=== PATIENT | female | born 1985 | race Caucasian/White ===

== ENCOUNTER 2016-07-12 21:14 | Emergency (ER) | payer OTHER ==
[~2016-07-12] VITALS: Ht 162.6 cm; Wt 102.1 kg
[2016-07-12 21:28] VITALS: TEMP 37.5; Ht 162.6 cm; Wt 102.1 kg
[2016-07-12] MEDS ORDERED: ACET500C14 PO (21:47)
[2016-07-12] MEDS ORDERED: NEOM1SOL7 OTR (21:47)
[2016-07-12] MEDS ORDERED: CIPR-255 PO (21:47)
[2016-07-12] MEDS ORDERED: NAPR-1169 PO (21:47)
[2016-07-12] MEDS ORDERED: NORCO 5/325MG HOME PACK PO ONE (22:15)
[2016-07-12 22:25] VITALS: BP 145/86; PULSE 81; O2SAT 100
--- NOTE | 2016-07-13 00:04 | EMERGENCY ROOM VISIT NOTE ---
History First contact with patient: 21:33 Chief Complaint: EAR PAIN Stated Complaint: R EAR SWELLING AND PAIN History of Present Illness The patient is a 30 year old female who presents to the Emergency Room with complaints of right ear pain that she rates a 9/10 for the past one day. The patient has been at a local urgent care clinics twice over the past one day for evaluation of this. She states that she was diagnosed with an ear infection and started on neomycin and polymyxin hydrocortisone drops for otitis externa. The patient was referred to ENT and has an appointment scheduled in about 3 weeks. The patient is also on oral Cipro for this. She states that she went back to their clinic tonight after the initial visit, and she was referred to the ER because her pain continues. The patient does not have fever or chills. No chest pain or shortness of breath. Review of Systems More than 10 systems were reviewed and otherwise negative with the exception of history of present illness. Past Medical/Surgical History No chronic medical disease Family History No pertinent family history Social History Smoking Status: Never Smoker Housing Status: lives with family Current/Historical Medications Scheduled Ciprofloxacin Hcl (Cipro), 500 MG PO Q12 Myjtaycc-Vujwxwodp-Jo (Otic) (Neomycin/Polymyxin/Hc), 4 DROPS OTR TID Scheduled PRN Acetaminophen (Extra Strength Acetaminop), 1,000 MG PO UD PRN for Pain or Fever Naproxen (Naprosyn), 500 MG PO BID PRN for Pain Allergies Coded Allergies: Amoxicillin (Verified Allergy, Intermediate, Hives, 07/12/16) Penicillins (Verified Allergy, Intermediate, Hives, 07/12/16) Sulfamethoxazole w/Trimethoprim (Verified Allergy, Intermediate, Hives, ) Physical Exam Vital Signs Date Time Temp Pulse Resp B/P Pulse Ox O2 Delivery O2 Flow Rate FiO2 07/12/16 22:25 81 16 145/86 100 07/12/16 21:28 37.5 92 18 169/93 99 Room Air Pain Rating (0-10): 3.0 Physical Exam VITALS: Vitals are noted on the nurse's note and reviewed by myself. Vital signs stable. GENERAL: Well-developed, well-nourished, white female who appears quite uncomfortable on presentation. She has cooperative HEAD: Normocephalic atraumatic. EARS: Left external canal and ear appear normal. The right external ear is normal, however the right canal is edematous with white drainage and discharge consistent with otitis externa. No mastoid tenderness. EYES: Pupils equal round and reactive to light and accommodation. Conjunctivae without injection, sclerae without icterus. Extraocular movements intact. NOSE: Patent, turbinates without inflammation or discharge. MOUTH: Mucous membranes moist. Tonsils are not enlarged. Pharynx without erythema, blood, or exudate. Uvula midline. Airway patent. NECK: Supple without nuchal rigidity. No lymphadenopathy. No thyromegaly. Cervical spine is nontender. HEART: Regular rate and rhythm without murmurs gallops or rubs. LUNGS: Clear to auscultation bilaterally without wheezes, rales or rhonchi. No retractions or accessory muscle use. Medical Decision & Procedures Medications Administered Medications (Trade) Dose Ordered Sig/Will Route Start Time Stop Time Status Last Admin Dose Admin Acetaminophen/ Hydrocodone Bitart (Linn 5/325mg Home Pack) 1 homepack UD ONCE PO 07/12/16 22:15 07/12/16 22:16 DC 07/12/16 22:15 1 HOMEPACK ED Course Physical exam and history were performed. Nursing notes and EMR were reviewed. Patient appears to have acute otitis externa for the past one day. On examination the patient does not have an ear wick in the ear. I asked the patient about this, and she states that urgent care does not have these, and one was not placed. The patient certainly needs an ear wick in order to be treated appropriately for this condition. Ear wick was placed into the right ear without difficulty, and ear drops were administered from her previous prescription. Overall the patient does appear stable for discharge. She has not upcoming appointment with ENT, and now with an ear wick she should have slow and steady improvement of her symptoms. I will give her a home pack of Vicodin to help with discomfort tonight. The patient was certainly invited back to the ER with any new, worsening, or concerning symptoms. She was pleased with this plan and rated her discomfort a 3/10 at the time of departure. The chart was completed utilizing [employer]ognition Software. Grammatical errors, random word insertions, pronoun errors, and incomplete sentences are an occasional consequence of this system due to software limitations, ambient noise, and hardware issues. Any formal questions or concerns about the content, text, or information contained within the body of this dictation should be directly addressed to the provider for clarification. . Medical Decision Differential diagnosis: Etiologies such as viral syndrome, otitis, pharyngitis, pneumonia, meningitis, urinary tract infection, sepsis, bacteremia, intussusception, as well as others were entertained. Impression Primary Impression: Right otitis externa Departure Information Dispostion Home / Self-Care Condition GOOD Forms HOME CARE DOCUMENTATION FORM, IMPORTANT VISIT INFORMATION Patient Instructions My [facility] Additional Instructions You were seen and evaluated today on an emergency basis only. This is not a substitute for, or an effort to provide, complete comprehensive medical care. It is not possible to recognize and treat all injuries or illnesses in a single emergency department visit. For this reason it is recommended that you followup with ENT as scheduled for ongoing care and evaluation. Continue your medications as previously prescribed. Linn (hydrocodone/acetaminophen) 5/325 mg (homepack) every 6 hours as needed for worsening breakthrough pain. Do not drink or drive on Linn. This medication will likely make you tired. Do not take Linn and Tylenol at the same time as both contain acetaminophen. Linn may cause constipation. You may wish to take an vhue-czi-shclyai stool softener like Colace if this occurs. You are welcome to return to the emergency department anytime with new, worsening, or concerning symptoms.
== END 2016-07-12 22:26 | disposition home or self-care (01) ==
LOC: C.EDB 21:17 → C.EDD 22:26
DX: H60.91 Unspecified otitis externa, right ear (principal)

== ENCOUNTER 2023-05-20 07:34 | Inpatient (IN) ==
[2023-05-20 08:49] LABS: Creatinine Urine Random 91.3 mg/dl; Protein Creatinine Ratio Urine 0.2 (0-0.2); Total Protein Urine Random 20.1 mg/dl (0-11.9)
[2023-05-20] MEDS ORDERED: SODIUM CHLORIDE 0.9% 250 ML IV PRN (08:49)
[2023-05-20 09:29] LABS: Hemoglobin 11.8 g/dl (12.0-16.0); Mean Corpuscular Hemoglobin 30.1 pg (25.0-34.0); Mean Corpuscular Hgb Conc 33.7 g/dL (32.0-36.0); Mean Corpuscular Volume 89.3 fL (80.0-100.0); Mean Platelet Volume 9.5 fL (9.4-12.4); Platelet Count 342 K/uL (130-400); RDW Coefficient of Variation 15.2 % (11.5-14.5); RDW Standard Deviation 48.7 fL (36.4-46.3); Red Blood Count 3.92 M/uL (4.20-5.40); White Blood Count 10.56 K/ul (4.8-10.8)
[2023-05-20 09:40] LABS: Albumin Globulin Ratio 0.9 (0.9-2); Albumin Level 3.2 gm/dl (3.4-5.0); BUN Creatinine Ratio 27.1 (10-20); Bilirubin,Total 0.3 mg/dl (0.2-1.0); Calcium 8.5 mg/dl (8.6-10.3); Creatinine Clr Calc Pharmacy 229.9 ml/min; Est GFR (African American) 143.2 ml/min; Est GFR (Non-African American) 123.6 ml/min; Globulin 3.6 gm/dl (2.5-4.0); Total Protein 6.8 gm/dl (6.0-8.3)
[2023-05-20 09:51] LABS: INR 0.9 (0.9-1.1); Partial Thromboplastin Ratio 0.9; Partial Thromboplastin Time 26 Seconds (21-31); Prothrombin Time 9.8 Seconds (9.0-12.0)
--- OUTSIDE RECORDS SUMMARY | 2023-05-20 10:58 | External Medical Summary | Summary of Care ---
Author Name Unknown Organization [facility] Address [address] [place] [address] Phone [phone] Care Team Providers Care Server Programmer Name Role Phone Kasia Jara MD Primary Care Provider [phone] Encounter Details Date Type Department Care Team (Late st Contact Info) Description 05/18/2023 Orders Only Motorcycle Police Officer Obstetrics Maternal Medicine, [place] [address] [facility] [address] [place] [address] Dee Dee Albarran CRNP [address] [facility] [address] [place] [address] Insulin controlled gestational diabetes mellitus (GDM) during , antepartum Allergies Active Allergy Reactions Criticality Noted Date Comments Amoxicillin 07/08/2014 hives Naltrexone Nausea/vomiting 05/03/2019 Penicillins 07/08/2014 Sulfamethoxazole-Trimethoprim 2014 hives documented as of this encounter (statuses as of 05/18/2023) Medications Medication Sig Dispensed Refills Start Date End Date Status Tylenol 325 MG Oral Capsule (Acetaminophen) Take by mouth as needed. 0 Active One-A-Day Womens 28-0.8 & 440 MG Oral Take 1 Tablet by mouth in the morning. 0 Active Folic Acid 400 MCG Oral Tablet Take 1 Tablet by mouth in the morning. 0 Active DHA 200 MG Oral Capsule (docosahexaenoic Acid) Take 1 Capsule by mouth in the morning. 0 Active Calcium Carbonate Antacid 500 MG Oral Tablet Chewable Take 1 Tablet by mouth in the morning. 0 Active OneTouch Verio Flex System w/Device KitIndications:Ges tational diabetes mellitus (GDM), antepartum, gestational diabetes method of control unspecified Use to test blood sugars 4 times daily (fasting, 1 hour after breakfast, lunch, and dinner) 1 Kit 0 12/02/2022 Active TradierTouch Verio In Vitro Strip (Glucose Blood)Indications: Gestational diabetes mellitus (GDM), antepartum, gestational diabetes method of control unspecified Use to test blood sugars 4 times daily (fasting, 1 hour after breakfast, lunch, and dinner) 125 Strip 6 12/02/2022 Active TradierTouch Delica Lancets 30GIndications:Ges tational diabetes mellitus (GDM), antepartum, gestational diabetes method of control unspecified Use to test blood sugars 4 times daily (fasting, 1 hour after breakfast, lunch, and dinner) 200 Each 6 12/02/2022 Active Aspirin 81 MG Oral Tablet Delayed Release Take 1 Tablet by mouth in the morning. 100 Tablet 3 12/23/2022 Active Iron-Vitamin C 65-125 MG Oral Tablet (Vitron C)Indications:Ante anemia complicating Take 1 Tablet by mouth in the morning. 30 Tablet 3 02/25/2023 Active BD Pen Needle Mini U/F 31G X 5 MM (Insulin Pen Needle)Indications :Insulin controlled gestational diabetes mellitus (GDM) in second trimester,Supervis ion of high risk in second trimester Use to inject insulin twice daily. 200 Each 3 04/05/2023 Active Sertraline HCl 50 MG Oral Tablet (Zoloft)Indication s:SHIELA (generalized anxiety disorder),Binge eating disorder Take 1 Tablet by mouth in the morning. 30 Tablet 2 04/22/2023 Active Labetalol HCl 200 MG Oral Tablet (Normodyne)Indicat ions:Chronic hypertension in Take 1 Tablet by mouth in the morning and 1 Tablet at noon and 1 Tablet in the evening. 90 Tablet 2 04/26/2023 Active Toujeo SoloStar 300 UNIT/ML Subcutaneous Solution Pen-injector (Insulin Glargine (1 Unit Dial))Indications: Insulin controlled gestational diabetes mellitus (GDM) during , antepartum Inject 85 Units under the skin at bedtime. 7.5 mL 2 05/18/2023 Active Toujeo SoloStar 300 UNIT/ML Subcutaneous Solution Pen-injector (Insulin Glargine (1 Unit Dial))Indications: Insulin controlled gestational diabetes mellitus (GDM) during , antepartum Inject 80 Units under the skin at bedtime. 7.5 mL 2 05/11/2023 05/18/2023 Discontinued (Refill) documented as of this encounter (statuses as of 05/18/2023) Active Problems Problem Noted Date Diagnosed Date Excessive growth affec ting management of in third trimester 04/01/2023 Overview: Large AC noted at >99% with overall EFW of 2123 g at 98% - 30 wks Last Assessment & Plan: CONSIDERATIONS: Reviewed that weight greater than 90%ile is considered "large for gestational age" (LGA). Discussed associated risks (e.g., difficult labor progress or delivery, hemorrhage, shoulder dystocia). LGA may be related to constitutional factors (e.g., male gender, ethnicity), environmental factors (maternal diabetes/obesity/weight gain), or genetic conditions. Discussed the limitations of ultrasound in predicting weight, especially at later gestational ages. For a fetus estimated as greater than 4500 gm, this error may be as high as 33-44%. RECOMMENDATIONS: Recommend repeating ultrasound for growth at 37-38 weeks gestation. Recommend delivery without trial of labor for estimated weight greater than 5000 gm (in the non-diabetic woman) OR greater than 4500 gm (in the diabetic woman). Concern for macrosomia/LGA is NOT an indication for induction of labor. The patient should discuss further management and delivery plan with her primary OB provider. Chronic hypertension in 12/23/2022 Overview: Diagnosed with chronic hypertension in at OB office yesterday, 12/23/2022. BP Readings from Last 5 Encounters: 12/23/22 140/76 11/24/22 138/78 10/30/22 135/73 10/27/22 140/80 07/06/22 142/82 Baseline Preeclampsia Labs Lab Results Component Value Date/Time PLATELET AUTO - [facility] 419 (H) 10/27/2022 03:00 PM CREATININE - [facility] 0.6 10/27/2022 03:00 PM AST - [facility] 11 10/27/2022 03:00 PM ALT - [facility] 11 10/27/2022 03:00 PM PROTEIN/ CREATININE RATIO, URINE - [facility] 63 11/24/2022 12:15 PM Continue bASA therapy. Encouraged home BP monitoring. Reviewed BP parameters, s/s preeclampsia, and when to call. Initiate or adjust antihypertensive medication if BP is 140/90 or greater on at least two occasions at least 4 hours apart and refer patient back to Maternal- Medicine. Titrate medication to maintain blood pressure in a goal range 120-140/70-90. Labetalol and Nifedipine are considered safe for use in and these agents are considered as first-line therapy when indicated. Last Assessment & Plan: She monitors her BP's at home with overall normal values in the 130's systolic and 70's diastolic. Her values on file in Epic are mildly elevated, including today (reports being anxious about the ultrasound as well). We reviewed goal values in the 120-130's/80's and discussed medication titration as needed. I encouraged continued home monitoring and suggested that she bring her cuff to an office visit to compare readings. Depression complicating , antepartum Overview: Anxiety/depression managed with Zoloft No currently in therapy Reports a stable mood in . Denies any suicidal or homicidal ideation. Reports she has a good support system at home. Last Assessment & Plan: CONSIDERATIONS: Untreated maternal anxiety and depression may be associated with an increased risk of multiple poor obstetrical outcomes including miscarriages, low weight, and delivery. Women with a history of anxiety or depression are at risk for recurrence both during and/or the period. Studies of first-trimester SSRI exposure do not demonstrate consistent data to support an increased risk for structural malformations. Anti-anxiety or depression medications have been associated with transient effects (withdrawal syndrome). RECOMMENDATIONS: Mental illness can and should be treated during when the benefits of treatment outweigh potential risks. Referral to behavioral health services as clinically indicated. Insulin controlled gestation al diabetes mellitus (GDM) during , antepartum 12/02/2022 Overview: Diagnosed at 13 weeks Nutrition consult ordered Lab Results Component Value Date/Time 50-G GESTATIONAL GLUCOSE, 1 HOUR - [facility] 182 (H) 11/24/2022 01:39 PM 100-G GESTATIONAL GLUCOSE, 1 HOUR - [facility] 199 (H) 12/02/2022 08:22 AM 100-G GESTATIONAL GLUCOSE, 2 HOUR - [facility] 177 (H) 12/02/2022 09:21 AM 100-G GESTATIONAL GLUCOSE, 3 HOUR - [facility] 76 12/02/2022 10:21 AM 100-G GESTATIONAL GLUCOSE, FASTING - [facility] 101 (H) 12/02/2022 07:15 AM 12/02/22 hemoglobin A1c ordered 12/07/22: MFM ADAPT consult complete. Enrolled in Current [employer]. Instructions provided to report blood sugars each week for MFM review. Reports she is having a bedtime snack but fasting 10-12 hours at night 12/14/22- elevated FBS - sent msg for ADAPT appt 12/21/22-- patient follow up scheduled for 12/24 for elevated FBS 12/24/22: ADAPT visit complete; elevated FBS; ordered Lantus 10 units at bedtime; encouraged Nutrition referral; reviewed A1C result of 6.1% 12/30/22: patient reports will be starting insulin tonight 01/05/23--FBS are elevated- sent msg to ENGINEERING ASSISTANT 01/05/23: RPM elevated FBS; increase to Lantus 15 units at bedtime 01/11/23-- FBS elevated- msg sent to ENGINEERING ASSISTANT 01/11/23: RPM - elevated FBS - increase to Lantus 20 units at bedtime 01/21/23--FBS elevated- msg sent to ENGINEERING ASSISTANT 01/21/23: RPM - FBS elevated (100-120s); increase to Lantus 30 units at bedtime 01/25/23- FBS elevated msg sent to ENGINEERING ASSISTANT 01/25/23: RPM - elevated FBS; increase to Lantus 35 units at bedtime 02/01/23- FBS elevated msg sent to ENGINEERING ASSISTANT 02/01/23: RPM reviewed; FBS elevated. Increase to Lantus 45 units at bedtime. 02/04/23: RPM reviewed. Elevated FBS. Increase Lantus to 50 units at bedtime --KW 02/08/23: RPM Stable overall; FBS improving since last dose increase; few PP elevations 02/15/23- FBS elevated- msg sent to ENGINEERING ASSISTANT 02/15/23: RPM reviewed. Increase Lantus to 55 units at bedtime. 02/22/23- FBS elevated msg sent to ENGINEERING ASSISTANT 02/22/23: RPM reviewed. Increase Lantus to 60 units at bedtime. 03/01/23- msg sent to ENGINEERING ASSISTANT- elevations in FBS and needs insulin pen refill 03/01/23: RPM reviewed. Increase Lantus to 65 units at bedtime. New prescription sent. 03/08/23: RPM reviewed. Elevated FBS. Increase to Lantus 75 units at bedtime 03/15/23- FBS past two days were normal. Will review again next week since her insulin was just increased on 03/0803/23/23- FBS elevated- msg sent to ENGINEERING ASSISTANT 03/23/23: RPM increase to Lantus 80 units at bedtime 03/29/23- BS elevated msg sent to ENGINEERING ASSISTANT 04/05/23- elevated sugars msg sent to ENGINEERING ASSISTANT 04/05/23: RPM reviewed; elevated FBS and some PP; add Lantus 10 units at breakfast and continue Lantus 80 units at bedtime; recommend F/U ADAPT to discuss transitioning to Toujeo 04/06/23: ADAPT FU complete; Continue Lantus 10 units at breakfast and continue Lantus 80 units at bedtime (divide bedtime dose into two injections) Once Lantus pens are finished. Start Toujeo 60 units at bedtime. 04/12/23- FBS elevated- msg sent to ENGINEERING ASSISTANT 04/12/23: RPM elevated fasting; messaged sent to confirm she started the Toujeo or still using Lantus to finish the pens she had. Needs dose adjustment. 04/19/23: RPM Reports she still has 6 Lantus pens left; Increase to Lantus 20 units at breakfast and continue Lantus 80 units at bedtime (divide bedtime dose into two injections) Once Lantus pens are finished. Start Toujeo 60 units at bedtime. 04/26/23- elevated fastings; going to start Toujeo 60 units at bedtime today as she was finishing up her last few Lantus pens. Will monitor and adjust if need be. 04/29/23: Per MFM note, Toujeo increased to [address] Alonso ---KW 05/04/23: RPM reviewed; FBS remains elevated. Increase Toujeo to 74 units at bedtime --KW 05/11/23- FBS elevated msg sent to ENGINEERING ASSISTANT 05/11/23: RPM reviewed; elevated FBS and PP; increase to Toujeo 80 units at bedtime 05/18/23- elevated sugars--increase to Toujeo 85 units at bedtime Last Assessment & Plan: Sugars reviewed and still adjusting insulin due to elevated FBS, mainly 110's range. Increased Toujeo to 70 units; likely will require more. Postprandial sugars are at the higher end of normal; may improve with increased long-acting insulin/improved FBS control. Low threshold to begin short-acting insulin. Supervision of high-risk , unspecified trimester 11/24/2022 Obesity in , antepartum 10/27/2022 Overview: Pregravid BMI 51.61 Lab Results Component Value Date/Time 50-G GESTATIONAL GLUCOSE, 1 HOUR - [facility] 182 (H) 11/24/2022 01:39 PM Baseline Preeclampsia Labs Lab Results Component Value Date/Time PLATELET AUTO - [facility] 419 (H) 10/27/2022 03:00 PM CREATININE - [facility] 0.6 10/27/2022 03:00 PM AST - [facility] 11 10/27/2022 03:00 PM ALT - [facility] 11 10/27/2022 03:00 PM PROTEIN/ CREATININE RATIO, URINE - [facility] 63 11/24/2022 12:15 PM Denies chronic hypertension BP Readings from Last 3 Encounters: 11/24/22 138/78 10/30/22 135/73 10/27/22 140/80 Encouarged aspirin 81 mg therapy Last Assessment & Plan: I reviewed the ultrasound with her. The anatomy that was visualized appears unremarkable and the overall estimated weight is consistent with the 81st percentile for the gestational age. The fetus is in the breech presentation and the amniotic fluid volume is normal. The patient had questions regarding her labs from February the . I did review her elevated platelet count and her white blood cell count. I told her that the elevated platelet count could be due to the . Also, the white blood cell count can also be elevated in . Her platelet count was 269252 on November 01. Also, on July 10, her platelets were elevated at 425,000 hundred twenty five thousand. It does appear as though she has a history of slightly elevated platelets. She did have an elevated total iron-binding capacity and her hemoglobin was slightly low at 11.8. AMA (advanced maternal age) multigravida 35+ Overview: 11/24/22 low risk Qnatal Last Assessment & Plan: She presents for a anatomy survey secondary to AMA, class III obesity, GDMA2, and CHTN on labetalol. Labs reviewed: -- cffDNA low risk for aneuploidy -- msAFP low risk for ONTD -- A1c 6.1% We reviewed the results of today's ultrasound. The estimated weight is appropriate for gestational age (measure about 1 week ahead). The visualized anatomy is unremarkable in appearance. Some structures are suboptimally imaged secondary to position and poor acoustic windows. The amniotic fluid amount appears normal. We discussed that ultrasound is not able to identify all anomalies, but it is reassuring that no anomalies were seen today. 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 Binge eating disorder 09/09/2020 Premenstrual dysphoric disorder 09/09/2020 SHIELA (generalized anxiety disorder) 03/12/2020 BMI 40.0-44.9, adult 10/22/2017 Estimated Date of Delivery Comme nts Yes 06/06/2023 Based on last me nstrual period of 08/30/2022 (Exact Date) documented as of this encounter (statuses as of 05/18/2023) Resolved Problems Problem Noted Date Diagnosed Date Resolved Date Impaired glucose in , antepartum 11/24/2022 12/02/2022 Overview: Elevated early 1 hr GTT documented as of this encounter (statuses as of 05/18/2023) Immunizations Name Administration Dates Next Due COVID-19 mRNA, LNP-s, No Pre serve, 2-Dose Series (Moderna) 07/10/2020,06/07/2020 COVID-19, mRNA, LNP-s, PF, B ooster, 100mcg/0.5mg (Moderna) 03/18/2021 RSV Vac., Bivalent, Perfusio n F, Pf,0.5 Ml (Abrysvo) 05/11/2023 Seasonal Influenza, PF, 6 M & above, IM , (FluLaval or Fluzone) 01/22/2023,03/17/2022,03/27/2021 Seasonal Influenza, Quadriva lent, No Preserve, IM 02/06/2020 TDAP (age 10 and older)(Boostrix) 03/11/2023, documented as of this encounter Social History Tobacco Use Types Packs/Day Years Used Date Smoking Tobacco: Never Smokeless Tobacco: Never Alcohol Use Standard Drinks/Week Comments Not Currently 0 (1 standard drink = 0.6 oz pur e alcohol) 2-4 drinks per month AUDIT-C Answer Date Recorded Q1: How often do you have a drink containing alc ohol? 2-4 times a month 04/07/2021 Q2: How many drinks containi ng alcohol do you have on a typical day when you are drinking? 1 or 2 04/07/2021 Q3: How often do you have si x or more drinks on one occasion? Never 04/07/2021 PHQ-2 Answer Date Recorded PHQ Adult Total Score 10 05/26/2021 Hunger Vital Sign Answer Date Recorded Within the past 12 months, y ou worried that your food would run out before you got the money to buy more. Never true 10/28/19 23 Within the past 12 months, t he food you bought just didn't last and you didn't have money to get more. Never true 10/27/2022 [place] Depression Scale Answer Date Recorded [place] Depression Scale Total 5 03/25/2023 The thought of harming myself has occurred to me . Never 03/25/2023 Estimated Date of Delivery Comme nts Yes 06/06/2023 Based on last me nstrual period of 08/30/2022 (Exact Date) Sex and Gender Information Value Date Recorded Sex Assigned at Female 02/06/2020 12:39 PM EDT Gender Identity Female 02/06/2020 12:39 PM EDT Sexual Orientation Straight 02/06/2020 12 :39 PM EDT Job Start Date Occupation Industry Not on file Not on file Not on file documented as of this encounter Plan of Treatment Upcoming Encounters Date Type Department Care Team (Late st Contact Info) Description 05/21/2023 10:15 AM EST Office Visit Gynecology/Obstetrics [facility] [address] [place] [address] Lula Pandey CRNP [address] [place] [address] [facility] Estephania Choil [place] [address] 05/24/2023 11:15 AM EST Office Visit Gynecology/Obstetrics [facility] [address] [place] [address] Emy Adams, [address] [address] Robyn [facility] Stress Tests Estephania Lujangail [place] [address] 05/27/2023 2:30 PM EST Imaging [facility], Estephania Lujangail [place] [phone] Health Maintenance Due Date Last Done Comments Hepatitis B (1 of 3 - 3-dose series) 1985 Depression, Most Recent Score >= 10 (will fire each visit until score < 10) 05/27/2021 05/26/2021 COVID-19 Vaccine ( season) 2023 03/18/2021, 07/10/2020, 06/07/2020 GFR 02/20/2024 02/19/2023, 10/15, 07/10/2022, Additional history exists Pap Smear 10/27/2025 10/27/2022, 12/2017, 10/22/2017 Diabetes Screening 12/23/2025 12/23/2022, 0 07/10/2022, 08/28/2020 Cervical Cancer Screening 10/28/2027 HPV/Co-Test 10/28/2027 10/27/2022 DTaP,Tdap,and Td Vaccines (3 - Td or Tdap) 03/11/2033 03/11/2023, 08/28/2020 Influenza Vaccine (FLU shot) Completed 12/2022, 03/17/2022, 03/27/2021, Additional history exists GARDASIL-HPV IMMUNIZATION SERIES Aged Out No longer eligible based on patient's age to complete this topic MENINGOCOCCAL (MENACTRA/MENVEO) Aged Out No longer eligible based on patient's age to complete this topic Pneumococcal Vaccine: Pediatrics (0 to 5 Years) and At-Risk Patients (6 to 64 Years) Aged Out No longer eligible based on patient's age to complete this topic documented as of this encounter Medical Devices Not on filedocumented as of this encounter Visit Diagnoses Diagnosis Insulin controlled gestational diabetes mellitus (GDM) during , antepartum documented in this encounter Care Teams Server Programmer Relationship Specialty Start Date End Date Kasia Jara MD [address] [place] [address], [place] [address] PCP - General Internal Medicine 03/01/20 documented as of this encounter
--- OUTSIDE RECORDS SUMMARY | 2023-05-20 10:58 | External Medical Summary | Summary of Care ---
Author Name Unknown Organization [facility] Address [address] [facility] [address] Phone [phone] Care Team Providers Care Linux Network Engineer Name Role Phone Kasia Jara MD Primary Care Provider [phone] Reason for Visit * Reason Onset Date Comments Test Results 05/19/2023 Encounter Details Date Type Department Care Team (Late st Contact Info) Description 05/19/2023 Telephone Gynecology/Obstetrics [facility] [address] [place] [address] Lula Pandey CRNP [address] [facility] [place] [address] Test Results Allergies Active Allergy Reactions Criticality Noted Date Comments Amoxicillin 07/08/2014 hives Naltrexone Nausea/vomiting 05/03/2019 Penicillins 07/08/2014 Sulfamethoxazole-Trimethoprim 2014 hives documented as of this encounter (statuses as of 05/19/2023) Medications Medication Sig Dispensed Refills Start Date [...] by mouth in the morning. 0 Active Kluster Flex System w/Device KitIndications:Gestat ional diabetes mellitus (GDM), antepartum, gestational diabetes method of control unspecified Use to test blood sugars 4 times daily (fasting, 1 hour after breakfast, lunch, and dinner) 1 Kit 0 12/02/2022 Active EasyRunTouch Verio In Vitro Strip (Glucose Blood)Indications:Ges tational diabetes mellitus (GDM), antepartum, gestational diabetes method of control unspecified Use to test blood sugars 4 times daily (fasting, 1 hour after breakfast, lunch, and dinner) 125 Strip 6 12/02/2022 Active OneTouch Delica Lancets 30GIndications:Gestat ional diabetes mellitus (GDM), antepartum, gestational diabetes method of control unspecified Use to test blood sugars 4 times daily (fasting, 1 hour after breakfast, lunch, and dinner) 200 Each 6 12/02/2022 Active Aspirin 81 MG Oral Tablet Delayed Release Take 1 Tablet by mouth in the morning. 100 Tablet 3 12/23/2022 Active Iron-Vitamin C 65-125 MG Oral Tablet (Vitron C)Indications:Antepar bonifacio anemia complicating Take 1 Tablet by mouth in the morning. 30 Tablet 3 02/25/2023 Active BD Pen Needle Mini U/F 31G X 5 MM (Insulin Pen Needle)Indications:In sulin controlled gestational diabetes mellitus (GDM) in second trimester,Supervision of high risk in second trimester Use to inject insulin twice daily. 200 Each 3 04/05/2023 Active Sertraline HCl 50 MG Oral Tablet (Zoloft)Indications:G AD (generalized anxiety disorder),Binge eating disorder Take 1 Tablet by mouth in the morning. 30 Tablet 2 04/22/2023 Active Labetalol HCl 200 MG Oral Tablet (Normodyne)Indication s:Chronic hypertension in Take 1 Tablet by mouth in the morning and 1 Tablet at noon and 1 Tablet in the evening. 90 Tablet 2 04/26/2023 Active Toujeo SoloStar 300 UNIT/ML Subcutaneous Solution Pen-injector (Insulin Glargine (1 Unit Dial))Indications:Ins ulin controlled gestational diabetes mellitus (GDM) during , antepartum Inject 85 Units under the skin at bedtime. 7.5 mL 2 05/18/2023 Active documented as of this encounter (statuses as of 05/19/2023) Active Problems Problem Noted Date Diagnosed Date Chronic hypertension in 05/19/2023 Excessive growth affec ting management of in [...] delivery plan with her primary OB provider. Preeclampsia complicating hypertension Overview: Diagnosed with chronic hypertension in at [...] MFM ADAPT consult complete. Enrolled in [employer]. Instructions provided to report blood sugars each [...] tonight 01/05/23--FBS are elevated- sent msg to MULTIMEDIA TECHNICIAN 01/05/23: RPM elevated FBS; increase to Lantus 15 units at bedtime 01/11/23-- FBS elevated- msg sent to MULTIMEDIA TECHNICIAN 01/11/23: RPM - elevated FBS - increase to Lantus 20 units at bedtime 01/21/23--FBS elevated- msg sent to MULTIMEDIA TECHNICIAN 01/21/23: RPM - FBS elevated (100-120s); increase to Lantus 30 units at bedtime 01/25/23- FBS elevated msg sent to MULTIMEDIA TECHNICIAN 01/25/23: RPM - elevated FBS; increase to Lantus 35 units at bedtime 02/01/23- FBS elevated msg sent to MULTIMEDIA TECHNICIAN 02/01/23: RPM reviewed; FBS elevated. Increase to Lantus 45 units at bedtime. 02/04/23: RPM reviewed. Elevated FBS. Increase Lantus to 50 units at bedtime --KW 02/08/23: RPM Stable overall; FBS improving since last dose increase; few PP elevations 02/15/23- FBS elevated- msg sent to MULTIMEDIA TECHNICIAN 02/15/23: RPM reviewed. Increase Lantus to 55 units at bedtime. 02/22/23- FBS elevated msg sent to MULTIMEDIA TECHNICIAN 02/22/23: RPM reviewed. Increase Lantus to 60 units at bedtime. 03/01/23- msg sent to MULTIMEDIA TECHNICIAN- elevations in FBS and needs insulin pen refill 03/01/23: RPM reviewed. Increase Lantus to 65 units at bedtime. New prescription sent. 03/08/23: RPM reviewed. Elevated FBS. Increase to Lantus 75 units at bedtime 03/15/23- FBS past two days were normal. Will review again next week since her insulin was just increased on 03/0803/23/23- FBS elevated- msg sent to MULTIMEDIA TECHNICIAN 03/23/23: RPM increase to Lantus 80 units at bedtime 03/29/23- BS elevated msg sent to MULTIMEDIA TECHNICIAN 04/05/23- elevated sugars msg sent to MULTIMEDIA TECHNICIAN 04/05/23: RPM reviewed; elevated FBS and some [...] bedtime. 04/12/23- FBS elevated- msg sent to MULTIMEDIA TECHNICIAN 04/12/23: RPM elevated fasting; messaged sent to [...] --KW 05/11/23- FBS elevated msg sent to MULTIMEDIA TECHNICIAN 05/11/23: RPM reviewed; elevated FBS and PP; [...] patient had questions regarding her labs from February. I did review her elevated platelet count and her white blood cell count. I told her that the elevated platelet count could be due to the . Also, the white blood cell count can also be elevated in . Her platelet count was [id number] on November 01. Also, on July 10, [...] as of this encounter (statuses as of 05/19/2023) Resolved Problems Problem Noted Date Diagnosed Date Resolved Date Impaired glucose in , antepartum 11/24/2022 12/02/2022 Overview: Elevated early 1 hr GTT documented as of this encounter (statuses as of 05/19/2023) Immunizations Name Administration Dates Next Due COVID-19 [...] money to get more. Never true 10/27/2022 [place] Depression Scale Answer Date Recorded [place] Depression Scale Total 5 03/25/2023 The thought [...] on file documented as of this encounter Miscellaneous Notes * Telephone Encounter - Jen Alexander LPN - 05/19/2023 8:35 AM EST IOL moved to 05/20. Rena notified to let mergers and acquisitions banker provider know. * Telephone Encounter - Lula Pandey CRNP - 05/19/2023 8:06 AM EST Protein creatinine ratio is elevated; with this and swelling, diagnose preE. Spoke w/Dr Alonso in [facility], can deliver after 37 weeks with this change. I called pt to discuss this, no answer; left VM & sent portal message as well. Currently scheduled for 05/31, please call [facility] for earlier induction (currently 37w 3d) and let pt know. JHONATAN Brown documented in this encounter Plan of Treatment Upcoming Encounters Date Type Department Care Team (Late st Contact Info) Description 05/21/2023 10:15 AM EST Office Visit Gynecology/Obstetrics [facility] [address] [place] [address] Brittanie Fitzgerald PA-C [address] [place] [address] [place], Non Stress Tests [facility] [address] [place] [address] 05/24/2023 11:15 AM EST Office Visit Gynecology/Obstetrics [facility] [address] [place] [address] Emy Adams [address] [place] [address] [place], Non Stress Tests Este[facility]ia [address] [place] [address] 05/27/2023 2:30 PM EST Imaging Maternal Medicine Imaging, [facility] [address] [place] [address] Health Maintenance Due Date Last Done Comments [...] as of this encounter Visit Diagnoses Diagnosis Preeclampsia complicating hypertension- Primary Pre-eclampsia or eclampsia superimposed on pre-existing hypertension, complicating , childbirth, or the puerperium, unspecified as to episode of care documented in this encounter Care Teams Linux Network Engineer Relationship Specialty Start Date End Date Kasia Jara MD [address] [facility] [place] [address] PCP - General Internal Medicine 03/01/20 documented as of this encounter
--- OUTSIDE RECORDS SUMMARY | 2023-05-20 10:58 | External Medical Summary | Summary of Care ---
Author Name Unknown Organization [facility] Address [address] [place] [facility] [place] [place] [address] Phone [phone] Care Team Providers Care Head Baggage Porter Name Role Phone Kasia Jara MD Primary Care Provider [phone] Reason for Visit * Reason Onset Date Comments Test Results 05/19/2023 Encounter Details Date Type Department Care Team (Late st Contact Info) Description 05/19/2023 Telephone Gynecology/Obstetrics [facility] [address] [place] [address] Lula Pandey CRNP [address] [place] [address] Test Results Allergies Active Allergy Reactions Criticality [...] by mouth in the morning. 0 Active Fubles Flex System w/Device KitIndications:Gestat ional diabetes mellitus (GDM), antepartum, gestational diabetes method of control unspecified Use to test blood sugars 4 times daily (fasting, 1 hour after breakfast, lunch, and dinner) 1 Kit 0 12/02/2022 Active MeggatelTouch Verio In Vitro Strip (Glucose Blood)Indications:Ges tational [...] tonight 01/05/23--FBS are elevated- sent msg to DIE TRY OUT WORKER STAMPING 01/05/23: RPM elevated FBS; increase to Lantus 15 units at bedtime 01/11/23-- FBS elevated- msg sent to DIE TRY OUT WORKER STAMPING 01/11/23: RPM - elevated FBS - increase to Lantus 20 units at bedtime 01/21/23--FBS elevated- msg sent to DIE TRY OUT WORKER STAMPING 01/21/23: RPM - FBS elevated (100-120s); increase to Lantus 30 units at bedtime 01/25/23- FBS elevated msg sent to DIE TRY OUT WORKER STAMPING 01/25/23: RPM - elevated FBS; increase to Lantus 35 units at bedtime 02/01/23- FBS elevated msg sent to DIE TRY OUT WORKER STAMPING 02/01/23: RPM reviewed; FBS elevated. Increase to Lantus 45 units at bedtime. 02/04/23: RPM reviewed. Elevated FBS. Increase Lantus to 50 units at bedtime --KW 02/08/23: RPM Stable overall; FBS improving since last dose increase; few PP elevations 02/15/23- FBS elevated- msg sent to DIE TRY OUT WORKER STAMPING 02/15/23: RPM reviewed. Increase Lantus to 55 units at bedtime. 02/22/23- FBS elevated msg sent to DIE TRY OUT WORKER STAMPING 02/22/23: RPM reviewed. Increase Lantus to 60 units at bedtime. 03/01/23- msg sent to DIE TRY OUT WORKER STAMPING- elevations in FBS and needs insulin pen refill 03/01/23: RPM reviewed. Increase Lantus to 65 units at bedtime. New prescription sent. 03/08/23: RPM reviewed. Elevated FBS. Increase to Lantus 75 units at bedtime 03/15/23- FBS past two days were normal. Will review again next week since her insulin was just increased on 03/0803/23/23- FBS elevated- msg sent to DIE TRY OUT WORKER STAMPING 03/23/23: RPM increase to Lantus 80 units at bedtime 03/29/23- BS elevated msg sent to DIE TRY OUT WORKER STAMPING 04/05/23- elevated sugars msg sent to DIE TRY OUT WORKER STAMPING 04/05/23: RPM reviewed; elevated FBS and some [...] bedtime. 04/12/23- FBS elevated- msg sent to DIE TRY OUT WORKER STAMPING 04/12/23: RPM elevated fasting; messaged sent to [...] --KW 05/11/23- FBS elevated msg sent to DIE TRY OUT WORKER STAMPING 05/11/23: RPM reviewed; elevated FBS and PP; [...] elevated in . Her platelet count was [id number] on November 01. Also, on July 10, [...] money to get more. Never true 10/27/2022 [place] Depression Scale Answer Date Recorded [place] Depression Scale Total 5 03/25/2023 The thought [...] moved to 05/20. Rena notified to let operational intelligence analyst provider know. * Telephone Encounter - Lula Pandey CRNP - 05/19/2023 8:06 AM EST Protein creatinine ratio is elevated; with this and swelling, diagnose preE. Spoke w/Dr Alonso in [facility], can deliver after 37 weeks with this change. I called pt to discuss this, no answer; left VM & sent portal message as well. Currently scheduled for 05/31, please call [facility] for earlier induction (currently 37w 3d) and let pt know. JHONATAN Brown documented in this encounter Plan of Treatment Upcoming Encounters Date Type Department Care Team (Late st Contact Info) Description 05/21/2023 10:15 AM EST Office Visit Gynecology/Obstetrics [facility] [address] [place] [address] Brittanie Fitzgerald PA-C [address] [place] [address] [place], Non Stress Tests [facility] [address] [place] [address] 05/24/2023 11:15 AM EST Office Visit Gynecology/Obstetrics [facility] [address] [place] [address] Emy Adams [address] [place] [address] [place], Non Stress Tests [facility] [address] [place] [address] 05/27/2023 2:30 PM EST Imaging Maternal Medicine Imaging, [facility] [address] [place] [address] Health Maintenance [...] care documented in this encounter Care Teams Head Baggage Porter Relationship Specialty Start Date End Date Kasia Jara MD [address] [facility] [place] [address] PCP - General Internal Medicine 03/01/20 documented as of this encounter
--- OUTSIDE RECORDS SUMMARY | 2023-05-20 10:59 | External Medical Summary | Summary of Care ---
Author Name Unknown Organization [facility] Address [address] [place] [address] Phone [phone] Care Team Providers Care Junior Systems Engineer Name Role Phone Kasia Jara MD Primary Care Provider [phone] Encounter Details Date Type Department Care Team ([facility] st Contact Info) Description 05/11/2023 Orders Only Tourist Adviser [facility] [address] [place] [address] Unique Mendoza CRNP [address] [place] [address] Insulin controlled gestational diabetes mellitus (GDM) during , antepartum Allergies Active Allergy Reactions Criticality Noted Date Comments Amoxicillin 07/08/2014 hives Naltrexone Nausea/vomiting 05/03/2019 Penicillins 07/08/2014 Sulfamethoxazole-Trimethoprim 2014 hives documented as of this encounter (statuses as of 05/11/2023) Medications Medication Sig Dispensed Refills Start Date [...] and dinner) 1 Kit 0 12/02/2022 Active Spriggle KidsTouch Verio In Vitro Strip (Glucose Blood)Indications: Gestational diabetes mellitus (GDM), antepartum, gestational diabetes method of control unspecified Use to test blood sugars 4 times daily (fasting, 1 hour after breakfast, lunch, and dinner) 125 Strip 6 12/02/2022 Active Spriggle KidsTouch Delica Lancets 30GIndications:Ges tational diabetes mellitus (GDM), [...] skin at bedtime. 7.5 mL 2 05/11/2023 Active Toujeo SoloStar 300 UNIT/ML Subcutaneous Solution Pen-injector (Insulin Glargine (1 Unit Dial))Indications: Insulin controlled gestational diabetes mellitus (GDM) during , antepartum Inject 60 Units under the skin at bedtime. 7.5 mL 2 04/06/2023 05/11/2023 Discontinued (Refill) documented as of this encounter (statuses as of 05/11/2023) Active Problems Problem Noted Date Diagnosed Date [...] 12/07/22: MFM ADAPT consult complete. Enrolled in [employer]. Instructions provided to report blood sugars each [...] tonight 01/05/23--FBS are elevated- sent msg to CAGE MAKER MACHINE 01/05/23: RPM elevated FBS; increase to Lantus 15 units at bedtime 01/11/23-- FBS elevated- msg sent to CAGE MAKER MACHINE 01/11/23: RPM - elevated FBS - increase to Lantus 20 units at bedtime 01/21/23--FBS elevated- msg sent to CAGE MAKER MACHINE 01/21/23: RPM - FBS elevated (100-120s); increase to Lantus 30 units at bedtime 01/25/23- FBS elevated msg sent to CAGE MAKER MACHINE 01/25/23: RPM - elevated FBS; increase to Lantus 35 units at bedtime 02/01/23- FBS elevated msg sent to CAGE MAKER MACHINE 02/01/23: RPM reviewed; FBS elevated. Increase to Lantus 45 units at bedtime. 02/04/23: RPM reviewed. Elevated FBS. Increase Lantus to 50 units at bedtime --KW 02/08/23: RPM Stable overall; FBS improving since last dose increase; few PP elevations 02/15/23- FBS elevated- msg sent to CAGE MAKER MACHINE 02/15/23: RPM reviewed. Increase Lantus to 55 units at bedtime. 02/22/23- FBS elevated msg sent to CAGE MAKER MACHINE 02/22/23: RPM reviewed. Increase Lantus to 60 units at bedtime. 03/01/23- msg sent to CAGE MAKER MACHINE- elevations in FBS and needs insulin pen refill 03/01/23: RPM reviewed. Increase Lantus to 65 units at bedtime. New prescription sent. 03/08/23: RPM reviewed. Elevated FBS. Increase to Lantus 75 units at bedtime 03/15/23- FBS past two days were normal. Will review again next week since her insulin was just increased on 03/0803/23/23- FBS elevated- msg sent to CAGE MAKER MACHINE 03/23/23: RPM increase to Lantus 80 units at bedtime 03/29/23- BS elevated msg sent to CAGE MAKER MACHINE 04/05/23- elevated sugars msg sent to CAGE MAKER MACHINE 04/05/23: RPM reviewed; elevated FBS and some [...] bedtime. 04/12/23- FBS elevated- msg sent to CAGE MAKER MACHINE 04/12/23: RPM elevated fasting; messaged sent to [...] --KW 05/11/23- FBS elevated msg sent to CAGE MAKER MACHINE 05/11/23: RPM reviewed; elevated FBS and PP; increase to Toujeo 80 units at bedtime Last Assessment & Plan: [...] elevated in . Her platelet count was [id number] on November 01. Also, on July 10, [...] as of this encounter (statuses as of 05/11/2023) Resolved Problems Problem Noted Date Diagnosed Date Resolved Date Impaired glucose in , antepartum 11/24/2022 12/02/2022 Overview: Elevated early 1 hr GTT documented as of this encounter (statuses as of 05/11/2023) Immunizations Name Administration Dates Next Due COVID-19 mRNA, LNP-s, No Pre serve, 2-Dose Series (Moderna) 07/10/2020,06/07/2020 COVID-19, mRNA, LNP-s, PF, B ooster, 100mcg/0.5mg (Moderna) 03/18/2021 Seasonal Influenza, PF, 6 M & above, [...] money to get more. Never true 10/27/2022 [place] Depression Scale Answer Date Recorded [place] Depression Scale Total 5 03/25/2023 The thought [...] Care Team (Late st Contact Info) Description 05/11/2023 1:45 PM EST Office Visit Gynecology/Obstetrics [facility] [address] [place] [address] Laura Lua CRNP [address] [place] [address] [facility] Stress Tests Estephania [address] [place] [address] 05/14/2023 2:15 PM EST Office Visit Gynecology/Obstetrics [facility] [address] [place] [address] Laura Lua CRNP [address] [place] [address] Robyn [facility] Stress Tests Estephania [address] [place] [address] 05/27/2023 2:30 PM EST Imaging Maternal Medicine Imaging, Estephania [address] [place] [id number] Health Maintenance Due Date Last Done Comments [...] antepartum documented in this encounter Care Teams Junior Systems Engineer Relationship Specialty Start Date End Date Kasia Jara MD [address] [place] [address] PCP - General Internal Medicine 03/01/20 documented as of this encounter
--- OUTSIDE RECORDS SUMMARY | 2023-05-20 10:59 | External Medical Summary | Summary of Care ---
Author Name Unknown Organization [facility] Address [address] [facility] [place] [address] Phone [phone] Care Team Providers Care Rental Car Porter Name Role Phone Kasia Jara MD Primary Care Provider [phone] Reason for Visit * Reason Comments Return Visit Non Stress Test Encounter Details Date Type Department Care Team (Late st Contact Info) Description 05/18/2023 1:15 PM EST Office Visit Gynecology/Obstetric s Merly Colunga [address] [place] [address] Lula Pandey CRNP [address] [place] [address] [facility] Non Stress Tests Estephania [address] [place] [address] Supervision of high-risk , unspecified trimester*; Obesity in , antepartum; Multigravida of advanced maternal age in third trimester; Insulin controlled gestational diabetes mellitus (GDM) during , antepartum; Depression complicating , antepartum; Chronic hypertension in ; Excessive growth affecting management of in third trimester, single or unspecified fetus; Protein in urine Allergies Active Allergy Reactions Criticality Noted Date [...] by mouth in the morning. 0 Active Wego[employer]ise Flex System w/Device KitIndications:Gestat ional diabetes mellitus (GDM), antepartum, gestational diabetes method of control unspecified Use to test blood sugars 4 times daily (fasting, 1 hour after breakfast, lunch, and dinner) 1 Kit 0 12/02/2022 Active WegoWise In Vitro Strip (Glucose Blood)Indications:Ges tational diabetes mellitus (GDM), antepartum, gestational diabetes method of control unspecified Use to test blood sugars 4 times daily (fasting, 1 hour after breakfast, lunch, and dinner) 125 Strip 6 12/02/2022 Active Flaskon Delica Lancets 30GIndications:Gestat ional diabetes mellitus (GDM), [...] at bedtime. 7.5 mL 2 05/11/2023 Active documented as of this encounter (statuses [...] 70's diastolic. Her values on file in [place] are mildly elevated, including today (reports being [...] 12/07/22: MFM ADAPT consult complete. Enrolled in [employer] [facility]. Instructions provided to report blood sugars each [...] tonight 01/05/23--FBS are elevated- sent msg to UKRAINIAN FOLK ARTS INSTRUCTOR 01/05/23: RPM elevated FBS; increase to Lantus 15 units at bedtime 01/11/23-- FBS elevated- msg sent to UKRAINIAN FOLK ARTS INSTRUCTOR 01/11/23: RPM - elevated FBS - increase to Lantus 20 units at bedtime 01/21/23--FBS elevated- msg sent to UKRAINIAN FOLK ARTS INSTRUCTOR 01/21/23: RPM - FBS elevated (100-120s); increase to Lantus 30 units at bedtime 01/25/23- FBS elevated msg sent to UKRAINIAN FOLK ARTS INSTRUCTOR 01/25/23: RPM - elevated FBS; increase to Lantus 35 units at bedtime 02/01/23- FBS elevated msg sent to UKRAINIAN FOLK ARTS INSTRUCTOR 02/01/23: RPM reviewed; FBS elevated. Increase to Lantus 45 units at bedtime. 02/04/23: RPM reviewed. Elevated FBS. Increase Lantus to 50 units at bedtime --KW 02/08/23: RPM Stable overall; FBS improving since last dose increase; few PP elevations 02/15/23- FBS elevated- msg sent to UKRAINIAN FOLK ARTS INSTRUCTOR 02/15/23: RPM reviewed. Increase Lantus to 55 units at bedtime. 02/22/23- FBS elevated msg sent to UKRAINIAN FOLK ARTS INSTRUCTOR 02/22/23: RPM reviewed. Increase Lantus to 60 units at bedtime. 03/01/23- msg sent to UKRAINIAN FOLK ARTS INSTRUCTOR- elevations in FBS and needs insulin pen refill 03/01/23: RPM reviewed. Increase Lantus to 65 units at bedtime. New prescription sent. 03/08/23: RPM reviewed. Elevated FBS. Increase to Lantus 75 units at bedtime 03/15/23- FBS past two days were normal. Will review again next week since her insulin was just increased on 03/0803/23/23- FBS elevated- msg sent to UKRAINIAN FOLK ARTS INSTRUCTOR 03/23/23: RPM increase to Lantus 80 units at bedtime 03/29/23- BS elevated msg sent to UKRAINIAN FOLK ARTS INSTRUCTOR 04/05/23- elevated sugars msg sent to UKRAINIAN FOLK ARTS INSTRUCTOR 04/05/23: RPM reviewed; elevated FBS and some [...] bedtime. 04/12/23- FBS elevated- msg sent to UKRAINIAN FOLK ARTS INSTRUCTOR 04/12/23: RPM elevated fasting; messaged sent to [...] --KW 05/11/23- FBS elevated msg sent to UKRAINIAN FOLK ARTS INSTRUCTOR 05/11/23: RPM reviewed; elevated FBS and PP; [...] elevated in . Her platelet count was [id number] on November 01. Also, on July 10, [...] money to get more. Never true 10/27/2022 [place] Depression Scale Answer Date Recorded [place] Depression Scale Total 5 03/25/2023 The thought [...] on file documented as of this encounter Last Filed Vital Signs Vital Sign Reading Time Taken Comments Blood Pressure 136/80 05/18/2023 1:25 PM EST Pulse - - Temperature - - Respiratory Rate - - Oxygen Saturation - - Inhaled Oxygen Concentration - - Weight 151 kg (333 lb) 05/18/2023 1:25 PM EST Height - - Body Mass Index 57.16 05/11/2023 1:49 PM EST documented in this encounter Progress Notes * Lula Pandey CRNP - 05/18/2023 1:25 PM EST ASSESSMENT assessment with Non-stress Test completed on 05/18/2023 at 37w2d gestation for indication of gestational diabetes mellitus, obesity, and chronic hypertension heart baseline: 150 bpm Variability: Moderate Decelerations: absent Accelerations: present Contractions: None NST start time: 1318 NST stop time: 1353 NST strip reviewed, interpreted, and approved by OB provider, JHONATAN Brown . NST strip stored in clinic storage file Scheduled for a growth scan with MFM next week. Discussed recommendation for delivery in 39th week; she is agreeable to scheduling. BP stable today. GBS swab today. Baby is moving well. No regular ctx, leaking/bleeding. Denies new TEAGUE, vision changes, epigastric pain. +swelling in her feet. Rice Dryer Mechanic Documentation Provider requested sprinkler installer. Name of sprinkler installer: JHONATAN Musa LPN documented in this encounter Miscellaneous Notes * Addendum Note - Grisel Frank LPN - 05/18/2023 2:20 PM ESTAddended by: GRISEL FRANK on: 05/18/2023 02:20 PM Modules accepted: Orders * Addendum Note - Grisel Frank LPN - 05/18/2023 2:17 PM ESTAddended by: GRISEL FRANK on: 05/18/2023 02:17 PM Modules accepted: Orders documented in this encounter Plan of Treatment Upcoming Encounters Date Type Department Care Team (Late st Contact Info) Description 05/21/2023 10:15 AM EST Office Visit Gynecology/Obstetrics Merly Colunga [address] [place] [phone] BackerLula CRNP [address] [place] [address] [facility] Non Stress Tests Este[facility]ia [address] [place] [address] 05/24/2023 11:15 AM EST Office Visit Gynecology/Obstetrics Merly Colunga [address] [place] [address] Emy Adams, [address] [address] [facility] Non Stress Tests Estephania [address] [place] [id number] 05/27/2023 2:30 PM EST Imaging Maternal Medicine Imaging, Estephania Colunga [address] [place] [phone] Pending Results Name Type Priority Associated Diagnoses Date /Time GROUP B STREP CULTURE/PCR Lab Routine Supervision of high-risk , unspecified trimester 05/18/2023 2:18 PM EST PROTEIN/ CREATININE RATIO, URINE Lab Routine Supervision of high-risk , unspecified trimester Chronic hypertension in Protein in urine 05/18/2023 2:20 PM EST Health Maintenance Due Date Last Done Comments [...] Not on filedocumented as of this encounter Procedures Procedure Name Priority Date/Time Associated Diagnosis Comments URINALYSIS, POINT OF CARE (ENTER/EDIT) Routine 05/18/2023 Supervision of high-risk , unspecified trimester Chronic hypertension in documented in this encounter Results * URINALYSIS, POINT OF CARE (ENTER/EDIT) (05/18/2023) Color, Urine Yellow Yellow or Light Yellow Clarity, Urine Clear Clear Glucose, Urine Negative Negative mg/dL Bilirubin, Urine Negative Negative Ketone, Urine Negative Negative mg/dL Specific [place], Urine 1.030 1.003 - 1.030 Blood, Urine Negative Negative pH, Urine 6.0 5.0 - 7.5 units Protein, Urine 30 Negative mg/dL Urobilinogen, Urine 0.2 0.2 - 1.0 mg/dL Nitrite, Urine Negative Negative Esterase, Urine Negative Negative Urine 05/18/2023 L[facility] POINT O F CARE TEST ENTER/EDIT ORDERABLES documented in this encounter Visit Diagnoses Diagnosis Supervision of high-risk , unspecified trimester- Primary Obesity in , antepartum Obesity complicating , childbirth, or the puerperium, antepartum condition or complication Multigravida of advanced maternal age in third trimester Insulin controlled gestational diabetes mellitus (GDM) during , antepartum Depression complicating , antepartum Mental disorders of mother, antepartum Chronic hypertension in Benign essential hypertension complicating , childbirth, and the puerperium, unspecified as to episode of care Excessive growth affecting management of in third trimester, single or unspecified fetus Protein in urine Proteinuria documented in this encounter Care Teams Rental Car Porter Relationship Specialty Start Date End Date Kasia Jara MD [address] [place] [address] PCP - General Internal Medicine 03/01/20 documented as of this encounter
--- OUTSIDE RECORDS SUMMARY | 2023-05-20 10:59 | External Medical Summary | Summary of Care ---
Author Name Unknown Organization [facility] Address [address] [facility] [place] [address] Phone [phone] Care Team Providers Care Cold Rolling Machine Setter Name Role Phone Kasia Jara MD Primary Care Provider [phone] Reason for Visit * Reason Comments Return Visit Non Stress Test Encounter Details Date Type Department Care Team (Late st Contact Info) Description 05/18/2023 1:15 PM EST Office Visit Gynecology/Obstetric s Merly Col[facility]a [address] [place] [address] Lula Pandey CRNP [address] [place] [address] [facility] Non Stress Tests Estephania [address] [place] [address] Supervision of high-risk , unspecified trimester*; Obesity [...] by mouth in the morning. 0 Active [employer] Flex System w/Device KitIndications:Gestat ional diabetes mellitus (GDM), antepartum, gestational diabetes method of control unspecified Use to test blood sugars 4 times daily (fasting, 1 hour after breakfast, lunch, and dinner) 1 Kit 0 12/02/2022 Active 79 Group In Vitro Strip (Glucose Blood)Indications:Ges tational diabetes mellitus (GDM), antepartum, gestational diabetes method of control unspecified Use to test blood sugars 4 times daily (fasting, 1 hour after breakfast, lunch, and dinner) 125 Strip 6 12/02/2022 Active OneBreath Delica Lancets 30GIndications:Gestat ional diabetes mellitus (GDM), [...] 70's diastolic. Her values on file in [employer] are mildly elevated, including today (reports being [...] 12/07/22: MFM ADAPT consult complete. Enrolled in [facility]. Instructions provided to report blood sugars each [...] tonight 01/05/23--FBS are elevated- sent msg to EARTH MOVING TECHNICIAN 01/05/23: RPM elevated FBS; increase to Lantus 15 units at bedtime 01/11/23-- FBS elevated- msg sent to EARTH MOVING TECHNICIAN 01/11/23: RPM - elevated FBS - increase to Lantus 20 units at bedtime 01/21/23--FBS elevated- msg sent to EARTH MOVING TECHNICIAN 01/21/23: RPM - FBS elevated (100-120s); increase to Lantus 30 units at bedtime 01/25/23- FBS elevated msg sent to EARTH MOVING TECHNICIAN 01/25/23: RPM - elevated FBS; increase to Lantus 35 units at bedtime 02/01/23- FBS elevated msg sent to EARTH MOVING TECHNICIAN 02/01/23: RPM reviewed; FBS elevated. Increase to Lantus 45 units at bedtime. 02/04/23: RPM reviewed. Elevated FBS. Increase Lantus to 50 units at bedtime --KW 02/08/23: RPM Stable overall; FBS improving since last dose increase; few PP elevations 02/15/23- FBS elevated- msg sent to EARTH MOVING TECHNICIAN 02/15/23: RPM reviewed. Increase Lantus to 55 units at bedtime. 02/22/23- FBS elevated msg sent to EARTH MOVING TECHNICIAN 02/22/23: RPM reviewed. Increase Lantus to 60 units at bedtime. 03/01/23- msg sent to EARTH MOVING TECHNICIAN- elevations in FBS and needs insulin pen refill 03/01/23: RPM reviewed. Increase Lantus to 65 units at bedtime. New prescription sent. 03/08/23: RPM reviewed. Elevated FBS. Increase to Lantus 75 units at bedtime 03/15/23- FBS past two days were normal. Will review again next week since her insulin was just increased on 03/0803/23/23- FBS elevated- msg sent to EARTH MOVING TECHNICIAN 03/23/23: RPM increase to Lantus 80 units at bedtime 03/29/23- BS elevated msg sent to EARTH MOVING TECHNICIAN 04/05/23- elevated sugars msg sent to EARTH MOVING TECHNICIAN 04/05/23: RPM reviewed; elevated FBS and [...] bedtime. 04/12/23- FBS elevated- msg sent to EARTH MOVING TECHNICIAN 04/12/23: RPM elevated fasting; messaged sent [...] --KW 05/11/23- FBS elevated msg sent to EARTH MOVING TECHNICIAN 05/11/23: RPM reviewed; elevated FBS and [...] elevated in . Her platelet count was [id number] on November 01. Also, on July 10, [...] money to get more. Never true 10/27/2022 [place] Depression Scale Answer Date Recorded [place] Depression Scale Total 5 03/25/2023 The thought [...] changes, epigastric pain. +swelling in her feet. Business Support Specialist Documentation Provider requested instrumentation manager. Name of instrumentation manager: JHONATAN Musa LPN documented in this encounter [...] Merly Colunga [address] [place] [address] BackerLula CRNP [address] [place] [address] [facility] Non Stress Tests Estephania [address] [place] [address] 05/24/2023 11:15 AM EST Office Visit Gynecology/Obstetrics Merly Colunga [address] [place] [address] Emy Adams, [address] [address] [facility] Non Stress Tests Estephania [address] [place] [address] 05/27/2023 2:30 PM EST Imaging Maternal Medicine [...] Negative Ketone, Urine Negative Negative mg/dL Specific [place], Urine 1.030 1.003 - 1.030 Blood, Urine [...] Proteinuria documented in this encounter Care Teams Cold Rolling Machine Setter Relationship Specialty Start Date End Date Kasia Jara MD [address] [place] [address] PCP - General Internal Medicine 03/01/20 documented as of this encounter
--- OUTSIDE RECORDS SUMMARY | 2023-05-20 10:59 | External Medical Summary | Summary of Care ---
Author Name Unknown Organization [facility] Address [address] [facility] [place] [address] Phone [phone] Care Team Providers Care Apartment Maintenance Manager Name Role Phone Kasia Jara MD Primary Care Provider [phone] Reason for Visit * Reason Comments Return Visit Non Stress Test Encounter Details Date Type Department Care Team (Late st Contact Info) Description 05/18/2023 1:15 PM EST Office Visit Gynecology/Obstetric s Merly Colunga [address] [place] [address] Lula Pandey CRNP [address] [place] [address] [facility] Non Stress Tests Este[facility]ia [address] [place] [address] Supervision of high-risk , unspecified trimester*; Obesity [...] by mouth in the morning. 0 Active [employer] Flex System w/Device KitIndications:Gestat ional diabetes mellitus (GDM), antepartum, gestational diabetes method of control unspecified Use to test blood sugars 4 times daily (fasting, 1 hour after breakfast, lunch, and dinner) 1 Kit 0 12/02/2022 Active N[employer] Media In Vitro Strip (Glucose Blood)Indications:Ges tational diabetes mellitus (GDM), antepartum, gestational diabetes method of control unspecified Use to test blood sugars 4 times daily (fasting, 1 hour after breakfast, lunch, and dinner) 125 Strip 6 12/02/2022 Active Medrio Delica Lancets 30GIndications:Gestat ional diabetes mellitus (GDM), [...] 70's diastolic. Her values on file in [employer] are mildly elevated, including today (reports being [...] 12/07/22: MFM ADAPT consult complete. Enrolled in [employer] [facility]. Instructions provided to report blood sugars each [...] tonight 01/05/23--FBS are elevated- sent msg to GREY TENDER 01/05/23: RPM elevated FBS; increase to Lantus 15 units at bedtime 01/11/23-- FBS elevated- msg sent to GREY TENDER 01/11/23: RPM - elevated FBS - increase to Lantus 20 units at bedtime 01/21/23--FBS elevated- msg sent to GREY TENDER 01/21/23: RPM - FBS elevated (100-120s); increase to Lantus 30 units at bedtime 01/25/23- FBS elevated msg sent to GREY TENDER 01/25/23: RPM - elevated FBS; increase to Lantus 35 units at bedtime 02/01/23- FBS elevated msg sent to GREY TENDER 02/01/23: RPM reviewed; FBS elevated. Increase to Lantus 45 units at bedtime. 02/04/23: RPM reviewed. Elevated FBS. Increase Lantus to 50 units at bedtime --KW 02/08/23: RPM Stable overall; FBS improving since last dose increase; few PP elevations 02/15/23- FBS elevated- msg sent to GREY TENDER 02/15/23: RPM reviewed. Increase Lantus to 55 units at bedtime. 02/22/23- FBS elevated msg sent to GREY TENDER 02/22/23: RPM reviewed. Increase Lantus to 60 units at bedtime. 03/01/23- msg sent to GREY TENDER- elevations in FBS and needs insulin pen refill 03/01/23: RPM reviewed. Increase Lantus to 65 units at bedtime. New prescription sent. 03/08/23: RPM reviewed. Elevated FBS. Increase to Lantus 75 units at bedtime 03/15/23- FBS past two days were normal. Will review again next week since her insulin was just increased on 03/0803/23/23- FBS elevated- msg sent to GREY TENDER 03/23/23: RPM increase to Lantus 80 units at bedtime 03/29/23- BS elevated msg sent to GREY TENDER 04/05/23- elevated sugars msg sent to GREY TENDER 04/05/23: RPM reviewed; elevated FBS and some [...] bedtime. 04/12/23- FBS elevated- msg sent to GREY TENDER 04/12/23: RPM elevated fasting; messaged sent to [...] --KW 05/11/23- FBS elevated msg sent to GREY TENDER 05/11/23: RPM reviewed; elevated FBS and PP; [...] elevated in . Her platelet count was [id number] on November 01. Also, on July 10, [...] money to get more. Never true 10/27/2022 [place] Depression Scale Answer Date Recorded [place] Depression Scale Total 5 03/25/2023 The thought [...] changes, epigastric pain. +swelling in her feet. Loss Prevention Detective Documentation Provider requested space buyer. Name of space buyer: JHONATAN Musa LPN documented in this encounter [...] Merly Colunga [address] [place] [address] BackerLula CRNP [address] [place] [address] [facility] Non Stress Tests Estephania [address] [place] [address] 05/24/2023 11:15 AM EST Office Visit Gynecology/Obstetrics Merly Colunga [address] [place] [address] Emy Adams, [address] [address] [facility] Non Stress Tests Estephania [address] [place] [address] 05/27/2023 2:30 PM EST Imaging Maternal Medicine [...] Negative Ketone, Urine Negative Negative mg/dL Specific [place], Urine 1.030 1.003 - 1.030 Blood, Urine [...] Proteinuria documented in this encounter Care Teams Apartment Maintenance Manager Relationship Specialty Start Date End Date Kasia Jara MD [address] [place] [address] PCP - General Internal Medicine 03/01/20 documented as of this encounter
--- OUTSIDE RECORDS SUMMARY | 2023-05-20 10:59 | External Medical Summary | Summary of Care ---
Author Name Unknown Organization [facility] Address [address] [place] [address] Phone [phone] Care Team Providers Care Healthcare Market Consultant Name Role Phone Kasia Jara MD Primary Care Provider [phone] Reason for Visit * Reason Comments Non Stress Test Encounter Details Date Type Department Care Team (Late st Contact Info) Description 05/11/2023 1:45 PM EST Office Visit Gynecology/Obstetric s [place] [address] [place] [address] Laura Lua CRNP [address] [place] [address] [place] Non Stress Tests [facility] [address] [place] [address] Multigravida of advanced maternal age in third trimester*; Obesity in , antepartum; Supervision of high-risk , unspecified trimester; Insulin controlled gestational diabetes mellitus (GDM) during , antepartum; Depression complicating , antepartum; Chronic hypertension in ; Excessive growth affecting management of in third trimester, single or unspecified fetus Allergies Active Allergy Reactions Criticality Noted Date [...] by mouth in the morning. 0 Active [employer] Verio Flex System w/Device KitIndications:Gestat ional diabetes mellitus (GDM), antepartum, gestational diabetes method of control unspecified Use to test blood sugars 4 times daily (fasting, 1 hour after breakfast, lunch, and dinner) 1 Kit 0 12/02/2022 Active [employer] In Vitro Strip (Glucose Blood)Indications:Ges tational diabetes mellitus (GDM), antepartum, gestational diabetes method of control unspecified Use to test blood sugars 4 times daily (fasting, 1 hour after breakfast, lunch, and dinner) 125 Strip 6 12/02/2022 Active [employer] Delica Lancets 30GIndications:Gestat ional diabetes mellitus (GDM), [...] 70's diastolic. Her values on file in [employer] are mildly elevated, including today (reports being [...] 12/07/22: MFM ADAPT consult complete. Enrolled in [employer] [facility]. Instructions provided to report blood sugars each [...] tonight 01/05/23--FBS are elevated- sent msg to BREAD PACKER 01/05/23: RPM elevated FBS; increase to Lantus 15 units at bedtime 01/11/23-- FBS elevated- msg sent to BREAD PACKER 01/11/23: RPM - elevated FBS - increase to Lantus 20 units at bedtime 01/21/23--FBS elevated- msg sent to BREAD PACKER 01/21/23: RPM - FBS elevated (100-120s); increase to Lantus 30 units at bedtime 01/25/23- FBS elevated msg sent to BREAD PACKER 01/25/23: RPM - elevated FBS; increase to Lantus 35 units at bedtime 02/01/23- FBS elevated msg sent to BREAD PACKER 02/01/23: RPM reviewed; FBS elevated. Increase to Lantus 45 units at bedtime. 02/04/23: RPM reviewed. Elevated FBS. Increase Lantus to 50 units at bedtime --KW 02/08/23: RPM Stable overall; FBS improving since last dose increase; few PP elevations 02/15/23- FBS elevated- msg sent to BREAD PACKER 02/15/23: RPM reviewed. Increase Lantus to 55 units at bedtime. 02/22/23- FBS elevated msg sent to BREAD PACKER 02/22/23: RPM reviewed. Increase Lantus to 60 units at bedtime. 03/01/23- msg sent to BREAD PACKER- elevations in FBS and needs insulin pen refill 03/01/23: RPM reviewed. Increase Lantus to 65 units at bedtime. New prescription sent. 03/08/23: RPM reviewed. Elevated FBS. Increase to Lantus 75 units at bedtime 03/15/23- FBS past two days were normal. Will review again next week since her insulin was just increased on 03/0803/23/23- FBS elevated- msg sent to BREAD PACKER 03/23/23: RPM increase to Lantus 80 units at bedtime 03/29/23- BS elevated msg sent to BREAD PACKER 04/05/23- elevated sugars msg sent to BREAD PACKER 04/05/23: RPM reviewed; elevated FBS and some [...] bedtime. 04/12/23- FBS elevated- msg sent to BREAD PACKER 04/12/23: RPM elevated fasting; messaged sent to [...] --KW 05/11/23- FBS elevated msg sent to BREAD PACKER 05/11/23: RPM reviewed; elevated FBS and PP; [...] elevated in . Her platelet count was [id number] on November 01. Also, on July 10, [...] money to get more. Never true 10/27/2022 [place] Depression Scale Answer Date Recorded [place] Depression Scale Total 5 03/25/2023 The thought [...] Sign Reading Time Taken Comments Blood Pressure 142/84 05/11/2023 1:49 PM EST Pulse - - Temperature - - Respiratory Rate - - Oxygen Saturation - - Inhaled Oxygen Concentration - - Weight 149.7 kg (330 lb) 05/11/2023 1:49 PM EST Height 162.6 cm (5' 4") 05/11/2023 1:49 PM EST Body Mass Index 56.64 05/11/2023 1:49 PM EST documented in this encounter Progress Notes * Laura Lua CRNP - 05/11/2023 2:11 PM EST ASSESSMENT assessment with Non-stress Test completed on 05/11/2023 at 36.2weeks gestation for indicationof gestational diabetes mellitus, obesity, and chronic hypertension heart baseline: 140 bpm Variability: Moderate Decelerations: absent Accelerations: present Contractions: None NST start time: 1338 NST stop time: 1405 NST strip reviewed, interpreted, and approved by OB providerLaura CRNP . NST strip stored in clinic storage file * Daylin Bettencourt LPN - 05/11/2023 1:48 PM EST [id number] NST today. documented in this encounter Plan of Treatment Upcoming Encounters Date Type Department Care Team (Late st Contact Info) Description 05/14/2023 2:15 PM EST [facility] [address] [place] [address] Laura Lua CRNP [address] [place] [address] [place], Non Stress Tests [facility] [address] [place] [address] 05/18/2023 1:15 PM EST Office Visit Gynecology/Obstetrics [place] [address] [place] [address] Lula Pandey CRNP [address] [place] [address] [place], Non Stress Tests [place] [address] 05/21/2023 10:15 AM EST Office Visit Gynecology/Obstetrics [place] [address] [place] [address] Lula Pandey CRNP [address] [place] [address] [place] Non Stress Tests [place] [address] 05/24/2023 11:15 AM EST Office Visit Gynecology/Obstetrics [place] [address] [place] [address] Emy Adams, [address] [place] [address] [place], Non Stress Tests [place]ia [address] [place] [address] 05/27/2023 2:30 PM EST Imaging Maternal Medicine Imaging, [place] [address] [place] [phone] Scheduled Orders Name Type Priority Associated Diagnoses Orde r Schedule URINALYSIS, POINT OF CARE (ENTER/EDIT) Point of Care Testing Routine Chronic hypertension in Ordered: 05/11/2023 Health Maintenance Due Date Last Done Comments [...] as of this encounter Visit Diagnoses Diagnosis Multigravida of advanced maternal age in third trimester- Primary Obesity in , antepartum Obesity complicating , childbirth, or the puerperium, antepartum condition or complication Supervision of high-risk , unspecified trimester Insulin controlled gestational diabetes mellitus (GDM) during , antepartum Depression complicating , antepartum Mental disorders of mother, antepartum Chronic hypertension in Benign essential hypertension complicating , childbirth, and the puerperium, unspecified as to episode of care Excessive growth affecting management of in third trimester, single or unspecified fetus documented in this encounter Care Teams Healthcare Market Consultant Relationship Specialty Start Date End Date Kasia Jara MD [address] [facility] [place] [address] PCP - General Internal Medicine 03/01/20 documented as of this encounter
--- OUTSIDE RECORDS SUMMARY | 2023-05-20 10:59 | External Medical Summary ---
Author Name Unknown Address Unknown Organization K01:[facility] [place] [facility] [address] [facility] [place] [address] Laboratory Report Ordering Provider Test Date Status ISAAC AGUAYO 05/18/2023 14:20:21 Final Normal: <150 mg/ g creatinine
High: 150-500 mg/g creatinine
Very High: >500 mg/g creatinine
Nephrotic: >3000 mg/g creatinine Observation Date Value Abnormality Reference (Units ) Status Protein/Creatinine [Ratio] in Urine 05/18/2023 14:20:21 331 Above high normal <150 (mg/g ) Final Protein, Urine 05/18/2023 14:20:21 44 (mg/dL) Final Creatinine, Urine 05/18/2023 14:20:21 133 (mg/dL) Final Performing Location [facility] [place] [facility] [address] [facility] [address]
--- OUTSIDE RECORDS SUMMARY | 2023-05-20 10:59 | External Medical Summary | Summary of Care ---
Author Name Unknown Organization [facility] Address [address] [place] [address] Phone [phone] Care Team Providers Care Frame Wirer Name Role Phone Kasia Jara MD Primary Care Provider [phone] Reason for Visit * Reason Comments Non Stress Test Encounter Details Date Type Department Care Team (Late st Contact Info) Description 05/11/2023 1:45 PM EST Office Visit Gynecology/Obstetric s [place] [address] [place] [address] Laura Lua CRNP [address] [place] [address] [place] Non Stress Tests [place] [address] [place] [address] Multigravida of advanced maternal age in third [...] by mouth in the morning. 0 Active [employer] Dynamic Verio Flex System w/Device KitIndications:Gestat ional diabetes mellitus (GDM), antepartum, gestational diabetes method of control unspecified Use to test blood sugars 4 times daily (fasting, 1 hour after breakfast, lunch, and dinner) 1 Kit 0 12/02/2022 Active [employer] In Vitro Strip (Glucose Blood)Indications:Ges tational diabetes mellitus (GDM), antepartum, gestational diabetes method of control unspecified Use to test blood sugars 4 times daily (fasting, 1 hour after breakfast, lunch, and dinner) 125 Strip 6 12/02/2022 Active Fusion Dynamic Delica Lancets 30GIndications:Gestat ional diabetes mellitus (GDM), [...] 70's diastolic. Her values on file in [facility] are mildly elevated, including today (reports being [...] 12/07/22: MFM ADAPT consult complete. Enrolled in [facility]. Instructions provided to report blood sugars [...] tonight 01/05/23--FBS are elevated- sent msg to PATIENT OBSERVER 01/05/23: RPM elevated FBS; increase to Lantus 15 units at bedtime 01/11/23-- FBS elevated- msg sent to PATIENT OBSERVER 01/11/23: RPM - elevated FBS - increase to Lantus 20 units at bedtime 01/21/23--FBS elevated- msg sent to PATIENT OBSERVER 01/21/23: RPM - FBS elevated (100-120s); increase to Lantus 30 units at bedtime 01/25/23- FBS elevated msg sent to PATIENT OBSERVER 01/25/23: RPM - elevated FBS; increase to Lantus 35 units at bedtime 02/01/23- FBS elevated msg sent to PATIENT OBSERVER 02/01/23: RPM reviewed; FBS elevated. Increase to Lantus 45 units at bedtime. 02/04/23: RPM reviewed. Elevated FBS. Increase Lantus to 50 units at bedtime --KW 02/08/23: RPM Stable overall; FBS improving since last dose increase; few PP elevations 02/15/23- FBS elevated- msg sent to PATIENT OBSERVER 02/15/23: RPM reviewed. Increase Lantus to 55 units at bedtime. 02/22/23- FBS elevated msg sent to PATIENT OBSERVER 02/22/23: RPM reviewed. Increase Lantus to 60 units at bedtime. 03/01/23- msg sent to PATIENT OBSERVER- elevations in FBS and needs insulin pen refill 03/01/23: RPM reviewed. Increase Lantus to 65 units at bedtime. New prescription sent. 03/08/23: RPM reviewed. Elevated FBS. Increase to Lantus 75 units at bedtime 03/15/23- FBS past two days were normal. Will review again next week since her insulin was just increased on 03/0803/23/23- FBS elevated- msg sent to PATIENT OBSERVER 03/23/23: RPM increase to Lantus 80 units at bedtime 03/29/23- BS elevated msg sent to PATIENT OBSERVER 04/05/23- elevated sugars msg sent to PATIENT OBSERVER 04/05/23: RPM reviewed; elevated FBS and some [...] bedtime. 04/12/23- FBS elevated- msg sent to PATIENT OBSERVER 04/12/23: RPM elevated fasting; messaged sent to [...] --KW 05/11/23- FBS elevated msg sent to PATIENT OBSERVER 05/11/23: RPM reviewed; elevated FBS and PP; [...] elevated in . Her platelet count was [id number] on November 01. Also, on July 10, [...] money to get more. Never true 10/27/2022 [place] Depression Scale Answer Date Recorded [place] Depression Scale Total 5 03/25/2023 The thought [...] 05/14/2023 2:15 PM EST [facility] [address] [place] [address] Laura Lua CRNP [address] [place] [address] [place], Non Stress Tests [place] [address] [place] [address] 05/18/2023 1:15 PM EST Office Visit Gynecology/Obstetrics [place] [address] [place] [address] Lula Pandey CRNP [address] [place] [address] [place], Non Stress Tests [place] [address] [place] [address] 05/21/2023 10:15 AM EST Office Visit Gynecology/Obstetrics [place] [address] [place] [address] BackerLula CRNP [address] [place] [address] [place] Non Stress Tests [place] [address] 05/24/2023 11:15 AM EST Office Visit Gynecology/Obstetrics [place] [address] [place] [address] Emy Adams, [address] [place] [address] [place], Non Stress Tests [place]ia [address] [place] [address] 05/27/2023 2:30 PM EST Imaging Maternal Medicine Imaging, [place] [place] [phone] Health Maintenance Due Date Last Done [...] Comments URINALYSIS, POINT OF CARE (ENTER/EDIT) Routine 05/11/2023 Chronic hypertension in documented in this encounter Results * URINALYSIS, POINT OF CARE (ENTER/EDIT) (05/11/2023) Color, Urine Dark Yellow Yellow or Light Yellow Clarity, Urine Clear Clear Glucose, Urine Negative Negative mg/dL Bilirubin, Urine Negative Negative Ketone, Urine Negative Negative mg/dL Specific Ulen, Urine 1.030 1.003 - 1.030 Blood, Urine Negative Negative pH, Urine 6.0 5.0 - 7.5 units Protein, Urine 30 Negative mg/dL Urobilinogen, Urine 0.2 0.2 - 1.0 mg/dL Nitrite, Urine Negative Negative Esterase, Urine Negative Negative Urine 05/11/2023 Laura [facility] POINT OF CARE TE ST ENTER/EDIT ORDERABLES documented in this encounter Visit Diagnoses Diagnosis Multigravida of [...] fetus documented in this encounter Care Teams Frame Wirer Relationship Specialty Start Date End Date Kasia Jara MD [address] [facility] [place] [address] PCP - General Internal Medicine 03/01/20 documented as of this encounter
--- OUTSIDE RECORDS SUMMARY | 2023-05-20 10:59 | External Medical Summary | Summary of Care ---
Author Name Unknown Organization [facility] Address [address] [facility] [address] Phone [phone] Care Team Providers Care Manager Of Business Operations Name Role Phone Kasia Jara MD Primary Care Provider [phone] Reason for Visit * Reason Comments Return Visit Non Stress Test Encounter Details Date Type Department Care Team (Late st Contact Info) Description 05/18/2023 1:15 PM EST Office Visit Gynecology/Obstetric s [place] [address] [place] [address] Lula Pandey CRNP [address] [place] [address] [place] Non Stress Tests [place] [address] [place] [address] Supervision of high-risk , unspecified trimester*; Obesity [...] by mouth in the morning. 0 Active [employer] Flex System w/Device KitIndications:Gestat ional diabetes mellitus (GDM), antepartum, gestational diabetes method of control unspecified Use to test blood sugars 4 times daily (fasting, 1 hour after breakfast, lunch, and dinner) 1 Kit 0 12/02/2022 Active [employer] In Vitro Strip (Glucose Blood)Indications:Ges tational diabetes mellitus (GDM), antepartum, gestational diabetes method of control unspecified Use to test blood sugars 4 times daily (fasting, 1 hour after breakfast, lunch, and dinner) 125 Strip 6 12/02/2022 Active [employer] Delica Lancets 30GIndications:Gestat ional diabetes mellitus (GDM), [...] 70's diastolic. Her values on file in [employer] are mildly elevated, including today (reports being [...] 12/07/22: MFM ADAPT consult complete. Enrolled in [employer] [facility]. Instructions provided to report blood sugars [...] tonight 01/05/23--FBS are elevated- sent msg to 21 DEALER 01/05/23: RPM elevated FBS; increase to Lantus 15 units at bedtime 01/11/23-- FBS elevated- msg sent to 21 DEALER 01/11/23: RPM - elevated FBS - increase to Lantus 20 units at bedtime 01/21/23--FBS elevated- msg sent to 21 DEALER 01/21/23: RPM - FBS elevated (100-120s); increase to Lantus 30 units at bedtime 01/25/23- FBS elevated msg sent to 21 DEALER 01/25/23: RPM - elevated FBS; increase to Lantus 35 units at bedtime 02/01/23- FBS elevated msg sent to 21 DEALER 02/01/23: RPM reviewed; FBS elevated. Increase to Lantus 45 units at bedtime. 02/04/23: RPM reviewed. Elevated FBS. Increase Lantus to 50 units at bedtime --KW 02/08/23: RPM Stable overall; FBS improving since last dose increase; few PP elevations 02/15/23- FBS elevated- msg sent to 21 DEALER 02/15/23: RPM reviewed. Increase Lantus to 55 units at bedtime. 02/22/23- FBS elevated msg sent to 21 DEALER 02/22/23: RPM reviewed. Increase Lantus to 60 units at bedtime. 03/01/23- msg sent to 21 DEALER- elevations in FBS and needs insulin pen refill 03/01/23: RPM reviewed. Increase Lantus to 65 units at bedtime. New prescription sent. 03/08/23: RPM reviewed. Elevated FBS. Increase to Lantus 75 units at bedtime 03/15/23- FBS past two days were normal. Will review again next week since her insulin was just increased on 03/0803/23/23- FBS elevated- msg sent to 21 DEALER 03/23/23: RPM increase to Lantus 80 units at bedtime 03/29/23- BS elevated msg sent to 21 DEALER 04/05/23- elevated sugars msg sent to 21 DEALER 04/05/23: RPM reviewed; elevated FBS and some [...] bedtime. 04/12/23- FBS elevated- msg sent to 21 DEALER 04/12/23: RPM elevated fasting; messaged sent to [...] --KW 05/11/23- FBS elevated msg sent to 21 DEALER 05/11/23: RPM reviewed; elevated FBS and PP; [...] elevated in . Her platelet count was [id number] on November 01. Also, on July 10, [...] money to get more. Never true 10/27/2022 [place] Depression Scale Answer Date Recorded [place] Depression Scale Total 5 03/25/2023 The thought [...] changes, epigastric pain. +swelling in her feet. Motor Vehicle Emissions Inspector Documentation Provider requested casing worker. Name of casing worker: JHONATAN Musa LPN documented in this encounter Miscellaneous Notes * Addendum Note - Grisel Frank LPN - 05/18/2023 2:20 PM ESTAddended by: GRISEL FRANK on: 05/18/2023 02:20 PM Modules accepted: Orders * Addendum Note - Grisel Frank LPN - 05/18/2023 2:17 PM ESTAddended by: GIRSEL FRANK on: 05/18/2023 02:17 PM Modules accepted: Orders documented in this encounter Plan of Treatment Upcoming Encounters Date Type Department Care Team (Late st Contact Info) Description 05/21/2023 10:15 AM EST Office Visit Gynecology/Obstetrics [place] [address] [place] [address] BackerLula CRNP [address] [place] [address] [place] Non Stress Tests [place] [address] [place] [address] 05/24/2023 11:15 AM EST Office Visit Gynecology/Obstetrics [place] [address] [place] [address] Emy Adams, [address] [place] [address] [place] Non Stress Tests E[place]ia [address] [place] [address] 05/27/2023 2:30 PM EST Imaging Maternal Medicine [...] Negative Ketone, Urine Negative Negative mg/dL Specific [place], Urine 1.030 1.003 - 1.030 Blood, Urine [...] Proteinuria documented in this encounter Care Teams Manager Of Business Operations Relationship Specialty Start Date End Date Kasia Jara MD [address] [place] [address] PCP - General Internal Medicine 03/01/20 documented as of this encounter
--- OUTSIDE RECORDS SUMMARY | 2023-05-20 10:59 | External Medical Summary | Summary of Care ---
Author Name Unknown Organization [facility] Address [address] [place] [address] Phone [phone] Care Team Providers Care Dot Compliance Specialist Name Role Phone Kasia Jara MD Primary Care Provider Reason for Visit * Reason Comments Return Visit Non Stress Test Encounter Details Date Type Department Care Team (Late st Contact Info) Description 05/18/2023 1:15 PM EST Office Visit Gynecology/Obstetric s [facility] [address] [place] [address] Lula Pandey CRNP [address] [place] [address] [place]anu Non Stress Tests [facility] [address] [place] [address] Supervision of high-risk , unspecified trimester*; Obesity [...] by mouth in the morning. 0 Active LeanKit Flex System w/Device KitIndications:Gestat ional diabetes mellitus (GDM), antepartum, gestational diabetes method of control unspecified Use to test blood sugars 4 times daily (fasting, 1 hour after breakfast, lunch, and dinner) 1 Kit 0 12/02/2022 Active LeanKit In Vitro Strip (Glucose Blood)Indications:Ges tational diabetes mellitus (GDM), antepartum, gestational diabetes method of control unspecified Use to test blood sugars 4 times daily (fasting, 1 hour after breakfast, lunch, and dinner) 125 Strip 6 12/02/2022 Active bookletmobile Delica Lancets 30GIndications:Gestat ional diabetes mellitus (GDM), [...] 70's diastolic. Her values on file in [employer] are mildly elevated, including today (reports being [...] 12/07/22: MFM ADAPT consult complete. Enrolled in [facility]. Instructions provided to report blood [...] tonight 01/05/23--FBS are elevated- sent msg to SHIRRING MACHINE OPERATOR 01/05/23: RPM elevated FBS; increase to Lantus 15 units at bedtime 01/11/23-- FBS elevated- msg sent to SHIRRING MACHINE OPERATOR 01/11/23: RPM - elevated FBS - increase to Lantus 20 units at bedtime 01/21/23--FBS elevated- msg sent to SHIRRING MACHINE OPERATOR 01/21/23: RPM - FBS elevated (100-120s); increase to Lantus 30 units at bedtime 01/25/23- FBS elevated msg sent to SHIRRING MACHINE OPERATOR 01/25/23: RPM - elevated FBS; increase to Lantus 35 units at bedtime 02/01/23- FBS elevated msg sent to SHIRRING MACHINE OPERATOR 02/01/23: RPM reviewed; FBS elevated. Increase to Lantus 45 units at bedtime. 02/04/23: RPM reviewed. Elevated FBS. Increase Lantus to 50 units at bedtime --KW 02/08/23: RPM Stable overall; FBS improving since last dose increase; few PP elevations 02/15/23- FBS elevated- msg sent to SHIRRING MACHINE OPERATOR 02/15/23: RPM reviewed. Increase Lantus to 55 units at bedtime. 02/22/23- FBS elevated msg sent to SHIRRING MACHINE OPERATOR 02/22/23: RPM reviewed. Increase Lantus to 60 units at bedtime. 03/01/23- msg sent to SHIRRING MACHINE OPERATOR- elevations in FBS and needs insulin pen refill 03/01/23: RPM reviewed. Increase Lantus to 65 units at bedtime. New prescription sent. 03/08/23: RPM reviewed. Elevated FBS. Increase to Lantus 75 units at bedtime 03/15/23- FBS past two days were normal. Will review again next week since her insulin was just increased on 03/0803/23/23- FBS elevated- msg sent to SHIRRING MACHINE OPERATOR 03/23/23: RPM increase to Lantus 80 units at bedtime 03/29/23- BS elevated msg sent to SHIRRING MACHINE OPERATOR 04/05/23- elevated sugars msg sent to SHIRRING MACHINE OPERATOR 04/05/23: RPM reviewed; elevated FBS and some [...] bedtime. 04/12/23- FBS elevated- msg sent to SHIRRING MACHINE OPERATOR 04/12/23: RPM elevated fasting; messaged sent to [...] --KW 05/11/23- FBS elevated msg sent to SHIRRING MACHINE OPERATOR 05/11/23: RPM reviewed; elevated FBS and PP; [...] elevated in . Her platelet count was [id number] on November 01. Also, on July 10, [...] money to get more. Never true 10/27/2022 [place] Depression Scale Answer Date Recorded [place] Depression Scale Total 5 03/25/2023 The thought [...] changes, epigastric pain. +swelling in her feet. Pipeline Systems Operator Documentation Provider requested pier worker. Name of pier worker: JHONATAN Musa LPN documented in this [...] [facility] [address] [place] [address] BackerLula CRNP [address] [place] [address] Keanu Non Stress Tests E[facility]ia [address] [place] [address] 05/24/2023 11:15 AM EST Office Visit Gynecology/Obstetrics [facility] [address] [place] [address] Emy Adams, [address] [address] Keanu Non Stress Tests Este[facility]ia [address] [place] [address] 05/27/2023 2:30 PM EST Imaging Maternal Medicine [...] Negative Ketone, Urine Negative Negative mg/dL Specific [place], Urine 1.030 1.003 - 1.030 Blood, Urine [...] Proteinuria documented in this encounter Care Teams Dot Compliance Specialist Relationship Specialty Start Date End Date Kasia Jara MD [address] [place] [address] PCP - General Internal Medicine 03/01/20 documented as of this encounter
--- OUTSIDE RECORDS SUMMARY | 2023-05-20 10:59 | External Medical Summary ---
Author Name Unknown Address Unknown Organization K01:[facility] [place] [facility] [address] [facility] [address] Laboratory Report Ordering Provider Test Date Status ISAAC AGUAYO 05/18/2023 14:18:01 Final Observation Date Value Abnormality Reference (Units ) Status Streptococcus agalactiae DNA [Presence] in Specimen by QUEENIE with probe detection 05/18/2023 14:18:01 Positive Abnormal Negative Final Group B Streptococcus detect ed by culture-enhanced PCR (amplified probe).
The collection of vaginal/rectal swab specimen combinations (FDA approved specimen type) is optimal for the detection of Group B Streptococcus. Single source collection (vaginal only or rectal only) or alternate specimen sources may lead to false negative results. Performing Location [facility] [place] [address] [place] [address]
--- OUTSIDE RECORDS SUMMARY | 2023-05-20 11:00 | External Medical Summary | Summary of Care ---
Author Name Unknown Organization [facility] Address [address] [facility] [place] [address] Phone [phone] Care Team Providers Care Art Appraiser Name Role Phone Kasia Jara MD Primary Care Provider [phone] Reason for Visit * Reason Onset Date Comments Left Without Being Seen 04/29/2023 Encounter Details Date Type Department Care Team (Late st Contact Info) Description 04/29/2023 1:00 PM EST Office Visit Gynecology/Obstetric s [facility] [address] [place] [address] Brittanie Fitzgerald PA-C [address] [place] [address] Keanu, Non Stress Tests E[facility] [address] [place] [address] Left without being seen* Allergies Active Allergy Reactions Criticality Noted Date Comments Amoxicillin 07/08/2014 hives Naltrexone Nausea/vomiting 05/03/2019 Penicillins 07/08/2014 Sulfamethoxazole-Trimethoprim 2014 hives documented as of this encounter (statuses as of 04/29/2023) Medications Medication Sig Dispensed Refills Start Date [...] by mouth in the morning. 0 Active m2fxToSypherlink Verio Flex System w/Device KitIndications:Gestat ional diabetes mellitus (GDM), antepartum, gestational diabetes method of control unspecified Use to test blood sugars 4 times daily (fasting, 1 hour after breakfast, lunch, and dinner) 1 Kit 0 12/02/2022 Active m2fxToSypherlink Verio In Vitro Strip (Glucose Blood)Indications:Ges tational diabetes mellitus (GDM), antepartum, gestational diabetes method of control unspecified Use to test blood sugars 4 times daily (fasting, 1 hour after breakfast, lunch, and dinner) 125 Strip 6 12/02/2022 Active Adteractive Delica Lancets 30GIndications:Gestat ional diabetes mellitus (GDM), [...] twice daily. 200 Each 3 04/05/2023 Active Arsenio Mejia 300 UNIT/ML Subcutaneous Solution Pen-injector (Insulin Glargine (1 Unit Dial))Indications:Ins ulin controlled gestational diabetes mellitus (GDM) during , antepartum Inject 60 Units under the skin at bedtime. 7.5 mL 2 04/06/2023 Active Sertraline HCl 50 MG Oral Tablet (Zoloft)Indications:G AD (generalized anxiety disorder),Binge eating disorder Take 1 Tablet by mouth in the morning. 30 Tablet 2 04/22/2023 Active Labetalol HCl 200 MG Oral Tablet (Normodyne)Indication s:Chronic hypertension in Take 1 Tablet by mouth in the morning and 1 Tablet at noon and 1 Tablet in the evening. 90 Tablet 2 04/26/2023 Active documented as of this encounter (statuses as of 04/29/2023) Active Problems Problem Noted Date Diagnosed Date [...] tonight 01/05/23--FBS are elevated- sent msg to DIRECTOR SALES AND MARKETING 01/05/23: RPM elevated FBS; increase to Lantus 15 units at bedtime 01/11/23-- FBS elevated- msg sent to DIRECTOR SALES AND MARKETING 01/11/23: RPM - elevated FBS - increase to Lantus 20 units at bedtime 01/21/23--FBS elevated- msg sent to DIRECTOR SALES AND MARKETING 01/21/23: RPM - FBS elevated (100-120s); increase to Lantus 30 units at bedtime 01/25/23- FBS elevated msg sent to DIRECTOR SALES AND MARKETING 01/25/23: RPM - elevated FBS; increase to Lantus 35 units at bedtime 02/01/23- FBS elevated msg sent to DIRECTOR SALES AND MARKETING 02/01/23: RPM reviewed; FBS elevated. Increase to Lantus 45 units at bedtime. 02/04/23: RPM reviewed. Elevated FBS. Increase Lantus to 50 units at bedtime --KW 02/08/23: RPM Stable overall; FBS improving since last dose increase; few PP elevations 02/15/23- FBS elevated- msg sent to DIRECTOR SALES AND MARKETING 02/15/23: RPM reviewed. Increase Lantus to 55 units at bedtime. 02/22/23- FBS elevated msg sent to DIRECTOR SALES AND MARKETING 02/22/23: RPM reviewed. Increase Lantus to 60 units at bedtime. 03/01/23- msg sent to DIRECTOR SALES AND MARKETING- elevations in FBS and needs insulin pen refill 03/01/23: RPM reviewed. Increase Lantus to 65 units at bedtime. New prescription sent. 03/08/23: RPM reviewed. Elevated FBS. Increase to Lantus 75 units at bedtime 03/15/23- FBS past two days were normal. Will review again next week since her insulin was just increased on 03/0803/23/23- FBS elevated- msg sent to DIRECTOR SALES AND MARKETING 03/23/23: RPM increase to Lantus 80 units at bedtime 03/29/23- BS elevated msg sent to DIRECTOR SALES AND MARKETING 04/05/23- elevated sugars msg sent to DIRECTOR SALES AND MARKETING 04/05/23: RPM reviewed; elevated FBS and some [...] bedtime. 04/12/23- FBS elevated- msg sent to DIRECTOR SALES AND MARKETING 04/12/23: RPM elevated fasting; messaged sent to [...] Will monitor and adjust if need be. Last Assessment & Plan: Sugars reviewed and [...] elevated in . Her platelet count was [id number] on November 01. Also, on July 10, [...] as of this encounter (statuses as of 04/29/2023) Resolved Problems Problem Noted Date Diagnosed Date Resolved Date Impaired glucose in , antepartum 11/24/2022 12/02/2022 Overview: Elevated early 1 hr GTT documented as of this encounter (statuses as of 04/29/2023) Immunizations Name Administration Dates Next Due COVID-19 [...] money to get more. Never true 10/27/2022 [place] Depression Scale Answer Date Recorded [place] Depression Scale Total 5 03/25/2023 The thought [...] on file documented as of this encounter Progress Notes * Daylin Bettencourt LPN - 04/29/2023 3:11 PM EST Patient left without being seen by the provider. documented in this encounter Plan of Treatment Upcoming Encounters Date Type Department Care Team (Late st Contact Info) Description 05/03/2023 1:15 PM EST Office Visit Gynecology/Obstetrics [facility] [address] [place] [address] Lula Pandey CRNP [address] [place] [address] [place], Non Stress Tests Este[facility]ia [address] [place] [address] 05/06/2023 1:45 PM EST Office Visit Gynecology/Obstetrics [facility] [address] [place] [address] Laura Lua CRNP [address] [place] [address] [place], Non Stress Tests Este[facility]ia [address] [place] [address] 05/11/2023 1:45 PM EST Office Visit Gynecology/Obstetrics [facility] [address] [place] [address] Laura Lua CRNP [address] [place] [address] [place], Non Stress Tests Estephania [address] [place] [address] 05/14/2023 2:15 PM EST Office Visit Gynecology/Obstetrics [facility] [address] [place] [address] Laura Lua CRNP [address] [place] [address] [place], Non Stress Tests Estephania [address] [place] [address] 05/27/2023 2:30 PM EST Imaging Maternal Medicine Imaging, [facility] [address] [place] [phone] Health Maintenance Due Date Last Done [...] as of this encounter Visit Diagnoses Diagnosis Left without being seen- Primary documented in this encounter Care Teams Art Appraiser Relationship Specialty Start Date End Date Kasia Jara MD [address] [facility] [place] [address] PCP - General Internal Medicine 03/01/20 documented as of this encounter
--- OUTSIDE RECORDS SUMMARY | 2023-05-20 11:00 | External Medical Summary | Summary of Care ---
Author Name Unknown Organization [facility] Address [address] [place] [address] Phone [phone] Care Team Providers Care Die Engraving Supervisor Name Role Phone Kasia Jara MD Primary Care Provider [phone] Encounter Details Date Type Department Care Team (Late st Contact Info) Description 04/29/2023 2:30 PM EST Office Visit [facility] Obstetrics Maternal Medicine, [address] [address] Odalys Alonso, DO [address] [place], [place] [id number] Insulin controlled gestational diabetes mellitus (GDM) during , antepartum*; Chronic hypertension in ; Obesity in , antepartum; Excessive growth affecting management of in third trimester, single or unspecified fetus; 34 weeks gestation of Allergies Active Allergy Reactions Criticality Noted Date [...] by mouth in the morning. 0 Active [employer]drift[employer] Verio Flex System w/Device KitIndications:Gestat ional diabetes mellitus (GDM), antepartum, gestational diabetes method of control unspecified Use to test blood sugars 4 times daily (fasting, 1 hour after breakfast, lunch, and dinner) 1 Kit 0 12/02/2022 Active StockdriftTouch Verio In Vitro Strip (Glucose Blood)Indications:Ges tational diabetes mellitus (GDM), antepartum, gestational diabetes method of control unspecified Use to test blood sugars 4 times daily (fasting, 1 hour after breakfast, lunch, and dinner) 125 Strip 6 12/02/2022 Active [facility] Delica Lancets 30GIndications:Gestat ional diabetes mellitus (GDM), [...] tonight 01/05/23--FBS are elevated- sent msg to HYDROCHLORIC AREA SUPERVISOR 01/05/23: RPM elevated FBS; increase to Lantus 15 units at bedtime 01/11/23-- FBS elevated- msg sent to HYDROCHLORIC AREA SUPERVISOR 01/11/23: RPM - elevated FBS - increase to Lantus 20 units at bedtime 01/21/23--FBS elevated- msg sent to HYDROCHLORIC AREA SUPERVISOR 01/21/23: RPM - FBS elevated (100-120s); increase to Lantus 30 units at bedtime 01/25/23- FBS elevated msg sent to HYDROCHLORIC AREA SUPERVISOR 01/25/23: RPM - elevated FBS; increase to Lantus 35 units at bedtime 02/01/23- FBS elevated msg sent to HYDROCHLORIC AREA SUPERVISOR 02/01/23: RPM reviewed; FBS elevated. Increase to Lantus 45 units at bedtime. 02/04/23: RPM reviewed. Elevated FBS. Increase Lantus to 50 units at bedtime --KW 02/08/23: RPM Stable overall; FBS improving since last dose increase; few PP elevations 02/15/23- FBS elevated- msg sent to HYDROCHLORIC AREA SUPERVISOR 02/15/23: RPM reviewed. Increase Lantus to 55 units at bedtime. 02/22/23- FBS elevated msg sent to HYDROCHLORIC AREA SUPERVISOR 02/22/23: RPM reviewed. Increase Lantus to 60 units at bedtime. 03/01/23- msg sent to HYDROCHLORIC AREA SUPERVISOR- elevations in FBS and needs insulin pen refill 03/01/23: RPM reviewed. Increase Lantus to 65 units at bedtime. New prescription sent. 03/08/23: RPM reviewed. Elevated FBS. Increase to Lantus 75 units at bedtime 03/15/23- FBS past two days were normal. Will review again next week since her insulin was just increased on 03/0803/23/23- FBS elevated- msg sent to HYDROCHLORIC AREA SUPERVISOR 03/23/23: RPM increase to Lantus 80 units at bedtime 03/29/23- BS elevated msg sent to HYDROCHLORIC AREA SUPERVISOR 04/05/23- elevated sugars msg sent to HYDROCHLORIC AREA SUPERVISOR 04/05/23: RPM reviewed; elevated FBS and some [...] bedtime. 04/12/23- FBS elevated- msg sent to HYDROCHLORIC AREA SUPERVISOR 04/12/23: RPM elevated fasting; messaged sent to [...] to [address] Alonso ---KW Last Assessment & Plan: Sugars reviewed and [...] elevated in . Her platelet count was [id number] on November 01. Also, on July 10, [...] money to get more. Never true 10/27/2022 [place] Depression Scale Answer Date Recorded [place] Depression Scale Total 5 03/25/2023 The thought [...] as of this encounter Progress Notes * Odalys Alonso, DO - 04/29/2023 3:04 PM EST MATERNAL MEDICINE VISIT Patient location: CLINIC. I was not in a hospital or clinic location. After connecting through televideo, patient was verified with two unique identifiers. Patient (or authorized legal passenger service representative) was then informed that this was a Telemedicine visit and being conducted confidentially over secure lines. My office door was closed. No one else was in the room with me. Patient acknowledged consent and understanding of privacy and security of the Telemedicine visit, and gave permission to have atelemedicine presenter stay in the room in order to assist with the history and to conduct the examas needed. I informed the patient that I have reviewed their record in [facility] and presented the opportunity for them to ask any questions regarding the visit today. The patient agreed to participate. Bety Mullen presented today at 34w4d for an ultrasound and follow-up of her high risk . She was seen for the following indications: Problem List Items Addressed This Visit Endocrine/Metabolic Insulin controlled gestational diabetes mellitus (GDM) during , antepartum - Primary Sugars reviewed and still adjusting insulin due to elevated FBS, mainly 110's range. Increased Toujeo to 70 units; likely will require more. Postprandial sugars are at the higher end of normal; may improve with increased long-acting insulin/improved FBS control. Low threshold to begin short-acting insulin. Circulatory Chronic hypertension in Digestive Obesity in , antepartum Other Excessive growth affecting management of in third trimester CONSIDERATIONS: Reviewed that weight greater than 90%ile is considered "large for gestational age" (LGA). Discussed associated risks (e.g., difficult labor progress or delivery, hemorrhage, shoulderdystocia). LGA may be related to constitutional factors (e.g., male gender, ethnicity), environmental factors (maternal diabetes/obesity/weight gain), or genetic conditions. Discussed the limitations of ultrasound in predicting weight, especially at later gestationalages. For a fetus estimated as greater than [...] delivery plan with her primary OB provider. Other Visit Diagnoses 34 weeks gestation of We reviewed today's ultrasound findings. Patient presented for growth assessment at 34w 4d. Large AC noted at >99% with overall EFW of 3256 g at 99%. ALEXANDER 15.6 cm. Cephalic presentation. (For full details, please refer to ultrasound report provided separately). Ms. Mullen's questions were answered to her satisfaction. She was advised to contact our office or her OB provider for any additional questions regarding her . RECOMMENDATIONS: Recommend follow up ultrasound with MFM in 3-4 weeks for growth secondary to above indications. Thank you for allowing us to participate in the care of this patient. Please call with any questions. I spent a total of 21 minutes on the date of service in preparation, delivery, and documentation ofthe care provided to Bety Mullen excluding any time spent in the performance of separately billed services. Odalys Alonso DO 04/29/2023 3:04 PM documented in this encounter Miscellaneous Notes * Assessment & Plan Note - Odalys Alonso DO - 04/29/2023 3:04 PM EST Associated Problem(s): Excessive growth affecting management of in third trimester CONSIDERATIONS: Reviewed that weight greater than 90%ile is considered "large for gestational age" (LGA). Discussed associated risks (e.g., difficult labor progress or delivery, hemorrhage, shoulderdystocia). LGA may be related to constitutional factors (e.g., male gender, ethnicity), environmental factors (maternal diabetes/obesity/weight gain), or genetic conditions. Discussed the limitations of ultrasound in predicting weight, especially at later gestationalages. For a fetus estimated as greater than [...] delivery plan with her primary OB provider. * Assessment & Plan Note - Odalys Alonso DO - 04/29/2023 3:03 PM EST Associated Problem(s): Insulin controlled gestational diabetes mellitus (GDM) during , antepartum Sugars reviewed and still adjusting insulin due to elevated FBS, mainly 110's range. Increased Toujeo to 70 units; likely will require more. Postprandial sugars are at the higher end of normal; may improve with increased long-acting insulin/improved FBS control. Low threshold to begin short-acting insulin. documented in this encounter Plan of Treatment Upcoming Encounters Date Type Department Care Team (Late st Contact Info) Description 05/03/2023 1:15 PM EST Office Visit Gynecology/Obstetrics [facility] [address] [place] [address] Lula Pandey CRNP [address] [place] [address] Keanu Non Stress Tests [facility] [address] [place] [address] 05/06/2023 1:45 PM EST Office Visit Gynecology/Obstetrics [facility] [address] [place] [address] Laura Lua CRNP [address] [place] [address] Keanu Non Stress Tests Estephania [address] [place] [address] 05/11/2023 1:45 PM EST Office Visit Gynecology/Obstetrics [facility] [address] [place] [address] Laura Lua CRNP [address] [place] [address] Keanu Non Stress Tests Estephania [address] [place] [address] 05/14/2023 2:15 PM EST Office Visit Gynecology/Obstetrics [facility] [address] [place] [address] Laura Lua CRNP [address] [place] [address] [place], Non Stress Tests E[facility]ia [address] [place] [address] 05/27/2023 2:30 PM EST Imaging Maternal Medicine Imaging, [facility] [address] [place] [phone] Health Maintenance Due Date Last Done Comments Hepatitis B (1 of 3 - 3-dose series) 1983 Depression, Most Recent Score >= 10 (will fire each visit until score < 10) 05/27/2021 05/26/2021 COVID-19 Vaccine ( season) 2023 03/18/2021, 07/10/2020, 06/07/2020 GFR 02/20/2024 02/19/2023, 10/15, 07/10/2022, Additional history exists Pap Smear 10/27/2025 10/27/2022, 0612/2017, 10/22/2017 Diabetes Screening 12/23/2025 12/23/2022, 0 07/10/2022, [...] controlled gestational diabetes mellitus (GDM) during , antepartum- Primary Chronic hypertension in Benign essential hypertension complicating , childbirth, and the puerperium, unspecified as to episode of care Obesity in , antepartum Obesity complicating , childbirth, or the puerperium, antepartum condition or complication Excessive growth affecting management of in third trimester, single or unspecified fetus 34 weeks gestation of state, incidental documented in this encounter Care Teams Die Engraving Supervisor Relationship Specialty Start Date End Date Kasia Jara MD [address] [place] [address] PCP - General Internal Medicine 03/01/20 documented as of this encounter
--- OUTSIDE RECORDS SUMMARY | 2023-05-20 11:00 | External Medical Summary | Summary of Care ---
Author Name Unknown Organization [facility] Address [address] [place] [address] Phone [phone] Care Team Providers Care Computer Engineering Professor Name Role Phone Kasia Jara MD Primary Care Provider [phone] Reason for Visit * Reason Comments Non Stress Test Encounter Details Date Type Department Care Team (Late st Contact Info) Description 04/22/2023 1:45 PM EST Office Visit Gynecology/Obstetric s [facility] [address] [place] [address] Lula Pandey CRNP [address] [place] [address] [place] Non Stress Tests [facility] [address] [place] [address] Supervision of high-risk , unspecified trimester*; Obesity in , antepartum; Multigravida of advanced maternal age in third trimester; Insulin controlled gestational diabetes mellitus (GDM) during , antepartum; Depression complicating , antepartum; Chronic hypertension in ; Excessive growth affecting management of in third trimester, single or unspecified fetus; Non-reactive NST (non-stress test); SHIELA (generalized anxiety disorder); Binge eating disorder Allergies Active Allergy Reactions Criticality Noted Date Comments Amoxicillin 07/08/2014 hives Naltrexone Nausea/vomiting 05/03/2019 Penicillins 07/08/2014 Sulfamethoxazole-Trimethoprim 2014 hives documented as of this encounter (statuses as of 04/22/2023) Medications Medication Sig Dispensed Refills Start Date [...] by mouth in the morning. 0 Active [employer] Flex System w/Device KitIndications:Ges tational diabetes mellitus (GDM), antepartum, gestational diabetes method of control unspecified Use to test blood sugars 4 times daily (fasting, 1 hour after breakfast, lunch, and dinner) 1 Kit 0 12/02/2022 Active [employer] In Vitro Strip (Glucose Blood)Indications: Gestational diabetes mellitus (GDM), antepartum, gestational diabetes method of control unspecified Use to test blood sugars 4 times daily (fasting, 1 hour after breakfast, lunch, and dinner) 125 Strip 6 12/02/2022 Active [employer] Lancets 30GIndications:Ges tational diabetes mellitus (GDM), antepartum, [...] MG Oral Tablet (Normodyne)Indicat ions:Chronic hypertension in TAKE ONE TABLET BY MOUTH IN THE MORNING AND ONE TABLET BEFORE BEDTIME 60 Tablet 2 04/22/2023 Active Labetalol HCl 200 MG Oral Tablet (Normodyne)Indicat ions:Chronic hypertension in TAKE ONE TABLET BY MOUTH IN THE MORNING AND ONE TABLET BEFORE BEDTIME 60 Tablet 0 04/21/2023 04/22/2023 Discontinued (Refill) Sertraline HCl 50 MG Oral Tablet (Zoloft)Indication s:SHIELA (generalized anxiety disorder),Binge eating disorder TAKE ONE TABLET BY MOUTH EVERY MORNING 30 Tablet 0 04/21/2023 04/22/2023 Discontinued (Refill) documented as of this encounter (statuses as of 04/22/2023) Active Problems Problem Noted Date Diagnosed Date Excessive growth affec ting management of in third trimester 04/01/2023 Overview: Large AC noted at >99% with overall EFW of 2123 g at 98% - 30 wks Last Assessment & Plan: LGA noted today, most consistent with hyperglycemia. Working with [facility] to improve blood glucose control. Please initiate NSTs 2x weekly at 32 weeks. Chronic hypertension in 12/23/2022 Overview: Diagnosed with [...] parameters, s/s preeclampsia, and when to call. Last Assessment & Plan: She monitors her [...] 10:21 AM 100[facility] 12/02/2022 07:15 AM 12/02/22 hemoglobin [...] tonight 01/05/23--FBS are elevated- sent msg to MUSIC HISTORIAN 01/05/23: RPM elevated FBS; increase to Lantus 15 units at bedtime 01/11/23-- FBS elevated- msg sent to MUSIC HISTORIAN 01/11/23: RPM - elevated FBS - increase to Lantus 20 units at bedtime 01/21/23--FBS elevated- msg sent to MUSIC HISTORIAN 01/21/23: RPM - FBS elevated (100-120s); increase to Lantus 30 units at bedtime 01/25/23- FBS elevated msg sent to MUSIC HISTORIAN 01/25/23: RPM - elevated FBS; increase to Lantus 35 units at bedtime 02/01/23- FBS elevated msg sent to MUSIC HISTORIAN 02/01/23: RPM reviewed; FBS elevated. Increase to Lantus 45 units at bedtime. 02/04/23: RPM reviewed. Elevated FBS. Increase Lantus to 50 units at bedtime --KW 02/08/23: RPM Stable overall; FBS improving since last dose increase; few PP elevations 02/15/23- FBS elevated- msg sent to MUSIC HISTORIAN 02/15/23: RPM reviewed. Increase Lantus to 55 units at bedtime. 02/22/23- FBS elevated msg sent to MUSIC HISTORIAN 02/22/23: RPM reviewed. Increase Lantus to 60 units at bedtime. 03/01/23- msg sent to MUSIC HISTORIAN- elevations in FBS and needs insulin pen refill 03/01/23: RPM reviewed. Increase Lantus to 65 units at bedtime. New prescription sent. 03/08/23: RPM reviewed. Elevated FBS. Increase to Lantus 75 units at bedtime 03/15/23- FBS past two days were normal. Will review again next week since her insulin was just increased on 03/0803/23/23- FBS elevated- msg sent to MUSIC HISTORIAN 03/23/23: RPM increase to Lantus 80 units at bedtime 03/29/23- BS elevated msg sent to MUSIC HISTORIAN 04/05/23- elevated sugars msg sent to MUSIC HISTORIAN 04/05/23: RPM reviewed; elevated FBS and some [...] bedtime. 04/12/23- FBS elevated- msg sent to MUSIC HISTORIAN 04/12/23: RPM elevated fasting; messaged sent to [...] finished. Start [place] 60 units at bedtime. Last Assessment & Plan: Working with [facility]. Insulin adjustments needed. Supervision of high-risk , unspecified trimester 11/24/2022 [...] [facility] 11 10/27/2022 03:00 PM ALT - [facility] 11 10/27/2022 03:00 PM PROTEIN/ CREATININE RATIO, URINE - [facility] 63 11/24/2022 12:15 PM Denies chronic hypertension [...] elevated in . Her platelet count was [id number] on November 01. Also, on July 10, [...] as of this encounter (statuses as of 04/22/2023) Resolved Problems Problem Noted Date Diagnosed Date Resolved Date Impaired glucose in , antepartum 11/24/2022 12/02/2022 Overview: Elevated early 1 hr GTT documented as of this encounter (statuses as of 04/22/2023) Immunizations Name Administration Dates Next Due COVID-19 mRNA, LNP-s, No Pre serve, 2-Dose Series (Moderna) 07/10/2020,06/07/2020 COVID-19, mRNA, LNP-s, PF, B ooster, 100mcg/0.5mg (Moderna) 03/18/2021 SEASONAL INFLUENZA, PF, 6 M & Above, IM , (FLULAVAL or FLUZONE) 01/22/2023,03/17/2022,03/27/2021 Seasonal Influenza, Quadriva lent, No Preserve, [...] money to get more. Never true 10/27/2022 [place] Depression Scale Answer Date Recorded [place] Depression Scale Total 5 03/25/2023 The thought [...] Sign Reading Time Taken Comments Blood Pressure 142/64 04/22/2023 2:02 PM EST Pulse - - Temperature - - Respiratory Rate - - Oxygen Saturation - - Inhaled Oxygen Concentration - - Weight 146.1 kg (322 lb) 04/22/2023 2:02 PM EST Height - - Body Mass Index 55.27 04/19/2023 1:11 PM EST documented in this encounter Progress Notes * Lula Pandey CRNP - 04/22/2023 2:15 PM EST 33w4d Doing well, reports good movement. No regular ctx, some BH ctx. Denies TEAGUE, vision changes. MFM U/S scheduled next week. NST cat 1 but does not meet criteria for reactive. BPP today 12/22. Requests refills for labetalol, sertraline - both sent. Continue biweekly NSTs, visit in 2 weeks. JHONATAN Brown ASSESSMENT assessment with Non-stress Test completed on 04/22/2023 at 33w4d gestation for indication of gestational diabetes mellitus, obesity, and chronic hypertension heart baseline: 160 bpm Variability: Moderate Decelerations: absent Accelerations: absent Contractions: None NST start time: 1347 NST stop time: 1428 NST strip reviewed, interpreted, and approved by OB provider, JHONATAN Brown . NST strip stored in clinic storage file documented in this encounter Miscellaneous Notes * Addendum Note - Kenna Valle LPN - 04/22/2023 3:08 PM ESTAddended by: KENNA VALLE on: 04/22/2023 03:08 PM Modules accepted: Orders documented in this encounter Plan of Treatment Upcoming Encounters Date Type Department Care Team (Late st Contact Info) Description 04/26/2023 1:15 PM EST Office Visit Gynecology/Obstetrics [facility] [address] [place] [address] Lula Pandey CRNP [address] [place] [address] [place], Non Stress Tests [facility] [address] [place] [address] 04/29/2023 1:00 PM EST Office Visit Gynecology/Obstetrics [facility] [place] [address] [place] [address] Brittanie Fitzgerald PA-C [address] [place] [address] [place], Non Stress Tests [facility] [address] [place] [address] 04/29/2023 2:30 PM EST Imaging Maternal Medicine Imaging, [facility] [place] [address] [place] [phone] 05/03/2023 1:15 PM EST Office Visit Gynecology/Obstetrics [place] [address] [place] [address] Lula Pandey CRNP [address] [place] [address] [place], Non Stress Tests [facility] [address] [place] [address] 05/06/2023 1:45 PM EST Office Visit Gynecology/Obstetrics [facility] [place] [address] [place] [address] Laura Lua CRNP [address] [place] [address] [place] Non Stress Tests [facility] [address] [place] [address] 05/11/2023 1:45 PM EST Office Visit Gynecology/Obstetrics [facility] [address] [place] [address] Laura Lua CRNP [address] [place] [address] [place] Non Stress Tests [facility] [address] [place] [address] 05/14/2023 2:15 PM EST Office Visit Gynecology/Obstetrics [facility] [address] [place] [address] Laura Lua CRNP [address] [place] [address] [place] Non Stress Tests [facility] [address] [place] [address] 05/27/2023 2:30 PM EST Imaging [facility]aternal Medicine Imaging, [facility] [place] [address] [place] [phone] Pending Results Name Type Priority Associated Diagnoses Date /Time US BPP W/O NON-STRESS TEST Medical Imaging Routine Supervision of high-risk , unspecified trimester Non-reactive NST (non-stress test) 04/22/2023 2:36 PM EST Scheduled Orders Name Type Priority Associated Diagnoses Orde r Schedule US BPP W/O NON-STRESS TEST Medical Imaging Routine Supervision of high-risk , unspecified trimester Non-reactive NST (non-stress test) Expected: 04/22/2023, Expires: 05/23/2024 Health Maintenance Due Date Last Done Comments [...] Comments URINALYSIS, POINT OF CARE (ENTER/EDIT) Routine 04/22/2023 Supervision of high-risk , unspecified trimester Chronic hypertension in documented in this encounter Results * URINALYSIS, POINT OF CARE (ENTER/EDIT) (04/22/2023) Color, Urine Yellow Yellow or Light Yellow Clarity, Urine Clear Clear Glucose, Urine Negative Negative mg/dL Bilirubin, Urine Negative Negative Ketone, Urine Negative Negative mg/dL Specific [place], Urine 1.030 1.003 - 1.030 Blood, Urine Trace-intact Negative pH, Urine 6.0 5.0 - 7.5 units Protein, Urine Negative Negative mg/dL Urobilinogen, Urine 0.2 0.2 - 1.0 mg/dL Nitrite, Urine Negative Negative Esterase, Urine Negative Negative Urine 04/22/2023 [facility] [...] in third trimester, single or unspecified fetus Non-reactive NST (non-stress test) Abnormal findings on screening SHIELA (generalized anxiety disorder) Generalized anxiety disorder Binge eating disorder documented in this encounter Care Teams Computer Engineering Professor Relationship Specialty Start Date End Date Kasia Jara MD [address] [place] [address] PCP - General Internal Medicine 03/01/20 documented as of this encounter
--- OUTSIDE RECORDS SUMMARY | 2023-05-20 11:00 | External Medical Summary | Summary of Care ---
Author Name Unknown Organization [facility] Address [address] [place] [place] [address] Phone [phone] Care Team Providers Care Dial Refinisher Name Role Phone Kasia Jara MD Primary Care Provider [phone] Reason for Visit * Reason Comments Return Visit Non Stress Test Encounter Details Date Type Department Care Team (Late st Contact Info) Description 04/26/2023 1:15 PM EST Office Visit Gynecology/Obstetric s [place] [address] [place] [address] Lula Pandey CRNP [address] [place] [address] [place] Non Stress Tests [facility] [address] [place] [address] Supervision of high-risk , unspecified trimester*; Obesity [...] as of this encounter (statuses as of 04/26/2023) Medications Medication Sig Dispensed Refills Start Date [...] by mouth in the morning. 0 Active [employer] Flex System w/Device KitIndications:Ges tational diabetes mellitus (GDM), antepartum, gestational diabetes method of control unspecified Use to test blood sugars 4 times daily (fasting, 1 hour after breakfast, lunch, and dinner) 1 Kit 0 12/02/2022 Active [employer] In Vitro Strip (Glucose Blood)Indications: Gestational diabetes mellitus (GDM), antepartum, gestational diabetes method of control unspecified Use to test blood sugars 4 times daily (fasting, 1 hour after breakfast, lunch, and dinner) 125 Strip 6 12/02/2022 Active [employer] Lancets 30GIndications:Ges tational diabetes mellitus (GDM), [...] the evening. 90 Tablet 2 04/26/2023 Active Labetalol HCl 200 MG Oral Tablet (Normodyne)Indicat ions:Chronic hypertension in TAKE ONE TABLET BY MOUTH IN THE MORNING AND ONE TABLET BEFORE BEDTIME 60 Tablet 2 04/22/2023 04/26/2023 Discontinued (Refill) documented as of this encounter (statuses as of 04/26/2023) Active Problems Problem Noted Date Diagnosed Date [...] 70's diastolic. Her values on file in [facility] are mildly elevated, including today (reports being [...] 01/05/23--FBS are elevated- sent msg to DIRECTOR HEART 01/05/23: RPM elevated FBS; increase to Lantus 15 units at bedtime 01/11/23-- FBS elevated- msg sent to DIRECTOR HEART 01/11/23: RPM - elevated FBS - increase to Lantus 20 units at bedtime 01/21/23--FBS elevated- msg sent to DIRECTOR HEART 01/21/23: RPM - FBS elevated (100-120s); increase to Lantus 30 units at bedtime 01/25/23- FBS elevated msg sent to DIRECTOR HEART 01/25/23: RPM - elevated FBS; increase to Lantus 35 units at bedtime 02/01/23- FBS elevated msg sent to DIRECTOR HEART 02/01/23: RPM reviewed; FBS elevated. Increase to Lantus 45 units at bedtime. 02/04/23: RPM reviewed. Elevated FBS. Increase Lantus to 50 units at bedtime --KW 02/08/23: RPM Stable overall; FBS improving since last dose increase; few PP elevations 02/15/23- FBS elevated- msg sent to DIRECTOR HEART 02/15/23: RPM reviewed. Increase Lantus to 55 units at bedtime. 02/22/23- FBS elevated msg sent to DIRECTOR HEART 02/22/23: RPM reviewed. Increase Lantus to 60 units at bedtime. 03/01/23- msg sent to DIRECTOR HEART- elevations in FBS and needs insulin pen refill 03/01/23: RPM reviewed. Increase Lantus to 65 units at bedtime. New prescription sent. 03/08/23: RPM reviewed. Elevated FBS. Increase to Lantus 75 units at bedtime 03/15/23- FBS past two days were normal. Will review again next week since her insulin was just increased on 03/0803/23/23- FBS elevated- msg sent to DIRECTOR HEART 03/23/23: RPM increase to Lantus 80 units at bedtime 03/29/23- BS elevated msg sent to DIRECTOR HEART 04/05/23- elevated sugars msg sent to DIRECTOR HEART 04/05/23: RPM reviewed; elevated FBS and some [...] 04/12/23- FBS elevated- msg sent to DIRECTOR HEART 04/12/23: RPM elevated fasting; messaged sent to [...] if need be. Last Assessment & Plan: Working with [facility]. [...] elevated in . Her platelet count was [id number] on November 01. Also, on July 10, [...] as of this encounter (statuses as of 04/26/2023) Resolved Problems Problem Noted Date Diagnosed Date Resolved Date Impaired glucose in , antepartum 11/24/2022 12/02/2022 Overview: Elevated early 1 hr GTT documented as of this encounter (statuses as of 04/26/2023) Immunizations Name Administration Dates Next Due COVID-19 [...] money to get more. Never true 10/27/2022 [place] Depression Scale Answer Date Recorded [place] Depression Scale Total 5 03/25/2023 The thought [...] Sign Reading Time Taken Comments Blood Pressure 142/86 04/26/2023 1:56 PM EST Pulse - - Temperature - - Respiratory Rate - - Oxygen Saturation - - Inhaled Oxygen Concentration - - Weight 147.9 kg (326 lb) 04/26/2023 1:56 PM EST Height - - Body Mass Index 55.96 04/19/2023 1:11 PM EST documented in this encounter Progress Notes * Lula Pandey CRNP - 04/26/2023 1:25 PM EST ASSESSMENT assessment with Non-stress Test completed on 04/26/2023 at 34.1 weeks gestation for indication of gestational diabetes mellitus, obesity, and chronic hypertension heart baseline: 150 bpm Variability: Moderate Decelerations: absent Accelerations: present Contractions: None NST start time: 1319 NST stop time: 1349 NST strip reviewed, interpreted, and approved by OB provider, JHONATAN Brown . NST strip stored in clinic storage file Letter provided to allow for remote work. Good movement. No ctx, leaking, bleeding. MFM growth u/s is scheduled later this week. Denies new TEAGUE, vision changes. +pedal edema at the end of the day. Increased pressure/discomfort - recommend belly band or kinesiology tape. BPs have been >140 systolic x2 visits; increase labetalol to 200mg TID, pt agreeable. Aware to call office if she has symptoms of hypotension. Continue twice weekly NSTs, RUPINDER in 1 week. JHONATAN Brown documented in this encounter Plan of Treatment Upcoming Encounters Date Type Department Care Team (Late st Contact Info) Description 04/29/2023 1:00 PM EST Office Visit Gynecology/Obstetrics [facility] [place] [address] [place] [address] Brittanie Fitzgerald PA-C [address] [place] [address] [place], Non Stress Tests [facility] [address] [place] [address] 04/29/2023 2:30 PM EST Imaging [facility]aternal Medicine Imaging, [facility] [place] [address] [place] [phone] 05/03/2023 1:15 PM EST Office Visit Gynecology/Obstetrics [place] [address] [place] [address] Lula Pandey CRNP [address] [place] [address] [place], Non Stress Tests [facility] [address] [place] [address] 05/06/2023 1:45 PM EST Office Visit Gynecology/Obstetrics [facility] [address] [place] [address] Laura Lua CRNP [address] [place] [address] [place] Non Stress Tests [place] [address] [place] [phone] 05/11/2023 1:45 PM EST Office Visit Gynecology/Obstetrics [place] [place] [address] [place] [address] Laura Lua CRNP [address] [place] [address] [place] Non Stress Tests [facility] [address] [place] [address] 05/14/2023 2:15 PM EST Office Visit Gynecology/Obstetrics [place] [address] [place] [address] Laura Lua CRNP [address] [place] [address] [facility] Stress Tests [place] [place] [id number] 05/27/2023 2:30 PM EST Imaging Maternal Medicine Imaging, [facility] [place] [address] [place] [phone] Health Maintenance Due Date Last Done Comments Hepatitis B (1 of 3 - 3-dose series) 1983 Depression, Most Recent Score >= 10 (will fire each visit until score < 10) 05/27/2021 05/26/2021 COVID-19 Vaccine (2022- season) 2023 03/18/2021, 07/10/2020, 06/07/2020 GFR 02/20/2024 02/19/2023, 10/15, 07/10/2022, Additional history exists Pap Smear 10/27/2025 10/27/2022, 060 12/2017, 10/22/2017 Diabetes Screening 12/23/2025 12/23/2022, 0 [...] as of this encounter Visit Diagnoses Diagnosis Supervision of [...] fetus documented in this encounter Care Teams Dial Refinisher Relationship Specialty Start Date End Date Kasia Jara MD [address] [facility] [place] [address] PCP - General Internal Medicine 03/01/20 documented as of this encounter
--- OUTSIDE RECORDS SUMMARY | 2023-05-20 11:00 | External Medical Summary | Summary of Care ---
Author Name Unknown Organization [facility] Address [address] [place] [address] Phone [phone] Care Team Providers Care Superintendent Water And [employer] Name Role Phone Kasia Jara MD Primary Care Provider [phone] Reason for Visit * Reason Comments Return Visit Non Stress Test Encounter Details Date Type Department Care Team (Late st Contact Info) Description 05/06/2023 1:45 PM EST Office Visit Gynecology/Obstetric s [facility] [address] [place] [address] Laura Lua CRNP [address] [place] [address] [facility] Non Stress Tests [facility] [address] [place] [address] Supervision of high-risk , unspecified trimester*; Obesity [...] as of this encounter (statuses as of 05/06/2023) Medications Medication Sig Dispensed Refills Start Date [...] by mouth in the morning. 0 Active [employer] Flex System w/Device KitIndications:Gestat ional diabetes mellitus (GDM), antepartum, gestational diabetes method of control unspecified Use to test blood sugars 4 times daily (fasting, 1 hour after breakfast, lunch, and dinner) 1 Kit 0 12/02/2022 Active [employer] In Vitro Strip (Glucose Blood)Indications:Ges tational diabetes mellitus (GDM), antepartum, gestational diabetes method of control unspecified Use to test blood sugars 4 times daily (fasting, 1 hour after breakfast, lunch, and dinner) 125 Strip 6 12/02/2022 Active [employer] Delica Lancets 30GIndications:Gestat ional diabetes mellitus (GDM), [...] the evening. 90 Tablet 2 04/26/2023 Active Abrysvo 120 MCG/0.5ML Intramuscular Solution Reconstituted (RSV Pre-Fusion F A&B Vac Rcmb) Inject 0.5 mL into a large muscle once for 1 dose. 0.5 mL 0 05/06/2023 05/06/2023 Active documented as of this encounter (statuses as of 05/06/2023) Active Problems Problem Noted Date Diagnosed Date [...] 70's diastolic. Her values on file in [facility] are mildly elevated, including today (reports being [...] tonight 01/05/23--FBS are elevated- sent msg to ROW BOSS HOEING 01/05/23: RPM elevated FBS; increase to Lantus 15 units at bedtime 01/11/23-- FBS elevated- msg sent to ROW BOSS HOEING 01/11/23: RPM - elevated FBS - increase to Lantus 20 units at bedtime 01/21/23--FBS elevated- msg sent to ROW BOSS HOEING 01/21/23: RPM - FBS elevated (100-120s); increase to Lantus 30 units at bedtime 01/25/23- FBS elevated msg sent to ROW BOSS HOEING 01/25/23: RPM - elevated FBS; increase to Lantus 35 units at bedtime 02/01/23- FBS elevated msg sent to ROW BOSS HOEING 02/01/23: RPM reviewed; FBS elevated. Increase to Lantus 45 units at bedtime. 02/04/23: RPM reviewed. Elevated FBS. Increase Lantus to 50 units at bedtime --KW 02/08/23: RPM Stable overall; FBS improving since last dose increase; few PP elevations 02/15/23- FBS elevated- msg sent to ROW BOSS HOEING 02/15/23: RPM reviewed. Increase Lantus to 55 units at bedtime. 02/22/23- FBS elevated msg sent to ROW BOSS HOEING 02/22/23: RPM reviewed. Increase Lantus to 60 units at bedtime. 03/01/23- msg sent to ROW BOSS HOEING- elevations in FBS and needs insulin pen refill 03/01/23: RPM reviewed. Increase Lantus to 65 units at bedtime. New prescription sent. 03/08/23: RPM reviewed. Elevated FBS. Increase to Lantus 75 units at bedtime 03/15/23- FBS past two days were normal. Will review again next week since her insulin was just increased on 03/0803/23/23- FBS elevated- msg sent to ROW BOSS HOEING 03/23/23: RPM increase to Lantus 80 units at bedtime 03/29/23- BS elevated msg sent to ROW BOSS HOEING 04/05/23- elevated sugars msg sent to ROW BOSS HOEING 04/05/23: RPM reviewed; elevated FBS and some [...] bedtime. 04/12/23- FBS elevated- msg sent to ROW BOSS HOEING 04/12/23: RPM elevated fasting; messaged sent to [...] Toujeo to 74 units at bedtime --KW Last Assessment & Plan: Sugars reviewed and [...] elevated in . Her platelet count was [id number] on November 01. Also, on July 10, [...] as of this encounter (statuses as of 05/06/2023) Resolved Problems Problem Noted Date Diagnosed Date Resolved Date Impaired glucose in , antepartum 11/24/2022 12/02/2022 Overview: Elevated early 1 hr GTT documented as of this encounter (statuses as of 05/06/2023) Immunizations Name Administration Dates Next Due COVID-19 [...] money to get more. Never true 10/27/2022 [place] Depression Scale Answer Date Recorded [place] Depression Scale Total 5 03/25/2023 The thought [...] Sign Reading Time Taken Comments Blood Pressure 140/58 05/06/2023 1:35 PM EST Pulse - - Temperature - - Respiratory Rate - - Oxygen Saturation - - Inhaled Oxygen Concentration - - Weight 149.2 kg (329 lb) 05/06/2023 1:35 PM EST Height 162.6 cm (5' 4") 05/06/2023 1:35 PM EST Body Mass Index 56.47 05/06/2023 1:35 PM EST documented in this encounter Progress Notes * Laura Lua CRNP - 05/06/2023 2:09 PM EST 35w4d C/o BLE edema. No other concerns. Baby is LGA, folloiwng with MFM. >99th percentile. Fasting blood sugars have never been in range. Taking insulin as directed, is following with ADAPT program. Didn't take 2nd dose of labetalol yet today, BP stable. Test claim sent for RSV vaccine. Plans to get this next week when she comes for NST. Order already sent to pharmacy. ASSESSMENT assessment with Non-stress Test completed on 05/06/2023 at 35.4weeks gestation for indicationof gestational diabetes mellitus, obesity, and chronic hypertension heart baseline: 150 bpm Variability: Moderate Decelerations: absent Accelerations: present Contractions: None NST start time: 1347 NST stop time: 1411 NST strip reviewed, interpreted, and approved by OB providerLaura CRNP . NST strip stored in clinic storage file * Daylin Bettencourt LPN - 05/06/2023 1:52 PM EST 35w4d NST, RUPINDER documented in this encounter Plan of Treatment Upcoming Encounters Date Type Department Care Team (Late st Contact Info) Description 05/11/2023 1:45 PM EST Office Visit Gynecology/Obstetrics [facility] [address] [place] [address] Laura Lua CRNP [address] [place] [address] [facility] Non Stress Tests [facility] [address] [place] [address] 05/14/2023 2:15 PM EST Office Visit Gynecology/Obstetrics [facility] [address] [place] [address] Laura Lua CRNP [address] [place] [address] [facility] Stress Tests [facility] [address] [place] [id number] 05/27/2023 2:30 PM EST Imaging Maternal Medicine Imaging, [facility] [address] [place] [phone] Health Maintenance Due Date Last Done Comments [...] Comments URINALYSIS, POINT OF CARE (ENTER/EDIT) Routine 05/06/2023 Chronic hypertension in documented in this encounter Results * URINALYSIS, POINT OF CARE (ENTER/EDIT) (05/06/2023) Color, Urine Yellow Yellow or Light Yellow Clarity, Urine Clear Clear Glucose, Urine Negative Negative mg/dL Bilirubin, Urine Negative Negative Ketone, Urine Negative Negative mg/dL Specific [place], Urine 1.030 1.003 - 1.030 Blood, Urine Negative Negative pH, Urine 6.0 5.0 - 7.5 units Protein, Urine Negative Negative mg/dL Urobilinogen, Urine 0.2 0.2 - 1.0 mg/dL Nitrite, Urine Negative Negative Esterase, Urine Negative Negative Urine 05/06/2023 Laura [facility] POINT OF CARE [facility] ENTER/EDIT ORDERABLES documented in this encounter Visit [...] fetus documented in this encounter Care Teams Superintendent Water And Sewer Systems Relationship Specialty Start Date End Date Kasia Jara MD [address] [place] [address] PCP - General Internal Medicine 03/01/20 documented as of this encounter
--- OUTSIDE RECORDS SUMMARY | 2023-05-20 11:00 | External Medical Summary | Summary of Care ---
Author Name Unknown Organization [facility] Address [address] [facility] [place] [address] Phone [phone] Care Team Providers Care Staff Counselor Name Role Phone Kasia Jara MD Primary Care Provider [phone] Reason for Visit * Reason Comments Return Visit Non Stress Test Encounter Details Date Type Department Care Team (Late st Contact Info) Description 04/26/2023 1:15 PM EST Office Visit Gynecology/Obstetric s [facility] [address] [place] [address] Lula Pandey CRNP [address] [place] [address] [facility] Non Stress Tests [facility] [address] [place] [address] Supervision of high-risk , unspecified trimester*; Obesity [...] by mouth in the morning. 0 Active [employer] Flex System w/Device KitIndications:Ges tational diabetes mellitus (GDM), antepartum, gestational diabetes method of control unspecified Use to test blood sugars 4 times daily (fasting, 1 hour after breakfast, lunch, and dinner) 1 Kit 0 12/02/2022 Active [employer] In Vitro Strip (Glucose Blood)Indications: Gestational diabetes mellitus (GDM), antepartum, gestational diabetes method of control unspecified Use to test blood sugars 4 times daily (fasting, 1 hour after breakfast, lunch, and dinner) 125 Strip 6 12/02/2022 Active [employer] Lancets 30GIndications:Ges tational diabetes mellitus (GDM), [...] 70's diastolic. Her values on file in [facility] are mildly elevated, including today (reports being [...] tonight 01/05/23--FBS are elevated- sent msg to ELECTRIC DOLLY OPERATOR 01/05/23: RPM elevated FBS; increase to Lantus 15 units at bedtime 01/11/23-- FBS elevated- msg sent to ELECTRIC DOLLY OPERATOR 01/11/23: RPM - elevated FBS - increase to Lantus 20 units at bedtime 01/21/23--FBS elevated- msg sent to ELECTRIC DOLLY OPERATOR 01/21/23: RPM - FBS elevated (100-120s); increase to Lantus 30 units at bedtime 01/25/23- FBS elevated msg sent to ELECTRIC DOLLY OPERATOR 01/25/23: RPM - elevated FBS; increase to Lantus 35 units at bedtime 02/01/23- FBS elevated msg sent to ELECTRIC DOLLY OPERATOR 02/01/23: RPM reviewed; FBS elevated. Increase to Lantus 45 units at bedtime. 02/04/23: RPM reviewed. Elevated FBS. Increase Lantus to 50 units at bedtime --KW 02/08/23: RPM Stable overall; FBS improving since last dose increase; few PP elevations 02/15/23- FBS elevated- msg sent to ELECTRIC DOLLY OPERATOR 02/15/23: RPM reviewed. Increase Lantus to 55 units at bedtime. 02/22/23- FBS elevated msg sent to ELECTRIC DOLLY OPERATOR 02/22/23: RPM reviewed. Increase Lantus to 60 units at bedtime. 03/01/23- msg sent to ELECTRIC DOLLY OPERATOR- elevations in FBS and needs insulin pen refill 03/01/23: RPM reviewed. Increase Lantus to 65 units at bedtime. New prescription sent. 03/08/23: RPM reviewed. Elevated FBS. Increase to Lantus 75 units at bedtime 03/15/23- FBS past two days were normal. Will review again next week since her insulin was just increased on 03/0803/23/23- FBS elevated- msg sent to ELECTRIC DOLLY OPERATOR 03/23/23: RPM increase to Lantus 80 units at bedtime 03/29/23- BS elevated msg sent to ELECTRIC DOLLY OPERATOR 04/05/23- elevated sugars msg sent to ELECTRIC DOLLY OPERATOR 04/05/23: RPM reviewed; elevated FBS and [...] bedtime. 04/12/23- FBS elevated- msg sent to ELECTRIC DOLLY OPERATOR 04/12/23: RPM elevated fasting; messaged sent [...] elevated in . Her platelet count was [id number] on November 01. Also, on July 10, [...] money to get more. Never true 10/27/2022 [place] Depression Scale Answer Date Recorded [place] Depression Scale Total 5 03/25/2023 The thought [...] week. JHONATAN Brown documented in this encounter Miscellaneous Notes * Addendum Note - Kenna Valle LPN - 04/26/2023 3:11 PM ESTAddended by: KENNA VALLE on: 04/26/2023 03:11 PM Modules accepted: Orders documented in this encounter Plan of Treatment Upcoming Encounters Date Type Department Care Team (Late st Contact Info) Description 04/29/2023 1:00 PM EST Office Visit Gynecology/Obstetrics [facility] [address] [place] [address] Brittanie Fitzgerald PA-C [address] [place] [address] Robyn [facility] Stress Tests [facility] [address] [place] [id number] 04/29/2023 2:30 PM EST Imaging Maternal Medicine Imaging, [facility] [address] [place] [phone] 05/03/2023 1:15 PM EST Office Visit Gynecology/Obstetrics [facility] [address] [place] [address] Lula Pandey CRNP [address] [place] [address] [place], Non Stress Tests [facility] [address] [place] [address] 05/06/2023 1:45 PM EST Office Visit Gynecology/Obstetrics [facility] [address] [place] [address] Laura Lua CRNP [address] [place] [address] [place], Non Stress Tests [facility] [address] [place] [address] 05/11/2023 1:45 PM EST Office Visit Gynecology/Obstetrics [facility] [address] [place] [address] Laura Lua CRNP [address] [place] [address] [place], Non Stress Tests [facility] [address] [place] [address] 05/14/2023 2:15 PM EST Office Visit Gynecology/Obstetrics [facility] [address] [place] [address] Laura Lua CRNP [address] [place] [address] [place], Non Stress Tests [facility] [address] [place] [address] 05/27/2023 2:30 PM EST Imaging Maternal Medicine Imaging, [facility] [address] [place] [phone] Health Maintenance Due Date Last Done Comments [...] Comments URINALYSIS, POINT OF CARE (ENTER/EDIT) Routine 04/26/2023 Supervision of high-risk , unspecified trimester Chronic hypertension in documented in this encounter Results * URINALYSIS, POINT OF CARE (ENTER/EDIT) (04/26/2023) Color, Urine Yellow Yellow or Light Yellow Clarity, Urine Clear Clear Glucose, Urine 250 Negative mg/dL Bilirubin, Urine Negative Negative Ketone, Urine Negative Negative mg/dL Specific [place], Urine 1.030 1.003 - 1.030 Blood, Urine Negative Negative pH, Urine 6.0 5.0 - 7.5 units Protein, Urine Negative Negative mg/dL Urobilinogen, Urine 0.2 0.2 - 1.0 mg/dL Nitrite, Urine Negative Negative Esterase, Urine Negative Negative Urine 04/26/2023 Lula Ko Dannie [facility] POINT O F CARE TEST [...] fetus documented in this encounter Care Teams Staff Counselor Relationship Specialty Start Date End Date Kasia Jara MD [address] [place] [address] [place] [address] PCP - General Internal Medicine 03/01/20 documented as of this encounter
--- OUTSIDE RECORDS SUMMARY | 2023-05-20 11:00 | External Medical Summary | Summary of Care ---
Author Name Unknown Organization [facility] Address [address] [place] [address] Phone [phone] Care Team Providers Care Doughnut Batter Mixer Name Role Phone Kasia Jara MD Primary Care Provider [phone] Reason for Visit * Reason Comments Return Visit Non Stress Test Encounter Details Date Type Department Care Team (Late st Contact Info) Description 05/06/2023 1:45 PM EST Office Visit Gynecology/Obstetric s [place] [facility] [address] [place] [address] Laura Lua CRNP [address] [place] [address] [facility] Non Stress Tests [facility] [address] [place] [address] Supervision of high-risk , unspecified trimester*; Obesity [...] by mouth in the morning. 0 Active [employer] Flex System w/Device KitIndications:Gestat ional diabetes mellitus (GDM), antepartum, gestational diabetes method of control unspecified Use to test blood sugars 4 times daily (fasting, 1 hour after breakfast, lunch, and dinner) 1 Kit 0 12/02/2022 Active [employer] In Vitro Strip (Glucose Blood)Indications:Ges tational diabetes mellitus (GDM), antepartum, gestational diabetes method of control unspecified Use to test blood sugars 4 times daily (fasting, 1 hour after breakfast, lunch, and dinner) 125 Strip 6 12/02/2022 Active [employer] Lancets 30GIndications:Gestat ional diabetes mellitus (GDM), [...] 70's diastolic. Her values on file in [facility] are mildly elevated, including today (reports being [...] tonight 01/05/23--FBS are elevated- sent msg to ASSISTANT KITCHEN MANAGER 01/05/23: RPM elevated FBS; increase to Lantus 15 units at bedtime 01/11/23-- FBS elevated- msg sent to ASSISTANT KITCHEN MANAGER 01/11/23: RPM - elevated FBS - increase to Lantus 20 units at bedtime 01/21/23--FBS elevated- msg sent to ASSISTANT KITCHEN MANAGER 01/21/23: RPM - FBS elevated (100-120s); increase to Lantus 30 units at bedtime 01/25/23- FBS elevated msg sent to ASSISTANT KITCHEN MANAGER 01/25/23: RPM - elevated FBS; increase to Lantus 35 units at bedtime 02/01/23- FBS elevated msg sent to ASSISTANT KITCHEN MANAGER 02/01/23: RPM reviewed; FBS elevated. Increase to Lantus 45 units at bedtime. 02/04/23: RPM reviewed. Elevated FBS. Increase Lantus to 50 units at bedtime --KW 02/08/23: RPM Stable overall; FBS improving since last dose increase; few PP elevations 02/15/23- FBS elevated- msg sent to ASSISTANT KITCHEN MANAGER 02/15/23: RPM reviewed. Increase Lantus to 55 units at bedtime. 02/22/23- FBS elevated msg sent to ASSISTANT KITCHEN MANAGER 02/22/23: RPM reviewed. Increase Lantus to 60 units at bedtime. 03/01/23- msg sent to ASSISTANT KITCHEN MANAGER- elevations in FBS and needs insulin pen refill 03/01/23: RPM reviewed. Increase Lantus to 65 units at bedtime. New prescription sent. 03/08/23: RPM reviewed. Elevated FBS. Increase to Lantus 75 units at bedtime 03/15/23- FBS past two days were normal. Will review again next week since her insulin was just increased on 03/0803/23/23- FBS elevated- msg sent to ASSISTANT KITCHEN MANAGER 03/23/23: RPM increase to Lantus 80 units at bedtime 03/29/23- BS elevated msg sent to ASSISTANT KITCHEN MANAGER 04/05/23- elevated sugars msg sent to ASSISTANT KITCHEN MANAGER 04/05/23: RPM reviewed; elevated FBS and some [...] bedtime. 04/12/23- FBS elevated- msg sent to ASSISTANT KITCHEN MANAGER 04/12/23: RPM elevated fasting; messaged sent to [...] elevated in . Her platelet count was [id number] on November 01. Also, on July 10, [...] money to get more. Never true 10/27/2022 [place] Depression Scale Answer Date Recorded [place] Depression Scale Total 5 03/25/2023 The thought [...] 1:45 PM EST Office Visit Gynecology/Obstetrics [place] [facility] [address] [place] [address] Laura Lua CRNP [address] [place] [address] [facility] Non Stress Tests [facility] [address] [place] [address] 05/14/2023 2:15 PM EST Office Visit Gynecology/Obstetrics [place] [facility] [address] [place] [address] Laura Lua CRNP [address] [place] [address] [facility] Non Stress Tests [facility] [address] [place] [address] 05/27/2023 2:30 PM EST Imaging Maternal Medicine Imaging, [facility]ia [facility] [address] [place] [phone] Scheduled Orders Name Type Priority Associated Diagnoses Orde r Schedule URINALYSIS, POINT OF CARE (ENTER/EDIT) Point of Care Testing Routine Chronic hypertension in Ordered: 05/06/2023 Health Maintenance Due Date Last Done Comments [...] fetus documented in this encounter Care Teams Doughnut Batter Mixer Relationship Specialty Start Date End Date Kasia Jara MD [address] [place] [address] PCP - General Internal Medicine 03/01/20 documented as of this encounter
--- OUTSIDE RECORDS SUMMARY | 2023-05-20 11:01 | External Medical Summary | Summary of Care ---
Author Name Unknown Organization [facility] Address [address] [place] [address] Phone [phone] Care Team Providers Care Finish Off Operator Name Role Phone Kasia Jara MD Primary Care Provider [phone] Reason for Visit * Reason Comments Follow Up Gestational diabetes management Encounter Details Date Type Department Care Team (Late st Contact Info) Description 04/06/2023 11:00 AM EST Telemedicine Steel Shot Header Operator Obstetrics Maternal Medicine, [place] [address] [facility] [address] [place] [address] Dee Dee Albarran CRNP [address] [facility] [address] [place] [address] Insulin controlled gestational diabetes mellitus (GDM) during , antepartum*; Supervision of high risk , antepartum, third trimester; 31 weeks gestation of Allergies Active Allergy Reactions Criticality Noted Date Comments Amoxicillin 07/08/2014 hives Naltrexone Nausea/vomiting 05/03/2019 Penicillins 07/08/2014 Sulfamethoxazole-Trimethoprim 2014 hives documented as of this encounter (statuses as of 04/06/2023) Medications Medication Sig Dispensed Refills Start Date [...] by mouth in the morning. 0 Active Sertraline HCl 50 MG Oral Tablet (Zoloft)Indication s:SHIELA (generalized anxiety disorder),Binge eating disorder Take 1 Tablet by mouth in the morning. 30 Tablet 5 10/27/2022 Active Calcium Carbonate Antacid 500 MG Oral Tablet Chewable Take 1 Tablet by mouth in the morning. 0 Active IMT Verio Flex System w/Device KitIndications:Ges tational diabetes mellitus (GDM), antepartum, gestational diabetes method of control unspecified Use to test blood sugars 4 times daily (fasting, 1 hour after breakfast, lunch, and dinner) 1 Kit 0 12/02/2022 Active IMT Verio In Vitro Strip (Glucose Blood)Indications: Gestational diabetes mellitus (GDM), antepartum, gestational diabetes method of control unspecified Use to test blood sugars 4 times daily (fasting, 1 hour after breakfast, lunch, and dinner) 125 Strip 6 12/02/2022 Active IMT Delica Lancets 30GIndications:Ges tational diabetes mellitus (GDM), antepartum, gestational diabetes method of control unspecified Use to test blood sugars 4 times daily (fasting, 1 hour after breakfast, lunch, and dinner) 200 Each 6 12/02/2022 Active Aspirin 81 MG Oral Tablet Delayed Release Take 1 Tablet by mouth in the morning. 100 Tablet 3 12/23/2022 Active Labetalol HCl 200 MG Oral Tablet (Normodyne)Indicat ions:Chronic hypertension in Take 1 Tablet by mouth in the morning and 1 Tablet before bedtime. 60 Tablet 1 02/19/2023 Active Iron-Vitamin C 65-125 MG Oral Tablet (Vitron C)Indications:Ante anemia complicating Take 1 Tablet by mouth in the morning. 30 Tablet 3 02/25/2023 Active BD Pen Needle Mini U/F 31G X 5 MM (Insulin Pen Needle)Indications :Insulin controlled gestational diabetes mellitus (GDM) in second trimester,Supervis ion of high risk in second trimester Use to inject insulin twice daily. 200 Each 3 04/05/2023 Active Toujeo SoloStar 300 UNIT/ML Subcutaneous Solution Pen-injector (Insulin Glargine (1 Unit Dial))Indications: Insulin controlled gestational diabetes mellitus (GDM) during , antepartum Inject 60 Units under the skin at bedtime. 7.5 mL 2 04/06/2023 Active Insulin Glargine Solostar 100 UNIT/ML Subcutaneous Solution Pen-injector (Lantus SoloStar)Indicatio ns:Supervision of high risk in third trimester,Insulin controlled gestational diabetes mellitus (GDM) in third trimester Inject 10 units under skin at breakfast and 80 units under skin at bedtime. 30 mL 3 04/05/2023 3 Discontinued documented as of this encounter (statuses as of 04/06/2023) Active Problems Problem Noted Date Diagnosed Date Excessive growth affec ting management of in third trimester 04/01/2023 Last Assessment & Plan: LGA noted today, [...] 12/07/22: MFM ADAPT consult complete. Enrolled in [employer]. Instructions provided to report blood sugars each [...] tonight 01/05/23--FBS are elevated- sent msg to MIXING TUMBLER OPERATOR 01/05/23: RPM elevated FBS; increase to Lantus 15 units at bedtime 01/11/23-- FBS elevated- msg sent to MIXING TUMBLER OPERATOR 01/11/23: RPM - elevated FBS - increase to Lantus 20 units at bedtime 01/21/23--FBS elevated- msg sent to MIXING TUMBLER OPERATOR 01/21/23: RPM - FBS elevated (100-120s); increase to Lantus 30 units at bedtime 01/25/23- FBS elevated msg sent to MIXING TUMBLER OPERATOR 01/25/23: RPM - elevated FBS; increase to Lantus 35 units at bedtime 02/01/23- FBS elevated msg sent to MIXING TUMBLER OPERATOR 02/01/23: RPM reviewed; FBS elevated. Increase to Lantus 45 units at bedtime. 02/04/23: RPM reviewed. Elevated FBS. Increase Lantus to 50 units at bedtime --KW 02/08/23: RPM Stable overall; FBS improving since last dose increase; few PP elevations 02/15/23- FBS elevated- msg sent to MIXING TUMBLER OPERATOR 02/15/23: RPM reviewed. Increase Lantus to 55 units at bedtime. 02/22/23- FBS elevated msg sent to MIXING TUMBLER OPERATOR 02/22/23: RPM reviewed. Increase Lantus to 60 units at bedtime. 03/01/23- msg sent to MIXING TUMBLER OPERATOR- elevations in FBS and needs insulin pen refill 03/01/23: RPM reviewed. Increase Lantus to 65 units at bedtime. New prescription sent. 03/08/23: RPM reviewed. Elevated FBS. Increase to Lantus 75 units at bedtime 03/15/23- FBS past two days were normal. Will review again next week since her insulin was just increased on 03/0803/23/23- FBS elevated- msg sent to MIXING TUMBLER OPERATOR 03/23/23: RPM increase to Lantus 80 units at bedtime 03/29/23- BS elevated msg sent to MIXING TUMBLER OPERATOR 04/05/23- elevated sugars msg sent to MIXING TUMBLER OPERATOR 04/05/23: RPM reviewed; elevated FBS and some PP; add Lantus 10 units at breakfast and continue Lantus 80 units at bedtime; recommend F/U ADAPT to discuss transitioning to Toujeo 11/21/23: ADAPT FU complete; Continue Lantus 10 units [...] elevated in . Her platelet count was [id number] on November 01. Also, on July 10, [...] as of this encounter (statuses as of 04/06/2023) Resolved Problems Problem Noted Date Diagnosed Date Resolved Date Impaired glucose in , antepartum 11/24/2022 12/02/2022 Overview: Elevated early 1 hr GTT documented as of this encounter (statuses as of 04/06/2023) Immunizations Name Administration Dates Next Due COVID-19 [...] money to get more. Never true 10/27/2022 Alma Depression Scale Answer Date Recorded Alma Depression Scale Total 5 03/25/2023 The thought [...] as of this encounter Progress Notes * Dee Dee Albarran CRNP - 04/06/2023 10:58 AM EST Images from the original note were not included. MATERNAL MEDICINE VISIT Patient location: HOME. I was in a hospital or clinic location. After connecting through [facility] [employer],patient was verified with two unique identifiers. Patient (or authorized legal branch service representative) was then informed that this was a Telemedicine visit and being conducted confidentially over secure lines. Methods to assure confidentiality were taken. Patient acknowledged consent and understanding of pr ivacy and security of the Telemedicine visit. The patient agreed to participate. Bety Mullen is a 37 year old year old with intrauterine at 31w2d who presents to [facility] for management of diabetes in . CC/HPI: Here for GDM f/u visit. Current issues include: elevated fasting and transition to Toujeo. Report she still has 7 pens left. Current GDM management: Lantus 10 units at breakfast and continue Lantus 80 units at bedtime Diet: gestational diabetes diet Exercise: walking and house work Hypoglycemia episodes:N/A Recent growth scan: [facility] US: 04/01/23 at 30w4d ALEXANDER: 17 cm EFW: 2123 g (98 % Hadlock) Glucose review: Hemoglobin A1C last 3 results: Lab Results Component Value Date/Time [facility] 12/23/2022 01:47 PM She reports her home blood glucose as following via [facility]: REVIEW OF SYSTEMS: headaches: no nausea/vomiting: denies reports movement: yes abdominal pain/tenderness/cramping/contractions: no vaginal bleeding: no vaginal leaking of fluid: no all other systems negative PHYSICAL EXAM: LMP 08/30/2022 (Exact Date) Constitutional: pleasant, well-developed, well nourished General: pleasant, alert and oriented Neuro: mood and affect normal, alert and oriented, no acute distress DISCUSSION: -We discussed continuing to test blood sugars 4 times a day (fasting, one hour after breakfast, lunch, and dinner) -Briefly reviewed GDM diet recommendations including, avoiding processed suagars, sweetened drinks,white flour. Advised compliance with Spooler Operator Automatic consult. -We discussed eating a snack to help with sugar control in the fasting timeframe. -Encouraged 20-30 minutes a day of exercise (walking, light upper body strength training, yoga, house work, stationary cycling, or swimming) -We discussed the goal of euglycemia in order to create a stable environment for the fetus. She is aware that with diabetes are at increased risk for multiple complications to both mother and fetus -I encouraged the patient to reach out to [facility] in the event that she has any questions regarding diabetes management. RECOMMENDATIONS: Continue Lantus 10 units at breakfast and Lantus 80 units at bedtime (divide bedtime dose into two injections) Once Lantus pens are finished. Start Toujeo 60 units at bedtime. Scheduled on 04/29/[address] Alonso for growth scan Recommend twice weekly NSTs starting at 32 weeks for A2GDM (currently scheduled) Recommend delivery during the 39th week of by EDC for A2GDM Follow up for glucose management in 1 week via [facility]. Thank you for allowing us to participate in the care of this patient. Please call with any questions. JHONATAN Moran 04/06/2023 11:26 AM documented in this encounter Plan of Treatment Upcoming Encounters Date Type Department Care Team (Late st Contact Info) Description 04/12/2023 2:30 PM EST Office Visit Gynecology/Obstetrics [facility] [address] [place] [address] Gatito Dunbar MD [address] [place] [address] Ke[facility] Non Stress Tests [facility] [address] [place] [address] 04/15/2023 1:45 PM EST Office Visit Gynecology/Obstetrics [facility] [address] [place] [address] Laura Lua CRNP [address] [place] [address] [place], Non Stress Tests [facility] [address] [place] [address] 04/19/2023 1:15 PM EST Office Visit Gynecology/Obstetrics [facility] [address] [place] [id number] Opal Barr [facility] [address] [place] [address] Keanu Non Stress Tests [facility] [address] [place], [place] [address] 04/22/2023 1:45 PM EST Office Visit Gynecology/Obstetrics [facility] [address] [place], [place] [address] Lula Pandey CRNP [address] [place], [place] [address] Keanu Non Stress Tests [facility] [address] [place], [place] [address] 04/26/2023 1:15 PM EST Office Visit Gynecology/Obstetrics [facility] [address] [place] [address] Lula Pandey CRNP [address] [place], [place] [address] Keanu Non Stress Tests [facility] [address] [place], [place] [address] 04/29/2023 1:00 PM EST Office Visit Gynecology/Obstetrics [facility] [address] [place] [address] Laura Lua CRNP [address] [place], [place] [address] Keanu Non Stress Tests [facility] [address] [place] [address] 04/29/2023 2:30 PM EST Imaging Maternal Medicine [facility] [address] [place] [id number] 05/03/2023 1:15 PM EST Office Visit Gynecology/Obstetrics [facility] [address] [place] [address] Lula Pandey CRNP [address] [place] [address] [place], Non Stress Tests [facility] [address] [place] [address] 05/06/2023 1:45 PM EST Office Visit Gynecology/Obstetrics [facility] [address] [place] [address] Laura uLa CRNP [address] [place] [address] [place], Non Stress Tests [facility] [address] [place] [address] 05/11/2023 1:45 PM EST Office Visit Gynecology/Obstetrics [facility] [address] [place] [address] Laura Lua CRNP [address] [place] [address] [place], Non Stress Tests [facility] [address] [place] [address] 05/14/2023 2:15 PM EST Office Visit Gynecology/Obstetrics [facility] [address] [place] [address] Laura Lua CRNP [address] [place] [address] [place], Non Stress Tests [facility] [address] [place] [address] 05/27/2023 2:30 PM EST Imaging Maternal Medicine Imaging, [facility] [address] [facility] [place] [phone] Health Maintenance Due Date [...] diabetes mellitus (GDM) during , antepartum- Primary Supervision of high risk , antepartum, third trimester 31 weeks gestation of state, incidental documented in this encounter Care Teams Finish Off Operator Relationship Specialty Start Date End Date Kasia Jara MD [address] [facility] [place] [address] PCP - General Internal Medicine 03/01/20 documented as of this encounter
--- OUTSIDE RECORDS SUMMARY | 2023-05-20 11:01 | External Medical Summary | Summary of Care ---
Author Name Unknown Organization [facility] Address [address] [facility] [place] [address] Phone [phone] Care Team Providers Care Prism Inspector Name Role Phone Kasia Jara MD Primary Care Provider [phone] Reason for Visit * Reason Comments eRx-Medication Refill Encounter Details Date Type Department Care Team (Late st Contact Info) Description 04/20/2023 Refill Gynecology/Obstetrics [facility] [address] [place] [address] Laura Lua CRNP [address] [place] [address] SHIELA (generalized anxiety disorder); Binge eating disorder Allergies Active Allergy Reactions Criticality Noted Date Comments Amoxicillin 07/08/2014 hives Naltrexone Nausea/vomiting 05/03/2019 Penicillins 07/08/2014 Sulfamethoxazole-Trimethoprim 2014 hives documented as of this encounter (statuses as of 04/21/2023) Medications Medication Sig Dispensed Refills Start Date [...] by mouth in the morning. 0 Active CrazideaToCloutexio Flex System w/Device KitIndications:Ges tational diabetes mellitus (GDM), antepartum, gestational diabetes method of control unspecified Use to test blood sugars 4 times daily (fasting, 1 hour after breakfast, lunch, and dinner) 1 Kit 0 12/02/2022 Active CrazideaTouch Verio In Vitro Strip (Glucose Blood)Indications: Gestational diabetes mellitus (GDM), antepartum, gestational diabetes method of control unspecified Use to test blood sugars 4 times daily (fasting, 1 hour after breakfast, lunch, and dinner) 125 Strip 6 12/02/2022 Active CrazideaTouch Delica Lancets 30GIndications:Ges tational diabetes mellitus (GDM), [...] MOUTH EVERY MORNING 30 Tablet 0 04/21/2023 Active Sertraline HCl 50 MG Oral Tablet (Zoloft)Indication s:SHIELA (generalized anxiety disorder),Binge eating disorder Take 1 Tablet by mouth in the morning. 30 Tablet 5 10/27/2022 3 Discontinued Labetalol HCl 200 MG Oral Tablet (Normodyne)Indicat ions:Chronic hypertension in Take 1 Tablet by mouth in the morning and 1 Tablet before bedtime. 60 Tablet 1 02/19/2023 3 Discontinued documented as of this encounter (statuses as of 04/21/2023) Active Problems Problem Noted Date Diagnosed Date [...] 12/07/22: MFM ADAPT consult complete. Enrolled in [facility]. Instructions provided to report blood [...] tonight 01/05/23--FBS are elevated- sent msg to SUPERVISOR WOOD CREW 01/05/23: RPM elevated FBS; increase to Lantus 15 units at bedtime 01/11/23-- FBS elevated- msg sent to SUPERVISOR WOOD CREW 01/11/23: RPM - elevated FBS - increase to Lantus 20 units at bedtime 01/21/23--FBS elevated- msg sent to SUPERVISOR WOOD CREW 01/21/23: RPM - FBS elevated (100-120s); increase to Lantus 30 units at bedtime 01/25/23- FBS elevated msg sent to SUPERVISOR WOOD CREW 01/25/23: RPM - elevated FBS; increase to Lantus 35 units at bedtime 02/01/23- FBS elevated msg sent to SUPERVISOR WOOD CREW 02/01/23: RPM reviewed; FBS elevated. Increase to Lantus 45 units at bedtime. 02/04/23: RPM reviewed. Elevated FBS. Increase Lantus to 50 units at bedtime --KW 02/08/23: RPM Stable overall; FBS improving since last dose increase; few PP elevations 02/15/23- FBS elevated- msg sent to SUPERVISOR WOOD CREW 02/15/23: RPM reviewed. Increase Lantus to 55 units at bedtime. 02/22/23- FBS elevated msg sent to SUPERVISOR WOOD CREW 02/22/23: RPM reviewed. Increase Lantus to 60 units at bedtime. 03/01/23- msg sent to SUPERVISOR WOOD CREW- elevations in FBS and needs insulin pen refill 03/01/23: RPM reviewed. Increase Lantus to 65 units at bedtime. New prescription sent. 03/08/23: RPM reviewed. Elevated FBS. Increase to Lantus 75 units at bedtime 03/15/23- FBS past two days were normal. Will review again next week since her insulin was just increased on 03/0803/23/23- FBS elevated- msg sent to SUPERVISOR WOOD CREW 03/23/23: RPM increase to Lantus 80 units at bedtime 03/29/23- BS elevated msg sent to SUPERVISOR WOOD CREW 04/05/23- elevated sugars msg sent to SUPERVISOR WOOD CREW 04/05/23: RPM reviewed; elevated FBS and some [...] bedtime. 04/12/23- FBS elevated- msg sent to SUPERVISOR WOOD CREW 04/12/23: RPM elevated fasting; messaged sent to [...] elevated in . Her platelet count was [id number] on November 01. Also, on July 10, [...] as of this encounter (statuses as of 04/21/2023) Resolved Problems Problem Noted Date Diagnosed Date Resolved Date Impaired glucose in , antepartum 11/24/2022 12/02/2022 Overview: Elevated early 1 hr GTT documented as of this encounter (statuses as of 04/21/2023) Immunizations Name Administration Dates Next Due COVID-19 [...] money to get more. Never true 10/27/2022 Sanford Depression Scale Answer Date Recorded Sanford Depression Scale Total 5 03/25/2023 The thought [...] encounter Miscellaneous Notes * Telephone Encounter - Kavya Fitzgerald PA-C - 04/21/2023 9:45 AM ESTSigned Prescriptions: Disp Refills Sertraline HCl 50 MG Oral Tablet (Zoloft) 30 Tab*0 Sig: TAKE ONETABLET BY MOUTH EVERY MORNINGAuthorizing Provider: KAVYA FITZGERALD * Telephone Encounter - Jen Alexander LPN - 04/20/2023 4:02 PM ESTPending Prescriptions: Disp Refills Sertraline HCl 50 MG Oral Tablet [Pharmacy*30 Tab*0 Sig: TAKE ONE TABLET BY MOUTH EVERY MORNING documented in this encounter Plan of Treatment Upcoming Encounters Date Type Department Care Team (Late st Contact Info) Description 04/22/2023 1:45 PM EST Office Visit Gynecology/Obstetrics [facility] [address] [place] [address] Lula Pandey CRNP [address] [place] [address] Robyn [facility] Stress Tests [facility] [address] [address] 04/26/2023 1:15 PM EST Office Visit Gynecology/Obstetrics [facility] [address] [place] [address] Lula Pandey CRNP [address] [place] [address] [place], Non Stress Tests [facility] [address] [place] [address] 04/29/2023 1:00 PM EST Office Visit Gynecology/Obstetrics [facility] [address] [place] [address] Kavya Fitzgerald PA-C [address] [place] [address] [place], Non Stress Tests [facility] [address] [place] [address] 04/29/2023 2:30 PM EST Imaging Maternal Medicine Imaging, [facility] [address] [place] [address] 05/03/2023 1:15 PM EST Office Visit Gynecology/Obstetrics [facility] [address] [place] [address] Lula Pandey CRNP [address] [place] [address] [place], Non Stress Tests [facility] [address] [place] [address] 05/06/2023 1:45 PM EST Office Visit Gynecology/Obstetrics [facility] [address] [place] [address] Laura Lua CRNP [address] [place] [address] [place], Non Stress Tests [facility] [address] [place] [address] 05/11/2023 1:45 PM EST Office Visit Gynecology/Obstetrics [facility] [address] [place] [address] Laura Lua CRNP [address] [place] [address] Keanu, Non Stress Tests [facility] [address] [place] [address] 05/14/2023 2:15 PM EST Office Visit Gynecology/Obstetrics [facility] [address] [place] [address] Laura Lua CRNP [address] [place] [address] [place], Non Stress Tests [facility] [address] [place] [address] 05/27/2023 2:30 PM EST Imaging Maternal Medicine Imaging, [place] [phone] Health Maintenance Due Date Last Done Comments [...] as of this encounter Visit Diagnoses Diagnosis SHIELA (generalized anxiety disorder) Generalized anxiety disorder Binge eating disorder documented in this encounter Care Teams Prism Inspector Relationship Specialty Start Date End Date Kasia Jara MD [address] [place] [address] PCP - General Internal Medicine 03/01/20 documented as of this encounter
--- OUTSIDE RECORDS SUMMARY | 2023-05-20 11:01 | External Medical Summary | Summary of Care ---
Author Name Unknown Organization [facility] Address [address] [facility] [address] Phone [phone] Care Team Providers Care Sample Mounter Name Role Phone Kasia Jara MD Primary Care Provider [phone] Reason for Visit * Reason Comments Return Visit Non Stress Test Encounter Details Date Type Department Care Team (Late st Contact Info) Description 04/19/2023 1:30 PM EST Office Visit Gynecology/Obstetric s [facility] [address] [place] [address] Brittanie Fitzgerald PA-C [address] [place] [address] [place] Non Stress Tests [facility] [address] [place] [address] Supervision of high-risk , unspecified trimester*; Depression complicating , antepartum; Insulin controlled gestational diabetes mellitus (GDM) during , antepartum; Obesity in , antepartum; Multigravida of advanced maternal age in third trimester; Chronic hypertension in Allergies Active Allergy Reactions Criticality Noted Date Comments Amoxicillin 07/08/2014 hives Naltrexone Nausea/vomiting 05/03/2019 Penicillins 07/08/2014 Sulfamethoxazole-Trimethoprim 2014 hives documented as of this encounter (statuses as of 04/19/2023) Medications Medication Sig Dispensed Refills Start Date [...] by mouth in the morning. 0 Active [employer] Ver[employer] Flex System w/Device KitIndications:Gestat ional diabetes mellitus (GDM), antepartum, gestational diabetes method of control unspecified Use to test blood sugars 4 times daily (fasting, 1 hour after breakfast, lunch, and dinner) 1 Kit 0 12/02/2022 Active [employer] In Vitro Strip (Glucose Blood)Indications:Ges tational diabetes mellitus (GDM), antepartum, gestational diabetes method of control unspecified Use to test blood sugars 4 times daily (fasting, 1 hour after breakfast, lunch, and dinner) 125 Strip 6 12/02/2022 Active [employer] Delica Lancets 30GIndications:Gestat ional diabetes mellitus (GDM), [...] at bedtime. 7.5 mL 2 04/06/2023 Active documented as of this encounter (statuses as of 04/19/2023) Active Problems Problem Noted Date Diagnosed Date [...] tonight 01/05/23--FBS are elevated- sent msg to [employer]MENT RESET 01/05/23: RPM elevated FBS; increase to Lantus 15 units at bedtime 01/11/23-- FBS elevated- msg sent to RETAIL DE[employer]MENT RESET 01/11/23: RPM - elevated FBS - increase to Lantus 20 units at bedtime 01/21/23--FBS elevated- msg sent to RETAIL DE[employer]MENT RESET 01/21/23: RPM - FBS elevated (100-120s); increase to Lantus 30 units at bedtime 01/25/23- FBS elevated msg sent to RETAIL DE[employer]MENT RESET 01/25/23: RPM - elevated FBS; increase to Lantus 35 units at bedtime 02/01/23- FBS elevated msg sent to RETAIL DE[employer]MENT RESET 02/01/23: RPM reviewed; FBS elevated. Increase to Lantus 45 units at bedtime. 02/04/23: RPM reviewed. Elevated FBS. Increase Lantus to 50 units at bedtime --KW 02/08/23: RPM Stable overall; FBS improving since last dose increase; few PP elevations 02/15/23- FBS elevated- msg sent to [employer]MENT RESET 02/15/23: RPM reviewed. Increase Lantus to 55 units at bedtime. 02/22/23- FBS elevated msg sent to [employer]AIL DE[employer]MENT RESET 02/22/23: RPM reviewed. Increase Lantus to 60 units at bedtime. 03/01/23- msg sent to RETAIL DE[employer]MENT RESET- elevations in FBS and needs insulin pen refill 03/01/23: RPM reviewed. Increase Lantus to 65 units at bedtime. New prescription sent. 03/08/23: RPM reviewed. Elevated FBS. Increase to Lantus 75 units at bedtime 03/15/23- FBS past two days were normal. Will review again next week since her insulin was just increased on 03/0803/23/23- FBS elevated- msg sent to RETAIL DEPARTMENT RESET 03/23/23: RPM increase to Lantus 80 units at bedtime 03/29/23- BS elevated msg sent to RETAIL DEPARTMENT RESET 04/05/23- elevated sugars msg sent to RETAIL DEPARTMENT RESET 04/05/23: RPM reviewed; elevated FBS and some [...] bedtime. 04/12/23- FBS elevated- msg sent to RETAIL DEPARTMENT RESET 04/12/23: RPM elevated fasting; messaged sent to [...] elevated in . Her platelet count was [id number] on November 01. Also, on July 10, [...] as of this encounter (statuses as of 04/19/2023) Resolved Problems Problem Noted Date Diagnosed Date Resolved Date Impaired glucose in , antepartum 11/24/2022 12/02/2022 Overview: Elevated early 1 hr GTT documented as of this encounter (statuses as of 04/19/2023) Immunizations Name Administration Dates Next Due COVID-19 [...] money to get more. Never true 10/27/2022 Korbel Depression Scale Answer Date Recorded Korbel Depression Scale Total 5 03/25/2023 The thought [...] Sign Reading Time Taken Comments Blood Pressure 146/70 04/19/2023 3:51 PM EST Pulse - - Temperature - - Respiratory Rate - - Oxygen Saturation - - Inhaled Oxygen Concentration - - Weight 146.1 kg (322 lb) 04/19/2023 1:11 PM EST Height 162.6 cm (5' 4") 04/19/2023 1:11 PM EST Body Mass Index 55.27 04/19/2023 1:11 PM EST documented in this encounter Progress Notes * Brittanie Fitzgerald PA-C - 04/19/2023 4:08 PM EST [id number] ASSESSMENT assessment with Non-stress Test completed on 04/19/2023 at 33.1 weeks gestation for indicationof chronic hypertension heart baseline: 145 bpm Variability: Moderate Decelerations: absent Accelerations: present, d/t broken tracing unable to get two 15x15 Contractions: None NST start time: 13:22 NST stop time: 15:08 NST strip reviewed, interpreted, and approved by OB provider, Brittanie Fitzgerald PA-C. NST strip stored in clinic storage file BPP done 12/22. CHTN on labetalol 200 mg BID. BP elevated at 150/70, improved to 146/70. Denies dixon, cp, RUQ pain, n/v or vision changes. Unable to provide urine sample. Recheck at with NST in 3 days. PEC precautions reviewed. Brittanie Fitzgerald PA-C documented in this encounter Plan of Treatment Upcoming Encounters Date Type Department Care Team (Late st Contact Info) Description 04/22/2023 1:45 PM EST Office Visit Gynecology/Obstetrics [facility] [address] [place] [address] Backer, JHONATAN Chin [address] [place] [address] [place], Non Stress Tests [facility] [address] [place] [address] 04/26/2023 1:15 PM EST Office Visit Gynecology/Obstetrics [facility] [address] [place] [address] Backer, JHONATAN Chin [address] [place] [address] [place], Non Stress Tests [facility] [address] [place] [address] 04/29/2023 1:00 PM EST Office Visit Gynecology/Obstetrics [facility] [address] [place] [address] Brittanie Fitzgerald PA-C [address] [place] [address] [place], Non Stress Tests [facility] [address] [place] [address] 04/29/2023 2:30 PM EST Imaging [facility], [facility] [address] [place] [address] 05/03/2023 1:15 PM EST Office Visit Gynecology/Obstetrics [facility] [address] [place] [address] Backer, JHONATAN Chin [address] [place] [address] [place], Non Stress Tests [facility] [address] [place] [address] 05/06/2023 1:45 PM EST Office Visit Gynecology/Obstetrics [facility] [address] [place] [address] Laura Lua CRNP [address] [place] [address] [place] Non Stress Tests [facility]ia [address] [place] [address] 05/11/2023 1:45 PM EST Office Visit Gynecology/Obstetrics [facility] [address] [place] [address] Laura Lua CRNP [address] [place] [address] Robyn [facility] Stress Tests [facility]stephania [address] [place] [address] 05/14/2023 2:15 PM EST Office Visit Gynecology/Obstetrics [facility] [address] [place] [address] Laura Lua CRNP [address] [place] [address] Robyn [facility] Stress Tests [place] [address] 05/27/2023 2:30 PM EST Imaging [facility], [facility] [address] [place] [id number] Health Maintenance Due Date Last Done Comments [...] Not on filedocumented as of this encounter Results * US BPP W/O NON-STRESS TEST (04/19/2023 3:43 PM EST) Anatomical Region Laterality Modality Abdomen, Body Ultrasound 04/19/2023 3:53 PM EST Impressions 04/19/2023 4:01 PM EST IMPRESSION: 1. BPP score: 8 of 8. 2. Normal ALEXANDER. 3. Vertex presentation. I have personally reviewed this examination and agree with the resident/fellow physician's interpretation. Narrative 04/19/2023 4:01 PM EST EXAM: US BPP W/O NON-STRESS TEST - 04/19/2023 3:43 pm HISTORY: non reactive nst TECHNIQUE: Sonographic examination performed. COMPARISON: Obstetric ultrasound dated 04/12/2023. FINDINGS: GENERAL : Connor Presentation: Vertex heart rate: 158 bpm ALEXANDER: 19.2 cm which is between the 50th and 95th percentiles for this stage of . BIOPHYSICAL PROFILE breathing movement: 2 Gross body movement: 2 tone: 2 Qualitative AFV: 2 Total BPP score: 8 of 8. Procedure Note Jevon Devlin MD - 04/19/2023 EXAM: US BPP W/O NON-STRESS TEST - 04/19/2023 3:43 pm HISTORY: non reactive nst TECHNIQUE: Sonographic examination performed. COMPARISON: Obstetric ultrasound dated 04/12/2023. FINDINGS: GENERAL : Connor Presentation: Vertex heart rate: 158 bpm ALEXANDER: 19.2 cm which is between the 50th and 95th percentiles for this stageof . BIOPHYSICAL PROFILE breathing movement: 2 Gross body movement: 2 tone: 2 Qualitative AFV: 2 Total BPP score: 8 of 8. IMPRESSION IMPRESSION: 1. BPP score: 8 of 8. 2. Normal ALEXANDER. 3. Vertex presentation. I have personally reviewed this examination and agree with the resident/fellow physician's interpretation. Brittanie Fitzgerald PA-C RAD ULTRASOUND documented in this encounter Visit Diagnoses Diagnosis Supervision of high-risk , unspecified trimester- Primary Depression complicating , antepartum Mental disorders of mother, antepartum Insulin controlled gestational diabetes mellitus (GDM) during , antepartum Obesity in , antepartum Obesity complicating , childbirth, or the puerperium, antepartum condition or complication Multigravida of advanced maternal age in third trimester Chronic hypertension in Benign essential hypertension complicating , childbirth, and the puerperium, unspecified as to episode of care Insulin controlled gestational diabetes mellitus (GDM) during , antepartum Supervision of high-risk , unspecified trimester Chronic hypertension in Benign essential hypertension complicating , childbirth, and the puerperium, unspecified as to episode of care documented in this encounter Care Teams Sample Mounter Relationship Specialty Start Date End Date Kasia Jara MD [address] [place] [address] PCP - General Internal Medicine 03/01/20 documented as of this encounter
--- OUTSIDE RECORDS SUMMARY | 2023-05-20 11:01 | External Medical Summary | Summary of Care ---
Author Name Unknown Organization [facility] Address [address] [place] [address] Phone [phone] Care Team Providers Care Cashier And Salesperson Name Role Phone Kasia Jara MD Primary Care Provider [phone] Reason for Visit * Reason Comments Return Visit Encounter Details Date Type Department Care Team (Late st Contact Info) Description 04/12/2023 2:30 PM EST Office Visit Gynecology/Obstetric s [facility] [address] [place] [address] Gatito Dunbar MD [address] [place] [address] [place] Non Stress Tests [facility] [address] [place] [address] Multigravida of advanced maternal age in third trimester*; Depression complicating , antepartum; Insulin controlled gestational diabetes mellitus (GDM) during , antepartum; Supervision of high-risk , unspecified trimester; Obesity in , antepartum; Chronic hypertension in Allergies Active Allergy Reactions Criticality Noted Date Comments Amoxicillin 07/08/2014 hives Naltrexone Nausea/vomiting 05/03/2019 Penicillins 07/08/2014 Sulfamethoxazole-Trimethoprim 2014 hives documented as of this encounter (statuses as of 04/12/2023) Medications Medication Sig Dispensed Refills Start Date [...] by mouth in the morning. 0 Active [employer] Flex System w/Device KitIndications:Gestat ional diabetes mellitus (GDM), antepartum, gestational diabetes method of control unspecified Use to test blood sugars 4 times daily (fasting, 1 hour after breakfast, lunch, and dinner) 1 Kit 0 12/02/2022 Active [employer] In Vitro Strip (Glucose Blood)Indications:Ges tational diabetes mellitus (GDM), antepartum, gestational diabetes method of control unspecified Use to test blood sugars 4 times daily (fasting, 1 hour after breakfast, lunch, and dinner) 125 Strip 6 12/02/2022 Active [employer] Delica Lancets 30GIndications:Gestat ional diabetes mellitus (GDM), [...] as of this encounter (statuses as of 04/12/2023) Active Problems Problem Noted Date Diagnosed Date [...] tonight 01/05/23--FBS are elevated- sent msg to [employer]ER 01/05/23: RPM elevated FBS; increase to Lantus 15 units at bedtime 01/11/23-- FBS elevated- msg sent to [employer] 01/11/23: RPM - elevated FBS - increase to Lantus 20 units at bedtime 01/21/23--FBS elevated- msg sent to [employer]ER 01/21/23: RPM - FBS elevated (100-120s); increase to Lantus 30 units at bedtime 01/25/23- FBS elevated msg sent to [employer]ER 01/25/23: RPM - elevated FBS; increase to Lantus 35 units at bedtime 02/01/23- FBS elevated msg sent to [employer] 02/01/23: RPM reviewed; FBS elevated. Increase to Lantus 45 units at bedtime. 02/04/23: RPM reviewed. Elevated FBS. Increase Lantus to 50 units at bedtime --KW 02/08/23: RPM Stable overall; FBS improving since last dose increase; few PP elevations 02/15/23- FBS elevated- msg sent to [employer]ANER 02/15/23: RPM reviewed. Increase Lantus to 55 units at bedtime. 02/22/23- FBS elevated msg sent to [employer] 02/22/23: RPM reviewed. Increase Lantus to 60 units at bedtime. 03/01/23- msg sent to [employer]- elevations in FBS and needs insulin pen refill 03/01/23: RPM reviewed. Increase Lantus to 65 units at bedtime. New prescription sent. 03/08/23: RPM reviewed. Elevated FBS. Increase to Lantus 75 units at bedtime 03/15/23- FBS past two days were normal. Will review again next week since her insulin was just increased on 03/0803/23/23- FBS elevated- msg sent to [employer] 03/23/23: RPM increase to Lantus 80 units at bedtime 03/29/23- BS elevated msg sent to [employer] 04/05/23- elevated sugars msg sent to [employer] 04/05/23: RPM reviewed; elevated FBS and some [...] bedtime. 04/12/23- FBS elevated- msg sent to [employer] 04/12/23: RPM elevated fasting; messaged sent to confirm she started the Toujeo or still using Lantus to finish the pens she had. Needs dose adjustment. Last Assessment & Plan: Working with [facility]. [...] elevated in . Her platelet count was [id number] on November 01. Also, on July 10, [...] as of this encounter (statuses as of 04/12/2023) Resolved Problems Problem Noted Date Diagnosed Date Resolved Date Impaired glucose in , antepartum 11/24/2022 12/02/2022 Overview: Elevated early 1 hr GTT documented as of this encounter (statuses as of 04/12/2023) Immunizations Name Administration Dates Next Due COVID-19 [...] money to get more. Never true 10/27/2022 Jones Depression Scale Answer Date Recorded Jones Depression Scale Total 5 03/25/2023 The thought [...] Sign Reading Time Taken Comments Blood Pressure 138/78 04/12/2023 2:39 PM EST Pulse - - Temperature - - Respiratory Rate - - Oxygen Saturation - - Inhaled Oxygen Concentration - - Weight 144.2 kg (318 lb) 04/12/2023 2:39 PM EST Height 162.6 cm (5' 4") 04/12/2023 2:39 PM EST Body Mass Index 54.58 04/12/2023 2:39 PM EST documented in this encounter Progress Notes * Gatito Dunbar MD - 04/12/2023 3:51 PM EST NST only ; CAT1 documented in this encounter Plan of Treatment Upcoming Encounters Date Type Department Care Team (Late st Contact Info) Description 04/15/2023 1:45 PM EST Office Visit [facility]necology/Obst[facility]s [facility] [address] [place] [address] Laura Lua CRNP [address] [place] [address] [place], Non Stress Tests [facility] [address] [place] [address] 04/19/2023 1:15 PM EST Office Visit [facility]necology/[facility]st[facility]s [facility] [address] [place] [address] Opal Barr, [address] [address] [place], Non Stress Tests [facility] [address] [place] [address] 04/22/2023 1:45 PM EST Office Visit Gynecology/[facility]s [facility] [address] [place] [address] Lula Pandey CRNP [address] [place] [address] [place], Non Stress Tests [facility] [address] [place] [address] 04/26/2023 1:15 PM EST Office Visit Gynecology/Obstetrics [facility] [address] [place] [address] Lula Pandey CRNP [address] [place] [address] [place], Non Stress Tests [facility] [address] [place] [address] 04/29/2023 1:00 PM EST Office Visit Gynecology/Obstetrics [facility] [address] [place] [address] Brittanie Fitzgerald PA-C [address] [place] [address] [place], Non Stress Tests [facility] [address] [place] [address] 04/29/2023 2:30 PM EST Imaging [facility], [facility] [address] [place] [address] 05/03/2023 1:15 PM EST Office Visit Gynecology/Obstetrics [facility] [address] [place] [address] uLla Pandey CRNP [address] [place] [address] [place], Non Stress Tests E[facility]ia [address] [place] [address] 05/06/2023 1:45 PM EST Office Visit Gynecology/Obstetrics [facility] [address] [place] [address] Laura Lua CRNP [address] [place], [place] [address] [place], Non Stress Tests E[facility]ia [address] [place] [address] 05/11/2023 1:45 PM EST Office Visit Gynecology/Obstetrics [facility] [address] [place] [address] Laura Lua CRNP [address] [place], [place] [address] [place] Non Stress Tests [facility] [address] [place] [address] 05/14/2023 2:15 PM EST Office Visit Gynecology/Obstetrics [facility] [address] [place] [address] Laura Lua CRNP [address] [place], [place] [address] [place] Non Stress Tests [place]ia [address] [place] [address] 05/27/2023 2:30 PM EST Imaging [facility] Imaging, [place]ste[facility]ia [place] [phone] Pending Results Name Type Priority Associated Diagnoses Date /Time US BPP W/O NON-STRESS TEST Medical Imaging Routine AMA (advanced maternal age) multigravida 35+ 04/12/2023 3:46 PM EST Scheduled Orders Name Type Priority Associated Diagnoses Orde r Schedule US BPP W/O NON-STRESS TEST Medical Imaging Routine Multigravida of advanced maternal age in third trimester Expected: 04/12/2023, Expires: 05/12/2024 Health Maintenance Due Date Last Done Comments [...] advanced maternal age in third trimester- Primary Depression complicating , antepartum Mental disorders of mother, antepartum Insulin controlled gestational diabetes mellitus (GDM) during , antepartum Supervision of high-risk , unspecified trimester Obesity in , antepartum Obesity complicating , childbirth, or the puerperium, antepartum condition or complication Chronic hypertension in Benign essential hypertension complicating , childbirth, and the puerperium, unspecified as to episode of care documented in this encounter Care Teams Cashier And Salesperson Relationship Specialty Start Date End Date Kasia Jara MD [address] [place] [address], [place] [address] PCP - General Internal Medicine 03/01/20 documented as of this encounter
--- OUTSIDE RECORDS SUMMARY | 2023-05-20 11:01 | External Medical Summary | Summary of Care ---
Author Name Unknown Organization [facility] Address [address] [place] [address] Phone [phone] Care Team Providers Care Dormitory Maid Name Role Phone Kasia Jara MD Primary Care Provider [phone] Reason for Visit * Reason Comments Non Stress Test Encounter Details Date Type Department Care Team (Late st Contact Info) Description 04/22/2023 1:45 PM EST Office Visit Gynecology/Obstetric s [facility] [address] [place] [address] Lula Pandey CRNP [address] [place] [address] [place]anu Non Stress Tests [facility] [address] [place] [address] Supervision of high-risk , unspecified trimester*; Obesity [...] by mouth in the morning. 0 Active pluriSelect Flex System w/Device KitIndications:Ges tational diabetes mellitus (GDM), antepartum, gestational diabetes method of control unspecified Use to test blood sugars 4 times daily (fasting, 1 hour after breakfast, lunch, and dinner) 1 Kit 0 12/02/2022 Active pluriSelect In Vitro Strip (Glucose Blood)Indications: Gestational diabetes mellitus (GDM), antepartum, gestational diabetes method of control unspecified Use to test blood sugars 4 times daily (fasting, 1 hour after breakfast, lunch, and dinner) 125 Strip 6 12/02/2022 Active [employer] DelHelpAround Lancets 30GIndications:Ges tational diabetes mellitus (GDM), antepartum, [...] 10:21 AM 100-G GESTATIONAL GLUCOSE, FASTING - [facility] (H) 12/02/2022 07:15 AM 12/02/22 hemoglobin [...] tonight 01/05/23--FBS are elevated- sent msg to SQL APPLICATION DEVELOPER 01/05/23: RPM elevated FBS; increase to Lantus 15 units at bedtime 01/11/23-- FBS elevated- msg sent to SQL APPLICATION DEVELOPER 01/11/23: RPM - elevated FBS - increase to Lantus 20 units at bedtime 01/21/23--FBS elevated- msg sent to SQL APPLICATION DEVELOPER 01/21/23: RPM - FBS elevated (100-120s); increase to Lantus 30 units at bedtime 01/25/23- FBS elevated msg sent to SQL APPLICATION DEVELOPER 01/25/23: RPM - elevated FBS; increase to Lantus 35 units at bedtime 02/01/23- FBS elevated msg sent to SQL APPLICATION DEVELOPER 02/01/23: RPM reviewed; FBS elevated. Increase to Lantus 45 units at bedtime. 02/04/23: RPM reviewed. Elevated FBS. Increase Lantus to 50 units at bedtime --KW 02/08/23: RPM Stable overall; FBS improving since last dose increase; few PP elevations 02/15/23- FBS elevated- msg sent to SQL APPLICATION DEVELOPER 02/15/23: RPM reviewed. Increase Lantus to 55 units at bedtime. 02/22/23- FBS elevated msg sent to SQL APPLICATION DEVELOPER 02/22/23: RPM reviewed. Increase Lantus to 60 units at bedtime. 03/01/23- msg sent to SQL APPLICATION DEVELOPER- elevations in FBS and needs insulin pen refill 03/01/23: RPM reviewed. Increase Lantus to 65 units at bedtime. New prescription sent. 03/08/23: RPM reviewed. Elevated FBS. Increase to Lantus 75 units at bedtime 03/15/23- FBS past two days were normal. Will review again next week since her insulin was just increased on 03/0803/23/23- FBS elevated- msg sent to SQL APPLICATION DEVELOPER 03/23/23: RPM increase to Lantus 80 units at bedtime 03/29/23- BS elevated msg sent to SQL APPLICATION DEVELOPER 04/05/23- elevated sugars msg sent to SQL APPLICATION DEVELOPER 04/05/23: RPM reviewed; elevated FBS and some [...] bedtime. 04/12/23- FBS elevated- msg sent to SQL APPLICATION DEVELOPER 04/12/23: RPM elevated fasting; messaged sent to [...] elevated in . Her platelet count was [id number] on November 01. Also, on July 10, [...] money to get more. Never true 10/27/2022 Monroe Depression Scale Answer Date Recorded Monroe Depression Scale Total 5 03/25/2023 The thought [...] [facility] [address] [place] [address] Lula Pandey CRNP [address] [place] [address] Keanu, Non Stress Tests [facility] [address] [place] [address] 04/29/2023 1:00 PM EST Office Visit Gynecology/Obstetrics [facility] [address] [place] [address] Brittanie Fitzgerald PA-C [address] [place] [address] [place], Non Stress Tests [facility] [address] [place] [address] 04/29/2023 2:30 PM EST Imaging [facility], [facility] [address] [place] [address] 05/03/2023 1:15 PM EST Office Visit Gynecology/Obstetrics [facility] [address] [place] [address] Lula Pandey CRNP [address] [place] [address] [place], Non Stress Tests [facility] [address] [place] [address] 05/06/2023 1:45 PM EST Office Visit Gynecology/Obstetrics [facility] [address] [place] [address] Laura Lua CRNP [address] [place] [address] [facility]anu Non Stress Tests [facility] [address] [place] [address] 05/11/2023 1:45 PM EST Office Visit Gynecology/Obstetrics [facility] [address] [place] [address] Laura Lua CRNP [address] [place] [address] Keanu Non Stress Tests [facility] [address] [place] [address] 05/14/2023 2:15 PM EST Office Visit Gynecology/Obstetrics [facility] [address] [place] [address] Laura Lua CRNP [address] [place] [address] Keanu Non Stress Tests [facility] [address] [place] [address] 05/27/2023 2:30 PM EST Imaging [facility] Imaging, [facility] [place] [address] [place] [phone] Pending Results Name Type Priority Associated Diagnoses [...] Negative Ketone, Urine Negative Negative mg/dL Specific Webb, Urine 1.030 1.003 - 1.030 Blood, Urine [...] disorder documented in this encounter Care Teams Dormitory Maid Relationship Specialty Start Date End Date Kasia Jara MD [address] [place] [address] PCP - General Internal Medicine 03/01/20 documented as of this encounter
--- OUTSIDE RECORDS SUMMARY | 2023-05-20 11:01 | External Medical Summary | Summary of Care ---
Author Name Unknown Organization [facility] Address [address] [facility] [place] [address] Phone [phone] Care Team Providers Care Apartment Leasing Specialist Name Role Phone Kasia Jara MD Primary Care Provider [phone] Reason for Visit * Reason Comments eRx-Medication Refill Encounter Details Date Type Department Care Team (Late st Contact Info) Description 04/20/2023 Refill Gynecology/Obstetrics [facility] [address] [place] [address] Kavya Fitzgerald PA-C [address] [place] [address] Chronic hypertension in Allergies Active Allergy Reactions [...] by mouth in the morning. 0 Active Cardium TherapeuticsTouch Mayi Zhaopinio Flex System w/Device KitIndications:Ges tational diabetes mellitus (GDM), antepartum, gestational diabetes method of control unspecified Use to test blood sugars 4 times daily (fasting, 1 hour after breakfast, lunch, and dinner) 1 Kit 0 12/02/2022 Active Cardium TherapeuticsTouch Verio In Vitro Strip (Glucose Blood)Indications: Gestational diabetes mellitus (GDM), antepartum, gestational diabetes method of control unspecified Use to test blood sugars 4 times daily (fasting, 1 hour after breakfast, lunch, and dinner) 125 Strip 6 12/02/2022 Active [employer]ium TherapeuticsTouch Delica Lancets 30GIndications:Ges tational diabetes mellitus (GDM), [...] at bedtime. 7.5 mL 2 04/06/2023 Active Labetalol HCl 200 MG Oral Tablet (Normodyne)Indicat ions:Chronic hypertension in TAKE ONE TABLET BY MOUTH IN THE MORNING AND ONE TABLET BEFORE BEDTIME 60 Tablet 0 04/21/2023 Active Sertraline HCl 50 MG Oral Tablet (Zoloft)Indication s:SHIELA (generalized anxiety disorder),Binge eating disorder TAKE ONE TABLET BY MOUTH EVERY MORNING 30 Tablet 0 04/21/2023 Active Labetalol HCl 200 MG Oral Tablet [...] 70's diastolic. Her values on file in [place] are mildly elevated, including today (reports being [...] 12/07/22: MFM ADAPT consult complete. [facility]. Instructions provided to report blood sugars each [...] tonight 01/05/23--FBS are elevated- sent msg to CULINARY ART TEACHER 01/05/23: RPM elevated FBS; increase to Lantus 15 units at bedtime 01/11/23-- FBS elevated- msg sent to CULINARY ART TEACHER 01/11/23: RPM - elevated FBS - increase to Lantus 20 units at bedtime 01/21/23--FBS elevated- msg sent to CULINARY ART TEACHER 01/21/23: RPM - FBS elevated (100-120s); increase to Lantus 30 units at bedtime 01/25/23- FBS elevated msg sent to CULINARY ART TEACHER 01/25/23: RPM - elevated FBS; increase to Lantus 35 units at bedtime 02/01/23- FBS elevated msg sent to CULINARY ART TEACHER 02/01/23: RPM reviewed; FBS elevated. Increase to Lantus 45 units at bedtime. 02/04/23: RPM reviewed. Elevated FBS. Increase Lantus to 50 units at bedtime --KW 02/08/23: RPM Stable overall; FBS improving since last dose increase; few PP elevations 02/15/23- FBS elevated- msg sent to CULINARY ART TEACHER 02/15/23: RPM reviewed. Increase Lantus to 55 units at bedtime. 02/22/23- FBS elevated msg sent to CULINARY ART TEACHER 02/22/23: RPM reviewed. Increase Lantus to 60 units at bedtime. 03/01/23- msg sent to CULINARY ART TEACHER- elevations in FBS and needs insulin pen refill 03/01/23: RPM reviewed. Increase Lantus to 65 units at bedtime. New prescription sent. 03/08/23: RPM reviewed. Elevated FBS. Increase to Lantus 75 units at bedtime 03/15/23- FBS past two days were normal. Will review again next week since her insulin was just increased on 03/0803/23/23- FBS elevated- msg sent to CULINARY ART TEACHER 03/23/23: RPM increase to Lantus 80 units at bedtime 03/29/23- BS elevated msg sent to CULINARY ART TEACHER 04/05/23- elevated sugars msg sent to CULINARY ART TEACHER 04/05/23: RPM reviewed; elevated FBS and some [...] bedtime. 04/12/23- FBS elevated- msg sent to CULINARY ART TEACHER 04/12/23: RPM elevated fasting; messaged sent to [...] elevated in . Her platelet count was [id number] on November 01. Also, on July 10, [...] money to get more. Never true 10/27/2022 Weaver Depression Scale Answer Date Recorded Weaver Depression Scale Total 5 03/25/2023 The thought [...] Encounter - Kavya Fitzgerald PA-C - 04/21/2023 9:47 AM ESTSigned Prescriptions: Disp Refills Labetalol HCl 200 MG Oral Tablet (Normodyn*60 Tab*0 Sig: TAKE ONE TABLET BY MOUTH IN THE MORNING AND ONE TABLET BEFORE BEDTIMEAuthorizing Provider: KAVYA FITZGERALD-- * Telephone Encounter - Jen Alexander LPN - 04/20/2023 4:02 PM ESTPending Prescriptions: Disp Refills Labetalol HCl 200 MG Oral Tablet [Pharmacy*60 Tab*0 Sig: TAKE ONE TABLET BY MOUTH IN THE MORNING AND ONE TABLET BEFORE BEDTIME documented in this encounter Plan of Treatment Upcoming Encounters Date Type Department Care Team (Late st [facility] Info) Description 04/22/2023 1:45 PM EST Office Visit Gynecology/Obstetrics [facility] [address] [place] [address] Lula Pandey CRNP [address] [place] [address] [facility] Stress Tests [facility] [address] [address] 04/26/2023 1:15 PM EST Office Visit Gynecology/Obstetrics [facility] [address] [place] [address] Lula Pandey CRNP [address] [place] [address] [place], Non Stress Tests [facility] [address] [place] [address] 04/29/2023 1:00 PM EST Office Visit Gynecology/Obstetrics [facility] [address] [place] [address] Kavya Fitzgerald PA-C [address] [place] [address] [place], Non Stress Tests [facility] [address] [place] [address] 04/29/2023 2:30 PM EST Imaging [facility] Imaging, [facility] [address] [place] [address] 05/03/2023 1:15 PM EST Office Visit Gynecology/Obstetrics [facility] [address] [place] [address] Lula Pandey CRNP [address] [place] [address] [place], Non Stress Tests [facility] [address] [place] [address] 05/06/2023 1:45 PM EST Office Visit Gynecology/Obstetrics [facility] [address] [place] [address] Laura Lua CRNP [address] [place] [address] [place], Non Stress Tests [facility] [address] [place] [address] 05/11/2023 1:45 PM EST Office Visit Gynecology/Obstetrics [facility] [address] [place] [address] Laura Lua CRNP [address] [place] [address] Keanu, Non Stress Tests [facility] [address] [place] [address] 05/14/2023 2:15 PM EST Office Visit Gynecology/Obstetrics [facility] [address] [place] [address] Laura Lua CRNP [address] [place] [address] [place], Non Stress Tests [facility] [address] [place] [address] 05/27/2023 2:30 PM EST Imaging Maternal Medicine Imaging, [place] [phone] Health Maintenance Due Date Last Done Comments [...] as of this encounter Visit Diagnoses Diagnosis Chronic hypertension in Benign essential hypertension complicating , childbirth, and the puerperium, unspecified as to episode of care documented in this encounter Care Teams Apartment Leasing Specialist Relationship Specialty Start Date End Date Kasia Jara MD [address] [place] [address] PCP - General Internal Medicine 03/01/20 documented as of this encounter
--- OUTSIDE RECORDS SUMMARY | 2023-05-20 11:01 | External Medical Summary | Summary of Care ---
Author Name Unknown Organization [facility] Address [address] [place] [address] Phone [phone] Care Team Providers Care Space And Missile Operations Name Role Phone Kasia Jara MD Primary Care Provider [phone] Reason for Visit * Reason Comments Return Visit Encounter Details Date Type Department Care Team (Late st Contact Info) Description 04/15/2023 1:45 PM EST Office Visit Gynecology/Obstetric s [facility] [address] [place] [address] Laura Lua CRNP [address] [place] [address] Keanu Non Stress Tests [facility] [address] [place] [address] Multigravida of advanced maternal age in third trimester*; Depression complicating , antepartum; Insulin controlled gestational diabetes mellitus (GDM) during , antepartum; Supervision of high-risk , unspecified trimester; Obesity in , antepartum; Chronic hypertension in Allergies Active Allergy Reactions Criticality Noted Date Comments Amoxicillin 07/08/2014 hives Naltrexone Nausea/vomiting 05/03/2019 Penicillins 07/08/2014 Sulfamethoxazole-Trimethoprim 2014 hives documented as of this encounter (statuses as of 04/15/2023) Medications Medication Sig Dispensed Refills Start Date [...] by mouth in the morning. 0 Active [employer] Flex System w/Device KitIndications:Gestat ional diabetes mellitus (GDM), antepartum, gestational diabetes method of control unspecified Use to test blood sugars 4 times daily (fasting, 1 hour after breakfast, lunch, and dinner) 1 Kit 0 12/02/2022 Active [employer] In Vitro Strip (Glucose Blood)Indications:Ges tational diabetes mellitus (GDM), antepartum, gestational diabetes method of control unspecified Use to test blood sugars 4 times daily (fasting, 1 hour after breakfast, lunch, and dinner) 125 Strip 6 12/02/2022 Active [employer] Delica Lancets 30GIndications:Gestat ional diabetes mellitus (GDM), [...] as of this encounter (statuses as of 04/15/2023) Active Problems Problem Noted Date Diagnosed Date [...] tonight 01/05/23--FBS are elevated- sent msg to SOCIAL WORKER 01/05/23: RPM elevated FBS; increase to Lantus 15 units at bedtime 01/11/23-- FBS elevated- msg sent to SOCIAL WORKER 01/11/23: RPM - elevated FBS - increase to Lantus 20 units at bedtime 01/21/23--FBS elevated- msg sent to SOCIAL WORKER 01/21/23: RPM - FBS elevated (100-120s); increase to Lantus 30 units at bedtime 01/25/23- FBS elevated msg sent to SOCIAL WORKER 01/25/23: RPM - elevated FBS; increase to Lantus 35 units at bedtime 02/01/23- FBS elevated msg sent to SOCIAL WORKER 02/01/23: RPM reviewed; FBS elevated. Increase to Lantus 45 units at bedtime. 02/04/23: RPM reviewed. Elevated FBS. Increase Lantus to 50 units at bedtime --KW 02/08/23: RPM Stable overall; FBS improving since last dose increase; few PP elevations 02/15/23- FBS elevated- msg sent to SOCIAL WORKER 02/15/23: RPM reviewed. Increase Lantus to 55 units at bedtime. 02/22/23- FBS elevated msg sent to SOCIAL WORKER 02/22/23: RPM reviewed. Increase Lantus to 60 units at bedtime. 03/01/23- msg sent to SOCIAL WORKER- elevations in FBS and needs insulin pen refill 03/01/23: RPM reviewed. Increase Lantus to 65 units at bedtime. New prescription sent. 03/08/23: RPM reviewed. Elevated FBS. Increase to Lantus 75 units at bedtime 03/15/23- FBS past two days were normal. Will review again next week since her insulin was just increased on 03/0803/23/23- FBS elevated- msg sent to SOCIAL WORKER 03/23/23: RPM increase to Lantus 80 units at bedtime 03/29/23- BS elevated msg sent to SOCIAL WORKER 04/05/23- elevated sugars msg sent to SOCIAL WORKER 04/05/23: RPM reviewed; elevated FBS and some PP; add Lantus 10 units at breakfast and continue Lantus 80 units at bedtime; recommend F/U ADAPT to discuss transitioning to [facility] 04/06/23: ADAPT FU complete; Continue Lantus 10 units at breakfast and continue Lantus 80 units at bedtime (divide bedtime dose into two injections) Once Lantus pens are finished. Start Toujeo 60 units at bedtime. 04/12/23- FBS elevated- msg sent to SOCIAL WORKER 04/12/23: RPM elevated fasting; messaged sent to [...] elevated in . Her platelet count was [id number] on November 01. Also, on July 10, [...] as of this encounter (statuses as of 04/15/2023) Resolved Problems Problem Noted Date Diagnosed Date Resolved Date Impaired glucose in , antepartum 11/24/2022 12/02/2022 Overview: Elevated early 1 hr GTT documented as of this encounter (statuses as of 04/15/2023) Immunizations Name Administration Dates Next Due COVID-19 [...] money to get more. Never true 10/27/2022 Destin Depression Scale Answer Date Recorded Destin Depression Scale Total 5 03/25/2023 The thought [...] Sign Reading Time Taken Comments Blood Pressure 130/60 04/15/2023 1:38 PM EST Pulse - - Temperature - - Respiratory Rate - - Oxygen Saturation - - Inhaled Oxygen Concentration - - Weight 144.6 kg (318 lb 12.8 oz) 04/15/2023 1:38 PM EST Height 162.6 cm (5' 4") 04/15/2023 1:38 PM EST Body Mass Index 54.72 04/15/2023 1:38 PM EST documented in this encounter Progress Notes * Laura Lua CRNP - 04/15/2023 2:20 PM EST ASSESSMENT assessment with Non-stress Test completed on 04/15/2023 at 32.4weeks gestation for indicationof chronic hypertension heart baseline: 140 bpm Variability: Moderate Decelerations: absent Accelerations: present Contractions: None NST start time: 1340 NST stop time: 1405 NST strip reviewed, interpreted, and approved by OB providerLaura CRNP . NST strip stored in clinic storage file documented in this encounter Plan of Treatment Upcoming Encounters Date Type Department Care Team (Late st Contact Info) Description 04/19/2023 1:15 PM EST Office Visit Gynecology/Obstetrics [facility] [address] [place] [address] Opal Barr, [facility] [address] [facility] [address] [place] Non Stress Tests [facility] [address] [place] [address] 04/22/2023 1:45 PM EST Office Visit Gynecology/Obstetrics [facility] [address] [place] [address] Lula Pandey CRNP [address] [place] [address] Keanu Non Stress Tests [facility] [address] [place] [address] 04/26/2023 1:15 PM EST Office Visit Gynecology/Obstetrics [facility] [address] [place] [address] Lula Pandey CRNP [address] [place] [address] [place], Non Stress Tests [facility] [address] [place] [address] 04/29/2023 1:00 PM EST Office Visit Gynecology/Obstetrics [facility] [address] [place] [address] Brittanie Fitzgerald PA-C [address] [place] [address] [place], Non Stress Tests [facility] [address] [place] [address] 04/29/2023 2:30 PM EST Imaging Maternal Medicine Imaging, [facility] [address] [place] [address] 05/03/2023 1:15 PM EST Office Visit Gynecology/Obstetrics [facility] [address] [place] [address] Lula Pandey CRNP [address] [place] [address] [place], Non Stress Tests [facility] [address] [place] [address] 05/06/2023 1:45 PM EST Office Visit Gynecology/Obstetrics [facility] [address] [place] [address] Laura Lua CRNP [address] [place] [address] [place], Non Stress Tests [facility] [address] [place], [place] [address] 05/11/2023 1:45 PM EST Office Visit Gynecology/Obstetrics [facility] [address] [place], [place] [address] Laura Lua CRNP [address] [place], [place] [address] [place], Non Stress Tests [facility] [address] [place] [address] 05/14/2023 2:15 PM EST Office Visit Gynecology/Obstetrics [facility] [address] [place] [address] Laura Lua CRNP [address] [place], [place] [address] Keanu Non Stress Tests [facility] [address] [place] [address] 05/27/2023 2:30 PM EST Imaging Maternal Medicine Imaging, [place]ia [address] [place] [id number] Health Maintenance Due Date Last Done Comments [...] care documented in this encounter Care Teams Space And Missile Operations Relationship Specialty Start Date End Date Kasia Jara MD [address] [facility] [place] [address] PCP - General Internal Medicine 03/01/20 documented as of this encounter
--- OUTSIDE RECORDS SUMMARY | 2023-05-20 11:01 | External Medical Summary | Summary of Care ---
Author Name Unknown Organization [facility] Address [address] [place] [address] Phone [phone] Care Team Providers Care Legal Research Analyst Name Role Phone Kasia Jara MD Primary Care Provider [phone] Encounter Details Date Type Department Care Team (Late st Contact Info) Description 04/01/2023 1:45 PM EST Imaging Maternal Medicine [facility], [address] [place] [phone] Multigravida of advanced maternal age in second trimester; Obesity in , antepartum; BMI 40.0-44.9, adult (HCC); Chronic hypertension in ; Insulin controlled gestational diabetes mellitus (GDM) during [...] by mouth in the morning. 0 Active [employer] Energy TechnologiesTouch Verio Flex System w/Device KitIndications:Gestat ional diabetes mellitus (GDM), antepartum, gestational diabetes method of control unspecified Use to test blood sugars 4 times daily (fasting, 1 hour after breakfast, lunch, and dinner) 1 Kit 0 12/02/2022 Active OneTouch Verio In Vitro Strip (Glucose Blood)Indications:Ges tational diabetes mellitus (GDM), antepartum, gestational diabetes method of control unspecified Use to test blood sugars 4 times daily (fasting, 1 hour after breakfast, lunch, and dinner) 125 Strip 6 12/02/2022 Active [employer] Energy TechnologiesTouch Delica Lancets 30GIndications:Gestat ional diabetes mellitus (GDM), [...] the morning. 30 Tablet 3 02/25/2023 Active documented as of this encounter (statuses [...] MFM ADAPT consult complete. Enrolled in [employer]. Instructions provided to report blood sugars each [...] tonight 01/05/23--FBS are elevated- sent msg to [employer]YSTAL FLAT GRINDER 01/05/23: RPM elevated FBS; increase to Lantus 15 units at bedtime 01/11/23-- FBS elevated- msg sent to [employer] GR[employer]ER 01/11/23: RPM - elevated FBS - increase to Lantus 20 units at bedtime 01/21/23--FBS elevated- msg sent to [employer] GR[employer]ER 01/21/23: RPM - FBS elevated (100-120s); increase to Lantus 30 units at bedtime 01/25/23- FBS elevated msg sent to [employer]ST[employer] GRINDER 01/25/23: RPM - elevated FBS; increase to Lantus 35 units at bedtime 02/01/23- FBS elevated msg sent to CRYST[employer] FL[employer] GRINDER 02/01/23: RPM reviewed; FBS elevated. Increase to Lantus 45 units at bedtime. 02/04/23: RPM reviewed. Elevated FBS. Increase Lantus to 50 units at bedtime --KW 02/08/23: RPM Stable overall; FBS improving since last dose increase; few PP elevations 02/15/23- FBS elevated- msg sent to [employer] GRINDER 02/15/23: RPM reviewed. Increase Lantus to 55 units at bedtime. 02/22/23- FBS elevated msg sent to CRYST[employer] GRINDER 02/22/23: RPM reviewed. Increase Lantus to 60 units at bedtime. 03/01/23- msg sent to [employer] GRINDER- elevations in FBS and needs insulin pen refill 03/01/23: RPM reviewed. Increase Lantus to 65 units at bedtime. New prescription sent. 03/08/23: RPM reviewed. Elevated FBS. Increase to Lantus 75 units at bedtime 03/15/23- FBS past two days were normal. Will review again next week since her insulin was just increased on 03/0803/23/23- FBS elevated- msg sent to [employer]ST[employer] GRINDER 03/23/23: RPM increase to Lantus 80 units at bedtime 03/29/23- BS elevated msg sent to [employer] GR[employer]ER 04/05/23- elevated sugars msg sent to [employer] GR[employer]ER 04/05/23: RPM reviewed; elevated FBS and some [...] bedtime. 04/12/23- FBS elevated- msg sent to [employer]ST[employer] GRINDER 04/12/23: RPM elevated fasting; messaged sent to [...] elevated in . Her platelet count was [id number] on November 01. Also, on July 10, [...] money to get more. Never true 10/27/2022 [place] Depression Scale Answer Date Recorded [place] Depression Scale Total 5 03/25/2023 The thought [...] 2:30 PM EST Office Visit Gynecology/Obstetric s [facility] [address] [place] [address] Gatito Dunbar MD [address] [place] [address] [facility] Non Stress Tests [facility] [address] [place] [address] Depression complicating , antepartum*; Insulin controlled gestational diabetes mellitus (GDM) during , antepartum; Supervision of high-risk , unspecified trimester; Obesity in , antepartum; AMA (advanced maternal age) multigravida 35+; Chronic hypertension in 04/15/2023 1:45 PM EST Office Visit Gynecology/Obstetric s [facility] [address] [place] [address] Laura Lua CRNP [address] [place], [place] [address] Keanu Non Stress Tests [facility] [address] [place] [address] 04/19/2023 1:15 PM EST Office Visit Gynecology/Obstetric s [facility] [address] [place] [address] Opal Barr, [facility] [address] [facility] [place], [place] [address] Keanu Non Stress Tests [facility] [address] [place] [address] 04/22/2023 1:45 PM EST Office Visit Gynecology/Obstetric s [facility] [address] [place] [address] Lula Pandey CRNP [address] [place], [place] [address] Keanu Non Stress Tests [facility] [address] [place] [address] 04/26/2023 1:15 PM EST Office Visit Gynecology/Obstetric s [facility] [address] [place] [address] Lula Pandey CRNP [address] [place], [place] [address] Keanu Non Stress Tests [facility] [address] [place] [address] 04/29/2023 1:00 PM EST Office Visit Gynecology/Obstetric s [facility] [address] [place] [address] Brittanie Fitzgerald PA-C [address] [place] [address] [place], Non Stress Tests [facility] [address] [place] [address] 04/29/2023 2:30 PM EST Imaging Maternal Medicine Imaging, [facility] [address] [place] [phone] 05/03/2023 1:15 PM EST Office Visit Gynecology/Obstetric s [facility] [address] [place] [address] Lula Pandey CRNP [address] [place] [address] [place], Non Stress Tests [facility] [address] [place] [address] 05/06/2023 1:45 PM EST Office Visit Gynecology/Obstetric s [facility] [address] [place] [address] Laura Lua CRNP [address] [place] [address] [place], Non Stress Tests [facility] [address] [place] [address] 05/11/2023 1:45 PM EST Office Visit Gynecology/Obstetric s [facility] [address] [place] [address] Laura Lua CRNP [address] [place] [address] [place], Non Stress Tests [facility] [address] [place] [address] 05/14/2023 2:15 PM EST Office Visit Gynecology/Obstetric s [facility] [address] [place] [address] Laura Lua CRNP [address] [place] [address] [place], Non Stress Tests [facility] [address] [place] [address] 05/27/2023 2:30 PM EST Imaging Maternal Medicine Imaging, [facility] [address] [place] [phone] Health Maintenance Due Date Last Done Comments [...] Procedure Name Priority Date/Time Associated Diagnosis Comments MFM US PREG FOLLOW UP EACH FETUS Routine 04/01/2023 2:04 PM EST Multigravida of advanced maternal age in second trimester Obesity in , antepartum BMI 40.0-44.9, adult (HCC) Chronic hypertension in Insulin controlled gestational diabetes mellitus (GDM) during , antepartum documented in this encounter Results * MFM US PREG FOLLOW UP EACH FETUS (04/01/2023 2:04 PM EST) Anatomical Region Laterality Modality Abdomen, Pelvis, Ultrasoun d Narrative 04/12/2023 8:22 AM EST For a complete ultrasound report, please refer to the document that was scanned into the [employer] section of today's office visit. Federico HERNANDEZ ULTRASOUND documented in this encounter Visit Diagnoses Diagnosis Multigravida of advanced maternal age in second trimester Obesity in , antepartum Obesity complicating , childbirth, or the puerperium, antepartum condition or complication BMI 40.0-44.9, adult (HCC) Body Mass Index 40.0-44.9, adult Chronic hypertension in Benign essential hypertension complicating , childbirth, and the puerperium, unspecified as to episode of care Insulin controlled gestational diabetes mellitus (GDM) during , antepartum Depression complicating , antepartum- Primary Mental disorders of mother, antepartum Insulin controlled gestational diabetes mellitus (GDM) during , antepartum Supervision of high-risk , unspecified trimester Obesity in , antepartum Obesity complicating , childbirth, or the puerperium, antepartum condition or complication AMA (advanced maternal age) multigravida 35+ Elderly multigravida unspecified as to episode of care or not applicable Chronic hypertension in Benign essential hypertension complicating , childbirth, and the puerperium, unspecified as to episode of care documented in this encounter Care Teams Legal Research Analyst Relationship Specialty Start Date End Date Kasia Jara MD [address] [place] [address] PCP - General Internal Medicine 03/01/20 documented as of this encounter
--- OUTSIDE RECORDS SUMMARY | 2023-05-20 11:02 | External Medical Summary | Summary of Care ---
Author Name Unknown Organization [facility] Address [address] [place] [address] Phone [phone] Care Team Providers Care Community Health Program Representative Name Role Phone Kasia Jara MD Primary Care Provider [phone] Encounter Details Date Type Department Care Team ([facility] st Contact Info) Description 03/26/2023 Orders Only [facility] [address] [place] [address] Unique Mendoza CRNP [address] [place] [address] Supervision of high risk in third trimester; Insulin controlled gestational diabetes mellitus (GDM) in third trimester Allergies Active Allergy Reactions Criticality Noted Date Comments Amoxicillin 07/08/2014 hives Naltrexone Nausea/vomiting 05/03/2019 Penicillins 07/08/2014 Sulfamethoxazole-Trimethoprim 2014 hives documented as of this encounter (statuses as of 03/26/2023) Medications Medication Sig Dispensed Refills Start Date [...] by mouth in the morning. 0 Active [employer]-Power Energy Generation SystemsTouch Verio Flex System w/Device KitIndications:Ges tational diabetes mellitus (GDM), antepartum, gestational diabetes method of control unspecified Use to test blood sugars 4 times daily (fasting, 1 hour after breakfast, lunch, and dinner) 1 Kit 0 12/02/2022 Active OneTouch Verio In Vitro Strip (Glucose Blood)Indications: Gestational diabetes mellitus (GDM), antepartum, gestational diabetes method of control unspecified Use to test blood sugars 4 times daily (fasting, 1 hour after breakfast, lunch, and dinner) 125 Strip 6 12/02/2022 Active [employer] SystemsTouch Delica Lancets 30GIndications:Ges tational diabetes mellitus (GDM), antepartum, gestational diabetes method of control unspecified Use to test blood sugars 4 times daily (fasting, 1 hour after breakfast, lunch, and dinner) 200 Each 6 12/02/2022 Active Aspirin 81 MG Oral Tablet Delayed Release Take 1 Tablet by mouth in the morning. 100 Tablet 3 12/23/2022 Active BD Pen Needle Mini U/F 31G X 5 MM (Insulin Pen Needle)Indications :Insulin controlled gestational diabetes mellitus (GDM) in second trimester,Supervis ion of high risk in second trimester Use to inject insulin once daily. 100 Each 3 12/24/2022 Active Labetalol HCl 200 MG Oral Tablet (Normodyne)Indicat ions:Chronic hypertension in Take 1 Tablet by mouth in the morning and 1 Tablet before bedtime. 60 Tablet 1 02/19/2023 Active Iron-Vitamin C 65-125 MG Oral Tablet (Vitron C)Indications:Ante anemia complicating Take 1 Tablet by mouth in the morning. 30 Tablet 3 02/25/2023 Active Insulin Glargine Solostar 100 UNIT/ML Subcutaneous Solution Pen-injector (Lantus SoloStar)Indicatio ns:Supervision of high risk in third trimester,Insulin controlled gestational diabetes mellitus (GDM) in third trimester Inject 80 units under skin at bedtime. 30 mL 3 03/26/2023 Active Insulin Glargine Solostar 100 UNIT/ML Subcutaneous Solution Pen-injector (Lantus SoloStar)Aidatio ns:Supervision of high risk in second trimester,Insulin controlled gestational diabetes mellitus (GDM) in second trimester Inject 80 units under skin at bedtime. 30 mL 3 03/23/2023 03/26/2023 Discontinued (Refill) documented as of this encounter (statuses as of 03/26/2023) Active Problems Problem Noted Date Diagnosed Date Chronic hypertension in 12/23/2022 Overview: Diagnosed with [...] 12/07/22: MFM ADAPT consult complete. Enrolled in [employer]. Instructions provided to report blood sugars each [...] tonight 01/05/23--FBS are elevated- sent msg to ROLL FORMING SUPERVISOR 01/05/23: RPM elevated FBS; increase to Lantus 15 units at bedtime 01/11/23-- FBS elevated- msg sent to ROLL FORMING SUPERVISOR 01/11/23: RPM - elevated FBS - increase to Lantus 20 units at bedtime 01/21/23--FBS elevated- msg sent to ROLL FORMING SUPERVISOR 01/21/23: RPM - FBS elevated (100-120s); increase to Lantus 30 units at bedtime 01/25/23- FBS elevated msg sent to ROLL FORMING SUPERVISOR 01/25/23: RPM - elevated FBS; increase to Lantus 35 units at bedtime 02/01/23- FBS elevated msg sent to ROLL FORMING SUPERVISOR 02/01/23: RPM reviewed; FBS elevated. Increase to Lantus 45 units at bedtime. 02/04/23: RPM reviewed. Elevated FBS. Increase Lantus to 50 units at bedtime --KW 02/08/23: RPM Stable overall; FBS improving since last dose increase; few PP elevations 02/15/23- FBS elevated- msg sent to ROLL FORMING SUPERVISOR 02/15/23: RPM reviewed. Increase Lantus to 55 units at bedtime. 02/22/23- FBS elevated msg sent to ROLL FORMING SUPERVISOR 02/22/23: RPM reviewed. Increase Lantus to 60 units at bedtime. 03/01/23- msg sent to ROLL FORMING SUPERVISOR- elevations in FBS and needs insulin pen refill 03/01/23: RPM reviewed. Increase Lantus to 65 units at bedtime. New prescription sent. 03/08/23: RPM reviewed. Elevated FBS. Increase to Lantus 75 units at bedtime 03/15/23- FBS past two days were normal. Will review again next week since her insulin was just increased on 03/0803/23/23- FBS elevated- msg sent to ROLL FORMING SUPERVISOR 03/23/23: RPM increase to Lantus 80 units at bedtime Last Assessment & Plan: She states that her fasting values are elevated. We discussed a likely increase to her Lantus dose (values pending PROGRAM OFFICER review). Supervision of high-risk , unspecified trimester 11/24/2022 [...] 03:00 PM PROTEIN/ CREATININE RATIO, URINE - WHITNEYER 63 11/24/2022 12:15 PM Denies chronic hypertension [...] elevated in . Her platelet count was [id number] on November 01. Also, on July 10, [...] as of this encounter (statuses as of 03/26/2023) Resolved Problems Problem Noted Date Diagnosed Date Resolved Date Impaired glucose in , antepartum 11/24/2022 12/02/2022 Overview: Elevated early 1 hr GTT documented as of this encounter (statuses as of 03/26/2023) Immunizations Name Administration Dates Next Due COVID-19 [...] money to get more. Never true 10/27/2022 [place] Depression Scale Answer Date Recorded [place] Depression Scale Total 5 03/25/2023 The thought [...] 04/01/2023 1:45 PM EST Imaging Maternal Medicine Imaging, [facility] [address] [place] [phone] 04/05/2023 1:15 PM EST Office Visit Gynecology/Obstetrics [facility] [address] [place] [address] Jo Ann Castro, [address] [place] [address] [place], Non Stress Tests [facility] [address] [place] [address] 04/07/2023 10:45 AM EST Office Visit Gynecology/Obstetrics [facility] [address] [place] [address] Laura Lua CRNP [address] [place] [address] [place], Non Stress Tests [facility] [address] [place] [address] 04/12/2023 2:30 PM EST Office Visit Gynecology/Obstetrics [facility] [address] [place] [address] Gatito Dunbar MD [address] [place] [address] [place], Non Stress Tests [facility] [address] [place] [address] 04/15/2023 1:45 PM EST Office Visit Gynecology/Obstetrics [facility] [address] [place] [address] Laura Lua CRNP [address] [place] [address] [place], Non Stress Tests [facility] [address] [place] [address] 04/19/2023 1:15 PM EST Office Visit Gynecology/Obstetrics [facility] [address] [place] [address] Opal Barr, [address] [address] [place], Non Stress Tests [facility] [address] [place] [address] 04/22/2023 1:45 PM EST Office Visit Gynecology/Obstetrics [facility] [address] [place] [address] Lula Pandey CRNP [address] [place] [address] [place], Non Stress Tests [facility] [address] [place] [address] 04/26/2023 1:15 PM EST Office Visit Gynecology/Obstetrics [facility] [address] [place] [address] BackLula garcia CRNP [address] [place] [address] [place], Non Stress Tests [facility] [address] [place] [address] 04/29/2023 1:00 PM EST Office Visit Gynecology/Obstetrics [facility] [address] [place] [address] Laura Lua CRNP [address] [place] [address] Keanu, Non Stress Tests [place] [address] 04/29/2023 2:30 PM EST Imaging Maternal Medicine Imaging, [facility] [address] [place] [phone] 05/03/2023 1:15 PM EST Office Visit Gynecology/Obstetrics [facility] [address] [place] [address] BackerLula CRNP [address] [place] [address] [place], Non Stress Tests [facility] [address] [place] [address] 05/06/2023 1:45 PM EST Office Visit Gynecology/Obstetrics [facility] [address] [place] [address] Laura Lua CRNP [address] [place] [address] Robyn [facility] Stress Tests [place] [address] 05/11/2023 1:45 PM EST Office Visit Gynecology/Obstetrics [facility] [address] [place] [address] Laura Lua CRNP [address] [place] [address] Robyn [place] Stress Tests [facility] [address] [place] [address] 05/14/2023 2:15 PM EST Office Visit Gynecology/Obstetrics [facility] [address] [place] [address] Laura Lua CRNP [address] [place] [address] Robyn [place] Stress Tests [facility] [address] [place] [address] 05/27/2023 2:30 PM EST Imaging Maternal Medicine Imaging, [facility] [place] [phone] Health Maintenance Due Date Last Done Comments [...] this encounter Visit Diagnoses Diagnosis Supervision of high risk in third trimester Unspecified high-risk Insulin controlled gestational diabetes mellitus (GDM) in third trimester documented in this encounter Care Teams Community Health Program Representative Relationship Specialty Start Date End Date Kasia Jara MD [address] [place] [address] PCP - General Internal Medicine 03/01/20 documented as of this encounter
--- OUTSIDE RECORDS SUMMARY | 2023-05-20 11:02 | External Medical Summary | Summary of Care ---
Author Name Unknown Organization [facility] Address [address] [place] [address] Phone [phone] Care Team Providers Care Freight Service Inspector Name Role Phone Kasia Jara MD Primary Care Provider [phone] Reason for Visit * Reason Comments Return Visit Encounter Details Date Type Department Care Team (Late st Contact Info) Description 03/25/2023 3:15 PM EST Office Visit Gynecology/Obstetric [facility] [address] [place] [address] Gatito Dunbar MD [address] [place] [address] Depression complicating , antepartum*; Insulin controlled gestational diabetes mellitus (GDM) during , antepartum; Supervision of high-risk , unspecified trimester; Obesity in , antepartum; Multigravida of advanced maternal age in third trimester; Chronic hypertension in Allergies Active Allergy Reactions Criticality Noted Date Comments Amoxicillin 07/08/2014 hives Naltrexone Nausea/vomiting 05/03/2019 Penicillins 07/08/2014 Sulfamethoxazole-Trimethoprim 2014 hives documented as of this encounter (statuses as of 03/25/2023) Medications Medication Sig Dispensed Refills Start Date [...] by mouth in the morning. 0 Active GCWTouch Verio Flex System w/Device KitIndications:Gestat ional diabetes [...] and dinner) 125 Strip 6 12/02/2022 Active rag & boneuch Delica Lancets 30GIndications:Gestat ional diabetes mellitus (GDM), [...] C 65-125 MG Oral Tablet (Vitron C)Indications:Antepar bonifacoi anemia complicating Take 1 Tablet by mouth in the morning. 30 Tablet 3 02/25/2023 Active Insulin Glargine Solostar 100 UNIT/ML Subcutaneous Solution Pen-injector (Lantus SoloStar)Indications: Supervision of high risk in second trimester,Insulin controlled gestational diabetes mellitus (GDM) in second trimester Inject 80 units under skin at bedtime. 30 mL 3 03/23/2023 Active documented as of this encounter (statuses as of 03/25/2023) Active Problems Problem Noted Date Diagnosed Date [...] 12/07/22: MFM ADAPT consult complete. Enrolled in [employer]. Instructions provided to report blood sugars each [...] tonight 01/05/23--FBS are elevated- sent msg to EARLY HEAD START TEACHER 01/05/23: RPM elevated FBS; increase to Lantus 15 units at bedtime 01/11/23-- FBS elevated- msg sent to EARLY HEAD START TEACHER 01/11/23: RPM - elevated FBS - increase to Lantus 20 units at bedtime 01/21/23--FBS elevated- msg sent to EARLY HEAD START TEACHER 01/21/23: RPM - FBS elevated (100-120s); increase to Lantus 30 units at bedtime 01/25/23- FBS elevated msg sent to EARLY HEAD START TEACHER 01/25/23: RPM - elevated FBS; increase to Lantus 35 units at bedtime 02/01/23- FBS elevated msg sent to EARLY HEAD START TEACHER 02/01/23: RPM reviewed; FBS elevated. Increase to Lantus 45 units at bedtime. 02/04/23: RPM reviewed. Elevated FBS. Increase Lantus to 50 units at bedtime --KW 02/08/23: RPM Stable overall; FBS improving since last dose increase; few PP elevations 02/15/23- FBS elevated- msg sent to EARLY HEAD START TEACHER 02/15/23: RPM reviewed. Increase Lantus to 55 units at bedtime. 02/22/23- FBS elevated msg sent to EARLY HEAD START TEACHER 02/22/23: RPM reviewed. Increase Lantus to 60 units at bedtime. 03/01/23- msg sent to EARLY HEAD START TEACHER- elevations in FBS and needs insulin pen refill 03/01/23: RPM reviewed. Increase Lantus to 65 units at bedtime. New prescription sent. 03/08/23: RPM reviewed. Elevated FBS. Increase to Lantus 75 units at bedtime 03/15/23- FBS past two days were normal. Will review again next week since her insulin was just increased on 03/0803/23/23- FBS elevated- msg sent to EARLY HEAD START TEACHER 03/23/23: RPM increase to Lantus 80 units at bedtime Last Assessment & Plan: She states that her fasting values are elevated. We discussed a likely increase to her Lantus dose (values pending DINKEY OPERATOR review). Supervision of high-risk , unspecified trimester 11/24/2022 Obesity in , antepartum 10/27/2022 Overview: Pregravid BMI 51.61 Lab Results Component Value Date/Time 50-G GESTATIONAL GLUCOSE, 1 HOUR - [facility] 182 (H) 11/24/2022 01:39 PM Baseline Preeclampsia Labs Lab Results Component Value Date/Time PLATELET AUTO - [facility] 419 (H) 10/27/2022 03:00 PM CREATININE - [facility] 0.6 10/27/2022 03:00 PM AST - [facility] 10/27/2022 03:00 PM ALT - [facility] 11 [...] elevated in . Her platelet count was [id number] on November 01. Also, on July 10, [...] as of this encounter (statuses as of 03/25/2023) Resolved Problems Problem Noted Date Diagnosed Date Resolved Date Impaired glucose in , antepartum 11/24/2022 12/02/2022 Overview: Elevated early 1 hr GTT documented as of this encounter (statuses as of 03/25/2023) Immunizations Name Administration Dates Next Due COVID-19 [...] money to get more. Never true 10/27/2022 [place] Depression Scale Answer Date Recorded [place] Depression Scale Total 5 03/25/2023 The thought [...] Reading Time Taken Comments Blood Pressure 138/78 03/25/2023 3:10 PM EST Pulse - - Temperature - - Respiratory Rate - - Oxygen Saturation - - Inhaled Oxygen Concentration - - Weight 141.1 kg (311 lb) 03/25/2023 3:10 PM EST Height - - Body Mass Index 53.38 03/11/2023 3:10 PM EDT documented in this encounter Progress Notes * Gatito Dunbar MD - 03/25/2023 3:14 PM EST Pt doing well No complaints AMA CHTN on labetalol GDM on Insulin Growth scan next week * Jen Alexander LPN - 03/25/2023 3:10 PM EST Pt is currently 29w4d with an Estimated Date of Delivery: 06/06/23 - documented in this encounter Plan of Treatment Upcoming Encounters Date Type Department Care Team (Late st Contact Info) Description 04/01/2023 1:45 PM EST Imaging Maternal Medicine Imaging, [facility] [address] [place] [address] 04/05/2023 1:15 PM EST Office Visit Gynecology/Obstetrics [facility] [address] [place] [address] Jo Ann Castro, [facility] [address] [place], [place] [address] [place], Non Stress Tests [facility] [address] [place] [address] 04/07/2023 10:45 AM EST Office Visit Gynecology/Obstetrics [facility] [address] [place] [address] Laura Lua CRNP [address] [place] [address] Keanu Non Stress Tests [facility] [address] [place] [address] 04/12/2023 2:30 PM EST Office Visit Gynecology/Obstetrics [facility] [address] [place] [address] Gatito Dunbar MD [address] [place] [address] Keanu Non Stress Tests [facility] [address] [place] [address] 04/15/2023 1:45 PM EST Office Visit Gynecology/Obstetrics [facility] [address] [place] [address] Laura Lua CRNP [address] [place] [address] Keanu Non Stress Tests [facility] [address] [place] [address] 04/19/2023 1:15 PM EST Office Visit Gynecology/Obstetrics [facility] [address] [place] [address] Opal Barr, [facility] [address] [place], [place] [address] [place], Non Stress Tests [facility] [address] [place] [address] 04/22/2023 1:45 PM EST Office Visit Gynecology/Obstetrics [facility] [address] [place] [address] Lula Pandey CRNP [address] [place] [address] Keanu Non Stress Tests [facility] [address] [place] [address] 04/26/2023 1:15 PM EST Office Visit Gynecology/Obstetrics [facility] [address] [place] [address] Lula Pandey CRNP [address] [place] [address] Keanu Non Stress Tests [facility] [address] [place] [address] 04/29/2023 1:00 PM EST Office Visit Gynecology/Obstetrics [facility] [address] [place] [address] Laura Lua CRNP [address] [place] [address] [place], Non Stress Tests [facility] [address] [place] [address] 04/29/2023 2:30 PM EST Imaging Maternal Medicine Imaging, [facility] [address] [place] [address] 05/03/2023 1:15 PM EST Office Visit Gynecology/Obstetrics [facility] [address] [place] [address] Ataer, JHONATAN Chin [address] [place] [address] [place], Non Stress Tests [facility] [address] [place] [address] 05/06/2023 1:45 PM EST Office Visit Gynecology/Obstetrics [facility] [address] [place] [address] Laura Lua CRNP [address] [place] [address] [place], Non Stress Tests [facility] [address] [place] [address] 05/11/2023 1:45 PM EST Office Visit Gynecology/Obstetrics [facility] [address] [place] [address] Luara Lua CRNP [address] [place] [address] [place], Non Stress Tests [facility] [address] [place] [address] 05/14/2023 2:15 PM EST Office Visit Gynecology/Obstetrics [facility] [address] [place] [address] Laura Lua CRNP [address] [place] [address] [place], Non Stress Tests [facility] [address] [place] [address] 05/27/2023 2:30 PM EST Imaging Maternal Medicine Imaging, [facility] [address] [place] [address] Health Maintenance [...] as of this encounter Visit Diagnoses Diagnosis Depression complicating , antepartum- Primary Mental disorders [...] care documented in this encounter Care Teams Freight Service Inspector Relationship Specialty Start Date End Date Kasia Jara MD [address] [place] [id number] PCP - General Internal Medicine 03/01/20 documented as of this encounter
--- OUTSIDE RECORDS SUMMARY | 2023-05-20 11:02 | External Medical Summary | Summary of Care ---
Author Name Unknown Organization [facility] Address [address] [place] [address] Phone [phone] Care Team Providers Care Director Consumer Name Role Phone Kasia Jara MD Primary Care Provider [phone] Encounter Details Date Type Department Care Team (Late st Contact Info) Description 03/23/2023 Orders Only Construction Economist Obstetrics Maternal Medicine, [place] [address] [facility] [address] [place] [address] Dee Dee Albarran CRNP [address] [facility] [address] [place] [address] Supervision of high risk in second trimester; Insulin controlled gestational diabetes mellitus (GDM) in second trimester Allergies Active Allergy Reactions Criticality Noted Date Comments Amoxicillin 07/08/2014 hives Naltrexone Nausea/vomiting 05/03/2019 Penicillins 07/08/2014 Sulfamethoxazole-Trimethoprim 2014 hives documented as of this encounter (statuses as of 03/23/2023) Medications Medication Sig Dispensed Refills Start Date [...] by mouth in the morning. 0 Active SuperflyTouch Verio Flex System w/Device KitIndications:Ges tational diabetes [...] and dinner) 125 Strip 6 12/02/2022 Active SuperflyTouch Delica Lancets 30GIndications:Ges tational diabetes mellitus (GDM), [...] (Lantus SoloStar)Indicatio ns:Supervision of high risk in second trimester,Insulin controlled gestational diabetes mellitus (GDM) in second trimester Inject 80 units under skin at bedtime. 30 mL 3 03/23/2023 Active Insulin Glargine Solostar 100 UNIT/ML Subcutaneous Solution Pen-injector (Lantus SoloStar)Indicatio ns:Supervision of high risk in second trimester,Insulin controlled gestational diabetes mellitus (GDM) in second trimester Inject 75 units under skin at bedtime. 30 mL 3 03/08/2023 03/23/2023 Discontinued (Refill) documented as of this encounter (statuses as of 03/23/2023) Active Problems Problem Noted Date Diagnosed Date [...] 12/07/22: MFM ADAPT consult complete. Enrolled in [employer]. Instructions provided to report blood sugars each [...] tonight 01/05/23--FBS are elevated- sent msg to ACCOUNT INSTALLATION SPECIALIST 01/05/23: RPM elevated FBS; increase to Lantus 15 units at bedtime 01/11/23-- FBS elevated- msg sent to ACCOUNT INSTALLATION SPECIALIST 01/11/23: RPM - elevated FBS - increase to Lantus 20 units at bedtime 01/21/23--FBS elevated- msg sent to ACCOUNT INSTALLATION SPECIALIST 01/21/23: RPM - FBS elevated (100-120s); increase to Lantus 30 units at bedtime 01/25/23- FBS elevated msg sent to ACCOUNT INSTALLATION SPECIALIST 01/25/23: RPM - elevated FBS; increase to Lantus 35 units at bedtime 02/01/23- FBS elevated msg sent to ACCOUNT INSTALLATION SPECIALIST 02/01/23: RPM reviewed; FBS elevated. Increase to Lantus 45 units at bedtime. 02/04/23: RPM reviewed. Elevated FBS. Increase Lantus to 50 units at bedtime --KW 02/08/23: RPM Stable overall; FBS improving since last dose increase; few PP elevations 02/15/23- FBS elevated- msg sent to ACCOUNT INSTALLATION SPECIALIST 02/15/23: RPM reviewed. Increase Lantus to 55 units at bedtime. 02/22/23- FBS elevated msg sent to ACCOUNT INSTALLATION SPECIALIST 02/22/23: RPM reviewed. Increase Lantus to 60 units at bedtime. 03/01/23- msg sent to ACCOUNT INSTALLATION SPECIALIST- elevations in FBS and needs insulin pen refill 03/01/23: RPM reviewed. Increase Lantus to 65 units at bedtime. New prescription sent. 03/08/23: RPM reviewed. Elevated FBS. Increase to Lantus 75 units at bedtime 03/15/23- FBS past two days were normal. Will review again next week since her insulin was just increased on 03/0803/23/23- FBS elevated- msg sent to ACCOUNT INSTALLATION SPECIALIST 03/23/23: RPM increase to Lantus 80 units at bedtime Last Assessment & Plan: She states that her fasting values are elevated. We discussed a likely increase to her Lantus dose (values pending WINDOW MAKER review). Supervision of high-risk , unspecified trimester [...] elevated in . Her platelet count was [id number] on November 01. Also, on July 10, [...] as of this encounter (statuses as of 03/23/2023) Resolved Problems Problem Noted Date Diagnosed Date Resolved Date Impaired glucose in , antepartum 11/24/2022 12/02/2022 Overview: Elevated early 1 hr GTT documented as of this encounter (statuses as of 03/23/2023) Immunizations Name Administration Dates Next Due COVID-19 [...] money to get more. Never true 10/27/2022 [place] Depression Scale Answer Date Recorded [place] Depression Scale Total 10 10/27/2022 The thought of harming myself has occurred to me . Never 10/27/2022 Estimated Date of Delivery Comme nts Yes [...] Description 03/25/2023 3:15 PM EST Office Visit Gynecology/Obstetrics [facility] [address] [place] [address] Gatito Dunbar MD [address] [place] [address] 04/01/2023 1:45 PM EST Imaging Maternal Medicine Imaging, [place] [phone] 04/05/2023 1:15 PM EST Office Visit Gynecology/Obstetrics [facility] [address] [place] [address] Jo Ann Castro, [facility] [address] [place] [address] Keanu Non Stress Tests [facility] [address] [place] [address] 04/07/2023 10:45 AM EST Office Visit Gynecology/Obstetrics [facility] [address] [place] [address] Laura Lua CRNP [address] [place] [address] [place], Non Stress Tests E[facility] [address] [place] [address] 04/12/2023 2:30 PM EST Office Visit Gynecology/Obstetrics [facility] [address] [place] [address] Gatito Dunbar MD [address] [place] [address] [place], Non Stress Tests [facility] [address] [place] [address] 04/15/2023 1:45 PM EST Office Visit Gynecology/Obstetrics [facility] [address] [place] [address] Laura Lua CRNP [address] [place] [address] [place], Non Stress Tests Este[facility]ia [address] [place] [address] 04/19/2023 1:15 PM EST Office Visit Gynecology/Obstetrics [facility] [address] [place] [address] Opal Barr, [address] [place] [address] [place], Non Stress Tests [facility] [address] [place] [address] 04/22/2023 1:45 PM EST Office Visit Gynecology/Obstetrics [facility] [address] [place] [address] Lula Pandey CRNP [address] [place] [address] [place], Non Stress Tests Este[facility]ia [address] [place] [address] 04/26/2023 1:15 PM EST Office Visit Gynecology/Obstetrics [facility] [address] [place] [address] BackLula garcia CRNP [address] [place] [address] [place], Non Stress Tests E[facility] [address] [place] [address] 04/29/2023 1:00 PM EST Office Visit Gynecology/Obstetrics [facility] [address] [place] [address] Laura Lua CRNP [address] [place] [address] [place], Non Stress Tests [facility] [address] [place] [address] 04/29/2023 2:30 PM EST Imaging Maternal Medicine Imaging, [facility] [address] [place] [address] 05/03/2023 1:15 PM EST Office Visit Gynecology/Obstetrics [facility] [address] [place] [address] BackerLula CRNP [address] [place] [address] [place], Non Stress Tests [facility]phan[facility] [address] [place] [address] 05/06/2023 1:45 PM EST Office Visit Gynecology/Obstetrics [facility] [address] [place] [address] Laura Lua CRNP [address] [place] [address] Keanu Non Stress Tests [place]ia [place] [address] 05/11/2023 1:45 PM EST Office Visit Gynecology/Obstetrics [facility] [address] [place] [address] Laura Lua CRNP [address] [place] [address] Keanu Non Stress Tests [place]ia [place] [address] 05/14/2023 2:15 PM EST Office Visit Gynecology/Obstetrics [facility] [address] [place] [address] Laura Lua CRNP [address] [place] [address] Keanu Non Stress Tests [place]ia [place] [address] 05/27/2023 2:30 PM EST Imaging Maternal Medicine Imaging, [place] [place] [phone] Health Maintenance Due Date Last Done Comments [...] Diagnoses Diagnosis Supervision of high risk in second trimester Unspecified high-risk Insulin controlled gestational diabetes mellitus (GDM) in second trimester documented in this encounter Care Teams Director Consumer Relationship Specialty Start Date End Date Kasia Jara MD [address] [facility] [address] PCP - General Internal Medicine 03/01/20 documented as of this encounter
--- OUTSIDE RECORDS SUMMARY | 2023-05-20 11:02 | External Medical Summary | Summary of Care ---
Author Name Unknown Organization [facility] Address [address] [place] [address] Phone [phone] Care Team Providers Care Pattern Molder Name Role Phone Kasia Jara MD Primary Care Provider [phone] Encounter Details Date Type Department Care Team (Late st Contact Info) Description 04/01/2023 1:45 PM EST Office Visit [facility] Obstetrics Maternal Medicine, [address] [place] [address] Odalys Alonso, DO [address] [place], [place] [id number] Chronic hypertension in *; Insulin controlled gestational diabetes mellitus (GDM) during , antepartum; Multigravida of advanced maternal age in third trimester; Ultrasound for screening for growth restriction; 30 weeks gestation of ; Excessive growth affecting management of in third trimester, single or unspecified fetus Allergies Active Allergy Reactions Criticality Noted Date Comments Amoxicillin 07/08/2014 hives Naltrexone Nausea/vomiting 05/03/2019 Penicillins 07/08/2014 Sulfamethoxazole-Trimethoprim 2014 hives documented as of this encounter (statuses as of 04/01/2023) Medications Medication Sig Dispensed Refills Start Date [...] by mouth in the morning. 0 Active [employer] EdgeTouch Verio Flex System w/Device KitIndications:Gestat ional diabetes [...] and dinner) 125 Strip 6 12/02/2022 Active [employer] Delica Lancets 30GIndications:Gestat ional diabetes mellitus (GDM), [...] (Lantus SoloStar)Indications: Supervision of high risk in third trimester,Insulin controlled gestational diabetes mellitus (GDM) in third trimester Inject 80 units under skin at bedtime. 30 mL 3 03/26/2023 Active documented as of this encounter (statuses as of 04/01/2023) Active Problems Problem Noted Date Diagnosed Date [...] 70's diastolic. Her values on file in [facility] are mildly elevated, including today (reports being [...] 12/07/22: MFM ADAPT consult complete. Enrolled in [employer] [facility]. Instructions provided to report blood sugars [...] tonight 01/05/23--FBS are elevated- sent msg to PARKING LOT ATTENDANT 01/05/23: RPM elevated FBS; increase to Lantus 15 units at bedtime 01/11/23-- FBS elevated- msg sent to PARKING LOT ATTENDANT 01/11/23: RPM - elevated FBS - increase to Lantus 20 units at bedtime 01/21/23--FBS elevated- msg sent to PARKING LOT ATTENDANT 01/21/23: RPM - FBS elevated (100-120s); increase to Lantus 30 units at bedtime 01/25/23- FBS elevated msg sent to PARKING LOT ATTENDANT 01/25/23: RPM - elevated FBS; increase to Lantus 35 units at bedtime 02/01/23- FBS elevated msg sent to PARKING LOT ATTENDANT 02/01/23: RPM reviewed; FBS elevated. Increase to Lantus 45 units at bedtime. 02/04/23: RPM reviewed. Elevated FBS. Increase Lantus to 50 units at bedtime --KW 02/08/23: RPM Stable overall; FBS improving since last dose increase; few PP elevations 02/15/23- FBS elevated- msg sent to PARKING LOT ATTENDANT 02/15/23: RPM reviewed. Increase Lantus to 55 units at bedtime. 02/22/23- FBS elevated msg sent to PARKING LOT ATTENDANT 02/22/23: RPM reviewed. Increase Lantus to 60 units at bedtime. 03/01/23- msg sent to PARKING LOT ATTENDANT- elevations in FBS and needs insulin pen refill 03/01/23: RPM reviewed. Increase Lantus to 65 units at bedtime. New prescription sent. 03/08/23: RPM reviewed. Elevated FBS. Increase to Lantus 75 units at bedtime 03/15/23- FBS past two days were normal. Will review again next week since her insulin was just increased on 03/0803/23/23- FBS elevated- msg sent to PARKING LOT ATTENDANT 03/23/23: RPM increase to Lantus 80 units at bedtime 03/29/23- BS elevated msg sent to PARKING LOT ATTENDANT Last Assessment & Plan: Working with ADAPT. [...] elevated in . Her platelet count was [id number] on November 01. Also, on July 10, [...] as of this encounter (statuses as of 04/01/2023) Resolved Problems Problem Noted Date Diagnosed Date Resolved Date Impaired glucose in , antepartum 11/24/2022 12/02/2022 Overview: Elevated early 1 hr GTT documented as of this encounter (statuses as of 04/01/2023) Immunizations Name Administration Dates Next Due COVID-19 [...] money to get more. Never true 10/27/2022 Monetta Depression Scale Answer Date Recorded Monetta Depression Scale Total 5 03/25/2023 The thought [...] Progress Notes * Odalys Alonso, DO - 04/01/2023 3:00 PM EST Bety presented today at 30w4d for an ultrasound for the following indications: Chronic hypertension in Insulin controlled gestational diabetes mellitus (GDM) during , antepartum Assessment & Plan: Working with ADAPT. Insulin adjustments needed. Multigravida of advanced maternal age in third trimester Ultrasound for screening for growth restriction 30 weeks gestation of Excessive growth affecting management of in third trimester, single or unspecified fetus Assessment & Plan: LGA noted today, most consistent with hyperglycemia. Working with ADAPT to improve blood glucose control. Please initiate NSTs 2x weekly at 32 weeks. Ultrasound summary: Patient presented for growth assessment at 30w 4d. Large AC noted at >99% with overall EFW of 2123 g at 98%. ALEXANDER 17 cm. Cephalic presentation. I reviewed the ultrasound images. Bety was given the opportunity to meet with me if she had any questions. Please refer to the ultrasound report for additional details about today's ultrasound examination. RECOMMENDATIONS: Recommend follow up ultrasound with MFM in 4 weeks for growth secondary to above indications. See prior formal MFM consultation note. Thank you for allowing us to participate in the care of this patient. Please call with any questions. Odalys Alonso DO 04/01/2023 3:02 PM documented in this encounter Miscellaneous Notes * Assessment & Plan Note - Odalys Alonso DO - 04/01/2023 3:03 PM EST Associated Problem(s): Excessive growth affecting management of in third trimester LGA noted today, most consistent with hyperglycemia. Working with ADAPT to improve blood glucose control. Please initiate NSTs 2x weekly at 32 weeks. * Assessment & Plan Note - Odalys Alonso DO - 04/01/2023 2:57 PM EST Associated Problem(s): Insulin controlled gestational diabetes mellitus (GDM) during , antepartum Working with ADAPT. Insulin adjustments needed. documented in this encounter Plan of Treatment Upcoming Encounters Date Type Department Care Team (Late st Contact Info) Description 04/05/2023 1:15 PM EST Office Visit Gynecology/Obstetrics [facility] [address] [place] [address] Jo Ann Castro, ABIMAEL [address] [place] [address] [place]y [place] [address] Keanu, Non Stress Tests Estephania [address] [place] [address] 04/07/2023 10:45 AM EST Office Visit Gynecology/Obstetrics [facility] [address] [place] [address] Laura Lua CRNP [address] [place] [address] [place], Non Stress Tests Estephania [address] [place] [address] 04/12/2023 2:30 PM EST Office Visit Gynecology/Obstetrics [facility] [address] [place] [address] Gatito Dunbar MD [address] [place] [address] Col[place], Non Stress Tests Estephania [address] [place] [address] 04/15/2023 1:45 PM EST Office Visit Gynecology/Obstetrics [facility] [address] [place] [address] Laura Lua CRNP [address] [place] [address] [place], Non Stress Tests Estephania [address] [place] [address] 04/19/2023 1:15 PM EST Office Visit Gynecology/Obstetrics [facility] [address] [place] [address] Opal Barr, [address] [place] [address] [place], Non Stress Tests Estephania [address] [place] [address] 04/22/2023 1:45 PM EST Office Visit Gynecology/Obstetrics [facility] [address] [place] [address] Lula Pandey CRNP [address] [place] [address] [place], Non Stress Tests Estephania [address] [place] [address] 04/26/2023 1:15 PM EST Office Visit Gynecology/Obstetrics [facility] [address] [place] [address] Lula Pandey CRNP [address] [place] [address] Col[place], Non Stress Tests Estephania [address] [place] [address] 04/29/2023 1:00 PM EST Office Visit Gynecology/Obstetrics [facility] [address] [place] [address] Laura Lua CRNP [address] [place] [address] [place], Non Stress Tests Estephania [address] [place] [address] 04/29/2023 2:30 PM EST Imaging Maternal Medicine Imaging, Estephania [facility] [address] [place] [address] 05/03/2023 1:15 PM EST Office Visit Gynecology/Obstetrics [facility] [address] [place] [address] Lula Pandey CRNP [address] [place] [address] Col[place], Non Stress Tests Estephania [address] [place] [address] 05/06/2023 1:45 PM EST Office Visit Gynecology/Obstetrics [facility] [address] [place] [address] Laura Lua CRNP [address] [place] [address] Kaenu Non Stress Tests Estephania [place] [place] [address] 05/11/2023 1:45 PM EST Office Visit Gynecology/Obstetrics [facility] [address] [place] [address] Laura Lua CRNP [address] [place] [address] Robyn Colunga Stress Tests Estephania [place] [address] 05/14/2023 2:15 PM EST Office Visit Gynecology/Obstetrics [facility] [address] [place] [address] Laura Lua CRNP [address] [place] [address] Robyn Colunga Stress Tests Estephania [place] [address] 05/27/2023 2:30 PM EST Imaging Maternal Medicine Imaging, Estephania [facility] [place] [id number] Health Maintenance Due Date Last Done Comments Hepatitis B (1 of 3 - 3-dose series) 1985 Depression, Most Recent Score >= 10 (will fire each visit until score < 10) 05/27/2021 05/26/2021 COVID-19 Vaccine (2022- season) 2023 03/18/2021, 07/10/2020, 06/07/2020 GFR 02/20/2024 02/19/2023, 10/15, 07/10/2022, Additional history exists Pap Smear 10/27/2025 10/27/2022, 06/0 12/2017, 10/22/2017 Diabetes Screening 12/23/2025 12/23/2022, 0 [...] encounter Visit Diagnoses Diagnosis Chronic hypertension in - Primary Benign essential hypertension complicating , childbirth, and the puerperium, unspecified as to episode of care Insulin controlled gestational diabetes mellitus (GDM) during , antepartum Multigravida of advanced maternal age in third trimester Ultrasound for screening for growth restriction screening for growth retardation using ultrasonics 30 weeks gestation of state, incidental Excessive growth affecting management of in third trimester, single or unspecified fetus documented in this encounter Care Teams Pattern Molder Relationship Specialty Start Date End Date Kasia Jara MD [address] [facility] [place] [address] PCP - General Internal Medicine 03/01/20 documented as of this encounter
--- OUTSIDE RECORDS SUMMARY | 2023-05-20 11:02 | External Medical Summary | Summary of Care ---
Author Name Unknown Organization [facility] Address [address] [place] [address] Phone [phone] Care Team Providers Care Anime Designer Name Role Phone Kasia Jara MD Primary Care Provider [phone] Reason for Visit * Reason Comments Return Visit Encounter Details Date Type Department Care Team (Late st Contact Info) Description 04/05/2023 1:15 PM EST Office Visit Gynecology/Obstetric s [facility] [address] [facility] [place] [address] Jo Ann Castro CNM [address] [place] [address] [place], Non Stress Tests Estephania [address] [facility] [place] [address] Depression complicating , antepartum*; Insulin controlled gestational diabetes mellitus (GDM) during , antepartum; Supervision of high-risk , unspecified trimester; Obesity in , antepartum; Multigravida of advanced maternal age in third trimester; Chronic hypertension in Allergies Active Allergy Reactions Criticality Noted Date Comments Amoxicillin 07/08/2014 hives Naltrexone Nausea/vomiting 05/03/2019 Penicillins 07/08/2014 Sulfamethoxazole-Trimethoprim 2014 hives documented as of this encounter (statuses as of 04/05/2023) Medications Medication Sig Dispensed Refills Start Date [...] by mouth in the morning. 0 Active [employer] VerPlayerTakesAll Flex System w/Device KitIndications:Ges tational diabetes mellitus (GDM), antepartum, gestational diabetes method of control unspecified Use to test blood sugars 4 times daily (fasting, 1 hour after breakfast, lunch, and dinner) 1 Kit 0 12/02/2022 Active [employer] In Vitro Strip (Glucose Blood)Indications: Gestational diabetes mellitus (GDM), antepartum, gestational diabetes method of control unspecified Use to test blood sugars 4 times daily (fasting, 1 hour after breakfast, lunch, and dinner) 125 Strip 6 12/02/2022 Active [employer] Delica Lancets 30GIndications:Ges tational diabetes mellitus (GDM), [...] insulin once daily. 100 Each 3 12/24/2022 04/05/2023 Discontinued (Refill) Insulin Glargine Solostar 100 UNIT/ML Subcutaneous Solution Pen-injector (Lantus SoloStar)Indicatio ns:Supervision of high risk in third trimester,Insulin controlled gestational diabetes mellitus (GDM) in third trimester Inject 80 units under skin at bedtime. 30 mL 3 03/26/2023 04/05/2023 Discontinued (Refill) documented as of this encounter (statuses as of 04/05/2023) Active Problems Problem Noted Date Diagnosed Date [...] tonight 01/05/23--FBS are elevated- sent msg to COAL MILL OPERATOR 01/05/23: RPM elevated FBS; increase to Lantus 15 units at bedtime 01/11/23-- FBS elevated- msg sent to COAL MILL OPERATOR 01/11/23: RPM - elevated FBS - increase to Lantus 20 units at bedtime 01/21/23--FBS elevated- msg sent to COAL MILL OPERATOR 01/21/23: RPM - FBS elevated (100-120s); increase to Lantus 30 units at bedtime 01/25/23- FBS elevated msg sent to COAL MILL OPERATOR 01/25/23: RPM - elevated FBS; increase to Lantus 35 units at bedtime 02/01/23- FBS elevated msg sent to COAL MILL OPERATOR 02/01/23: RPM reviewed; FBS elevated. Increase to Lantus 45 units at bedtime. 02/04/23: RPM reviewed. Elevated FBS. Increase Lantus to 50 units at bedtime --KW 02/08/23: RPM Stable overall; FBS improving since last dose increase; few PP elevations 02/15/23- FBS elevated- msg sent to COAL MILL OPERATOR 02/15/23: RPM reviewed. Increase Lantus to 55 units at bedtime. 02/22/23- FBS elevated msg sent to COAL MILL OPERATOR 02/22/23: RPM reviewed. Increase Lantus to 60 units at bedtime. 03/01/23- msg sent to COAL MILL OPERATOR- elevations in FBS and needs insulin pen refill 03/01/23: RPM reviewed. Increase Lantus to 65 units at bedtime. New prescription sent. 03/08/23: RPM reviewed. Elevated FBS. Increase to Lantus 75 units at bedtime 03/15/23- FBS past two days were normal. Will review again next week since her insulin was just increased on 03/0803/23/23- FBS elevated- msg sent to COAL MILL OPERATOR 03/23/23: RPM increase to Lantus 80 units at bedtime 03/29/23- BS elevated msg sent to COAL MILL OPERATOR 04/05/23- elevated sugars msg sent to COAL MILL OPERATOR 04/05/23: RPM reviewed; elevated FBS and some PP; add Lantus 10 units at breakfast and continue Lantus 80 units at bedtime; recommend F/U ADAPT to discuss transitioning to [place]je[place] Last Assessment & Plan: Working with ADAPT. [...] elevated in . Her platelet count was [id number] on November 01. Also, on July 10, [...] as of this encounter (statuses as of 04/05/2023) Resolved Problems Problem Noted Date Diagnosed Date Resolved Date Impaired glucose in , antepartum 11/24/2022 12/02/2022 Overview: Elevated early 1 hr GTT documented as of this encounter (statuses as of 04/05/2023) Immunizations Name Administration Dates Next Due COVID-19 [...] money to get more. Never true 10/27/2022 Loyal Depression Scale Answer Date Recorded Loyal Depression Scale Total 5 03/25/2023 The thought [...] Sign Reading Time Taken Comments Blood Pressure 138/84 04/05/2023 1:26 PM EST Pulse - - Temperature - - Respiratory Rate - - Oxygen Saturation - - Inhaled Oxygen Concentration - - Weight 142.9 kg (315 lb) 04/05/2023 1:26 PM EST Height 162.6 cm (5' 4") 04/05/2023 1:26 PM EST Body Mass Index 54.07 04/05/2023 1:26 PM EST documented in this encounter Progress Notes * Jo Ann Castro CNM - 04/05/2023 2:05 PM EST RUPINDER at 31w1d Starting to feel discomforts of , low back pain, pressure, insomnia. Wearing binder. Feeling good FM. Occasional BH, no RUC, no LOF, or VB. BPs have been okay, continues on labetalol 200mg BID. Having elevations in mostly her fasting BS, using the adapt ana, MFM has reached out to scheduled appt for tomorrow to discuss medication changes. Last growth US was 04/01 AC 99%, overall EFW 98%. Will start NSTs next week, dicussed and answered questions. RTO next week. documented in this encounter Nursing Notes * Daylin Bettencourt LPN - 04/05/2023 1:34 PM EST 31w1d Denies concerns. Will start NST next week. documented in this encounter Plan of Treatment Upcoming Encounters Date Type Department Care Team (Late st Contact Info) Description 04/06/2023 11:00 AM EST Telemedicine Surgical Supply Assistant Obstetrics Maternal Medicine, [place] [address] [facility] [address] [place] [address] Dee Dee Albarran [facility] [address] [facility] [address] [place] [address] 04/12/2023 2:30 PM EST Office Visit Gynecology/Obstetrics [facility] [address] [place] [address] Gatito Dunbar MD [address] [place] [address] Robyn [facility] Stress Tests Estephania [address] [place] [address] 04/15/2023 1:45 PM EST Office Visit Gynecology/Obstetrics [facility] [address] [place] [address] Laura Lua CRNP [address] [place] [address] [place], Non Stress Tests Estephania [address] [place] [address] 04/19/2023 1:15 PM EST Office Visit Gynecology/Obstetrics [facility] [address] [place] [address] Opal Barr, [address] [place] [address] [place], Non Stress Tests Estephania [address] [place] [address] 04/22/2023 1:45 PM EST Office Visit Gynecology/Obstetrics [facility] Justices [address] [place] [address] Lula Pandey CRNP [address] [place] [address] [place], Non Stress Tests Estephania [address] [place] [address] 04/26/2023 1:15 PM EST Office Visit Gynecology/Obstetrics [facility] [address] [place] [address] Lula Pandey CRNP [address] [place] [address] [place], Non Stress Tests Estephania [address] [place] [address] 04/29/2023 1:00 PM EST Office Visit Gynecology/Obstetrics [facility] [address] [place] [address] Laura Lua CRNP [address] [place] [address] [place], Non Stress Tests Estephania [address] [place] [address] 04/29/2023 2:30 PM EST Imaging Maternal Medicine Imaging, Estephania [place] [address] [place] [phone] 05/03/2023 1:15 PM EST Office Visit Gynecology/Obstetrics [facility] Just[facility] [address] [place] [address] Backer, JHONATAN Chin [address] [place] [address] [place], Non Stress Tests Estephania [address] [place] [address] 05/06/2023 1:45 PM EST Office Visit Gynecology/Obstetrics [facility] Justices [address] [place] [address] Laura Lua CRNP [address] [place] [address] [place], Non Stress Tests Setephania [address] [place] [address] 05/11/2023 1:45 PM EST Office Visit Gynecology/Obstetrics [facility] [address] [place] [address] Laura Lua CONCRETE BOOM OPERATOR [address] [place] [address] [place], Non Stress Tests Estephania [address] [place] [address] 05/14/2023 2:15 PM EST Office Visit Gynecology/Obstetrics [facility] [address] [place] [address] Laura Lua CRNP [address] [place] [address] Keanu Non Stress Tests Estephania [place] [address] 05/27/2023 2:30 PM EST Imaging Maternal Medicine Imaging, Estephania [place] [phone] Health Maintenance Due Date Last Done Comments [...] care documented in this encounter Care Teams Anime Designer Relationship Specialty Start Date End Date Kasia Jara MD [address] [place] [address] PCP - General Internal Medicine 03/01/20 documented as of this encounter
--- OUTSIDE RECORDS SUMMARY | 2023-05-20 11:02 | External Medical Summary | Summary of Care ---
Author Name Unknown Organization [facility] Address [address] [place] [address] Phone [phone] Care Team Providers Care Shirt Finisher Name Role Phone Kasia Jara MD Primary Care Provider [phone] Encounter Details Date Type Department Care Team (Late st Contact Info) Description 04/06/2023 Population Health External Data Unspecified Department Allergies Active Allergy Reactions Criticality Noted Date [...] Active Sertraline HCl 50 MG Oral Tablet (Zoloft)Indications: SHIELA (generalized anxiety disorder),Binge eating disorder Take 1 Tablet by mouth in the morning. 30 Tablet 5 10/27/2022 Active Calcium Carbonate Antacid 500 MG Oral Tablet Chewable Take 1 Tablet by mouth in the morning. 0 Active OneTouch Verio Flex System w/Device KitIndications:Gesta tional diabetes mellitus (GDM), antepartum, gestational diabetes method of control unspecified Use to test blood sugars 4 times daily (fasting, 1 hour after breakfast, lunch, and dinner) 1 Kit 0 12/02/2022 Active OneTouch Verio In Vitro Strip (Glucose Blood)Indications:Ge stational diabetes mellitus (GDM), antepartum, gestational diabetes method of control unspecified Use to test blood sugars 4 times daily (fasting, 1 hour after breakfast, lunch, and dinner) 125 Strip 6 12/02/2022 Active OneTouch Delica Lancets 30GIndications:Gesta tional diabetes mellitus (GDM), antepartum, gestational diabetes method of control unspecified Use to test blood sugars 4 times daily (fasting, 1 hour after breakfast, lunch, and dinner) 200 Each 6 12/02/2022 Active Aspirin 81 MG Oral Tablet Delayed Release Take 1 Tablet by mouth in the morning. 100 Tablet 3 12/23/2022 Active Labetalol HCl 200 MG Oral Tablet (Normodyne)Indicatio ns:Chronic hypertension in Take 1 Tablet by mouth in the morning and 1 Tablet before bedtime. 60 Tablet 1 02/19/2023 Active Iron-Vitamin C 65-125 MG Oral Tablet (Vitron C)Indications:Antepa rtum anemia complicating Take 1 Tablet by mouth in the morning. 30 Tablet 3 02/25/2023 Active Insulin Glargine Solostar 100 UNIT/ML Subcutaneous Solution Pen-injector (Lantus SoloStar)Indications :Supervision of high risk in third trimester,Insulin controlled gestational diabetes mellitus (GDM) in third trimester Inject 10 units under skin at breakfast and 80 units under skin at bedtime. 30 mL 3 04/05/2023 Active BD Pen Needle Mini U/F 31G X 5 MM (Insulin Pen Needle)Indications:I nsulin controlled gestational diabetes mellitus (GDM) in second trimester,Supervisio n of high risk in second trimester Use to inject insulin twice daily. 200 Each 3 04/05/2023 Active documented as of this encounter (statuses [...] 70's diastolic. Her values on file in [facility] are mildly elevated, including today (reports being [...] 12/07/22: MFM ADAPT consult complete. Enrolled in [facility]. Instructions provided to report blood [...] tonight 01/05/23--FBS are elevated- sent msg to SENIOR JAVA UI DEVELOPER 01/05/23: RPM elevated FBS; increase to Lantus 15 units at bedtime 01/11/23-- FBS elevated- msg sent to SENIOR JAVA UI DEVELOPER 01/11/23: RPM - elevated FBS - increase to Lantus 20 units at bedtime 01/21/23--FBS elevated- msg sent to SENIOR JAVA UI DEVELOPER 01/21/23: RPM - FBS elevated (100-120s); increase to Lantus 30 units at bedtime 01/25/23- FBS elevated msg sent to SENIOR JAVA UI DEVELOPER 01/25/23: RPM - elevated FBS; increase to Lantus 35 units at bedtime 02/01/23- FBS elevated msg sent to SENIOR JAVA UI DEVELOPER 02/01/23: RPM reviewed; FBS elevated. Increase to Lantus 45 units at bedtime. 02/04/23: RPM reviewed. Elevated FBS. Increase Lantus to 50 units at bedtime --KW 02/08/23: RPM Stable overall; FBS improving since last dose increase; few PP elevations 02/15/23- FBS elevated- msg sent to SENIOR JAVA UI DEVELOPER 02/15/23: RPM reviewed. Increase Lantus to 55 units at bedtime. 02/22/23- FBS elevated msg sent to SENIOR JAVA UI DEVELOPER 02/22/23: RPM reviewed. Increase Lantus to 60 units at bedtime. 03/01/23- msg sent to SENIOR JAVA UI DEVELOPER- elevations in FBS and needs insulin pen refill 03/01/23: RPM reviewed. Increase Lantus to 65 units at bedtime. New prescription sent. 03/08/23: RPM reviewed. Elevated FBS. Increase to Lantus 75 units at bedtime 03/15/23- FBS past two days were normal. Will review again next week since her insulin was just increased on 03/0803/23/23- FBS elevated- msg sent to SENIOR JAVA UI DEVELOPER 03/23/23: RPM increase to Lantus 80 units at bedtime 03/29/23- BS elevated msg sent to SENIOR JAVA UI DEVELOPER 04/05/23- elevated sugars msg sent to SENIOR JAVA UI DEVELOPER 04/05/23: RPM reviewed; elevated FBS and [...] elevated in . Her platelet count was [id number] on November 01. Also, on July 10, [...] money to get more. Never true 10/27/2022 [place] Depression Scale Answer Date Recorded [place] Depression Scale Total 5 03/25/2023 The thought [...] Info) Description 04/06/2023 11:00 AM EST Telemedicine Business Services Analyst Obstetrics [facility]aternal [facility], [address] [place] [address] Dee Dee Albarran CRNP [address] [facility] [address] [place] [address] 04/12/2023 2:30 PM EST Office Visit Gynecology/Obstetrics [facility] [address] [place] [address] Gatito Dunbar MD [address] [place] [address] Keanu Non Stress Tests [facility] [address] [place] [address] 04/15/2023 1:45 PM EST Office Visit Gynecology/Obstetrics [facility] [address] [place] [address] Laura Lua CRNP [address] [place] [address] [place], Non Stress Tests Estephania [address] [place] [address] 04/19/2023 1:15 PM EST Office Visit Gynecology/Obstetrics [facility] [address] [place] [address] Opal Barr, [facility] [address] [place] [address] [place], Non Stress Tests Estephania [address] [place] [address] 04/22/2023 1:45 PM EST Office Visit Gynecology/Obstetrics [facility] [address] [place] [address] Lula Pandey CRNP [address] [place] [address] [place], Non Stress Tests Este[facility]ia [address] [place] [address] 04/26/2023 1:15 PM EST Office Visit Gynecology/Obstetrics [facility] [address] [place] [address] Lula Pandey CRNP [address] [place] [address] [place], Non Stress Tests Estephania [address] [place] [address] 04/29/2023 1:00 PM EST Office Visit Gynecology/Obstetrics [facility] [address] [place] [address] Laura Lua CRNP [address] [place] [address] [place], Non Stress Tests Este[facility]ia [address] [place] [address] 04/29/2023 2:30 PM EST Imaging [facility] Imaging, [facility]ia [place] [address] [place] [address] 05/03/2023 1:15 PM EST Office Visit Gynecology/Obstetrics [facility] [address] [place] [address] Lula Pandey CRNP [address] [place] [address] Keanu Non Stress Tests Estephania [address] [place] [address] 05/06/2023 1:45 PM EST Office Visit Gynecology/Obstetrics [facility] [address] [place] [address] Laura Lua CRNP [address] [place] [address] Keanu Non Stress Tests Este[facility]ia [address] [place] [address] 05/11/2023 1:45 PM EST Office Visit Gynecology/Obstetrics [facility] [address] [place] [address] Laura Lua CRNP [address] [place] [address] [place], Non Stress Tests Estephania [address] [place] [address] 05/14/2023 2:15 PM EST Office Visit Gynecology/Obstetrics [facility] [address] [place] [address] Laura Lua CRNP [address] [place] [address] [place], Robyn Stress Tests E[facility] [address] [place] [address] 05/27/2023 2:30 PM EST Imaging Maternal Medicine [...] Not on filedocumented as of this encounter Care Teams Shirt Finisher Relationship Specialty Start Date End Date Kasia Jara MD [address] [place] [address] PCP - General Internal Medicine 03/01/20 documented as of this encounter
--- OUTSIDE RECORDS SUMMARY | 2023-05-20 11:02 | External Medical Summary | Summary of Care ---
Author Name Unknown Organization [facility] Address [address] [place] [address] Phone [phone] Care Team Providers Care Bag Worker Name Role Phone Kasia Jara MD Primary Care Provider [phone] Reason for Visit * Reason Comments Return Visit Encounter Details Date Type Department Care Team (Late st Contact Info) Description 03/11/2023 3:00 PM EDT Office Visit Gynecology/Obstetric [facility] [address] [place] [address] Gatito Dunbar MD [address] [place] [address] Depression complicating , antepartum*; Insulin controlled gestational diabetes mellitus (GDM) during , antepartum; Supervision of high-risk , unspecified trimester; Obesity in , antepartum; Multigravida of advanced maternal age in third trimester; Chronic hypertension in Allergies Active Allergy Reactions Criticality Noted Date Comments Amoxicillin 07/08/2014 hives Naltrexone Nausea/vomiting 05/03/2019 Penicillins 07/08/2014 Sulfamethoxazole-Trimethoprim 2014 hives documented as of this encounter (statuses as of 03/15/2023) Medications Medication Sig Dispensed Refills Start Date [...] by mouth in the morning. 0 Active iApp4MeTouch Verio Flex System w/Device KitIndications:Gestat ional diabetes mellitus (GDM), antepartum, gestational diabetes method of control unspecified Use to test blood sugars 4 times daily (fasting, 1 hour after breakfast, lunch, and dinner) 1 Kit 0 12/02/2022 Active iApp4MeTouch Verio In Vitro Strip (Glucose Blood)Indications:Ges tational diabetes mellitus (GDM), antepartum, gestational diabetes method of control unspecified Use to test blood sugars 4 times daily (fasting, 1 hour after breakfast, lunch, and dinner) 125 Strip 6 12/02/2022 Active Pixel Qiuch Delica Lancets 30GIndications:Gestat ional diabetes mellitus (GDM), [...] skin at bedtime. 30 mL 3 03/08/2023 Active documented as of this encounter (statuses as of 03/15/2023) Active Problems Problem Noted Date Diagnosed Date [...] 12/02/2022 07:15 AM 12/02/22 hemoglobin A1c ordered She reports her home blood glucose as following: DATE Fasting 1 hr after Breakfast 1 hr after Lunch 1 hr after Dinner 12/03/22 x x x 113 12/04/22 109 126 127 117 12/05/22 103 104 122 143 (take out) 12/06/22 104 98 122 112 12/07/22 99 113 133 x 12/07/22: MFM ADAPT consult complete. Enrolled in [facility]. Instructions provided to report blood sugars each [...] tonight 01/05/23--FBS are elevated- sent msg to CLAIMS SUPERVISOR 01/05/23: RPM elevated FBS; increase to Lantus 15 units at bedtime 01/11/23-- FBS elevated- msg sent to CLAIMS SUPERVISOR 01/11/23: RPM - elevated FBS - increase to Lantus 20 units at bedtime 01/21/23--FBS elevated- msg sent to CLAIMS SUPERVISOR 01/21/23: RPM - FBS elevated (100-120s); increase to Lantus 30 units at bedtime 01/25/23- FBS elevated msg sent to CLAIMS SUPERVISOR 01/25/23: RPM - elevated FBS; increase to Lantus 35 units at bedtime 02/01/23- FBS elevated msg sent to CLAIMS SUPERVISOR 02/01/23: RPM reviewed; FBS elevated. Increase to Lantus 45 units at bedtime. 02/04/23: RPM reviewed. Elevated FBS. Increase Lantus to 50 units at bedtime --KW 02/08/23: RPM Stable overall; FBS improving since last dose increase; few PP elevations 02/15/23- FBS elevated- msg sent to CLAIMS SUPERVISOR 02/15/23: RPM reviewed. Increase Lantus to 55 units at bedtime. 02/22/23- FBS elevated msg sent to CLAIMS SUPERVISOR 02/22/23: RPM reviewed. Increase Lantus to 60 units at bedtime. 03/01/23- msg sent to CLAIMS SUPERVISOR- elevations in FBS and needs insulin pen refill 03/01/23: RPM reviewed. Increase Lantus to 65 units at bedtime. New prescription sent. 03/08/23: RPM reviewed. Elevated FBS. Increase to Lantus 75 units at bedtime 03/15/23- FBS past two days were normal. Will review again next week since her insulin was just increased on 03/08 Last Assessment & Plan: She states that her fasting values are elevated. We discussed a likely increase to her Lantus dose (values pending [employer] HEAD review). Supervision of high-risk , unspecified trimester [...] elevated in . Her platelet count was [id number] on November 01. Also, on July 10, [...] as of this encounter (statuses as of 03/15/2023) Resolved Problems Problem Noted Date Diagnosed Date Resolved Date Impaired glucose in , antepartum 11/24/2022 12/02/2022 Overview: Elevated early 1 hr GTT documented as of this encounter (statuses as of 03/15/2023) Immunizations Name Administration Dates Next Due COVID-19 [...] money to get more. Never true 10/27/2022 [place] Depression Scale Answer Date Recorded [place] Depression Scale Total 10 10/27/2022 The thought [...] Sign Reading Time Taken Comments Blood Pressure 130/74 03/11/2023 3:10 PM EDT Pulse - - Temperature - - Respiratory Rate - - Oxygen Saturation - - Inhaled Oxygen Concentration - - Weight 142 kg (313 lb) 03/11/2023 3:10 PM EDT Height 162.6 cm (5' 4") 03/11/2023 3:10 PM EDT Body Mass Index 53.73 03/11/2023 3:10 PM EDT documented in this encounter Progress Notes * Gatito Dunbar MD - 03/11/2023 3:46 PM EDT 1st time seeing pt Doing well No complaints CHTN on labetalol GDMA2 on Insulin- Seeing MFM Obesity ; Body mass index is 53.73 kg/m. Hx of anxiety Reviewed problem list * Usha Lawton LPN - 03/11/2023 3:11 PM EDT 27w4d documented in this encounter Nursing Notes * Usha Lawton LPN - 03/11/2023 3:23 PM EDT Patient here for Tdap injection. Patient doing well no complaints. Injection given IM as ordered. Patient tolerated well. Patient to follow up as directed. Patient instructed to call if any complications. Patient verbalized understanding of instructions given and her follow up appt Injection site: Left Deltoid Medication Source: Dispensed stock medication tdap documented in this encounter Plan of Treatment Upcoming Encounters Date Type Department Care Team (Late st Contact Info) Description 03/26/2023 2:15 PM EST Office Visit Gynecology/Obstetrics [facility] [address] [place] [address] Laura Lua CRNP [address] [place] [address] 04/01/2023 1:45 PM EST Imaging Maternal Medicine Imaging, Estephania [place] [phone] 04/05/2023 1:15 PM EST Office Visit Gynecology/Obstetrics [facility] [address] [place] [address] Jo Ann Casrto, [address] [place] [address] [place], Non Stress Tests Estephania [place] [address] 04/07/2023 10:45 AM EST Office Visit Gynecology/Obstetrics [facility] [address] [place] [address] Laura Lua CRNP [address] [place] [address] [place], Non Stress Tests Este[facility]ia [address] [place] [address] 04/12/2023 2:30 PM EST Office Visit Gynecology/Obstetrics [facility] [address] [place] [address] Gatito Dunbar MD [address] [place] [address] [place], Non Stress Tests Este[facility]ia [address] [place] [address] 04/15/2023 1:45 PM EST Office Visit Gynecology/Obstetrics [facility] [address] [place] [address] Laura Lua CRNP [address] [place] [address] [place], Non Stress Tests Estephania [address] [place] [address] 04/19/2023 1:15 PM EST Office Visit Gynecology/Obstetrics [facility] [address] [place] [address] Opal Barr, [address] [place] [address] [place], Non Stress Tests Estephania [address] [place] [address] 04/22/2023 1:45 PM EST Office Visit Gynecology/Obstetrics [facility] [address] [place] [address] Lula Pandey CRNP [address] [place] [address] [place], Non Stress Tests Este[facility]ia [address] [place] [address] 04/26/2023 1:15 PM EST Office Visit Gynecology/Obstetrics [facility] [address] [place] [address] BackerLula CRNP [address] [place] [address] [place], Non Stress Tests Estephania [address] [place] [address] 04/29/2023 1:00 PM EST Office Visit Gynecology/Obstetrics [facility] [address] [place] [address] Laura Lua CRNP [address] [place] [address] [place], Non Stress Tests E[facility]ia [address] [place] [address] 04/29/2023 2:30 PM EST Imaging [facility] Imaging, [facility] [address] [place] [address] 05/03/2023 1:15 PM EST Office Visit Gynecology/Obstetrics [facility] [address] [place] [address] BackerLula CRNP [address] [place] [address] [place], Non Stress Tests Estephania [address] [place] [address] 05/06/2023 1:45 PM EST Office Visit Gynecology/Obstetrics [facility] [address] [place] [address] Laura Lua CRNP [address] [place] [address] Keanu Non Stress Tests [place] [address] 05/11/2023 1:45 PM EST Office Visit Gynecology/Obstetrics [facility] [address] [place] [address] Laura Lua CRNP [address] [place] [address] Robyn [place] Stress Tests Estephania [address] [place] [address] 05/14/2023 2:15 PM EST Office Visit Gynecology/Obstetrics [facility] [address] [place] [address] Laura Lua CRNP [address] [place] [address] Robyn [place] Stress Tests [place] [address] 05/27/2023 2:30 PM EST Imaging Maternal Medicine Imaging, [facility] [place] [place] [phone] Health Maintenance Due Date Last Done Comments [...] care documented in this encounter Care Teams Bag Worker Relationship Specialty Start Date End Date Kasia Jara MD [address] [place] [address] PCP - General Internal Medicine 03/01/20 documented as of this encounter
--- OUTSIDE RECORDS SUMMARY | 2023-05-20 11:02 | External Medical Summary | Summary of Care ---
Author Name Unknown Organization [facility] Address [address] [place] [address] Phone [phone] Care Team Providers Care Lead Electrical Controls Engineer Name Role Phone Kasia Jara MD Primary Care Provider [phone] Encounter Details Date Type Department Care Team (Late st Contact Info) Description 04/05/2023 Orders Only Trustee Of Estate Obstetrics Maternal Medicine, [place] [address] [facility] [address] [place] [address] Unique Mendoza CRNP [address] [place] [address] Supervision of high risk in third trimester; Insulin controlled gestational diabetes mellitus (GDM) in third trimester; Insulin controlled gestational diabetes mellitus (GDM) in second trimester; Supervision of high risk in second trimester Allergies Active Allergy Reactions [...] Strip 6 12/02/2022 Active OneTouch Delica Lancets 30GIndications:Ges tational diabetes mellitus (GDM), [...] twice daily. 200 Each 3 04/05/2023 Active BD Pen Needle Mini U/F 31G X 5 MM (Insulin Pen Needle)Indications :Insulin controlled gestational diabetes mellitus (GDM) in second trimester,Supervis ion of high risk in second trimester Use to inject insulin once daily. 100 Each 3 12/24/2022 3 Discontinue d(Refill) Insulin Glargine Solostar 100 UNIT/ML Subcutaneous Solution Pen-injector (Lantus SoloStar)Indicatio ns:Supervision of high risk in third trimester,Insulin controlled gestational diabetes mellitus (GDM) in third trimester Inject 80 units under skin at bedtime. 30 mL 3 03/26/2023 3 Discontinue d(Refill) documented as of this encounter (statuses as [...] 70's diastolic. Her values on file in [place] are mildly elevated, including today (reports being [...] 12/07/22: MFM ADAPT consult complete. Enrolled in [employer] [facility]. Instructions provided to report blood [...] tonight 01/05/23--FBS are elevated- sent msg to MOSAIC TECHNICIAN 01/05/23: RPM elevated FBS; increase to Lantus 15 units at bedtime 01/11/23-- FBS elevated- msg sent to MOSAIC TECHNICIAN 01/11/23: RPM - elevated FBS - increase to Lantus 20 units at bedtime 01/21/23--FBS elevated- msg sent to MOSAIC TECHNICIAN 01/21/23: RPM - FBS elevated (100-120s); increase to Lantus 30 units at bedtime 01/25/23- FBS elevated msg sent to MOSAIC TECHNICIAN 01/25/23: RPM - elevated FBS; increase to Lantus 35 units at bedtime 02/01/23- FBS elevated msg sent to MOSAIC TECHNICIAN 02/01/23: RPM reviewed; FBS elevated. Increase to Lantus 45 units at bedtime. 02/04/23: RPM reviewed. Elevated FBS. Increase Lantus to 50 units at bedtime --KW 02/08/23: RPM Stable overall; FBS improving since last dose increase; few PP elevations 02/15/23- FBS elevated- msg sent to MOSAIC TECHNICIAN 02/15/23: RPM reviewed. Increase Lantus to 55 units at bedtime. 02/22/23- FBS elevated msg sent to MOSAIC TECHNICIAN 02/22/23: RPM reviewed. Increase Lantus to 60 units at bedtime. 03/01/23- msg sent to MOSAIC TECHNICIAN- elevations in FBS and needs insulin pen refill 03/01/23: RPM reviewed. Increase Lantus to 65 units at bedtime. New prescription sent. 03/08/23: RPM reviewed. Elevated FBS. Increase to Lantus 75 units at bedtime 03/15/23- FBS past two days were normal. Will review again next week since her insulin was just increased on 03/0803/23/23- FBS elevated- msg sent to MOSAIC TECHNICIAN 03/23/23: RPM increase to Lantus 80 units at bedtime 03/29/23- BS elevated msg sent to MOSAIC TECHNICIAN 04/05/23- elevated sugars msg sent to MOSAIC TECHNICIAN 04/05/23: RPM reviewed; elevated FBS and [...] elevated in . Her platelet count was [id number] on November 01. Also, on July 10, [...] money to get more. Never true 10/27/2022 Bethany Depression Scale Answer Date Recorded Bethany Depression Scale Total 5 03/25/2023 The thought [...] Upcoming Encounters Date Type Department Care Team ([facility] Contact Info) Description 04/06/2023 11:00 AM EST Telemedicine Trustee Of Estate Obstetrics Maternal Medicine, [address] [address] Dee Dee Albarran CRNP [address] [address] 04/12/2023 2:30 PM EST Office Visit Gynecology/Obstetrics [facility] [address] [place] [address] Gatito Dunbar MD [address] [place] [address] [place], Non Stress Tests [facility] [address] [place] [address] 04/15/2023 1:45 PM EST Office Visit Gynecology/Obstetrics [facility] [address] [place] [address] Laura Lua CRNP [address] [place] [address] [place], Non Stress Tests [facility] [address] [place] [address] 04/19/2023 1:15 PM EST Office Visit Gynecology/Obstetrics [facility] [address] [place] [address] Opal Barr, [address] [address] [place], Non Stress Tests [facility] [address] [place] [address] 04/22/2023 1:45 PM EST Office Visit Gynecology/Obstetrics [facility] [address] [place] [address] Lula Pandey CRNP [address] [place] [address] [place], Non Stress Tests [facility] [address] [place] [address] 04/26/2023 1:15 PM EST Office Visit Gynecology/Obstetrics [facility] [address] [place] [address] BackLula garcia CRNP [address] [place] [address] [place], Non Stress Tests [facility] [address] [place] [address] 04/29/2023 1:00 PM EST Office Visit Gynecology/Obstetrics [facility] [address] [place] [address] Laura Lua CRNP [address] [place] [address] [place], Non Stress Tests E[facility] [address] [place] [address] 04/29/2023 2:30 PM EST Imaging Maternal Medicine Imaging, [facility] [address] [place] [address] 05/03/2023 1:15 PM EST Office Visit Gynecology/Obstetrics [facility] [address] [place] [address] BackerLula CRNP [address] [place] [address] [place], Non Stress Tests [facility] [address] [place] [address] 05/06/2023 1:45 PM EST Office Visit Gynecology/Obstetrics [facility] [address] [place] [address] Laura Lua CRNP [address] [place] [address] [facility] Stress Tests [facility] [address] [place] [address] 05/11/2023 1:45 PM EST Office Visit Gynecology/Obstetrics [facility] [address] [place] [address] Laura Lua CRNP [address] [place] [address] [facility] Stress Tests [facility]ia [address] [place] [address] 05/14/2023 2:15 PM EST Office Visit Gynecology/Obstetrics [facility] [address] [place] [address] Laura Lua CRNP [address] [place] [address] [facility] Stress Tests [facility] [address] [place] [address] 05/27/2023 2:30 PM EST Imaging Maternal Medicine Imaging, [facility] [place] [id number] Health Maintenance Due Date Last Done Comments [...] gestational diabetes mellitus (GDM) in third trimester Insulin controlled gestational diabetes mellitus (GDM) in second trimester Supervision of high risk in second trimester Unspecified high-risk documented in this encounter Care Teams Lead Electrical Controls Engineer Relationship Specialty Start Date End Date Kasia Jara MD [address] [facility] [place] [place] [address] PCP - General Internal Medicine 03/01/20 documented as of this encounter
--- OUTSIDE RECORDS SUMMARY | 2023-05-20 11:02 | External Medical Summary | Summary of Care ---
Author Name Unknown Organization [facility] Address [address] [place] [address] Phone [phone] Care Team Providers Care Furniture Designer Name Role Phone Kasia Jara MD Primary Care Provider Encounter Details Date Type Department Care Team ([facility] st Contact Info) Description 03/08/2023 Orders Only Wireless Operator Obstetrics Maternal Medicine, [place] [address] [facility] [address] [place] [address] Unique Mendoza CRNP [address] [place] [address] Supervision of high risk in second trimester; Insulin controlled gestational diabetes mellitus (GDM) in second trimester Allergies Active Allergy Reactions Criticality Noted Date Comments Amoxicillin 07/08/2014 hives Naltrexone Nausea/vomiting 05/03/2019 Penicillins 07/08/2014 Sulfamethoxazole-Trimethoprim 2014 hives documented as of this encounter (statuses as of 03/08/2023) Medications Medication Sig Dispensed Refills Start Date [...] by mouth in the morning. 0 Active TapTalentsTouch Verio Flex System w/Device KitIndications:Ges tational diabetes [...] and dinner) 125 Strip 6 12/02/2022 Active TapTalentsTouch Delica Lancets 30GIndications:Ges tational diabetes mellitus (GDM), [...] at bedtime. 30 mL 3 03/08/2023 Active Insulin Glargine Solostar 100 UNIT/ML Subcutaneous Solution Pen-injector (Lantus SoloStar)Indicatio ns:Supervision of high risk in second trimester,Insulin controlled gestational diabetes mellitus (GDM) in second trimester Inject 65 units under skin at bedtime. 15 mL 3 03/01/2023 03/08/2023 Discontinued (Refill) documented as of this encounter (statuses as of 03/08/2023) Active Problems Problem Noted Date Diagnosed Date [...] tonight 01/05/23--FBS are elevated- sent msg to INFORMATION TECHNOLOGY PROGRAM MANAGER 01/05/23: RPM elevated FBS; increase to Lantus 15 units at bedtime 01/11/23-- FBS elevated- msg sent to INFORMATION TECHNOLOGY PROGRAM MANAGER 01/11/23: RPM - elevated FBS - increase to Lantus 20 units at bedtime 01/21/23--FBS elevated- msg sent to INFORMATION TECHNOLOGY PROGRAM MANAGER 01/21/23: RPM - FBS elevated (100-120s); increase to Lantus 30 units at bedtime 01/25/23- FBS elevated msg sent to INFORMATION TECHNOLOGY PROGRAM MANAGER 01/25/23: RPM - elevated FBS; increase to Lantus 35 units at bedtime 02/01/23- FBS elevated msg sent to INFORMATION TECHNOLOGY PROGRAM MANAGER 02/01/23: RPM reviewed; FBS elevated. Increase to Lantus 45 units at bedtime. 02/04/23: RPM reviewed. Elevated FBS. Increase Lantus to 50 units at bedtime --KW 02/08/23: RPM Stable overall; FBS improving since last dose increase; few PP elevations 02/15/23- FBS elevated- msg sent to INFORMATION TECHNOLOGY PROGRAM MANAGER 02/15/23: RPM reviewed. Increase Lantus to 55 units at bedtime. 02/22/23- FBS elevated msg sent to INFORMATION TECHNOLOGY PROGRAM MANAGER 02/22/23: RPM reviewed. Increase Lantus to 60 units at bedtime. 03/01/23- msg sent to INFORMATION TECHNOLOGY PROGRAM MANAGER- elevations in FBS and needs insulin pen refill 03/01/23: RPM reviewed. Increase Lantus to 65 units at bedtime. New prescription sent. 03/08/23: RPM reviewed. Elevated FBS. Increase to Lantus 75 units at bedtime Last Assessment & Plan: She states that her fasting values are elevated. We discussed a likely increase to her Lantus dose (values pending JAVA SWING DEVELOPER review). Supervision of high-risk , unspecified trimester [...] elevated in . Her platelet count was [id number] on November 01. Also, on July 10, [...] as of this encounter (statuses as of 03/08/2023) Resolved Problems Problem Noted Date Diagnosed Date Resolved Date Impaired glucose in , antepartum 11/24/2022 12/02/2022 Overview: Elevated early 1 hr GTT documented as of this encounter (statuses as of 03/08/2023) Immunizations Name Administration Dates Next Due COVID-19 mRNA, LNP-s, No Pre serve, 2-Dose Series (Moderna) 07/10/2020,06/07/2020 COVID-19, mRNA, LNP-s, PF, B ooster, 100mcg/0.5mg (Moderna) 03/18/2021 SEASONAL INFLUENZA, PF, 6 M & Above, IM , (FLULAVAL or FLUZONE) 01/22/2023,03/17/2022,03/27/2021 Seasonal Influenza, Quadriva lent, No Preserve, IM 02/06/2020 TDAP (age 10 and older)(Boostrix) 08/28/2020 documented as of this encounter Social History [...] money to get more. Never true 10/27/2022 Deputy Depression Scale Answer Date Recorded Deputy Depression Scale Total 10 10/27/2022 The thought [...] Description 03/11/2023 3:00 PM EDT Office Visit Gynecology/Obstetrics [facility] [address] [place] [address] Gatito Dunbar MD [address] [place] [address] 03/26/2023 2:15 PM EST Office Visit Gynecology/Obstetrics [facility] [address] [place] [address] Laura Lua CRNP [address] [place] [address] 04/01/2023 1:45 PM EST Imaging Maternal Medicine Imaging [facility] [place] [phone] 04/05/2023 1:15 PM EST Office Visit Gynecology/Obstetrics [facility] [address] [place] [address] Jo Ann Castro, AB[place] [address] [place], [place] [address] [place], Non Stress Tests [facility] [address] [place] [address] 04/07/2023 10:45 AM EST Office Visit Gynecology/Obstetrics [facility] [address] [place] [address] Laura Lua CRNP [address] [place] [address] Keanu Non Stress Tests [facility] [address] [place] [address] 04/12/2023 2:30 PM EST Office Visit Gynecology/Obstetrics [facility] [address] [place] [address] Gatito Dunbar MD [address] [place] [address] [facility] Non Stress Tests [facility] [address] [place] [address] 04/15/2023 1:45 PM EST Office Visit Gynecology/Obstetrics [facility] [address] [place] [address] Laura Lua CRNP [address] [place] [address] [place], Non Stress Tests [facility] [address] [place] [address] 04/19/2023 1:15 PM EST Office Visit Gynecology/Obstetrics [facility] [address] [place] [address] Opal Barr, [facility] [address] [place] [address] Keanu Non Stress Tests [facility] [address] [place], [place] [address] 04/22/2023 1:45 PM EST Office Visit Gynecology/Obstetrics [facility] [address] [place], [place] [address] Lula Pandey CRNP [address] [place], [place] [address] Keanu Non Stress Tests [facility] [address] [place], [place] [address] 04/26/2023 1:15 PM EST Office Visit Gynecology/Obstetrics [facility] [address] [place] [address] Lula Pandey CRNP [address] [place], [place] [address] Keanu Non Stress Tests E[facility]ia [address] [place], [place] [address] 04/29/2023 1:00 PM EST Office Visit Gynecology/Obstetrics [facility] [address] [place] [address] Laura Lua CRNP [address] [place], [place] [address] Keanu Non Stress Tests [facility] [address] [place] [address] 04/29/2023 2:30 PM EST Imaging Maternal Medicine Imaging, [facility] [address] [place] [phone] 05/03/2023 1:15 PM EST Office Visit Gynecology/Obstetrics [facility] [address] [place] [address] Lula Pandey CRNP [address] [place] [address] [place], Non Stress Tests [facility] [address] [place] [address] 05/06/2023 1:45 PM EST Office Visit Gynecology/Obstetrics [facility] [address] [place] [address] Laura Lua CRNP [address] [place] [address] [place], Non Stress Tests [facility] [address] [place] [address] 05/11/2023 1:45 PM EST Office Visit Gynecology/Obstetrics [facility] [address] [place] [address] Laura Lua CRNP [address] [place] [address] [place], Non Stress Tests Estephania [address] [place] [address] 05/14/2023 2:15 PM EST Office Visit Gynecology/Obstetrics [facility] [address] [place] [address] Laura Lua CRNP [address] [place] [address] [facility], Non Stress Tests [facility] [address] [place] [address] 05/27/2023 2:30 PM EST Imaging Maternal Medicine Imaging, [facility] [address] [place] [phone] Health [...] 10/28/2027 HPV/Co-Test 10/28/2027 10/27/2022 DTaP,Tdap,and Td Vaccines (2 - Td or Tdap) 08/28/2030 08/28/2020 Influenza Vaccine (FLU shot) Completed 12/2022, [...] trimester documented in this encounter Care Teams Furniture Designer Relationship Specialty Start Date End Date Kasia Jara MD [address] [facility] [place] [address] PCP - General Internal Medicine 03/01/20 documented as of this encounter
--- OUTSIDE RECORDS SUMMARY | 2023-05-20 11:03 | External Medical Summary | Summary of Care ---
Author Name Unknown Organization [facility] Address [address] [facility] [place] [address] Phone [phone] Care Team Providers Care Student Liaison Officer Name Role Phone Kasia Jara MD Primary Care Provider [phone] Reason for Visit * Reason Comments Return Visit Encounter Details Date Type Department Care Team Description 02/19/2023 Office Visit Gynecology/Obstetrics [facility] [address] [place] [address] Brittanie Fitzgerald PA-C [address] [place] [address] Supervision of high-risk , unspecified trimester*; Depression complicating , antepartum; Insulin controlled gestational diabetes mellitus (GDM) during , antepartum; Obesity in , antepartum; Multigravida of advanced maternal age in second trimester; Chronic hypertension in Allergies Active Allergy Reactions Severity Noted Date Comments Amoxicillin 07/08/2014 hives Naltrexone Nausea/vomiting 05/03/2019 Penicillins 07/08/2014 Sulfamethoxazole-Trimethoprim 2014 hives documented as of this encounter (statuses as of 02/19/2023) Medications Medication Sig Dispensed Refills Start Date [...] and dinner) 125 Strip 6 12/02/2022 Active VSSB Medical NanotechnologyTouch Delica Lancets 30GIndications:Ges tational diabetes mellitus (GDM), [...] once daily. 100 Each 3 12/24/2022 Active Insulin Glargine Solostar 100 UNIT/ML Subcutaneous Solution Pen-injector (Lantus SoloStar)Indicatio ns:Supervision of high risk in second trimester,Insulin controlled gestational diabetes mellitus (GDM) in second trimester Inject 55 units under skin at bedtime. 15 mL 3 02/15/2023 Active Labetalol HCl 200 MG Oral Tablet (Normodyne)Indicat ions:Chronic hypertension in Take 1 Tablet by mouth in the morning and 1 Tablet before bedtime. 60 Tablet 1 02/19/2023 Active Labetalol HCl 100 MG Oral Tablet (Normodyne)Indicat ions:Chronic hypertension in Take 1 Tablet by mouth in the morning and 1 Tablet before bedtime. 60 Tablet 3 01/22/2023 3 Discontinued documented as of this encounter (statuses as of 02/19/2023) Active Problems Problem Noted Date Chronic hypertension in 2022 Overview: Diagnosed with chronic hypertension in at [...] visit to compare readings. Depression complicating , antep artum 12/07/2022 Overview: Anxiety/depression managed with Zoloft No currently [...] 12/07/22: MFM ADAPT consult complete. Enrolled in [facility]. Instructions provided to report blood sugars [...] tonight 01/05/23--FBS are elevated- sent msg to EDUCATION PROGRAM COORDINATOR 01/05/23: RPM elevated FBS; increase to Lantus 15 units at bedtime 01/11/23-- FBS elevated- msg sent to EDUCATION PROGRAM COORDINATOR 01/11/23: RPM - elevated FBS - increase to Lantus 20 units at bedtime 01/21/23--FBS elevated- msg sent to EDUCATION PROGRAM COORDINATOR 01/21/23: RPM - FBS elevated (100-120s); increase to Lantus 30 units at bedtime 01/25/23- FBS elevated msg sent to EDUCATION PROGRAM COORDINATOR 01/25/23: RPM - elevated FBS; increase to Lantus 35 units at bedtime 02/01/23- FBS elevated msg sent to EDUCATION PROGRAM COORDINATOR 02/01/23: RPM reviewed; FBS elevated. Increase to Lantus 45 units at bedtime. 02/04/23: RPM reviewed. Elevated FBS. Increase Lantus to 50 units at bedtime --KW 02/08/23: RPM Stable overall; FBS improving since last dose increase; few PP elevations 02/15/23- FBS elevated- msg sent to EDUCATION PROGRAM COORDINATOR 02/15/23: RPM reviewed. Increase Lantus to 55 units at bedtime. Last Assessment & Plan: She states that her fasting values are elevated. We discussed a likely increase to her Lantus dose (values pending RESIDENTIAL TREATMENT STAFF review). Supervision of high-risk , unsp ecified trimester 11/24/2022 Obesity in , antepartum 023 Overview: Pregravid BMI 51.61 Lab Results Component [...] 81 mg therapy Last Assessment & Plan: CONSIDERATIONS: Discussed obstetrical risks associated with class III obesity (pre- BMI of greater than or equal to 40) Reviewed that the accuracy of ultrasound at diagnosing anomalies is significantly decreased for women with an increased BMI. RECOMMENDATIONS: Recommend restricting weight gain during to 11-20 pounds. Patient should be referred for a nutrition consult. Recommend evaluation for signs and symptoms (snoring, excessive daytime sleepiness witnessed apnea or unexplained hypoxia) of obstructive sleep apnea. If any of these are present, referral to Sleep Medicine specialist for further evaluation should be considered. Recommend Maternal- Medicine ultrasound for anatomy at 20 weeks and for growth every 4 weeks thereafter. For patients with Class 3 obesity, we recommend baseline preeclamptic labs with CBC, serum AST/ALT/creatinine and 24 hour urine protein BELIA if not already done. For patients with Class 3 obesity, we recommend weekly surveillance starting at 34 weeks and delivery by EDC. Recommend anesthesia consult during the antepartum period. AMA (advanced maternal age) multigravida 35+ 10/27/2022 Overview: 11/24/22 low risk Qnatal Last Assessment [...] seen today. 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 Binge eating disorder 09/09/2020 Premenstrual dysphoric disorder 09/10/19 21 SHIELA (generalized anxiety disorder) 03/12 BMI 40.0-44.9, adult 10/22/2017 Estimated Date of Delivery Comme nts Yes 06/06/2023 Based on last me nstrual period of 08/30/2022 (Exact Date) documented as of this encounter (statuses as of 02/19/2023) Resolved Problems Problem Noted Date Resolved Date Impaired glucose in , antepartum 202212/02/2022 Overview: Elevated early 1 hr GTT documented as of this encounter (statuses as of 02/19/2023) Immunizations Name Administration Dates Next Due COVID-19 [...] pur e alcohol) 2-4 drinks per month Alcohol Habits Answer Date Recorded How often do you have a drink containing alcohol ? 2-4 times a month 04/07/2021 How many drinks containing a lcohol do you have on a typical day when you are drinking? 1 or 2 04/07/2021 How often do you have six or more drinks on one occasion? Never 04/07/2021 Food Insecurity Answer Date Recorded Within the past 12 months, y ou worried that your food would run out before you got money to buy more. Never true 10/27/2022 Within the past 12 months, t he food you bought just didn't last and you didn't have money to get more. Never true 10/27/2022 Estimated Date of Delivery Comme nts Yes 06/06/2023 Based on last me nstrual period of 08/30/2022 (Exact Date) Sex Assigned at Date Recorded Female 02/06/2020 12:39 PM EDT Job Start Date Occupation Industry Not on file Not on file Not on file documented as of this encounter Last Filed Vital Signs Vital Sign Reading Time Taken Comments Blood Pressure 142/68 02/19/2023 11:25 AM EDT Pulse - - Temperature - - Respiratory Rate - - Oxygen Saturation - - Inhaled Oxygen Concentration - - Weight 140.3 kg (309 lb 3.2 oz) 023 11:25 AM EDT Height 162.6 cm (5' 4") 02/19/2023 11:2 5 AM EDT Body Mass Index 53.07 02/19/2023 11:25 AM EDT documented in this encounter Progress Notes * Brittanie Fitzgerald PA-C - 02/19/2023 12:00 PM EDT 24w5d Supervision of high-risk , unspecified trimester (Primary) Denies VB/LOF/ctx. Baby is active. Having some pain intermittently near belly button. No hernia or bowel issues beyond mild constipation throughout this . Likely pulling stretching with gravid abdomen. - CBC WITH WBC DIFFERENTIAL AND ANEMIA REFLEX WORKUP; Future; Expected date: 03/05/2023 - SYPHILIS ANTIBODY SCREEN WITH REFLEX TO RPR; Future; Expected date: 03/05/2023 Depression complicating , antepartum Insulin controlled gestational diabetes mellitus (GDM) during , antepartum Continues to be compliant with reporting. Still struggling with fasting levels. Insulin recently increased. Obesity in , antepartum Has growth and follow up anatomy 02/22/2023 with [facility]. Multigravida of advanced maternal age in second trimester Chronic hypertension in Started on Labetalol 100 mg BID from last visit. Had visit with [facility] 02/01 BP elevated 156/74 and 147/70. BP elevated again today 142/68. Reviewed current guidelines for BP control in . Pt denies h/a, cp, SOB, RUQ or epigastric pain. Pt states BLE edema over last few weeks. Worse with standing, improves with rest. Trace protein in urine. Plan: increase Labetalol to 200 mg BID, follow up in 3 days for BP check. Will bring home cuff to calibrate. Recommend she call right away if any BP >= 160/110. Call with questions or concerns. PEC precautions reviewed. NST twice weekly at 32 weeks secondary to medications. - PLT; Future; Expected date: 02/19/2023 - COMPREHENSIVE METABOLIC PANEL - PROTEIN/ CREATININE RATIO, URINE - Labetalol HCl 200 MG Oral Tablet (Normodyne); Take 1 Tablet by mouth in the morning and 1 Tablet before bedtime. Follow Up: Return in about 3 days (around 02/22/2023), or if symptoms worsen or fail to improve, forNext visit with Nurse. | For: Next visit with Nurse | Check- out note: - Nurse visit for BP check Wednesday, please arrive at lab today - Return in 3 weeks, labs with this visit Brittanie Fitzgerald PA-C * Daylin Smith LPN - 02/19/2023 11:33 AM EDT 24w5d BL feet are starting to swell, elevation does help some. Pressure/soreness around belly button area. documented in this encounter Plan of Treatment Upcoming Encounters Date Type Specialty Care Team Description 02/22/2023 Nurse Only Gynecology Obstetrics Gw, Nurse Obgyn Injection [address] [place] [address] 02/22/2023 Office Visit Maternal Medicine Seymour Zhao MD [address] [place] [address] 02/22/2023 Imaging Radiology 03/11/2023 Office Visit Gynecology Obstetrics BackLula garcia CRNP [address] [place] [address] 04/01/2023 Imaging Radiology 04/29/2023 Imaging Radiology 05/27/2023 Imaging Radiology Pending Results Name Type Priority Associated Diagnoses Date /Time PLT Lab Routine Chronic hypertension in 02/19/2023 12:11 PM EDT PROTEIN/ CREATININE RATIO, URINE Lab Routine Chronic hypertension in 02/19/2023 12:40 PM EDT CBC WITH WBC DIFFERENTIAL AND ANEMIA REFLEX WORKUP Lab Routine Supervision of high-risk , unspecified trimester 02/19/2023 12:11 PM EDT SYPHILIS ANTIBODY SCREEN WITH REFLEX TO RPR Lab Routine Supervision of high-risk , unspecified trimester 02/19/2023 12:11 PM EDT Scheduled Orders Name Type Priority Associated Diagnoses Orde r Schedule PLT Lab Routine Chronic hypertension in Expected: 02/19/2023, Expires: 02/20/2024 COMPREHENSIVE METABOLIC PANEL Lab Routine Chronic hypertension in Ordered: 02/19/2023 CBC WITH WBC DIFFERENTIAL AND ANEMIA REFLEX WORKUP Lab Routine Supervision of high-risk , unspecified trimester Expected: 03/05/2023 (Approximate), Expires: 02/20/2024 SYPHILIS ANTIBODY SCREEN WITH REFLEX TO RPR Lab Routine Supervision of high-risk , unspecified trimester Expected: 03/05/2023 (Approximate), Expires: 02/20/2024 Health Maintenance Due Date Last Done Comments Hepatitis B (1 of 3 - 3-dose series) 1985 Depression, Most Recent Score >= 10 (will fire each visit until score < 10) 05/27/2021 05/26/2021 COVID-19 Vaccine ( season) 2023 03/18/2021, 07/10/2020, 06/07/2020 GFR 10/28/2023 10/27/2022, 06/18, 08/28/2020 Pap Smear 10/27/2025 10/27/2022, 0612/2017, 10/22/2017 Diabetes [...] complication Multigravida of advanced maternal age in second trimester Chronic hypertension in Benign essential hypertension complicating , childbirth, and the puerperium, unspecified as to episode of care documented in this encounter Care Teams Student Liaison Officer Relationship Specialty Start Date End Date Kasia Jara MD [address] [place] [id number] PCP - General Internal Medicine 03/01/20 documented as of this encounter
--- OUTSIDE RECORDS SUMMARY | 2023-05-20 11:03 | External Medical Summary ---
Author Name Unknown Address Unknown Organization K01[place] [place] [address] [facility] [address] Laboratory Report Ordering Provider Test Date Status HAILY HOFF 02/19/2023 12:40:40 Final Normal: <150 mg/ g creatinine
High: 150-500 mg/g creatinine
Very High: >500 mg/g creatinine
Nephrotic: >3000 mg/g creatinine Observation Date Value Abnormality Reference (Units ) Status Protein/Creatinine [Ratio] in Urine 02/19/2023 12:40:40 108 <150 (mg/g ) Final Protein, Urine 02/19/2023 12:40:40 18 (mg/dL) Final Creatinine, Urine 02/19/2023 12:40:40 166 (mg/dL) Final Performing Location [facility] [place] [address] [facility] [address]
--- OUTSIDE RECORDS SUMMARY | 2023-05-20 11:03 | External Medical Summary | Summary of Care ---
Author Name Unknown Organization [facility] Address [address] [place] [address] Phone [phone] Care Team Providers Care Master In Chancery Name Role Phone Kasia Jara MD Primary Care Provider [phone] Reason for Visit * Reason Comments Outpatient Testing Encounter Details Date Type Department Care Team Description 02/19/2023 Laboratory Laboratory, [facility] [address] [facility] [place] [address] [facility] [place] [address] Chronic hypertension in ; Supervision of high-risk , unspecified trimester Allergies Active Allergy Reactions Severity Noted Date [...] by mouth in the morning. 0 Active MedPassage Verio Flex System w/Device KitIndications:Gestat ional diabetes mellitus (GDM), antepartum, gestational diabetes method of control unspecified Use to test blood sugars 4 times daily (fasting, 1 hour after breakfast, lunch, and dinner) 1 Kit 0 12/02/2022 Active CipioTouch Verio In Vitro Strip (Glucose Blood)Indications:Ges tational diabetes mellitus (GDM), antepartum, gestational diabetes method of control unspecified Use to test blood sugars 4 times daily (fasting, 1 hour after breakfast, lunch, and dinner) 125 Strip 6 12/02/2022 Active [email or web address] Delica Lancets 30GIndications:Gestat ional diabetes mellitus (GDM), [...] before bedtime. 60 Tablet 1 02/19/2023 Active documented as of this encounter (statuses [...] tonight 01/05/23--FBS are elevated- sent msg to PROFESSIONAL ENGINEER 01/05/23: RPM elevated FBS; increase to Lantus 15 units at bedtime 01/11/23-- FBS elevated- msg sent to PROFESSIONAL ENGINEER 01/11/23: RPM - elevated FBS - increase to Lantus 20 units at bedtime 01/21/23--FBS elevated- msg sent to PROFESSIONAL ENGINEER 01/21/23: RPM - FBS elevated (100-120s); increase to Lantus 30 units at bedtime 01/25/23- FBS elevated msg sent to PROFESSIONAL ENGINEER 01/25/23: RPM - elevated FBS; increase to Lantus 35 units at bedtime 02/01/23- FBS elevated msg sent to PROFESSIONAL ENGINEER 02/01/23: RPM reviewed; FBS elevated. Increase to Lantus 45 units at bedtime. 02/04/23: RPM reviewed. Elevated FBS. Increase Lantus to 50 units at bedtime --KW 02/08/23: RPM Stable overall; FBS improving since last dose increase; few PP elevations 02/15/23- FBS elevated- msg sent to PROFESSIONAL ENGINEER 02/15/23: RPM reviewed. Increase Lantus to 55 units at bedtime. Last Assessment & Plan: She states that her fasting values are elevated. We discussed a likely increase to her Lantus dose (values pending SOCIAL MEDIA MARKETER review). Supervision of high-risk , unsp ecified [...] Gynecology Obstetrics Gw, Nurse Obgyn Injection [address] [place] [address] 02/22/2023 Office Visit Maternal Medicine Bringman, Seymour Domenico, MD [address] [facility] [place] [address] 02/22/2023 Imaging Radiology 03/11/2023 Office Visit Gynecology Obstetrics Backer, JHONATAN Chin [address] [place] [address] 04/01/2023 Imaging Radiology 04/29/2023 Imaging Radiology 05/27/2023 Imaging Radiology Pending Results Name Type Priority Associated Diagnoses Date /Time PLT Lab Routine Chronic hypertension in 02/19/2023 12:11 PM EDT CBC WITH WBC DIFFERENTIAL AND ANEMIA REFLEX WORKUP Lab Routine Supervision of high-risk , unspecified trimester 02/19/2023 12:11 PM EDT SYPHILIS ANTIBODY SCREEN WITH REFLEX TO RPR Lab Routine Supervision of high-risk , unspecified trimester 02/19/2023 12:11 PM EDT ANEMIA CBC Lab Routine Supervision of high-risk , unspecified trimester 02/19/2023 12:11 PM EDT DIFFERENTIAL, AUTOMATED Lab Routine Supervision of high-risk , unspecified trimester 02/19/2023 12:11 PM EDT ANEMIA REFLEX CHEMISTRY HOLD Lab Routine Supervision of high-risk , unspecified trimester 02/19/2023 12:11 PM EDT SYPHILIS ANTIBODY SCREEN Lab Routine Supervision of high-risk , unspecified trimester 02/19/2023 12:11 PM EDT Health Maintenance Due Date Last Done Comments [...] puerperium, unspecified as to episode of care Supervision of high-risk , unspecified trimester documented in this encounter Care Teams Master In Chancery Relationship Specialty Start Date End Date Kasia Jara MD [address] [place] [address] PCP - General Internal Medicine 03/01/20 documented as of this encounter
--- OUTSIDE RECORDS SUMMARY | 2023-05-20 11:03 | External Medical Summary | Summary of Care ---
Author Name Unknown Organization [facility] Address [address] [place] [address] Phone [phone] Care Team Providers Care Shoe Puller Name Role Phone Kasia Jara MD Primary Care Provider [phone] Reason for Visit * Reason Comments Outpatient Testing Encounter Details Date Type Department Care Team Description 02/19/2023 Laboratory Laboratory, [facility] [address] [facility] [place] [address] [facility] [place] [address] Chronic hypertension in ; Supervision [...] by mouth in the morning. 0 Active Autotether Verio Flex System w/Device KitIndications:Gestat ional diabetes mellitus (GDM), antepartum, gestational diabetes method of control unspecified Use to test blood sugars 4 times daily (fasting, 1 hour after breakfast, lunch, and dinner) 1 Kit 0 12/02/2022 Active Tutor UniverseTouch Verio In Vitro Strip (Glucose Blood)Indications:Ges tational diabetes mellitus (GDM), antepartum, gestational diabetes method of control unspecified Use to test blood sugars 4 times daily (fasting, 1 hour after breakfast, lunch, and dinner) 125 Strip 6 12/02/2022 Active Sanovia Corporationuch Delica Lancets 30GIndications:Gestat ional diabetes mellitus (GDM), [...] tonight 01/05/23--FBS are elevated- sent msg to WASHER CUTTER 01/05/23: RPM elevated FBS; increase to Lantus 15 units at bedtime 01/11/23-- FBS elevated- msg sent to WASHER CUTTER 01/11/23: RPM - elevated FBS - increase to Lantus 20 units at bedtime 01/21/23--FBS elevated- msg sent to WASHER CUTTER 01/21/23: RPM - FBS elevated (100-120s); increase to Lantus 30 units at bedtime 01/25/23- FBS elevated msg sent to WASHER CUTTER 01/25/23: RPM - elevated FBS; increase to Lantus 35 units at bedtime 02/01/23- FBS elevated msg sent to WASHER CUTTER 02/01/23: RPM reviewed; FBS elevated. Increase to Lantus 45 units at bedtime. 02/04/23: RPM reviewed. Elevated FBS. Increase Lantus to 50 units at bedtime --KW 02/08/23: RPM Stable overall; FBS improving since last dose increase; few PP elevations 02/15/23- FBS elevated- msg sent to WASHER CUTTER 02/15/23: RPM reviewed. Increase Lantus to 55 units at bedtime. Last Assessment & Plan: She states that her fasting values are elevated. We discussed a likely increase to her Lantus dose (values pending FOUR SLIDE MACHINE SETTER review). Supervision of high-risk , unsp ecified [...] Gw, Nurse Obgyn Injection [address] [place] [address] 02/22/2023 Office Visit Maternal Medicine Bringman, Seymour Domenico, MD [address] [facility] [place] [address] 02/22/2023 Imaging Radiology 03/11/2023 Office Visit Gynecology Obstetrics Backer, JHONATAN Chin [address] [place] [address] 04/01/2023 Imaging Radiology 04/29/2023 Imaging Radiology 05/27/2023 [...] trimester documented in this encounter Care Teams Shoe Puller Relationship Specialty Start Date End Date Kasia Jara MD [address] [place] [address] PCP - General Internal Medicine 03/01/20 documented as of this encounter
--- OUTSIDE RECORDS SUMMARY | 2023-05-20 11:03 | External Medical Summary | Summary of Care ---
Author Name Unknown Organization [facility] Address [address] [facility] [place] [address] Phone [phone] Care Team Providers Care Creative Services Producer Name Role Phone Kasia Jara MD Primary Care Provider [phone] Reason for Visit * Reason Comments Return Visit Encounter Details Date Type Department Care Team Description 02/19/2023 Office Visit Gynecology/Obstetrics [facility] [address] [place] [address] Brittanie Fitzgerald PA-C [address] [place] [address] Supervision of high-risk , unspecified trimester*; Depression [...] and dinner) 125 Strip 6 12/02/2022 Active Graphite SoftwareTouch Delica Lancets 30GIndications:Ges tational diabetes mellitus (GDM), [...] 12/07/22: MFM ADAPT consult complete. Enrolled in [facility]. Instructions provided to report blood [...] tonight 01/05/23--FBS are elevated- sent msg to HUNTING AND FISHING GUIDE 01/05/23: RPM elevated FBS; increase to Lantus 15 units at bedtime 01/11/23-- FBS elevated- msg sent to HUNTING AND FISHING GUIDE 01/11/23: RPM - elevated FBS - increase to Lantus 20 units at bedtime 01/21/23--FBS elevated- msg sent to HUNTING AND FISHING GUIDE 01/21/23: RPM - FBS elevated (100-120s); increase to Lantus 30 units at bedtime 01/25/23- FBS elevated msg sent to HUNTING AND FISHING GUIDE 01/25/23: RPM - elevated FBS; increase to Lantus 35 units at bedtime 02/01/23- FBS elevated msg sent to HUNTING AND FISHING GUIDE 02/01/23: RPM reviewed; FBS elevated. Increase to Lantus 45 units at bedtime. 02/04/23: RPM reviewed. Elevated FBS. Increase Lantus to 50 units at bedtime --KW 02/08/23: RPM Stable overall; FBS improving since last dose increase; few PP elevations 02/15/23- FBS elevated- msg sent to HUNTING AND FISHING GUIDE 02/15/23: RPM reviewed. Increase Lantus to 55 units at bedtime. Last Assessment & Plan: She states that her fasting values are elevated. We discussed a likely increase to her Lantus dose (values pending CREAM BEATER review). Supervision of high-risk , unsp ecified [...] growth and follow up anatomy 02/22/2023 with [facility]. Multigravida of advanced maternal age in second trimester Chronic hypertension in Started on Labetalol 100 mg BID from last visit. Had visit with [facility] 02/01 BP elevated 156/74 and 147/70. BP [...] Nurse Obgyn Injection [address] [place] [address] 02/22/2023 Office Visit Maternal Medicine Seymour Zhao MD [address] [place] [address] 02/22/2023 Imaging Radiology 03/11/2023 Office Visit Gynecology Obstetrics BackLula garcia CRNP [address] [place] [address] 04/01/2023 Imaging Radiology 04/29/2023 Imaging Radiology 05/27/2023 [...] care documented in this encounter Care Teams Creative Services Producer Relationship Specialty Start Date End Date Kasia Jara MD [address] [place] [address] PCP - General Internal Medicine 03/01/20 documented as of this encounter
--- OUTSIDE RECORDS SUMMARY | 2023-05-20 11:03 | External Medical Summary | Summary of Care ---
Author Name Unknown Organization [facility] Address [address] [place] [place] [address] Phone [phone] Care Team Providers Care Print Journalist Name Role Phone Kasia Jara MD Primary Care Provider [phone] Encounter Details Date Type Department Care Team Description 02/22/2023 Telephone Gynecology/Obstetrics [facility] [address] [place] [address] Brittanie Fitzgerald PA-C [address] [place] [address] Allergies Active Allergy Reactions Severity Noted Date Comments Amoxicillin 07/08/2014 hives Naltrexone Nausea/vomiting 05/03/2019 Penicillins 07/08/2014 Sulfamethoxazole-Trimethoprim 2014 hives documented as of this encounter (statuses as of 02/22/2023) Medications Medication Sig Dispensed Refills Start Date [...] 0 Active OneTouch Verio Flex System w/Device KitIndications:Gestat ional diabetes mellitus (GDM), antepartum, gestational diabetes method of control unspecified Use to test blood sugars 4 times daily (fasting, 1 hour after breakfast, lunch, and dinner) 1 Kit 0 12/02/2022 Active Dandelion In Vitro Strip (Glucose Blood)Indications:Ges tational diabetes mellitus (GDM), antepartum, gestational diabetes method of control unspecified Use to test blood sugars 4 times daily (fasting, 1 hour after breakfast, lunch, and dinner) 125 Strip 6 12/02/2022 Active Datadecision Delica Lancets 30GIndications:Gestat ional diabetes mellitus (GDM), [...] before bedtime. 60 Tablet 1 02/19/2023 Active Insulin Glargine Solostar 100 UNIT/ML Subcutaneous Solution Pen-injector (Lantus SoloStar)Indications: Supervision of high risk in second trimester,Insulin controlled gestational diabetes mellitus (GDM) in second trimester Inject 60 units under skin at bedtime. 15 mL 3 02/22/2023 Active documented as of this encounter (statuses as of 02/22/2023) Active Problems Problem Noted Date Chronic hypertension [...] MFM ADAPT consult complete. Enrolled in [facility]. Instructions provided to report blood sugars [...] tonight 01/05/23--FBS are elevated- sent msg to [employer] [place] 01/05/23: RPM elevated FBS; increase to Lantus 15 units at bedtime 01/11/23-- FBS elevated- msg sent to [facility] [employer] [place] 01/11/23: RPM - elevated FBS - increase to Lantus 20 units at bedtime 01/21/23--FBS elevated- msg sent to [facility] [employer] [place] 01/21/23: RPM - FBS elevated (100-120s); increase to Lantus 30 units at bedtime 01/25/23- FBS elevated msg sent to [facility] [employer] [place] 01/25/23: RPM - elevated FBS; increase to Lantus 35 units at bedtime 02/01/23- FBS elevated msg sent to [facility] [employer] [place] 02/01/23: RPM reviewed; FBS elevated. Increase to Lantus 45 units at bedtime. 02/04/23: RPM reviewed. Elevated FBS. Increase Lantus to 50 units at bedtime --KW 02/08/23: RPM Stable overall; FBS improving since last dose increase; few PP elevations 02/15/23- FBS elevated- msg sent to [facility] [employer] [place] 02/15/23: RPM reviewed. Increase Lantus to 55 units at bedtime. 02/22/23- FBS elevated msg sent to [facility] [employer] [place] 02/22/23: RPM reviewed. Increase Lantus to 60 units at bedtime. Last Assessment & Plan: She states that her fasting values are elevated. We discussed a likely increase to her Lantus dose (values pending INSURANCE ACCOUNT MANAGER review). Supervision of high-risk , unsp ecified [...] as of this encounter (statuses as of 02/22/2023) Resolved Problems Problem Noted Date Resolved Date Impaired glucose in , antepartum 202212/02/2022 Overview: Elevated early 1 hr GTT documented as of this encounter (statuses as of 02/22/2023) Immunizations Name Administration Dates Next Due COVID-19 [...] encounter Miscellaneous Notes * Telephone Encounter - Brittanie Fitzgerald PA-C - 02/22/2023 12:59 PM EDT Ask a doc to hematology regarding platelet levels. documented in this encounter Plan of Treatment Upcoming Encounters Date Type Specialty Care Team Description 02/22/2023 Office Visit Maternal Medicine Seymour Zhao MD [address] [place] [address] 02/22/2023 Imaging Radiology 03/01/2023 Nurse Only Gynecology Obstetrics Gw, Nurse Obgyn Injection [address] [place] [address] 03/11/2023 Office Visit Gynecology Obstetrics Gatito Dunbar MD [address] [place] [address] 03/26/2023 Office Visit Gynecology Obstetrics Laura Lua CRNP [address] [place] [address] 04/01/2023 Imaging Radiology 04/05/2023 Office Visit Gynecology Obstetrics Jo Ann Castro, [facility] [address] [place] [address] [place], Non Stress Tests Estephania [address] [place] [address] 04/07/2023 Office Visit Gynecology Obstetrics Laura Lua CRNP [address] [place] [address] [place], Non Stress Tests Estephania [address] [place] [address] 04/12/2023 Office Visit Gynecology Obstetrics Gatito Dunbar MD [address] [place] [address] [place], Non Stress Tests Estephania [address] [place], [place] [address] 04/15/2023 Office Visit Gynecology Obstetrics Laura Lua CRNP [address] [place] [address] [place], Non Stress Tests Estephania [address] [place] [address] 04/19/2023 Office Visit Gynecology Obstetrics Opal Barr, [facility] [address] [place] [address] [place], Non Stress Tests Estephania [address] [place] [address] 04/22/2023 Office Visit Gynecology Obstetrics Backer, JHONATAN Chin [address] [place], [place] [address] [place], Non Stress Tests Estephania [address] [place] [address] 04/26/2023 Office Visit Gynecology Obstetrics Backer, JHONATAN Chin [address] [place], [place] [address] [place], Non Stress Tests Estephania [address] [place] [address] 04/29/2023 Office Visit Gynecology Obstetrics Laura Lua CRNP [address] [place], [place] [address] [place], Non Stress Tests Estephania [address] [place] [address] 04/29/2023 Imaging Radiology 05/03/2023 Office Visit Gynecology Obstetrics Backer, JHONATAN Chin [address] [place] [address] [place], Non Stress Tests Estephania [address] [place] [address] 05/06/2023 Office Visit Gynecology Obstetrics Laura Lua CRNP [address] [place] [address] [place], Non Stress Tests Estephania [address] [place] [address] 05/11/2023 Office Visit Gynecology Obstetrics Laura Lua CRNP [address] [place] [address] [place], Non Stress Tests Estephania [address] [place] [address] 05/14/2023 Office Visit Gynecology Obstetrics Laura Lua CRNP [address] [place] [address] [place], Non Stress Tests Estephania [address] [place] [address] 05/27/2023 Imaging Radiology Health Maintenance Due Date Last Done Comments [...] filedocumented as of this encounter Care Teams Print Journalist Relationship Specialty Start Date End Date Kasia Jara MD [address] [place] [address], [place] [address] PCP - General Internal Medicine 03/01/20 documented as of this encounter
--- OUTSIDE RECORDS SUMMARY | 2023-05-20 11:03 | External Medical Summary | Summary of Care ---
Author Name Unknown Organization [facility] Address [address] [facility] [place] [address] Phone [phone] Care Team Providers Care Cracking Still Operator Name Role Phone Kasia Jara MD Primary Care Provider [phone] Reason for Visit * Reason Comments Return Visit Encounter Details Date Type Department Care Team Description 02/19/2023 Office Visit Gynecology/Obstetrics [facility] [address] [place] [address] Brittanie Fitzgerald PA-C [address] [place] [address] Supervision of high-risk , unspecified trimester*; Depression [...] and dinner) 125 Strip 6 12/02/2022 Active DigiwinSoftTouch Delica Lancets 30GIndications:Ges tational diabetes mellitus (GDM), [...] 12/07/22: MFM ADAPT consult complete. Enrolled in [facility]. Instructions provided to report blood sugars each [...] tonight 01/05/23--FBS are elevated- sent msg to LOW EMISSION AUTOMOBILE DESIGNER 01/05/23: RPM elevated FBS; increase to Lantus 15 units at bedtime 01/11/23-- FBS elevated- msg sent to LOW EMISSION AUTOMOBILE DESIGNER 01/11/23: RPM - elevated FBS - increase to Lantus 20 units at bedtime 01/21/23--FBS elevated- msg sent to LOW EMISSION AUTOMOBILE DESIGNER 01/21/23: RPM - FBS elevated (100-120s); increase to Lantus 30 units at bedtime 01/25/23- FBS elevated msg sent to LOW EMISSION AUTOMOBILE DESIGNER 01/25/23: RPM - elevated FBS; increase to Lantus 35 units at bedtime 02/01/23- FBS elevated msg sent to LOW EMISSION AUTOMOBILE DESIGNER 02/01/23: RPM reviewed; FBS elevated. Increase to Lantus 45 units at bedtime. 02/04/23: RPM reviewed. Elevated FBS. Increase Lantus to 50 units at bedtime --KW 02/08/23: RPM Stable overall; FBS improving since last dose increase; few PP elevations 02/15/23- FBS elevated- msg sent to LOW EMISSION AUTOMOBILE DESIGNER 02/15/23: RPM reviewed. Increase Lantus to 55 units at bedtime. Last Assessment & Plan: She states that her fasting values are elevated. We discussed a likely increase to her Lantus dose (values pending STUNT PERFORMER review). Supervision of high-risk , unsp ecified [...] growth and follow up anatomy 02/22/2023 with [facility]. Multigravida of advanced maternal age in second trimester Chronic hypertension in Started on Labetalol 100 mg BID from last visit. Had visit with [facility] 02/01 BP elevated 156/74 and 147/70. [...] with this visit Brittanie Fitzgerald PA-C * Jordana Smith LPN - 02/19/2023 11:33 AM EDT 24w5d BL feet are starting to swell, elevation does help some. Pressure/soreness around belly button area. documented in this encounter Miscellaneous Notes * Addendum Note - Jordana Simth LPN - 02/19/2023 1:23 PM EDTAddended by: JORDANA MORA on: 02/19/2023 01:23 PM Modules accepted: Orders documented in this encounter Plan of Treatment Upcoming Encounters Date Type Specialty Care Team Description 02/22/2023 Nurse Only Gynecology Obstetrics Gw, Nurse Obgyn Injection [address] [place] [address] 02/22/2023 Office Visit Maternal Medicine Seymour Zhao MD [address] [place] [facility] [place] [address] 02/22/2023 Imaging Radiology 03/11/2023 Office Visit Gynecology Obstetrics Backer, JHONATAN Chin [address] [place] [address] 04/01/2023 Imaging Radiology 04/29/2023 Imaging Radiology 05/27/2023 [...] Comments URINALYSIS, POINT OF CARE (ENTER/EDIT) Routine 02/19/2023 Supervision of high-risk , unspecified trimester documented in this encounter Results * URINALYSIS, POINT OF CARE (ENTER/EDIT) (02/19/2023) Color, Urine Dark Yellow Yellow or Light Yellow Clarity, Urine Slightly Cloudy Clear Glucose, Urine Negative Negative mg/dL Bilirubin, Urine Negative Negative Ketone, Urine Negative Negative mg/dL Specific Ford, Urine 1.030 1.003 - 1.030 Blood, Urine Negative Negative pH, Urine 6.0 5.0 - 7.5 units Protein, Urine Trace Negative mg/dL Urobilinogen, Urine 0.2 0.2 - 1.0 mg/dL Nitrite, Urine Negative Negative Esterase, Urine Negative Negative Urine 02/19/2023 Brittanie Fitzgerald PA-C LAB POINT OF CARE TE ST ENTER/EDIT [...] care documented in this encounter Care Teams Cracking Still Operator Relationship Specialty Start Date End Date Kasia Jara MD [address] [place] [address] PCP - General Internal Medicine 03/01/20 documented as of this encounter
--- OUTSIDE RECORDS SUMMARY | 2023-05-20 11:03 | External Medical Summary | Summary of Care ---
Author Name Unknown Organization [facility] Address [address] [place] [address] Phone [phone] Care Team Providers Care Superintendent Local Name Role Phone Kasia Jara MD Primary Care Provider [phone] Encounter Details Date Type Department Care Team Description 02/22/2023 Orders Only Qc Chemist Obstetric MFM [facility] [place] [address] [place] [address] Kaitlynn Kuo, CONTENT ADMINISTRATOR [address] [place], [place] [id number] Supervision of high risk in second trimester; Insulin controlled gestational diabetes mellitus (GDM) in second trimester Allergies Active Allergy Reactions Severity Noted [...] by mouth in the morning. 0 Active Safe Trade International, LLCTouch Verio Flex System w/Device KitIndications:Ges tational diabetes [...] and dinner) 125 Strip 6 12/02/2022 Active Safe Trade International, LLCTouch Delica Lancets 30GIndications:Ges tational diabetes mellitus (GDM), [...] at bedtime. 15 mL 3 02/22/2023 Active Insulin Glargine Solostar 100 UNIT/ML Subcutaneous Solution Pen-injector (Lantus SoloStar)Indicatio ns:Supervision of high risk in second trimester,Insulin controlled gestational diabetes mellitus (GDM) in second trimester Inject 55 units under skin at bedtime. 15 mL 3 02/15/2023 02/22/2023 Discontinued (Refill) documented as of this encounter [...] 12/07/22: MFM ADAPT consult complete. Enrolled in [facility]. Instructions provided to report blood sugars [...] tonight 01/05/23--FBS are elevated- sent msg to EMAIL MARKETING EXECUTIVE 01/05/23: RPM elevated FBS; increase to Lantus 15 units at bedtime 01/11/23-- FBS elevated- msg sent to EMAIL MARKETING EXECUTIVE 01/11/23: RPM - elevated FBS - increase to Lantus 20 units at bedtime 01/21/23--FBS elevated- msg sent to EMAIL MARKETING EXECUTIVE 01/21/23: RPM - FBS elevated (100-120s); increase to Lantus 30 units at bedtime 01/25/23- FBS elevated msg sent to EMAIL MARKETING EXECUTIVE 01/25/23: RPM - elevated FBS; increase to Lantus 35 units at bedtime 02/01/23- FBS elevated msg sent to EMAIL MARKETING EXECUTIVE 02/01/23: RPM reviewed; FBS elevated. Increase to Lantus 45 units at bedtime. 02/04/23: RPM reviewed. Elevated FBS. Increase Lantus to 50 units at bedtime --KW 02/08/23: RPM Stable overall; FBS improving since last dose increase; few PP elevations 02/15/23- FBS elevated- msg sent to EMAIL MARKETING EXECUTIVE 02/15/23: RPM reviewed. Increase Lantus to 55 units at bedtime. 02/22/23- FBS elevated msg sent to EMAIL MARKETING EXECUTIVE 02/22/23: RPM reviewed. Increase Lantus to 60 units at bedtime. Last Assessment & Plan: She states that her fasting values are elevated. We discussed a likely increase to her Lantus dose (values pending CONTENT ADMINISTRATOR review). Supervision of high-risk , unsp ecified [...] Nurse Obgyn Injection [address] [place] [address] 02/22/2023 Office Visit Maternal Medicine Seymour Zhao MD [address] [place] [address] 02/22/2023 Imaging Radiology 03/11/2023 Office Visit Gynecology Obstetrics Backer, JHONATAN Chin [address] [place] [address] 04/01/2023 Imaging Radiology 04/29/2023 Imaging Radiology 05/27/2023 Imaging Radiology Health Maintenance Due Date [...] trimester documented in this encounter Care Teams Superintendent Local Relationship Specialty Start Date End Date Kasia Jara MD [address] [place] [address] PCP - General Internal Medicine 03/01/20 documented as of this encounter
--- OUTSIDE RECORDS SUMMARY | 2023-05-20 11:03 | External Medical Summary | Summary of Care ---
Author Name Unknown Organization [facility] Address [address] [place] [address] Phone [phone] Care Team Providers Care Actuarial Technician Name Role Phone Kasia Jara MD Primary Care Provider [phone] Encounter Details Date Type Department Care Team Description 03/01/2023 Orders Only Mission Analyst Obstetric MFM [address] [place] [facility] [place] [address] [place] [address] Kaitlynn Kuo, LEAD CARGO MOVER [address] [place], [place] [id number] Supervision of high risk in second trimester; Insulin controlled gestational diabetes mellitus (GDM) in second trimester Allergies Active Allergy Reactions Severity Noted Date Comments Amoxicillin 07/08/2014 hives Naltrexone Nausea/vomiting 05/03/2019 Penicillins 07/08/2014 Sulfamethoxazole-Trimethoprim 2014 hives documented as of this encounter (statuses as of 03/01/2023) Medications Medication Sig Dispensed Refills Start Date [...] by mouth in the morning. 0 Active OnAir3GTouch Verio Flex System w/Device KitIndications:Ges tational diabetes [...] skin at bedtime. 15 mL 3 03/01/2023 Active Insulin Glargine Solostar 100 UNIT/ML Subcutaneous Solution Pen-injector (Lantus SoloStar)Indicatio ns:Supervision of high risk in second trimester,Insulin controlled gestational diabetes mellitus (GDM) in second trimester Inject 60 units under skin at bedtime. 15 mL 3 02/22/2023 03/01/2023 Discontinued (Refill) documented as of this encounter (statuses as of 03/01/2023) Active Problems Problem Noted Date Chronic hypertension [...] tonight 01/05/23--FBS are elevated- sent msg to LAND ACQUISITION MANAGER 01/05/23: RPM elevated FBS; increase to Lantus 15 units at bedtime 01/11/23-- FBS elevated- msg sent to LAND ACQUISITION MANAGER 01/11/23: RPM - elevated FBS - increase to Lantus 20 units at bedtime 01/21/23--FBS elevated- msg sent to LAND ACQUISITION MANAGER 01/21/23: RPM - FBS elevated (100-120s); increase to Lantus 30 units at bedtime 01/25/23- FBS elevated msg sent to LAND ACQUISITION MANAGER 01/25/23: RPM - elevated FBS; increase to Lantus 35 units at bedtime 02/01/23- FBS elevated msg sent to LAND ACQUISITION MANAGER 02/01/23: RPM reviewed; FBS elevated. Increase to Lantus 45 units at bedtime. 02/04/23: RPM reviewed. Elevated FBS. Increase Lantus to 50 units at bedtime --KW 02/08/23: RPM Stable overall; FBS improving since last dose increase; few PP elevations 02/15/23- FBS elevated- msg sent to LAND ACQUISITION MANAGER 02/15/23: RPM reviewed. Increase Lantus to 55 units at bedtime. 02/22/23- FBS elevated msg sent to LAND ACQUISITION MANAGER 02/22/23: RPM reviewed. Increase Lantus to 60 units at bedtime. 03/01/23- msg sent to LAND ACQUISITION MANAGER- elevations in FBS and needs insulin pen refill 03/01/23: RPM reviewed. Increase Lantus to 65 units at bedtime. New prescription sent. Last Assessment & Plan: She states that her fasting values are elevated. We discussed a likely increase to her Lantus dose (values pending LEAD CARGO MOVER review). Supervision of high-risk , unsp ecified [...] elevated in . Her platelet count was 330107 on November 01. Also, on July 10, her platelets were elevated at 425,000 hundred twenty five thousand. It does appear as though she has a history of slightly elevated platelets. She did have an elevated total iron-binding capacity and her hemoglobin was slightly low at 11.8. AMA (advanced maternal age) multigravida 35+ 10/27/2022 [...] as of this encounter (statuses as of 03/01/2023) Resolved Problems Problem Noted Date Resolved Date Impaired glucose in , antepartum 202212/02/2022 Overview: Elevated early 1 hr GTT documented as of this encounter (statuses as of 03/01/2023) Immunizations Name Administration Dates Next Due COVID-19 [...] Encounters Date Type Specialty Care Team Description 03/01/2023 Nurse Only Gynecology Obstetrics Gw, Nurse Obgyn Injection [address] [place] [address] 03/11/2023 Office Visit Gynecology Obstetrics Gatito Dunbar MD [address] [place] [address] 03/26/2023 Office Visit Gynecology Obstetrics Laura Lua CRNP [address] [place] [address] 04/01/2023 Imaging Radiology 04/05/2023 Office Visit Gynecology Obstetrics Jo Ann Castro, [facility] [address] [facility] [place] [address] [place], Non Stress Tests Estephania [address] [place] [address] 04/07/2023 Office Visit Gynecology Obstetrics Laura Lua CRNP [address] [place] [address] [place], Non Stress Tests Estephania [address] [place] [address] 04/12/2023 Office Visit Gynecology Obstetrics Gatito Dunbar MD [address] [place] [address] [place], Non Stress Tests Estephania [address] [place] [address] 04/15/2023 Office Visit Gynecology Obstetrics Stoney, JHONATAN Oneal [address] [place] [address] [place], Non Stress Tests Estephania [address] [place] [address] 04/19/2023 Office Visit Gynecology Obstetrics Opal Barr, [address] [place] [address] [place], Non Stress Tests Estephania [address] [place] [address] 04/22/2023 Office Visit Gynecology Obstetrics BackerLula CRNP [address] [place] [address] [place], Non Stress Tests Estephania [address] [place] [address] 04/26/2023 Office Visit Gynecology Obstetrics BackerLula CRNP [address] [place] [address] [place], Non Stress Tests Estephania [address] [place] [address] 04/29/2023 Office Visit Gynecology Obstetrics Laura Lua CRNP [address] [place] [address] [place], Non Stress Tests Estephania [address] [place] [address] 04/29/2023 Imaging Radiology 05/03/2023 Office Visit Gynecology Obstetrics Lula Pandey CRNP [address] [place] [address] [place], Non Stress Tests Estephania [address] [place] [address] 05/06/2023 [facility] [address] [place] [address] [place], Non Stress Tests Estephania [address] [place] [address] 05/11/2023 Office Visit Gynecology Obstetrics Laura Lua CRNP [address] [place] [address] [place], Non Stress Tests Estephania [address] [place] [address] 05/14/2023 Office Visit Gynecology Obstetrics Laura Lua CRNP [address] [place] [address] [place], Non Stress Tests Estephania [address] [place] [address] 05/27/2023 Imaging Radiology Health Maintenance Due Date [...] trimester documented in this encounter Care Teams Actuarial Technician Relationship Specialty Start Date End Date Kasia Jara MD [address] [place] [address], [place] [address] PCP - General Internal Medicine 03/01/20 documented as of this encounter
--- OUTSIDE RECORDS SUMMARY | 2023-05-20 11:03 | External Medical Summary | Summary of Care ---
Author Name Unknown Organization [facility] Address [address] [place] [address] Phone [phone] Care Team Providers Care Stud Beef Cattle Farmer Name Role Phone Kasia Jara MD Primary Care Provider [phone] Reason for Visit * Reason Onset Date Comments Referral 12/03/2022 Encounter Details Date Type Department Care Team Description 12/03/2022 Telephone Loop Puller Obstetrics Maternal Medicine, [place] [address], [place] [id number] [place] Nurse Loop Puller [facility] [address] [place] [address] Referral Allergies Active Allergy Reactions Severity Noted Date Comments Amoxicillin 07/08/2014 hives Naltrexone Nausea/vomiting 05/03/2019 Penicillins 07/08/2014 Sulfamethoxazole-Trimethoprim 2014 hives documented as of this encounter (statuses as of 03/04/2023) Medications Medication Sig Dispensed Refills Start Date [...] by mouth in the morning. 0 Active [employer]Bus.inTouch Verio Flex System w/Device KitIndications:Gestat ional diabetes mellitus (GDM), antepartum, gestational diabetes method of control unspecified Use to test blood sugars 4 times daily (fasting, 1 hour after breakfast, lunch, and dinner) 1 Kit 0 12/02/2022 Active [employer]Bus.inTouch Verio In Vitro Strip (Glucose Blood)Indications:Ges tational diabetes mellitus (GDM), antepartum, gestational diabetes method of control unspecified Use to test blood sugars 4 times daily (fasting, 1 hour after breakfast, lunch, and dinner) 125 Strip 6 12/02/2022 Active [employer]Bus.inTouch Delica Lancets 30GIndications:Gestat ional diabetes mellitus (GDM), antepartum, gestational diabetes method of control unspecified Use to test blood sugars 4 times daily (fasting, 1 hour after breakfast, lunch, and dinner) 200 Each 12/02/2022 Active documented as of this encounter (statuses as of 03/04/2023) Active Problems Problem Noted Date Chronic hypertension [...] 70's diastolic. Her values on file in [facility] are mildly elevated, including today (reports being [...] tonight 01/05/23--FBS are elevated- sent msg to ACTING MANAGER 01/05/23: RPM elevated FBS; increase to Lantus 15 units at bedtime 01/11/23-- FBS elevated- msg sent to ACTING MANAGER 01/11/23: RPM - elevated FBS - increase to Lantus 20 units at bedtime 01/21/23--FBS elevated- msg sent to ACTING MANAGER 01/21/23: RPM - FBS elevated (100-120s); increase to Lantus 30 units at bedtime 01/25/23- FBS elevated msg sent to ACTING MANAGER 01/25/23: RPM - elevated FBS; increase to Lantus 35 units at bedtime 02/01/23- FBS elevated msg sent to ACTING MANAGER 02/01/23: RPM reviewed; FBS elevated. Increase to Lantus 45 units at bedtime. 02/04/23: RPM reviewed. Elevated FBS. Increase Lantus to 50 units at bedtime --KW 02/08/23: RPM Stable overall; FBS improving since last dose increase; few PP elevations 02/15/23- FBS elevated- msg sent to ACTING MANAGER 02/15/23: RPM reviewed. Increase Lantus to 55 units at bedtime. 02/22/23- FBS elevated msg sent to ACTING MANAGER 02/22/23: RPM reviewed. Increase Lantus to 60 units at bedtime. 03/01/23- msg sent to ACTING MANAGER- elevations in FBS and needs insulin pen refill 03/01/23: RPM reviewed. Increase Lantus to 65 units at bedtime. New prescription sent. Last Assessment & Plan: She states that her fasting values are elevated. We discussed a likely increase to her Lantus dose (values pending ELECTRICAL AUTOMATION ENGINEER review). Supervision of high-risk , unsp ecified [...] elevated in . Her platelet count was [id number] on November 01. Also, on July 10, [...] as of this encounter (statuses as of 03/04/2023) Resolved Problems Problem Noted Date Resolved Date Impaired glucose in , antepartum 202212/02/2022 Overview: Elevated early 1 hr GTT documented as of this encounter (statuses as of 03/04/2023) Immunizations Name Administration Dates Next Due COVID-19 mRNA, LNP-s, No Pre serve, 2-Dose Series (Moderna) 07/10/2020,06/07/2020 COVID-19, mRNA, LNP-s, PF, B ooster, 100mcg/0.5mg (Moderna) 03/18/2021 SEASONAL INFLUENZA, PF, 6 M & Above, IM , (FLULAVAL or FLUZONE) 03/17/2022,03/27/2021 Seasonal Influenza, Quadrivalent, No Preserve, I M 02/06/2020 TDAP (age 10 and older)(Boostrix) 08/28/2020 [...] encounter Miscellaneous Notes * Telephone Encounter - Kati Olivera - 12/03/2022 12:10 PM EDT appts scheduled * Telephone Encounter - MARIBEL Carey - 12/03/2022 10:05 AM EDT Estimated Date of Delivery: 06/06/23 Please schedule for 45 MINUTE ADAPT WITH ACTING MANAGER, in time frame of within 1 week at location [facility] with the indication of Class III obesity, GDM. Please schedule anatomy between 19-21 weeks (01/22/23-02/05/23). Referring Provider: JHONATAN Zamora documented in this encounter Plan of Treatment Upcoming Encounters Date Type Specialty Care Team Description 03/11/2023 Office Visit Gynecology Obstetrics Gatito Dunbar MD [address] [place] [address] 03/26/2023 Office Visit Gynecology Obstetrics Laura Lua CRNP [address] [place] [address] 04/01/2023 Imaging Radiology 04/05/2023 Office Visit Gynecology Obstetrics Jo Ann Castro, [facility] [address] [place] [address] [place], Non Stress Tests Estephania [address] [place] [address] 04/07/2023 Office Visit Gynecology Obstetrics Laura Lua CRNP [address] [place] [address] [place], Non Stress Tests Estephania [address] [place] [address] 04/12/2023 Office Visit Gynecology Obstetrics Gatito Dunbar MD [address] [place] [address] [place], Non Stress Tests Estephania [address] [place] [address] 04/15/2023 Office Visit Gynecology Obstetrics Laura Lua CRNP [address] [place] [address] [place], Non Stress Tests Estephania [address] [place] [address] 04/19/2023 Office Visit Gynecology Obstetrics Opal Barr, [place] [address] [place] [address] [place], Non Stress Tests Estephania [address] [place] [address] 04/22/2023 Office Visit Gynecology Obstetrics Backer, JHONATAN Chin [address] [place], [place] [address] [place], Non Stress Tests Estephania [address] [place] [address] 04/26/2023 Office Visit Gynecology Obstetrics Backer, JHONATAN Chin [address] [place], [place] [address] [place], Non Stress Tests Estephania [address] [place] [address] 04/29/2023 Office Visit Gynecology Obstetrics Kvngail, JHONATAN Oneal [address] [place] [address] [place], Non Stress Tests Estephania [address] [place] [address] 04/29/2023 Imaging Radiology 05/03/2023 Office Visit Gynecology Obstetrics Backer, JHONATAN Chin [address] [place], [place] [address] [place], Non Stress Tests Estephania [address] [place] [address] 05/06/2023 Office Visit Gynecology Obstetrics Laura Lua CRNP [address] [place], [place] [address] [place], Non Stress Tests Estephania [address] [place] [address] 05/11/2023 Office Visit Gynecology Obstetrics Laura Lua CRNP [address] [place], [place] [address] [place], Non Stress Tests Estephania [address] [place] [address] 05/14/2023 Office Visit Gynecology Obstetrics Laura Lua CRNP [address] [place] [address] [place], Non Stress Tests Estephania [address] [place] [address] 05/27/2023 Imaging Radiology Health Maintenance Due Date [...] filedocumented as of this encounter Care Teams Stud Beef Cattle Farmer Relationship Specialty Start Date End Date Kasia Jara MD [address] [facility] [place] [address] PCP - General Internal Medicine 03/01/20 documented as of this encounter
--- OUTSIDE RECORDS SUMMARY | 2023-05-20 11:03 | External Medical Summary | Summary of Care ---
Author Name Unknown Organization [facility] Address [address] [place] [address] Phone [phone] Care Team Providers Care Creative Services Coordinator Name Role Phone Kasia Jara MD Primary Care Provider [phone] Reason for Visit * Reason Comments Ultrasound Encounter Details Date Type Department Care Team Description 02/22/2023 Office Visit Jewelry Sales Representative Obstetrics Maternal Medicine, [place] [address] [place] [address] Seymour Zhao MD [address] [place] [address] BMI 40.0-44.9, adult (HCC)*; Obesity in , antepartum; Multigravida of advanced maternal age in second trimester; Insulin controlled gestational diabetes mellitus (GDM) during , antepartum; Chronic hypertension in Allergies Active [...] by mouth in the morning. 0 Active [employer] Verio Flex System w/Device KitIndications:Gestat ional diabetes mellitus (GDM), antepartum, gestational diabetes method of control unspecified Use to test blood sugars 4 times daily (fasting, 1 hour after breakfast, lunch, and dinner) 1 Kit 0 12/02/2022 Active [employer] Verio In Vitro Strip (Glucose Blood)Indications:Ges tational diabetes mellitus (GDM), antepartum, gestational diabetes method of control unspecified Use to test blood sugars 4 times daily (fasting, 1 hour after breakfast, lunch, and dinner) 125 Strip 6 12/02/2022 Active [employer] Delica Lancets 30GIndications:Gestat ional diabetes mellitus (GDM), [...] 70's diastolic. Her values on file in [employer] are mildly elevated, including today (reports being [...] 12/07/22: MFM ADAPT consult complete. Enrolled in [employer]. Instructions provided to report blood sugars each [...] tonight 01/05/23--FBS are elevated- sent msg to ENVIRONMENTAL HEALTH NURSE 01/05/23: RPM elevated FBS; increase to Lantus 15 units at bedtime 01/11/23-- FBS elevated- msg sent to ENVIRONMENTAL HEALTH NURSE 01/11/23: RPM - elevated FBS - increase to Lantus 20 units at bedtime 01/21/23--FBS elevated- msg sent to ENVIRONMENTAL HEALTH NURSE 01/21/23: RPM - FBS elevated (100-120s); increase to Lantus 30 units at bedtime 01/25/23- FBS elevated msg sent to ENVIRONMENTAL HEALTH NURSE 01/25/23: RPM - elevated FBS; increase to Lantus 35 units at bedtime 02/01/23- FBS elevated msg sent to ENVIRONMENTAL HEALTH NURSE 02/01/23: RPM reviewed; FBS elevated. Increase to Lantus 45 units at bedtime. 02/04/23: RPM reviewed. Elevated FBS. Increase Lantus to 50 units at bedtime --KW 02/08/23: RPM Stable overall; FBS improving since last dose increase; few PP elevations 02/15/23- FBS elevated- msg sent to ENVIRONMENTAL HEALTH NURSE 02/15/23: RPM reviewed. Increase Lantus to 55 units at bedtime. 02/22/23- FBS elevated msg sent to ENVIRONMENTAL HEALTH NURSE 02/22/23: RPM reviewed. Increase Lantus to 60 units at bedtime. Last Assessment & Plan: She states that her fasting values are elevated. We discussed a likely increase to her Lantus dose (values pending BAG TESTER review). Supervision of high-risk , unsp ecified [...] elevated in . Her platelet count was [id number] on November 01. Also, on July 10, [...] Sign Reading Time Taken Comments Blood Pressure 138/60 02/22/2023 3:32 PM EDT Pulse - - Temperature - - Respiratory Rate - - Oxygen Saturation - - Inhaled Oxygen Concentration - - Weight - - Height - - Body Mass Index - - documented in this encounter Progress Notes * Seymour Zhao MD - 02/22/2023 3:29 PM EDT MATERNAL MEDICINE VISIT Bety Mullen is at 25w1d who presents to [facility] for an ultrasound and follow-up of her high risk . The patient is currently 25 weeks 1 day gestation with class 3 obesity, advanced maternal age, chronic hypertension on medication and gestational diabetes on insulin. She comes in for an evaluation of growth. She is being seen today by Maternal- Medicine for the following reasons: Problem List Items Addressed This Visit BMI 40.0-44.9, adult (HCC) - Primary (Chronic) Obesity in , antepartum I reviewed the ultrasound with her. The anatomy that was visualized appears unremarkable and the overall estimated weight is consistent with the 81st percentile for the gestational age. The fetus is in the breech presentation and the amniotic fluid volume is normal. The patient had questions regarding her labs from February. I did review her elevated plateletcount and her white blood cell count. I told her that the elevated platelet count could be due to the . Also, the white blood cell count can also be elevated in . Her platelet countwas 331019 on November 01. Also, on July 10, her platelets were elevated at 425,000 hundred twenty five thousand. It does appear as though she has a history of slightly elevated platelets. She did have an elevated total iron-binding capacity and her hemoglobin was slightly low at 11.8. AMA (advanced maternal age) multigravida 35+ Insulin controlled gestational diabetes mellitus (GDM) during , antepartum Chronic hypertension in We reviewed today's ultrasound findings. (For full report, please refer to ultrasound report provided separately). Ms. Mullen's questions were answered to her satisfaction. Ms. Mullen was instructed to notify her primary machine plug shaper if she felt regular contractions (approximately every 10 mins), leaking of fluid, vaginal bleeding or if movement decreased. RECOMMENDATIONS: Recommend surveillance starting at 32 weeks secondary to gestational diabetes on insulin. Recommend follow up ultrasound with [facility] in 4 weeks for growth secondary to gestational diabetes on insulin. Thank you for allowing us to participate in the care of this patient. Please call with any questions. Seymour Zhao MD 02/22/2023 3:29 PM documented in this encounter Miscellaneous Notes * Assessment & Plan Note - Seymour Zhao MD - 02/22/2023 4:11 PM EDT Associated Problem(s): Obesity in , antepartum I reviewed the ultrasound with her. The anatomy that was visualized appears unremarkable and the overall estimated weight is consistent with the 81st percentile for the gestational age. The fetus is in the breech presentation and the amniotic fluid volume is normal. The patient had questions regarding her labs from February. I did review her elevated plateletcount and her white blood cell count. I told her that the elevated platelet count could be due to the . Also, the white blood cell count can also be elevated in . Her platelet countwas 228412 on November 01. Also, on July 10, her platelets were elevated at 425,000 hundred twenty five thousand. It does appear as though she has a history of slightly elevated platelets. She did have an elevated total iron-binding capacity and her hemoglobin was slightly low at 11.8. documented in this encounter Plan of Treatment Upcoming Encounters Date Type Specialty Care Team Description 03/01/2023 Nurse Only Gynecology Obstetrics Gw, Nurse Obgyn Injection [address] [place] [address] 03/11/2023 Office Visit Gynecology Obstetrics Gatito Dunbar MD [address] [place] [address] 03/26/2023 Office Visit Gynecology Obstetrics Laura Lua CRNP [address] [place] [address] 04/01/2023 Imaging Radiology 04/05/2023 Office Visit Gynecology Obstetrics Jo Ann Castro, [facility] [address] [facility], [place] [address] [place], Non Stress Tests Estephania [address] [place] [address] 04/07/2023 Office Visit Gynecology Obstetrics Laura Lua CRNP [address] [place] [address] [place], Non Stress Tests Estephania [address] [place] [address] 04/12/2023 Office Visit Gynecology Obstetrics Gatito Dunbar MD [address] [place] [address] [place], Non Stress Tests Estephania [address] [place] [address] 04/15/2023 Office Visit Gynecology Obstetrics Laura Lua CRNP [address] [place] [address] [place], Non Stress Tests Estephania [address] [place] [address] 04/19/2023 Office Visit Gynecology Obstetrics Opal Barr, [facility] [address] [facility] [address] [place], Non Stress Tests Estephania [address] [place] [address] 04/22/2023 Office Visit Gynecology Obstetrics Lula Pandey CRNP [address] [place] [address] [place], Non Stress Tests Estephania [address] [place] [address] 04/26/2023 Office Visit Gynecology Obstetrics Backer, Lula Ko, JHONATAN [address] [place] [address] [place], Non Stress Tests Estephania [address] [place] [address] 04/29/2023 [facility] [address] [place] [address] [place], Non Stress Tests Estephania [address] [place] [address] 04/29/2023 Imaging Radiology 05/03/2023 Office Visit Gynecology Obstetrics Backer, Lula Maikel, JHONATAN [address] [place] [address] [place], Non Stress Tests Estephania [address] [place] [address] 05/06/2023 [facility] JHONATAN Oneal [address] [place] [address] [place], Non Stress Tests Estephania [address] [place] [address] 05/11/2023 [facility] JHONATAN Oneal [address] [place] [address] Col[place], Non Stress Tests Estephania [address] [place] [address] 05/14/2023 Office Visit Gynecology Obstetrics Laura Lua CRNP [address] [place] [address] [place], Non Stress Tests Estephania [address] [place] [address] 05/27/2023 Imaging Radiology Health Maintenance Due Date [...] as of this encounter Visit Diagnoses Diagnosis BMI 40.0-44.9, adult (HCC)- Primary Body Mass Index 40.0-44.9, adult Obesity in , antepartum Obesity complicating , childbirth, or the puerperium, antepartum condition or complication Multigravida of advanced maternal age in second trimester Insulin controlled gestational diabetes mellitus (GDM) during , antepartum Chronic hypertension in Benign essential hypertension complicating , childbirth, and the puerperium, unspecified as to episode of care documented in this encounter Care Teams Creative Services Coordinator Relationship Specialty Start Date End Date Kasia Jara MD [address] [place] [address] PCP - General Internal Medicine 03/01/20 documented as of this encounter
--- OUTSIDE RECORDS SUMMARY | 2023-05-20 11:03 | External Medical Summary | Summary of Care ---
Author Name Unknown Organization [facility] Address [address] [facility] [address] Phone [phone] Care Team Providers Care Grain Merchandiser Name Role Phone Kasia Jara MD Primary Care Provider [phone] Encounter Details Date Type Department Care Team Description 02/22/2023 Nurse Only Gynecology/Obstetrics [facility] [address] [place] [address] Gw, Nurse Obgyn Injection [address] [facility] [place] [address] Arrived Allergies Active Allergy Reactions Severity Noted Date [...] and dinner) 1 Kit 0 12/02/2022 Active [employer]I-[employer] In Vitro Strip (Glucose Blood)Indications:Ges tational diabetes mellitus (GDM), antepartum, gestational diabetes method of control unspecified Use to test blood sugars 4 times daily (fasting, 1 hour after breakfast, lunch, and dinner) 125 Strip 6 12/02/2022 Active [employer] Delica Lancets 30GIndications:Gestat ional diabetes mellitus (GDM), [...] tonight 01/05/23--FBS are elevated- sent msg to ROUTE SALES DRIVER 01/05/23: RPM elevated FBS; increase to Lantus 15 units at bedtime 01/11/23-- FBS elevated- msg sent to ROUTE SALES DRIVER 01/11/23: RPM - elevated FBS - increase to Lantus 20 units at bedtime 01/21/23--FBS elevated- msg sent to ROUTE SALES DRIVER 01/21/23: RPM - FBS elevated (100-120s); increase to Lantus 30 units at bedtime 01/25/23- FBS elevated msg sent to ROUTE SALES DRIVER 01/25/23: RPM - elevated FBS; increase to Lantus 35 units at bedtime 02/01/23- FBS elevated msg sent to ROUTE SALES DRIVER 02/01/23: RPM reviewed; FBS elevated. Increase to Lantus 45 units at bedtime. 02/04/23: RPM reviewed. Elevated FBS. Increase Lantus to 50 units at bedtime --KW 02/08/23: RPM Stable overall; FBS improving since last dose increase; few PP elevations 02/15/23- FBS elevated- msg sent to ROUTE SALES DRIVER 02/15/23: RPM reviewed. Increase Lantus to 55 units at bedtime. 02/22/23- FBS elevated msg sent to ROUTE SALES DRIVER 02/22/23: RPM reviewed. Increase Lantus to 60 units at bedtime. Last Assessment & Plan: She states that her fasting values are elevated. We discussed a likely increase to her Lantus dose (values pending LEATHER PRODUCTION WORKER review). Supervision of high-risk , unsp ecified [...] Sign Reading Time Taken Comments Blood Pressure 138/68 02/22/2023 12:35 PM EDT Pulse - - Temperature - - Respiratory Rate - - Oxygen Saturation - - Inhaled Oxygen Concentration - - Weight - - Height - - Body Mass Index - - documented in this encounter Nursing Notes * Echo Elizondo RN - 02/22/2023 12:35 PM EDT Patient here for BP check per brittanie. Increased BP medication at Last OV. Patient bp okay today in office. She denies any other sx at this time. Patient brought BP cuff from home and reading was very close to our manual cuff. Reviewed with Brittanie. She would like patient to return in 1 week for another nurse BP check and to continue monitoring daily at home. Patient to call with any severe elevated readings > 160/110 or any new sx. Patient verbalized understanding. documented in this encounter Plan of Treatment Upcoming Encounters Date Type Specialty Care Team Description 02/22/2023 Office Visit Maternal Medicine Seymour Zhao MD [address] [place] [address] 02/22/2023 Imaging Radiology 03/01/2023 Nurse Only Gynecology Obstetrics Gw, Nurse Obgyn Injection [address] [place] [address] 03/11/2023 Office Visit Gynecology Obstetrics Gatito Dunbar MD [address] [place] [address] 03/26/2023 Office Visit Gynecology Obstetrics Laura Lua CRNP [address] [place] [address] 04/01/2023 Imaging Radiology 04/29/2023 Imaging Radiology 05/27/2023 [...] filedocumented as of this encounter Care Teams Grain Merchandiser Relationship Specialty Start Date End Date [facility] Jara [facility] [address] [facility] [address] PCP - General Internal Medicine 03/01/20 documented as of this encounter
--- OUTSIDE RECORDS SUMMARY | 2023-05-20 11:04 | External Medical Summary ---
Author Name Unknown Address Unknown Organization K01:[facility] [place] - [address] [place] [address] Laboratory Report Ordering Provider Test Date Status HAILY HOFF 02/19/2023 12:11:26 Final Observation Date Value Abnormality Reference (Units ) Status Ferritin 02/19/2023 12:11:26 54 13-150 (ng /mL) Final Performing Location [facility] [place] - [address] [address]
--- OUTSIDE RECORDS SUMMARY | 2023-05-20 11:04 | External Medical Summary | Summary of Care ---
Author Name Unknown Organization [facility] Address [address] [place] [address] Phone [phone] Care Team Providers Care Last Trimmer Name Role Phone Kasia Jara MD Primary Care Provider [phone] Encounter Details Date Type Department Care Team Description 02/04/2023 Orders Only Dental Equipment Technician Obstetrics Maternal Medicine, [place] [address], [place] [id number] Annette Barajas CRNP [address] [place] [address] Supervision of high risk in second trimester*; Insulin controlled gestational diabetes mellitus (GDM) in second trimester Allergies Active Allergy Reactions Severity Noted Date Comments Amoxicillin 07/08/2014 hives Naltrexone Nausea/vomiting 05/03/2019 Penicillins 07/08/2014 Sulfamethoxazole-Trimethoprim 2014 hives documented as of this encounter (statuses as of 02/04/2023) Medications Medication Sig Dispensed Refills Start Date [...] by mouth in the morning. 0 Active tenfarmsTo3Play Media Verio Flex System w/Device KitIndications:Ges tational diabetes mellitus (GDM), antepartum, gestational diabetes method of control unspecified Use to test blood sugars 4 times daily (fasting, 1 hour after breakfast, lunch, and dinner) 1 Kit 0 12/02/2022 Active tenfarmsTouch Verio In Vitro Strip (Glucose Blood)Indications: Gestational diabetes mellitus (GDM), antepartum, gestational diabetes method of control unspecified Use to test blood sugars 4 times daily (fasting, 1 hour after breakfast, lunch, and dinner) 125 Strip 6 12/02/2022 Active tenfarmsTouch Delica Lancets 30GIndications:Ges tational diabetes mellitus (GDM), [...] 100 Each 3 12/24/2022 Active Labetalol HCl 100 MG Oral Tablet (Normodyne)Indicat ions:Chronic hypertension in Take 1 Tablet by mouth in the morning and 1 Tablet before bedtime. 60 Tablet 3 01/22/2023 Active Insulin Glargine Solostar 100 UNIT/ML Subcutaneous Solution Pen-injector (Lantus SoloStar)Indicatio ns:Supervision of high risk in second trimester,Insulin controlled gestational diabetes mellitus (GDM) in second trimester Inject 50 units under skin at bedtime. 15 mL 3 02/04/2023 Active Insulin Glargine Solostar 100 UNIT/ML Subcutaneous Solution Pen-injector (Lantus SoloStar)Indicatio ns:Supervision of high risk in second trimester,Insulin controlled gestational diabetes mellitus (GDM) in second trimester Inject 45 units under skin at bedtime. 15 mL 3 02/01/2023 02/04/2023 Discontinued (Refill) documented as of this encounter (statuses as of 02/04/2023) Active Problems Problem Noted Date Chronic hypertension [...] 12/07/22: MFM ADAPT consult complete. Enrolled in [facility]. Instructions provided to report blood [...] 01/05/23--FBS are elevated- sent msg to INFORMATION ASSURANCE OFFICER 01/05/23: RPM elevated FBS; increase to Lantus 15 units at bedtime 01/11/23-- FBS elevated- msg sent to INFORMATION ASSURANCE OFFICER 01/11/23: RPM - elevated FBS - increase to Lantus 20 units at bedtime 01/21/23--FBS elevated- msg sent to INFORMATION ASSURANCE OFFICER 01/21/23: RPM - FBS elevated (100-120s); increase to Lantus 30 units at bedtime 01/25/23- FBS elevated msg sent to INFORMATION ASSURANCE OFFICER 01/25/23: RPM - elevated FBS; increase to Lantus 35 units at bedtime 02/01/23- FBS elevated msg sent to INFORMATION ASSURANCE OFFICER 02/01/23: RPM reviewed; FBS elevated. Increase to Lantus 45 units at bedtime. 02/04/23: RPM reviewed. Elevated FBS. Increase Lantus to 50 units at bedtime --KW Last Assessment & Plan: She states that her fasting values are elevated. We discussed a likely increase to her Lantus dose (values pending SQL DEVELOPER review). Supervision of high-risk , unsp ecified [...] as of this encounter (statuses as of 02/04/2023) Resolved Problems Problem Noted Date Resolved Date Impaired glucose in , antepartum 202212/02/2022 Overview: Elevated early 1 hr GTT documented as of this encounter (statuses as of 02/04/2023) Immunizations Name Administration Dates Next Due COVID-19 mRNA, LNP-s, No Pre serve, 2-Dose Series (Moderna) 07/10/2020,06/07/2020 COVID-19, mRNA, LNP-s, PF, B ooster, 100mcg/0.5mg (Moderna) 03/18/2021 Seasonal Influenza, PF, 6 mo ns & Above, IM , (Flulaval) 01/22/2023,03/17/2022,03/27/2021 Seasonal Influenza, Quadriva lent, No Preserve, [...] Encounters Date Type Specialty Care Team Description 02/19/2023 Office Visit Gynecology Obstetrics Brittanie Fitzgerald PA-C [address] [place] [address] 02/22/2023 Office Visit Maternal Medicine Seymour Zhao MD [address] [place] [address] 02/22/2023 Imaging Radiology 04/01/2023 Imaging Radiology 04/29/2023 Imaging Radiology 05/27/2023 Imaging Radiology Health Maintenance Due Date Last Done Comments Hepatitis B (1 of 3 - 3-dose series) 1985 COVID-19 Vaccine (4 - Moderna series) 05/13/2021 03/18/2021, 07/10/2020, 06/07/2020 Depression, Most Recent Score >= 10 (will fire each visit until score < 10) 05/27/2021 05/26/2021 GFR 10/28/2023 10/27/2022, 06/18, 08/28/2020 Pap Smear 10/27/2025 10/27/2022, 12/2017, 10/22/2017 Diabetes Screening 12/23/2025 12/23/2022, 0 07/10/2022, 08/28/2020 Cervical Cancer Screening 10/28/2027 HPV/Co-Test 10/28/2027 10/27/2022 DTaP,Tdap,and Td Vaccines (2 - Td or Tdap) 08/28/2030 08/28/2020 Hepatitis C Screening Completed 10/27/2022 , 10/27/2022, 10/27/2022 Influenza Vaccine (FLU shot) Completed 12/2022, 03/17/2022, [...] Diagnosis Supervision of high risk in second trimester- Primary Unspecified high-risk Insulin controlled gestational diabetes mellitus (GDM) in second trimester documented in this encounter Care Teams Last Trimmer Relationship Specialty Start Date End Date Kasia Jara MD [address] [facility] [place] [address] PCP - General Internal Medicine 03/01/20 documented as of this encounter
--- OUTSIDE RECORDS SUMMARY | 2023-05-20 11:04 | External Medical Summary | Summary of Care ---
Author Name Unknown Organization [facility] Address [address] [facility] [place] [address] Phone [phone] Care Team Providers Care Table Games Supervisor Name Role Phone Kasia Jara MD Primary Care Provider [phone] Reason for Visit * Reason Onset Date Comments Return Visit Medication Administration 01/22/2023 Flu an d/or Pneumo Inj Encounter Details Date Type Department Care Team Description 01/22/2023 [facility] [address] [place] [address] Brittanie Fitzgerald PA-C [address] [place] [address] Supervision of high-risk , unspecified trimester*; Depression complicating , antepartum; Insulin controlled gestational diabetes mellitus (GDM) during , antepartum; Obesity in , antepartum; Multigravida of advanced maternal age in second trimester; Chronic hypertension in ; Need for prophylactic vaccination and inoculation against influenza Allergies Active Allergy Reactions Severity Noted Date Comments Amoxicillin 07/08/2014 hives Naltrexone Nausea/vomiting 05/03/2019 Penicillins 07/08/2014 Sulfamethoxazole-Trimethoprim 2014 hives documented as of this encounter (statuses as of 01/25/2023) Medications Medication Sig Dispensed Refills Start Date [...] by mouth in the morning. 0 Active Prestigos Verio Flex System w/Device KitIndications:Ges tational diabetes mellitus (GDM), antepartum, gestational diabetes method of control unspecified Use to test blood sugars 4 times daily (fasting, 1 hour after breakfast, lunch, and dinner) 1 Kit 0 12/02/2022 Active Prestigos Verio In Vitro Strip (Glucose Blood)Indications: Gestational diabetes mellitus (GDM), antepartum, gestational diabetes method of control unspecified Use to test blood sugars 4 times daily (fasting, 1 hour after breakfast, lunch, and dinner) 125 Strip 6 12/02/2022 Active Prestigos Delica Lancets 30GIndications:Ges tational diabetes mellitus (GDM), [...] diabetes mellitus (GDM) in second trimester Inject 30 units under skin at bedtime. 15 mL 3 01/21/2023 01/25/2023 Discontinued (Refill) documented as of this encounter (statuses as of 01/25/2023) Active Problems Problem Noted Date Chronic hypertension [...] when to call. Last Assessment & Plan: Considerations: Women with chronic hypertension during are at significantly increased risk for morbidity. Signs and symptoms of superimposed pre-eclampsia were reviewed; instructed patient to contact primary OB care provider if these symptoms occur. Recommendations: Obtain baseline lab work BELIA (if not already done) with assessment of proteinuria (24-hour urine protein or stcbbvs-hx-orxsppvwsh ratio) and CBC, serum AST/ALT/creatinine. If patient has had hypertension for 10 years or more, obtain an EKG and eye exam (if not performed within the past year). Recommend initiation of aspirin (81mg) daily, from 13 weeks until delivery, to decrease the risk of superimposed preeclampsia. Daily home blood pressure monitoring, especially in the second half of the . o It may be useful to have the patient validate their home device with their primary OB care provider's office. Patients with BP less than 140/90 maintained with antihypertensives should continue medication during . Discontinuation of ELADIA inhibitors or angiotensin type II receptor antagonists under the guidance of the primary care physician prior to conception of or upon knowledge of . Initiate or adjust antihypertensive medication if BP is 140/90 or greater on at least two occasions at least 4 hours apart and refer patient back to Maternal- Medicine. Titrate medication to maintain blood pressure in a goal range 120-140/70-90. o Labetalol and Nifedipine are considered safe for use in and these agents are considered as first-line therapy when indicated. Maternal Medicine ultrasound for anatomy at 19-20 weeks. surveillance as follows: o If NOT being treated with anti-hypertensives: - Maternal- Medicine ultrasound for growth between 28-30 weeks o If being treated with anti-hypertensives: - Maternal- Medicine ultrasound for growth every 4 weeks starting at 24-26 weeks - surveillance weekly starting at 32 weeks gestation Delivery should be individualized based on blood pressure control and assessment of patient risk and is indicated as follows: For those with stable blood pressures not on anti-hypertensive medications: - Between 38 0/7 and 39 6/7 weeks For those on anti-hypertensive medications: - Between 37 0/7 and 39 6/7 weeks Depression complicating , antep artum 12/07/2022 Overview: [...] 10:21 AM 100-G GESTATIONAL GLUCOSE, FASTING - CATRACHITA 101 (H) 12/02/2022 07:15 AM 12/02/22 hemoglobin [...] tonight 01/05/23--FBS are elevated- sent msg to FIREBRICK LAYER 01/05/23: RPM elevated FBS; increase to Lantus 15 units at bedtime 01/11/23-- FBS elevated- msg sent to FIREBRICK LAYER 01/11/23: RPM - elevated FBS - increase to Lantus 20 units at bedtime 01/21/23--FBS elevated- msg sent to FIREBRICK LAYER 01/21/23: RPM - FBS elevated (100-120s); increase to Lantus 30 units at bedtime 01/25/23- FBS elevated msg sent to FIREBRICK LAYER 01/25/23: RPM - elevated FBS; increase to Lantus 35 units at bedtime Last Assessment & Plan: CONSIDERATIONS: Reviewed etiology and risks associated with gestational diabetes mellitus (GDM), including risks to , fetus, and maternal progression to Type 2 DM. Instructed on proper use of glucometer; supplies ordered, if indicated. Advised that life-long screening for diabetes is recommended every 1-3 years. RECOMMENDATIONS: Recommend monitoring blood sugars with daily fasting blood sugar (maintained at less than or equal to 95) and 1 hour postprandial measurements (maintained at less than or equal to 140). Medications should be adjusted to maintain these target values. Report levels to MFM (Maternal- Medicine) weekly. Recommend nutrition consult with RDN (Registered Dietitian Shell Shop Supervisor). Lifestyle changes are also indicated including optimizing gestational weight gain and physical activity of 30 minutes per day, if not otherwise contraindicated in . Insulin is preferred if medications are indicated to optimize euglycemia. Metformin (preferred over glyburide) may also be used in some circumstances. Reviewed the risks and benefits of each. Recommend hemoglobin A1c testing now if diagnosed with GDM prior to 24 weeks as there is potential for pre-existing diabetes. If result is 6.5% or greater, then will diagnose with overt Type 2 DM and treat as pre-existing diabetes. If compliance later in gestation is question, a HBA1c can be assessed with a goal of less than 6%. Recommend early anatomy evaluation at 11-16 weeks gestation. Recommend anatomy survey at 19-20 weeks. Recommend echocardiography at 21-23 weeks if hemoglobin A1c greater than 6.5%. Recommend ultrasound, surveillance and delivery as follows: o A1GDM, delivery should be accomplished by EDC due to class III obesity o A2GDM, recommend growth assessment with MFM every 4 weeks, initiate surveillance at 32 weeks and continue until delivery at 39 weeks. Recommend intrapartum monitoring every 1-2 hours (A2GDM) or every 4 hours (A1GDM) and treat with insulin if indicated. Recommend 2-hour glucose tolerance testing with 75-gram glucose load 6-8 weeks . Supervision of high-risk , unsp ecified trimester [...] low risk Qnatal Last Assessment & Plan: CONSIDERATIONS: We reviewed the most pertinent aspects of the following: Advanced maternal age (AMA) refers to a woman with a callejas who will be at the age of 35 or older at the estimated time of delivery and may be associated with increased morbidity. Prior to the appointment the patient has had genetic screening and it was reported as low risk. In addition to the risk of chromosomal abnormalities, there is an increased risk of congenital/structural anomalies. RECOMMENDATIONS: Recommend MFM anatomy ultrasound at 19-20 weeks gestation.. 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 Binge eating disorder 09/09/2020 Premenstrual dysphoric disorder 09/10/19 21 SHIELA (generalized anxiety disorder) 03/12 BMI 40.0-44.9, adult 10/22/2017 Estimated Date of Delivery Comme nts Yes 06/06/2023 Based on last me nstrual period of 08/30/2022 (Exact Date) documented as of this encounter (statuses as of 01/25/2023) Resolved Problems Problem Noted Date Resolved Date Impaired glucose in , antepartum 202212/02/2022 Overview: Elevated early 1 hr GTT documented as of this encounter (statuses as of 01/25/2023) Immunizations Name Administration Dates Next Due COVID-19 [...] Sign Reading Time Taken Comments Blood Pressure 142/78 01/22/2023 11:58 AM EDT Pulse - - Temperature - - Respiratory Rate - - Oxygen Saturation - - Inhaled Oxygen Concentration - - Weight 137 kg (302 lb) 01/22/2023 11:58 AM EDT Height 162.6 cm (5' 4") 01/22/2023 11:58 AM EDT Body Mass Index 51.84 01/22/2023 11:58 AM EDT documented in this encounter Progress Notes * Brittanie Fitzgerald PA-C - 01/22/2023 1:11 PM EDT 20w5d Doing well, without complaints. Has anatomy with MFM upcoming. On insulin for GDM, continues to be compliant with reporting. CHTN, no medications. BP slightly elevated at 142/78, similar to last appointment at 140/76. TE to patient in follow up regarding medications as recommended by MFM. Reviewed with Dr. Dunbar regarding BP, pt agreeable to meds. Labetalol 100 mg BID sent, pt to follow up in 1 week for BP check. Has home cuff to monitor pressures in meantime. Unable to get FHT with doppler, pt sent for u/s -- confirmed +FHT 140's. Brittanie Fitzgerald PA-C * Daylin Smith LPN - 01/22/2023 12:04 PM EDT 20w5d Would like flu shot. Denies concerns. documented in this encounter Nursing Notes * Daylin Smith LPN - 01/22/2023 12:10 PM EDT Patient here for flu injection. Patient doing well no complaints. Injection given IM as ordered. Patient tolerated well. Patient to follow up as directed. Patient instructed to call if any complications. Patient verbalized understanding of instructions given and her follow up appt for RUPINDER. Injection site: Left Deltoid Medication Source: Dispensed stock medication * Daylin Smith LPN - 01/22/2023 12:01 PM EDT 20w5d documented in this encounter Plan of Treatment Upcoming Encounters Date Type Specialty Care Team Description 01/29/2023 Nurse Only Gynecology Obstetrics Gw, Nurse Obgyn Injection [address] [place] [address] 02/01/2023 Office Visit Maternal Medicine Federico Avalos, DO [address] [place] [address] 02/01/2023 Imaging Radiology 02/19/2023 Office Visit Gynecology Obstetrics Brittanie Fitzgerald PA-C [address] [place] [address] Health Maintenance Due Date Last Done Comments [...] as of this encounter Results * US PREG LIMITED 1 OR MORE FETUSES (01/22/2023 12:50 PM EDT) Anatomical Region Laterality Modality Pelvis, Body Ultrasound 01/22/2023 12:5 9 PM EDT Impressions 01/22/2023 12:56 PM EDT IMPRESSION Normal heart rate. Narrative 01/22/2023 12:56 PM EDT EXAM US PREG LIMITED 1 OR MORE FETUSES - 01/22/2023 12:50 pm HISTORY FHT COMPARISON 11/24/22 TECHNIQUE Sonographic examination performed. FINDINGS : Callejas heart rate: 149 bpm Procedure Note Bandar Ca MD - 01/22/2023 EXAM US PREG LIMITED 1 OR MORE FETUSES - 01/22/2023 12:50 pm HISTORY FHT COMPARISON 11/24/22 TECHNIQUE Sonographic examination performed. FINDINGS : Callejas heart rate: 149 bpm IMPRESSION IMPRESSION Normal heart rate. Brittanie Fitzgerald PA-C RAD ULTRASOUND documented in [...] puerperium, unspecified as to episode of care Need for prophylactic vaccination and inoculation against influenza Supervision of high-risk , unspecified trimester documented in this encounter Care Teams Table Games Supervisor Relationship Specialty Start Date End Date Kasia Jara MD [address] [place] [id number] PCP - General Internal Medicine 03/01/20 documented as of this encounter
--- OUTSIDE RECORDS SUMMARY | 2023-05-20 11:04 | External Medical Summary ---
Author Name Unknown Address Unknown Organization [id number]:LABORATORY [facility] [place] - [address] [place] [address] Laboratory Report Ordering Provider Test Date Status HAILY HOFF 02/19/2023 12:11:26 Final Observation Date Value Abnormality Reference (Units ) Status Treponema pallidum Ab [Presence] in Serum by Immunoassay 02/19/2023 12:11:26 Nonreactive Nonreactive Final No serologic evidence of syp hilis. No additional testing clinicially indicated at this time. Consider repeat testing in 2-4 weeks if acute or primary syphilis is suspected. Performing Location LABORATORY [facility] [place] - [address] [place] [address]
--- OUTSIDE RECORDS SUMMARY | 2023-05-20 11:04 | External Medical Summary | Summary of Care ---
Author Name Unknown Organization [facility] Address [address] [place] [address] Phone [phone] Care Team Providers Care Transactional Paralegal Name Role Phone Kasia Jara MD Primary Care Provider [phone] Encounter Details Date Type Department Care Team Description 02/15/2023 Orders Only Multiple Wire Sawyer Obstetric MFM [address] [place] [address] [place] [address] Kaitlynn Kuo, ACCOUNTS PAYABLE ADMINISTRATOR [address] [place], [place] [id number] Supervision of high risk in second trimester; Insulin controlled gestational diabetes mellitus (GDM) in second trimester Allergies Active Allergy Reactions Severity Noted Date Comments Amoxicillin 07/08/2014 hives Naltrexone Nausea/vomiting 05/03/2019 Penicillins 07/08/2014 Sulfamethoxazole-Trimethoprim 2014 hives documented as of this encounter (statuses as of 02/15/2023) Medications Medication Sig Dispensed Refills Start Date [...] by mouth in the morning. 0 Active Vantage MediaTouch Verio Flex System w/Device KitIndications:Ges tational diabetes [...] and dinner) 125 Strip 6 12/02/2022 Active Vantage MediaTouch Delica Lancets 30GIndications:Ges tational diabetes mellitus (GDM), [...] at bedtime. 15 mL 3 02/15/2023 Active Insulin Glargine Solostar 100 UNIT/ML Subcutaneous Solution Pen-injector (Lantus SoloStar)Indicatio ns:Supervision of high risk in second trimester,Insulin controlled gestational diabetes mellitus (GDM) in second trimester Inject 50 units under skin at bedtime. 15 mL 3 02/04/2023 02/15/2023 Discontinued (Refill) documented as of this encounter (statuses as of 02/15/2023) Active Problems Problem Noted Date Chronic hypertension [...] 12/07/22: MFM ADAPT consult complete. Enrolled in [facility]. Instructions provided to report blood [...] tonight 01/05/23--FBS are elevated- sent msg to PRIVATE BRANCH EXCHANGE INSTALLER 01/05/23: RPM elevated FBS; increase to Lantus 15 units at bedtime 01/11/23-- FBS elevated- msg sent to PRIVATE BRANCH EXCHANGE INSTALLER 01/11/23: RPM - elevated FBS - increase to Lantus 20 units at bedtime 01/21/23--FBS elevated- msg sent to PRIVATE BRANCH EXCHANGE INSTALLER 01/21/23: RPM - FBS elevated (100-120s); increase to Lantus 30 units at bedtime 01/25/23- FBS elevated msg sent to PRIVATE BRANCH EXCHANGE INSTALLER 01/25/23: RPM - elevated FBS; increase to Lantus 35 units at bedtime 02/01/23- FBS elevated msg sent to PRIVATE BRANCH EXCHANGE INSTALLER 02/01/23: RPM reviewed; FBS elevated. Increase to Lantus 45 units at bedtime. 02/04/23: RPM reviewed. Elevated FBS. Increase Lantus to 50 units at bedtime --KW 02/08/23: RPM Stable overall; FBS improving since last dose increase; few PP elevations 02/15/23- FBS elevated- msg sent to PRIVATE BRANCH EXCHANGE INSTALLER 02/15/23: RPM reviewed. Increase Lantus to 55 units at bedtime. Last Assessment & Plan: She states that her fasting values are elevated. We discussed a likely increase to her Lantus dose (values pending ACCOUNTS PAYABLE ADMINISTRATOR review). Supervision of high-risk , unsp [...] as of this encounter (statuses as of 02/15/2023) Resolved Problems Problem Noted Date Resolved Date Impaired glucose in , antepartum 202212/02/2022 Overview: Elevated early 1 hr GTT documented as of this encounter (statuses as of 02/15/2023) Immunizations Name Administration Dates Next Due COVID-19 [...] Obstetrics Brittanie Fitzgerald PA-C [address] [place] [address] 02/22/2023 Office Visit Maternal Medicine Seymour Zhao MD [address] [facility] [place] [address] 02/22/2023 Imaging Radiology 04/01/2023 Imaging Radiology 04/29/2023 [...] trimester documented in this encounter Care Teams Transactional Paralegal Relationship Specialty Start Date End Date Kasia Jara MD [address] [place] [address] PCP - General Internal Medicine 03/01/20 documented as of this encounter
--- OUTSIDE RECORDS SUMMARY | 2023-05-20 11:04 | External Medical Summary ---
Author Name Unknown Address Unknown Organization [id number]:[facility] [place] [facility] [place] [address] Laboratory Report Ordering Provider Test Date Status HAILY HOFF 02/19/2023 12:11:26 Final Observation Date Value Abnormality Reference (Units ) Status Retic, % (auto) 02/19/2023 12:11:26 2.63 Above high normal 0.80-1.90 (%) Final Reticulocytes, Absolute 02/19/2023 12:11:26 102.0 Above high normal 31.3-100.1 (K/uL) Final Reticulocyte fraction, immature 02/19/2023 12:11:26 28.1 Above high normal 2.5-20.6 (%) Final Reticulocyte HGB 02/19/2023 12:11:26 34.3 29.7-37.4 (pg) Final Performing Location [facility] [place] [address] [place] [address]
--- OUTSIDE RECORDS SUMMARY | 2023-05-20 11:04 | External Medical Summary ---
Author Name Unknown Address Unknown Organization [id number][place] [place] [address] [place] [address] Laboratory Report Ordering Provider Test Date Status HAILY HOFF 02/19/2023 12:11:26 Final Observation Date Value Abnormality Reference (Units ) Status Vitamin B12 02/19/2023 12:11:26 [phone] (pg/mL) Final Performing Location [facility] [place] [facility] [address] [facility] [address] [place] [address]
--- OUTSIDE RECORDS SUMMARY | 2023-05-20 11:04 | External Medical Summary ---
Author Name Unknown Address Unknown Organization [id number]:LABORATORY [facility] [place] [address] [facility] [address] Laboratory Report Ordering Provider Test Date Status HAILY HOFF 02/19/2023 12:11:26 Final Observation Date Value Abnormality Reference (Units ) Status SYNC LEUKOCYTES IN BLOOD BY AUTOMATED COUNT 02/19/2023 12:11:26 12.40 Above high normal 4.00-10.80 (K/uL) Final Segs 02/19/2023 12:11:26 77.3 Above high normal 40.0-75.0 (%) Final Lymphs % 02/19/2023 12:11:26 14.8 Below low normal 18.0-42.0 (%) Final Monos 02/19/2023 12:11:26 6.2 1.0-11.0 (%) Final Eosinophils 02/19/2023 12:11:26 0.9 0.0-6.0 (%) Final Basos 02/19/2023 12:11:26 0.2 0.0-2.0 (%) Final Immature Granulocyte, Percent 02/19/2023 12:11:26 0.6 0.0-2.0 (%) Final Absolute Segs 02/19/2023 12:11:26 9.58 Above high normal 1.80-7.70 (K/uL) Final Lymphs, absolute 02/19/2023 12:11:26 1.84 1.00-4.80 (K/ul) Final Monos, Abs 02/19/2023 12:11:26 0.77 0.00-1.10 (K/uL) Final Eos, Abs 02/19/2023 12:11:26 0.11 0.00-0.70 (K/uL) Final Basos, Abs 02/19/2023 12:11:26 0.02 0.00-0.20 (K/uL) Final Immature Granulocytes, Number 02/19/2023 12:11:26 0.08 0.00-0.20 (K/uL) Final Performing Location LABORATORY [facility] [place] - [address] [facility] [address]
--- OUTSIDE RECORDS SUMMARY | 2023-05-20 11:04 | External Medical Summary | Summary of Care ---
Author Name Unknown Organization [facility] Address [address] [place] [facility] [place] [address] Phone [phone] Care Team Providers Care Legal Researcher Name Role Phone Kasia Jara MD Primary Care Provider [phone] Encounter Details Date Type Department Care Team Description 01/22/2023 Telephone Gynecology/Obstetrics [facility] [address] [place] [address] Brittanie Fitzgerald PA-C [address] [place] [address] Allergies Active Allergy Reactions Severity Noted Date Comments Amoxicillin 07/08/2014 hives Naltrexone Nausea/vomiting 05/03/2019 Penicillins 07/08/2014 Sulfamethoxazole-Trimethoprim 2014 hives documented as of this encounter (statuses as of 02/09/2023) Medications Medication Sig Dispensed Refills Start Date [...] and dinner) 1 Kit 0 12/02/2022 Active AlertMe Verio In Vitro Strip (Glucose Blood)Indications: Gestational diabetes mellitus (GDM), antepartum, gestational diabetes method of control unspecified Use to test blood sugars 4 times daily (fasting, 1 hour after breakfast, lunch, and dinner) 125 Strip 6 12/02/2022 Active AlertMe Delica Lancets 30GIndications:Ges tational diabetes mellitus (GDM), [...] as of this encounter (statuses as of 02/09/2023) Active Problems Problem Noted Date Chronic hypertension [...] tonight 01/05/23--FBS are elevated- sent msg to DISASTER RESPONSE DIRECTOR 01/05/23: RPM elevated FBS; increase to Lantus 15 units at bedtime 01/11/23-- FBS elevated- msg sent to DISASTER RESPONSE DIRECTOR 01/11/23: RPM - elevated FBS - increase to Lantus 20 units at bedtime 01/21/23--FBS elevated- msg sent to DISASTER RESPONSE DIRECTOR 01/21/23: RPM - FBS elevated (100-120s); increase to Lantus 30 units at bedtime 01/25/23- FBS elevated msg sent to DISASTER RESPONSE DIRECTOR 01/25/23: RPM - elevated FBS; increase to Lantus 35 units at bedtime 02/01/23- FBS elevated msg sent to DISASTER RESPONSE DIRECTOR 02/01/23: RPM reviewed; FBS elevated. Increase to Lantus 45 units at bedtime. 02/04/23: RPM reviewed. Elevated FBS. Increase Lantus to 50 units at bedtime --KW 02/08/23: RPM Stable overall; FBS improving since last dose increase; few PP elevations Last Assessment & Plan: She states that her fasting values are elevated. We discussed a likely increase to her Lantus dose (values pending UNIVERSITY COUNSELOR review). Supervision of high-risk , unsp ecified [...] as of this encounter (statuses as of 02/09/2023) Resolved Problems Problem Noted Date Resolved Date Impaired glucose in , antepartum 202212/02/2022 Overview: Elevated early 1 hr GTT documented as of this encounter (statuses as of 02/09/2023) Immunizations Name Administration Dates Next Due COVID-19 [...] Telephone Encounter - Jen Alexander LPN - 01/25/2023 10:58 AM EDT Patient aware. Scheduled for BP check 01/29. * Telephone Encounter - Brittanie Fitzgerald PA-C - 01/22/2023 4:58 PM EDT Labetalol 100 mg BID sent to pharmacy. She can check BP once daily at home. If any concern for lightheadedness or dizziness she can check them more frequently. Any concerns she can reach out. Please let her know and assist in scheduling 1 week BP check. Brittanie Fitzgerald PA-C * Telephone Encounter - Paola Yarbrough LPN - 01/22/2023 2:10 PM EDT Phone call from pt. Pt aware and verbalizes understanding . Pt agreeable to medication. Pt does have BP monitor at home and will to check blood pressures there. Pt is asking how often sheshould check her Blood pressure. Please review and advise further Estephania jacobson pt. Paola Yarbrough LPN 01/22/2023 2:12 PM * Telephone Encounter - Brittanie Fitzgerald PA-C - 01/22/2023 1:57 PM EDT Called and LMOM for patient to return call. Wanted to review with there starting BP meds for chronic hypertension now that we have 2 readings that have been slightly elevated. If she is agreeable I would like to send medication called Labatolol to her pharmacy that she can start twice daily. Then bring her back for BP check in 1 week after start. If she has blood pressure cuff at home, she can monitor her BP at home. If any dizziness or ligthheadedness with starting medication she should let us know right away. documented in this encounter Plan of Treatment Upcoming Encounters Date Type Specialty Care Team Description 02/19/2023 Office Visit Gynecology Obstetrics Brittanie Fitzgerald PA-C [address] [place] [address] 02/22/2023 Office Visit Maternal Medicine [facility] [address] [facility] [address] 02/22/2023 Imaging Radiology 04/01/2023 Imaging Radiology 04/29/2023 [...] documented in this encounter Care Teams Legal Researcher Relationship Specialty Start Date End Date Kasia Jara MD [address] [facility] [place] [address] PCP - General Internal Medicine 03/01/20 documented as of this encounter
--- OUTSIDE RECORDS SUMMARY | 2023-05-20 11:04 | External Medical Summary ---
Author Name Unknown Address Unknown Organization [id number]:LABORATORY [facility] [place] - [address] [place] [address] [place] [address] Laboratory Report Ordering Provider Test Date Status HAILY HOFF 02/19/2023 12:11:26 Final Observation Date Value Abnormality Reference (Units ) Status WBC, Total 02/19/2023 12:11:26 12.40 Above high normal 4 .00-10.80 (K/uL) Final RBC 02/19/2023 12:11:26 3.85 3.85-5.15 (M/uL) Final Hemoglobin 02/19/2023 12:11:26 11.9 Below low normal 12 .0-15.3 (g/dL) Final Anemia reflex testing trigge rs on a HGB < 12.0 for Females and HGB < 13.0 for Males in accordance with the WHO Anemia Guidelines
Anemia reflex testing triggers on a HGB < 12.0 for Females and HGB < 13.0 for Males in accordance with the WHO Anemia Guidelines HCT 02/19/2023 12:11:26 36.9 36.0-45.2 (%) Final MCV 02/19/2023 12:11:26 95.8 81.5-97.5 (fL) Final MCH 02/19/2023 12:11:26 30.9 27.0-34.0 (pg) Final MCHC 02/19/2023 12:11:26 32.2 32.0-36.0 (g/dL) Final RDW 02/19/2023 12:11:26 14.2 11.5-15.5 (%) Final Platelets 02/19/2023 12:11:26 443 Above hi gh normal 140-400 (K/uL) Final MPV 02/19/2023 12:11:26 9.3 6.6-11.1 ( fL) Final Nucleated erythrocytes/100 leukocytes [Ratio] in Blood by Automated count 02/19/2023 12:11:26 0 <=0 (/100 WBCs) Final Performing Location LABORATORY [facility] [place] - [address] [facility] [address]
--- OUTSIDE RECORDS SUMMARY | 2023-05-20 11:04 | External Medical Summary | Summary of Care ---
Author Name Unknown Organization [facility] Address [address] [place] [address] Phone [phone] Care Team Providers Care Glass Blowing Lathe Operator Name Role Phone Kasia Jara MD Primary Care Provider [phone] Encounter Details Date Type Department Care Team Description 02/01/2023 Orders Only Grader Meat Obstetric MFM [address] [place] [address] [place] [address] [place] [address] Kaitlynn Kuo, THEOLOGY PROFESSOR [address], [place] [id number] Supervision of high risk in second trimester; Insulin controlled gestational diabetes mellitus (GDM) in second trimester Allergies Active Allergy Reactions Severity Noted Date Comments Amoxicillin 07/08/2014 hives Naltrexone Nausea/vomiting 05/03/2019 Penicillins 07/08/2014 Sulfamethoxazole-Trimethoprim 2014 hives documented as of this encounter (statuses as of 02/01/2023) Medications Medication Sig Dispensed Refills Start Date [...] by mouth in the morning. 0 Active MazoomTouch Verio Flex System w/Device KitIndications:Ges tational diabetes [...] and dinner) 125 Strip 6 12/02/2022 Active MazoomTouch Delica Lancets 30GIndications:Ges tational diabetes mellitus (GDM), [...] skin at bedtime. 15 mL 3 02/01/2023 Active Insulin Glargine Solostar 100 UNIT/ML Subcutaneous Solution Pen-injector (Lantus SoloStar)Indicatio ns:Supervision of high risk in second trimester,Insulin controlled gestational diabetes mellitus (GDM) in second trimester Inject 35 units under skin at bedtime. 15 mL 3 01/25/2023 02/01/2023 Discontinued (Refill) documented as of this encounter (statuses as of 02/01/2023) Active Problems Problem Noted Date Chronic hypertension [...] assessment of proteinuria (24-hour urine protein or uluopmm-gm-jaxpcomsxi ratio) and CBC, serum AST/ALT/creatinine. If patient [...] tonight 01/05/23--FBS are elevated- sent msg to NURSING TECHNICIAN 01/05/23: RPM elevated FBS; increase to Lantus 15 units at bedtime 01/11/23-- FBS elevated- msg sent to NURSING TECHNICIAN 01/11/23: RPM - elevated FBS - increase to Lantus 20 units at bedtime 01/21/23--FBS elevated- msg sent to NURSING TECHNICIAN 01/21/23: RPM - FBS elevated (100-120s); increase to Lantus 30 units at bedtime 01/25/23- FBS elevated msg sent to NURSING TECHNICIAN 01/25/23: RPM - elevated FBS; increase to Lantus 35 units at bedtime 02/01/23- FBS elevated msg sent to NURSING TECHNICIAN 02/01/23: RPM reviewed; FBS elevated. Increase to Lantus 45 units at bedtime. Last Assessment & Plan: CONSIDERATIONS: Reviewed etiology [...] Recommend nutrition consult with RDN (Registered Dietitian Hydration Plant Operator). 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 Binge eating disorder 09/09/2020 Premenstrual dysphoric disorder 09/10/19 21 SHIELA (generalized anxiety disorder) 03/12 BMI 40.0-44.9, adult 10/22/2017 Estimated Date of Delivery Comme nts Yes 06/06/2023 Based on last me nstrual period of 08/30/2022 (Exact Date) documented as of this encounter (statuses as of 02/01/2023) Resolved Problems Problem Noted Date Resolved Date Impaired glucose in , antepartum 202212/02/2022 Overview: Elevated early 1 hr GTT documented as of this encounter (statuses as of 02/01/2023) Immunizations Name Administration Dates Next Due COVID-19 [...] Fitzgerald PA-C [address] [place] [address] 02/22/2023 Office Visit Maternal Medicine Seymour Zhao MD [address] [facility] [place] [address] 02/22/2023 Imaging Radiology 04/01/2023 Imaging Radiology 04/29/2023 [...] trimester documented in this encounter Care Teams Glass Blowing Lathe Operator Relationship Specialty Start Date End Date Kasia Jara MD [address] [place] [address] PCP - General Internal Medicine 03/01/20 documented as of this encounter
--- OUTSIDE RECORDS SUMMARY | 2023-05-20 11:04 | External Medical Summary | Summary of Care ---
Author Name Unknown Organization [facility] Address [address] [place] [address] Phone [phone] Care Team Providers Care Senior Application Software Engineer Name Role Phone Kasia Jara MD Primary Care Provider [phone] Reason for Visit * Reason Comments Ultrasound Encounter Details Date Type Department Care Team Description 02/01/2023 Office Visit Ticket Machine Operator Obstetrics Maternal [facility], [place] [address] [place], [place] [phone] Federico Avalos, [address] [place], [place] [phone] Multigravida of advanced maternal age in second trimester*; Insulin controlled gestational diabetes mellitus (GDM) during , antepartum; Obesity in , antepartum; BMI 40.0-44.9, adult (HCC); Chronic hypertension in ; 22 weeks gestation of Allergies Active Allergy Reactions Severity Noted Date [...] by mouth in the morning. 0 Active [employer] Verio Flex System w/Device KitIndications:Ges tational diabetes mellitus (GDM), antepartum, gestational diabetes method of control unspecified Use to test blood sugars 4 times daily (fasting, 1 hour after breakfast, lunch, and dinner) 1 Kit 0 12/02/2022 Active Aloqa Verio In Vitro Strip (Glucose Blood)Indications: Gestational diabetes mellitus (GDM), antepartum, gestational diabetes method of control unspecified Use to test blood sugars 4 times daily (fasting, 1 hour after breakfast, lunch, and dinner) 125 Strip 6 12/02/2022 Active Aloqa Delica Lancets 30GIndications:Ges tational diabetes mellitus (GDM), [...] 70's diastolic. Her values on file in [facility] are mildly elevated, including today (reports being [...] tonight 01/05/23--FBS are elevated- sent msg to HEALTH EDUCATION AIDE 01/05/23: RPM elevated FBS; increase to Lantus 15 units at bedtime 01/11/23-- FBS elevated- msg sent to HEALTH EDUCATION AIDE 01/11/23: RPM - elevated FBS - increase to Lantus 20 units at bedtime 01/21/23--FBS elevated- msg sent to HEALTH EDUCATION AIDE 01/21/23: RPM - FBS elevated (100-120s); increase to Lantus 30 units at bedtime 01/25/23- FBS elevated msg sent to HEALTH EDUCATION AIDE 01/25/23: RPM - elevated FBS; increase to Lantus 35 units at bedtime 02/01/23- FBS elevated msg sent to HEALTH EDUCATION AIDE 02/01/23: RPM reviewed; FBS elevated. Increase to Lantus 45 units at bedtime. Last Assessment & Plan: She states that her fasting values are elevated. We discussed a likely increase to her Lantus dose (values pending CONCRETE WORKER review). Supervision of high-risk , unsp [...] Sign Reading Time Taken Comments Blood Pressure 147/70 02/01/2023 2:36 PM EDT Pulse - - Temperature - - Respiratory Rate - - Oxygen Saturation - - Inhaled Oxygen Concentration - - Weight - - Height - - Body Mass Index - - documented in this encounter Progress Notes * Federico Avalos, DO - 02/01/2023 4:55 PM EDT MATERNAL MEDICINE VISIT Bety Julissa Mullen is at 22w1d who presents to [facility] for an ultrasound and follow-up of her high risk . PHYSICAL EXAM: BP 147/70 | LMP 08/30/2022 (Exact Date) General: pleasant, alert and oriented, no acute distress She is being seen today by Maternal- Medicine for the following reasons: Problem List Items Addressed This Visit BMI 40.0-44.9, adult (HCC) (Chronic) Obesity in , antepartum AMA (advanced maternal age) multigravida 35+ - Primary She presents for a anatomy survey secondary [...] identify all anomalies, but it is reassuring thatno anomalies were seen today. Insulin controlled gestational diabetes mellitus (GDM) during , antepartum She states that her fasting values are elevated. We discussed a likely increase to her Lantus dose (values pending CONCRETE WORKER review). Chronic hypertension in She monitors her BP's at home with overall normal values in the 130's systolic and 70's diastolic. Her values on file in [facility] are mildly elevated, including today (reports being anxious about the ultrasound as well). We reviewed goal values in the 120-130's/80's and discussed medication titration as needed. I encouraged continued home monitoring and suggested that she bring her cuff to an office visit to compare readings. We reviewed today's ultrasound findings. (For full report, please refer to ultrasound report provided separately). Ms. Mullen's questions were answered to her satisfaction. RECOMMENDATIONS: Recommend surveillance starting at 32 weeks secondary to GDMA2 and CHTN. Recommend follow up ultrasound with [facility] in 4 weeks for growth and completion of anatomy. Thank you for allowing us to participate in the care of this patient. Please call with any questions. Federico Avalos DO 02/01/2023 4:55 PM documented in this encounter Miscellaneous Notes * Assessment & Plan Note - Federico Avalos DO - 02/01/2023 4:55 PM EDT Associated Problem(s): Chronic hypertension in She monitors her BP's at home with [...] to an office visit to compare readings. * Assessment & Plan Note - Federico Avalos DO - 02/01/2023 4:54 PM EDT Associated Problem(s): Insulin controlled gestational diabetes mellitus (GDM) during , antepartum She states that her fasting values are elevated. We discussed a likely increase to her Lantus dose (values pending CONCRETE WORKER review). * Assessment & Plan Note - Federico Avalos DO - 02/01/2023 1:50 PM EDT Associated Problem(s): AMA (advanced maternal age) multigravida 35+ She presents for a anatomy survey secondary [...] identify all anomalies, but it is reassuring thatno anomalies were seen today. documented in this encounter Plan of Treatment Upcoming Encounters Date Type Specialty Care Team Description 02/19/2023 Office Visit Gynecology Obstetrics Brittanie Fitzgerald PA-C [address] [place] [address] 02/22/2023 Office Visit Maternal Medicine Seymour Zhao MD [address] [place] [address] 02/22/2023 Imaging Radiology 04/01/2023 Imaging Radiology 04/29/2023 Imaging Radiology 05/27/2023 Imaging Radiology Scheduled Orders Name Type Priority Associated Diagnoses Orde r Schedule MFM US PREG FOLLOW UP EACH FETUS Medical Imaging Routine Multigravida of advanced maternal age in second trimester Obesity in , antepartum BMI 40.0-44.9, adult (HCC) Chronic hypertension in Insulin controlled gestational diabetes mellitus (GDM) during , antepartum 6 Occurrences starting 02/01/2023 until 08/02/2023 Health Maintenance Due Date Last Done Comments [...] Multigravida of advanced maternal age in second trimester- Primary Insulin controlled gestational diabetes mellitus (GDM) during , antepartum Obesity in , antepartum Obesity complicating , childbirth, or the puerperium, antepartum condition or complication BMI 40.0-44.9, adult (HCC) Body Mass Index 40.0-44.9, adult Chronic hypertension in Benign essential hypertension complicating , childbirth, and the puerperium, unspecified as to episode of care 22 weeks gestation of state, incidental documented in this encounter Care Teams Senior Application Software Engineer Relationship Specialty Start Date End Date Kasia Jara MD [address] [facility] [place] [address] PCP - General Internal Medicine 03/01/20 documented as of this encounter"
--- OUTSIDE RECORDS SUMMARY | 2023-05-20 11:04 | External Medical Summary | Summary of Care ---
Author Name Unknown Organization [facility] Address [address] [facility] [place] [address] Phone [phone] Care Team Providers Care Nitrating Acid Mixer Name Role Phone Kasia Jara MD Primary Care Provider [phone] Reason for Visit * Reason Onset Date Comments Advice 01/29/2023 Encounter Details Date Type Department Care Team Description 01/29/2023 Telephone Gynecology/Obstetrics [facility] [address] [place] [address] Brittanie Fitzgerald PA-C [address] [place] [address] Advice Allergies Active Allergy Reactions Severity Noted Date [...] by mouth in the morning. 0 Active The Consulting ConsortiumTouch Verio Flex System w/Device KitIndications:Gestat ional diabetes [...] and dinner) 125 Strip 6 12/02/2022 Active The Consulting ConsortiumTouch Delica Lancets 30GIndications:Gestat ional diabetes mellitus (GDM), [...] Active Labetalol HCl 100 MG Oral Tablet (Normodyne)Indication s:Chronic hypertension in Take 1 Tablet by mouth in the morning and 1 Tablet before bedtime. 60 Tablet 3 01/22/2023 Active documented as of this encounter (statuses [...] tonight 01/05/23--FBS are elevated- sent msg to OPTIMIZATION SPECIALIST 01/05/23: RPM elevated FBS; increase to Lantus 15 units at bedtime 01/11/23-- FBS elevated- msg sent to OPTIMIZATION SPECIALIST 01/11/23: RPM - elevated FBS - increase to Lantus 20 units at bedtime 01/21/23--FBS elevated- msg sent to OPTIMIZATION SPECIALIST 01/21/23: RPM - FBS elevated (100-120s); increase to Lantus 30 units at bedtime 01/25/23- FBS elevated msg sent to OPTIMIZATION SPECIALIST 01/25/23: RPM - elevated FBS; increase to Lantus 35 units at bedtime 02/01/23- FBS elevated msg sent to OPTIMIZATION SPECIALIST 02/01/23: RPM reviewed; FBS elevated. Increase to Lantus 45 units at bedtime. 02/04/23: RPM reviewed. Elevated FBS. Increase Lantus to 50 units at bedtime --KW 02/08/23: RPM Stable overall; FBS improving since last dose increase; few PP elevations Last Assessment & Plan: She states that her fasting values are elevated. We discussed a likely increase to her Lantus dose (values pending BANKRUPTCY ATTORNEY review). Supervision of high-risk , unsp ecified [...] encounter Miscellaneous Notes * Telephone Encounter - Usama Cleary MD - 01/29/2023 4:40 PM EDT Agree Thanks * Telephone Encounter - Jen Alexander LPN - 01/29/2023 4:12 PM EDT Images from the original note were not included. 21w5d Here for BP check. Started on Labetalol 100mg BID a week ago. Has been checking Bps at home, no readings above 140 or 90. Denies TEAGUE, visual changes, or RUQ pain. BP today 138/76. No protein in urine. She will be back in the office Wednesday for anatomy US if we need to repeat BP. Will call with any changes or concerns. Will review with Dr Garcia for any further recommendations. documented in this encounter Plan of Treatment Upcoming Encounters Date Type Specialty Care Team Description 02/19/2023 Office Visit Gynecology Obstetrics Brittanie Fitzgerald PA-C [address] [place] [address] 02/22/2023 Office Visit Maternal Medicine Seymour Zhao MD [address] [facility] [place] [address] 02/22/2023 Imaging Radiology 04/01/2023 Imaging Radiology 04/29/2023 [...] filedocumented as of this encounter Care Teams Nitrating Acid Mixer Relationship Specialty Start Date End Date Kasia Jara MD [address] [place] [address], [place] [address] PCP - General Internal Medicine 03/01/20 documented as of this encounter
--- OUTSIDE RECORDS SUMMARY | 2023-05-20 11:04 | External Medical Summary ---
Author Name Unknown Address Unknown Organization K01:LABORATORY [facility] [place] - [address] [facility] [place] [address] Laboratory Report Ordering Provider Test Date Status HAILY HOFF 02/19/2023 12:11:26 Final Observation Date Value Abnormality Reference (Units ) Status TSH 02/19/2023 12:11:26 1.85 0.27-4.20 (uIU/mL) Final Performing Location LABORATORY [facility] [place] - [address] [place] [address]
--- OUTSIDE RECORDS SUMMARY | 2023-05-20 11:04 | External Medical Summary ---
Author Name Unknown Address Unknown Organization K01:LABORATORY [place] [address] [place] [address] Laboratory Report Ordering Provider Test Date Status HAILY HOFF 02/19/2023 12:11:26 Final Observation Date Value Abnormality Reference (Units ) Status Creatinine 02/19/2023 12:11:26 0.4 Below low normal 0.5-1.0 (mg/dL) Final Glomerular filtration rate/1.73 sq M.predicted [Volume Rate/Area] in Serum, Plasma or Blood by Creatinine-based formula (CKD-EPI) 02/19/2023 12:11:26 >90 >=60 (mL/min) Final eGFR is calculated based on the CKD-EPI 2020 equation Performing Location LABORATORY [facility] [place] - [facility] [address] [place] [address]
--- OUTSIDE RECORDS SUMMARY | 2023-05-20 11:04 | External Medical Summary ---
Author Name Unknown Address Unknown Organization [id number]:[facility] [place] [address] [place] [address] [place] [address] Laboratory Report Ordering Provider Test Date Status HAILY HOFF 02/19/2023 12:11:26 Final Observation Date Value Abnormality Reference (Units ) Status Platelets 02/19/2023 12:11:26 443 Above high normal 14 0-400 (K/uL) Final Performing Location [facility] [place] [address] [place] [address] [address]
--- OUTSIDE RECORDS SUMMARY | 2023-05-20 11:04 | External Medical Summary | Summary of Care ---
Author Name Unknown Organization [facility] Address [address] [address] Phone [phone] Care Team Providers Care Site Surveyor Name Role Phone Kasia Jara MD Primary Care Provider [phone] Reason for Visit * Reason Comments Blood Pressure Check Encounter Details Date Type Department Care Team Description 01/29/2023 Nurse Only Gynecology/Obstetrics [facility] [address] [place] [address] Gw, Nurse Obgyn Injection [address] [place] [address] Blood Pressure Check Allergies Active Allergy Reactions Severity Noted Date Comments Amoxicillin 07/08/2014 hives Naltrexone Nausea/vomiting 05/03/2019 Penicillins 07/08/2014 Sulfamethoxazole-Trimethoprim 2014 hives documented as of this encounter (statuses as of 01/29/2023) Medications Medication Sig Dispensed Refills Start Date [...] by mouth in the morning. 0 Active Hardide CoatingsTouch Verio Flex System w/Device KitIndications:Gestat ional diabetes [...] and dinner) 125 Strip 6 12/02/2022 Active Hardide CoatingsTouch Delica Lancets 30GIndications:Gestat ional diabetes mellitus (GDM), [...] skin at bedtime. 15 mL 3 01/25/2023 Active documented as of this encounter (statuses as of 01/29/2023) Active Problems Problem Noted Date Chronic hypertension [...] assessment of proteinuria (24-hour urine protein or uqfvvqq-bd-gftedheehq ratio) and CBC, serum AST/ALT/creatinine. If patient [...] 12/07/22: MFM ADAPT consult complete. Enrolled in [facility]. Instructions provided to report blood [...] tonight 01/05/23--FBS are elevated- sent msg to MOBILE LAB TECHNICIAN 01/05/23: RPM elevated FBS; increase to Lantus 15 units at bedtime 01/11/23-- FBS elevated- msg sent to MOBILE LAB TECHNICIAN 01/11/23: RPM - elevated FBS - increase to Lantus 20 units at bedtime 01/21/23--FBS elevated- msg sent to MOBILE LAB TECHNICIAN 01/21/23: RPM - FBS elevated (100-120s); increase to Lantus 30 units at bedtime 01/25/23- FBS elevated msg sent to MOBILE LAB TECHNICIAN 01/25/23: RPM - elevated FBS; increase [...] Recommend nutrition consult with RDN (Registered Dietitian Restaurant Greeter). Lifestyle changes are also indicated including optimizing [...] as of this encounter (statuses as of 01/29/2023) Resolved Problems Problem Noted Date Resolved Date Impaired glucose in , antepartum 202212/02/2022 Overview: Elevated early 1 hr GTT documented as of this encounter (statuses as of 01/29/2023) Immunizations Name Administration Dates Next Due COVID-19 [...] Sign Reading Time Taken Comments Blood Pressure 138/76 01/29/2023 4:03 PM EDT Pulse - - Temperature - - Respiratory Rate - - Oxygen Saturation - - Inhaled Oxygen Concentration - - Weight - - Height - - Body Mass Index - - documented in this encounter Nursing Notes * Jen Alexander LPN - 01/29/2023 4:06 PM EDT 21w5d Here for BP check. Started on [...] Encounters Date Type Specialty Care Team Description 02/01/2023 Office Visit Maternal Medicine Federico Avalos, DO [address] [facility] [place] [address] 02/01/2023 Imaging Radiology 02/19/2023 Office Visit Gynecology Obstetrics Brittanie Fitzgerald PA-C [address] [place] [address] Health Maintenance Due Date Last Done Comments [...] Comments URINALYSIS, POINT OF CARE (ENTER/EDIT) Routine 01/29/2023 Chronic hypertension in documented in this encounter Results * URINALYSIS, POINT OF CARE (ENTER/EDIT) (01/29/2023) Color, Urine Yellow Yellow or Light Yellow Clarity, Urine Clear Clear Glucose, Urine Negative Negative mg/dL Bilirubin, Urine Negative Negative Ketone, Urine 15 Negative mg/dL Specific [place], Urine 1.030 1.003 - 1.030 Blood, Urine Negative Negative pH, Urine 7.0 5.0 - 7.5 units Protein, Urine Negative Negative mg/dL Urobilinogen, Urine 0.2 0.2 - 1.0 mg/dL Nitrite, Urine Negative Negative Esterase, Urine Negative Negative Urine 01/29/2023 Brittanie Fitzgerald PA-C LAB POINT OF CARE [facility] ENTER/EDIT ORDERABLES documented in this encounter Visit Diagnoses Diagnosis Depression complicating [...] care documented in this encounter Care Teams Site Surveyor Relationship Specialty Start Date End Date Kasia Jara MD [address] [place] [address] PCP - General Internal Medicine 03/01/20 documented as of this encounter
--- OUTSIDE RECORDS SUMMARY | 2023-05-20 11:04 | External Medical Summary ---
Author Name Unknown Address Unknown Organization [id number]:[facility] [place] [address] [facility] [address] Laboratory Report Ordering Provider Test Date Status HAILY HOFF 02/19/2023 12:11:26 Final Observation Date Value Abnormality Reference (Units ) Status Iron 02/19/2023 12:11:26 76 33-151 (ug/dL) Final Iron-binding capacity 02/19/2023 12:11:26 462 Above high normal 250-425 (ug/dL) Final Transferrin Sat % 02/19/2023 12:11:26 16 15-55 (%) Final Performing Location [facility] [place] [address] [facility] [address]
--- OUTSIDE RECORDS SUMMARY | 2023-05-20 11:04 | External Medical Summary ---
Author Name Unknown Address Unknown Organization [id number]:[facility] [place] [address] [place] [address] Laboratory Report Ordering Provider Test Date Status HAILY HOFF 02/19/2023 12:11:26 Final Observation Date Value Abnormality Reference (Units ) Status Folic Acid 02/19/2023 12:11:26 >20.0 >4.5 (ng/ mL) Final Performing Location [facility] [place] [facility] [address] [place] [address]
--- OUTSIDE RECORDS SUMMARY | 2023-05-20 11:05 | External Medical Summary | Summary of Care ---
Author Name Unknown Organization [facility] Address [address] [place] [address] Phone [phone] Care Team Providers Care Certified Hyperbaric Technologist Name Role Phone Kasia Jara MD Primary Care Provider [phone] Reason for Visit * Reason Comments Outpatient Testing Encounter Details Date Type Department Care Team Description 12/23/2022 Laboratory Laboratory, [facility] [address] [facility] [place] [address] [facility] [address] [facility] [address] Gestational diabetes mellitus (GDM), antepartum, gestational diabetes method of control unspecified Allergies Active Allergy Reactions Severity Noted Date Comments Amoxicillin 07/08/2014 hives Naltrexone Nausea/vomiting 05/03/2019 Penicillins 07/08/2014 Sulfamethoxazole-Trimethoprim 2014 hives documented as of this encounter (statuses as of 12/23/2022) Medications Medication Sig Dispensed Refills Start Date [...] by mouth in the morning. 0 Active uiuToOpenbay Verio Flex System w/Device KitIndications:Gestat ional diabetes mellitus (GDM), antepartum, gestational diabetes method of control unspecified Use to test blood sugars 4 times daily (fasting, 1 hour after breakfast, lunch, and dinner) 1 Kit 0 12/02/2022 Active uiuTouch Verio In Vitro Strip (Glucose Blood)Indications:Ges tational diabetes mellitus (GDM), antepartum, gestational diabetes method of control unspecified Use to test blood sugars 4 times daily (fasting, 1 hour after breakfast, lunch, and dinner) 125 Strip 6 12/02/2022 Active uiuTouch Delica Lancets 30GIndications:Gestat ional diabetes mellitus (GDM), antepartum, gestational diabetes method of control unspecified Use to test blood sugars 4 times daily (fasting, 1 hour after breakfast, lunch, and dinner) 200 Each 12/02/2022 Active documented as of this encounter (statuses as of 12/23/2022) Active Problems Problem Noted Date Chronic hypertension in 2022 Depression complicating , antep artum 12/07/2022 Overview: [...] to behavioral health services as clinically indicated. Gestational diabetes mellitus (GDM), ant epartum 12/02/2022 Overview: Diagnosed at 13 weeks Nutrition [...] MFM ADAPT consult complete. Enrolled in [facility]. Instructions provided to report blood sugars each week for MFM review. Reports she is having a bedtime snack but fasting 10-12 hours at night 12/14/22- elevated FBS - sent msg for ADAPT appt 12/21/22-- patient follow up scheduled for 12/24 for elevated FBS Last Assessment & Plan: CONSIDERATIONS: Reviewed etiology [...] Recommend nutrition consult with RDN (Registered Dietitian Veterinary Epidemiologist). Lifestyle changes are also indicated including optimizing [...] as of this encounter (statuses as of 12/23/2022) Resolved Problems Problem Noted Date Resolved Date Impaired glucose in , antepartum 07/11/ 2023 12/02/2022 Overview: Elevated early 1 hr GTT documented as of this encounter (statuses as of 12/23/2022) Immunizations Name Administration Dates Next Due COVID-19 mRNA, LNP-s, No Pre serve, 2-Dose Series (Moderna) 07/10/2020,06/07/2020 Covid-19 Mrna, Lnp-s, No Preserve, Booster (Mode rna) 03/18/2021 Seasonal Influenza, Quadriva lent, No Preserve, 6 Mons & Above, IM 03/17/2022,03/27/2021 Seasonal Influenza, Quadrivalent, No Preserve, I [...] Encounters Date Type Specialty Care Team Description 12/24/2022 Telemedicine Maternal Medicine Unique Mendoza CRNP [address] [place] [address] 01/04/2023 Office Visit Internal Medicine Kasia Jara MD [address] [facility], [place] [address] 01/22/2023 Office Visit Gynecology Obstetrics Brittanie Fitzgerald PA-C [address] [place] [address] 02/01/2023 Office Visit Maternal Medicine Federico Avalos, DO [address] [place] [address] 02/01/2023 Imaging Radiology Pending Results Name Type Priority Associated Diagnoses Date /Time HEMOGLOBIN A1C Lab Routine Gestational diabetes mellitus (GDM), antepartum, gestational diabetes method of control unspecified 12/23/2022 1:47 PM EDT Health Maintenance Due Date Last Done Comments Hepatitis B (1 of 3 - 3-dose series) 1985 COVID-19 Vaccine (4 - Modern a series) 05/13/2021 03/18/2021, 07/10/2020, 06/07/2020 Depression, Most Recent Scor e >= 10 (will fire each visit until score < 10) 05/27/2021 05/26/2021 Influenza Vaccine (FLU shot) (#1) 2023 03/17/2022, 03/27/2021, 02/06/2020 GFR 10/28/2023 10/27/2022, 07/10/2022, 08/28/2020 Diabetes Screening 07/10/2025 07/10/2022, 08/28/2020 Pap Smear 10/27/2025 10/27/2022, 10/22/2017, 10/22/2017 Cervical Cancer Screening 10/28/2027 HPV/Co-Test 10/28/2027 10/27/2022 DTaP,Tdap,and Td Vaccines (2 - Td or Tdap) 08/28/2030 08/28/2020 Hepatitis C Screening Completed 10/27/2022 , 10/27/2022, 10/27/2022 GARDASIL-HPV IMMUNIZATION SERIES Aged Out No longer eligible b ased on patient's age to complete this topic MENINGOCOCCAL (MENACTRA/MENVEO) Aged Out No longer eligible b ased on patient's age to complete this topic Pneumococcal Vaccine: Pediatrics (0 to 5 Years) and At-Risk Patients (6 to 64 Years) Aged Out No longer eligible b ased on patient's age to complete this topic documented as of this encounter Medical Devices Not on filedocumented as of this encounter Visit Diagnoses Diagnosis Gestational diabetes mellitus (GDM), antepartum, gestational diabetes method of control unspecified documented in this encounter Care Teams Certified Hyperbaric Technologist Relationship Specialty Start Date End Date Kasia Jara MD [address] [facility] [place] [address] PCP - General Internal Medicine 03/01/20 documented as of this encounter
--- OUTSIDE RECORDS SUMMARY | 2023-05-20 11:05 | External Medical Summary | Summary of Care ---
Author Name Unknown Organization [facility] Address [address] [place] [address] Phone [phone] Care Team Providers Care Veneer Patcher Name Role Phone Kasia Jara MD Primary Care Provider [phone] Encounter Details Date Type Department Care Team Description 01/11/2023 Orders Only Section Housekeeper Obstetrics Maternal Medicine, [place] [address] [address] Unique Mendoza CRNP [address] [place] [address] Supervision of high risk in second trimester; Insulin controlled gestational diabetes mellitus (GDM) in second trimester Allergies Active Allergy Reactions Severity Noted Date Comments Amoxicillin 07/08/2014 hives Naltrexone Nausea/vomiting 05/03/2019 Penicillins 07/08/2014 Sulfamethoxazole-Trimethoprim 2014 hives documented as of this encounter (statuses as of 01/11/2023) Medications Medication Sig Dispensed Refills Start Date [...] by mouth in the morning. 0 Active AnxaTouch Verio Flex System w/Device KitIndications:Ges tational diabetes [...] and dinner) 125 Strip 6 12/02/2022 Active AnxaTouch Delica Lancets 30GIndications:Ges tational diabetes mellitus (GDM), [...] diabetes mellitus (GDM) in second trimester Inject 20 units under skin at bedtime. 15 mL 3 01/11/2023 Active Insulin Glargine Solostar 100 UNIT/ML Subcutaneous Solution Pen-injector (Lantus SoloStar)Indicatio ns:Supervision of high risk in second trimester,Insulin controlled gestational diabetes mellitus (GDM) in second trimester Inject 15 units under skin at bedtime. 15 mL 3 01/05/2023 01/11/2023 Discontinued (Refill) documented as of this encounter (statuses as of 01/11/2023) Active Problems Problem Noted Date Chronic hypertension [...] assessment of proteinuria (24-hour urine protein or nzueaoe-fn-yosfrhtoxq ratio) and CBC, serum AST/ALT/creatinine. If patient [...] 12/07/22: MFM ADAPT consult complete. Enrolled in [employer]. Instructions provided to report blood sugars each [...] tonight 01/05/23--FBS are elevated- sent msg to [employer] 01/05/23: RPM elevated FBS; increase to Lantus 15 units at bedtime 01/11/23-- FBS elevated- msg sent to [employer] 01/11/23: RPM - elevated FBS - increase to Lantus 20 units at bedtime Last Assessment & Plan: [...] Recommend nutrition consult with RDN (Registered Dietitian Singing Telegram Performer). Lifestyle changes are also indicated including optimizing [...] as of this encounter (statuses as of 01/11/2023) Resolved Problems Problem Noted Date Resolved Date Impaired glucose in , antepartum 202212/02/2022 Overview: Elevated early 1 hr GTT documented as of this encounter (statuses as of 01/11/2023) Immunizations Name Administration Dates Next Due COVID-19 mRNA, LNP-s, No Pre serve, 2-Dose Series (Moderna) 07/10/2020,06/07/2020 Covid-19 Mrna, Lnp-s, No Preserve, Booster (Mode rna) 03/18/2021 Seasonal Influenza, PF, 6 mo ns & Above, IM , (Flulaval) 03/17/2022,03/27/2021 Seasonal Influenza, Quadrivalent, No Preserve, I [...] Encounters Date Type Specialty Care Team Description 01/22/2023 Office Visit Gynecology Obstetrics Brittanie Fitzgerald PA-C [address] [place] [address] 02/01/2023 Office Visit Maternal Medicine Federico Avalos, DO [address] [place] [address] 02/01/2023 Imaging Radiology Health Maintenance Due Date Last Done Comments Hepatitis B (1 of 3 - 3-dose series) 1985 COVID-19 Vaccine (4 - Modern a series) 05/13/2021 03/18/2021, 07/10/2020, 06/07/2020 Depression, Most Recent Scor e >= 10 (will fire each visit until score < 10) 05/27/2021 05/26/2021 Influenza Vaccine (FLU shot) (#1) 2023 03/17/2022, 03/27/2021, 02/06/2020 GFR 10/28/2023 10/27/2022, 07/10/2022, 08/28/2020 Pap Smear 10/27/2025 10/27/2022, 10/22/2017, 10/22/2017 Diabetes Screening 12/23/2025 12/23/2022, 07/10/2022, 08/28/2020 Cervical Cancer Screening 10/28/2027 HPV/Co-Test [...] trimester documented in this encounter Care Teams Veneer Patcher Relationship Specialty Start Date End Date Kasia Jara MD [address] [place] [address] PCP - General Internal Medicine 03/01/20 documented as of this encounter
--- OUTSIDE RECORDS SUMMARY | 2023-05-20 11:05 | External Medical Summary | Summary of Care ---
Author Name Unknown Organization [facility] Address [address] [place] [address] Phone [phone] Care Team Providers Care Bulk Plant Manager Name Role Phone Kasia Jara MD Primary Care Provider [phone] Reason for Visit * Reason Onset Date Comments Home Monitoring Orders Only 12/08/2022 Encounter Details Date Type Department Care Team Description 12/08/2022 Home Monitoring Care Coordination [address] [place] [address] Dee Dee Albarran, JHONATAN [address] [place] [address] Diet controlled gestational diabetes mellitus (GDM), antepartum* Allergies Active Allergy Reactions Severity Noted Date Comments Amoxicillin 07/08/2014 hives Naltrexone Nausea/vomiting 05/03/2019 Penicillins 07/08/2014 Sulfamethoxazole-Trimethoprim 2014 hives documented as of this encounter (statuses as of 12/08/2022) Medications Medication Sig Dispensed Refills Start Date [...] by mouth in the morning. 0 Active LUMObackTouch Verio Flex System w/Device KitIndications:Gestat ional diabetes mellitus (GDM), antepartum, gestational diabetes method of control unspecified Use to test blood sugars 4 times daily (fasting, 1 hour after breakfast, lunch, and dinner) 1 Kit 0 12/02/2022 Active LUMObackTouch Verio In Vitro Strip (Glucose Blood)Indications:Ges tational diabetes mellitus (GDM), antepartum, gestational diabetes method of control unspecified Use to test blood sugars 4 times daily (fasting, 1 hour after breakfast, lunch, and dinner) 125 Strip 6 12/02/2022 Active LUMObackTouch Delica Lancets 30GIndications:Gestat ional diabetes mellitus (GDM), antepartum, gestational diabetes method of control unspecified Use to test blood sugars 4 times daily (fasting, 1 hour after breakfast, lunch, and dinner) 200 Each 6 12/02/2022 Active documented as of this encounter (statuses as of 12/08/2022) Active Problems Problem Noted Date Depression complicating , antep artum 12/07/2022 Overview: [...] snack but fasting 10-12 hours at night Last Assessment & Plan: CONSIDERATIONS: Reviewed etiology [...] Recommend nutrition consult with RDN (Registered Dietitian Garnett Fixer). Lifestyle changes are also indicated including optimizing [...] as of this encounter (statuses as of 12/08/2022) Resolved Problems Problem Noted Date Resolved Date Impaired glucose in , antepartum 202212/02/2022 Overview: Elevated early 1 hr GTT documented as of this encounter (statuses as of 12/08/2022) Immunizations Name Administration Dates Next Due COVID-19 [...] as of this encounter Progress Notes * Vito Evans, [facility] Video Game Script Writer - 12/08/2022 9:29 AM EDT Patient has been successfully enrolled to the [id number] Diabetes Management in program. Standard alarm settings have been set as follows: Singular glucose level > 200 Singular glucose level < 60 Patient has been advised to take blood sugar four times a day (fasting upon waking, and one hour after each meal). Patient has been oriented to remote patient monitoring, assisted with initial device set-up, and provided with instruction and education regarding the program. Patient understands that this monitoring should not be used as a replacement for emergency and/or urgent care. If patient experiences any urgent symptoms, they are aware to call office/economics faculty member provider for additional instructions. In emergency situations, they will report directly to the ED for further evaluation. If you would like to customize the alert parameters and/or instructions for this patient, please let me know and we can have them changed documented in this encounter Plan of Treatment Upcoming Encounters Date Type Specialty Care Team Description 12/23/2022 Office Visit Gynecology Obstetrics Laura Lua CRNP [address] [place] [address] 01/04/2023 Office Visit Internal Medicine Kasia Jara MD [address] [place] [address] 02/01/2023 Office Visit Maternal Medicine Federico Avalos, DO [address] [place], [place] [id number] 02/01/2023 Imaging Radiology Health Maintenance Due Date Last Done Comments Hepatitis B (1 of 3 - 3-dose series) 1985 COVID-19 Vaccine (4 - Modern a series) 05/13/2021 03/18/2021, 07/10/2020, 06/07/2020 Depression, Most Recent Scor e >= 10 (will fire each visit until score < 10) 05/27/2021 05/26/2021 Influenza Vaccine (FLU shot) (#1) 2023 03/17/2022, 03/27/2021, 02/06/2020 Diabetes Screening 07/10/2025 07/10/2022, 08/28/2020 Pap Smear 10/28/2027 10/27/2022, 10/22/2017, 10/22/2017 DTaP,Tdap,and Td Vaccines (2 - Td or [...] as of this encounter Visit Diagnoses Diagnosis Diet controlled gestational diabetes mellitus (GDM), antepartum- Primary documented in this encounter Care Teams Bulk Plant Manager Relationship Specialty Start Date End Date Kasia Jara MD [address] [place] [address] PCP - General Internal Medicine 03/01/20 documented as of this encounter
--- OUTSIDE RECORDS SUMMARY | 2023-05-20 11:05 | External Medical Summary | Summary of Care ---
Author Name Unknown Organization [facility] Address [address] [place] [address] Phone [phone] Care Team Providers Care Senior Java Programmer Name Role Phone Kasia Jara MD Primary Care Provider [phone] Reason for Referral * Evaluate & Treat - Unlimited Visits (Within 3 days (urgent)) - Authorized Specialty Diagnoses / Procedures Referred By Contac t Referred To Contact Recreational Therapist Diagnoses Diet controlled gestational diabetes mellitus (GDM), antepartum Dee Dee Albarran CRNP [address] [address] Referral ID Status Reason Start Date Expiration Date Visits Requested Visits Authorized [id number] Authorized Specialty Services Required 12/07/2022 1 1 Question Answer Referral Priority Within 3 days (urgent) Program Type Chronic Disease Management Chronic Disease Management Diabetes in Alarm Settings Standard per protocol Comments Has OneTouch Verio meter Reason for Visit * Reason Comments Consultation High risk * Evaluate & Treat - Unlimited Visits (Within 10 days (routine)) - Authorized Specialty Diagnoses / Procedures Referred By Contac t Referred To Contact Obstetrics/Gynecology / Maternal Medicine Diagnoses Gestational diabetes mellitus (GDM), antepartum, gestational diabetes method of control unspecified Dannie, JHONATAN Chin [address] [place] [address] Referral ID Status Reason Start Date Expiration Date Visits Requested Visits Authorized [id number] Authorized Specialty Services Required 12/02/[phone] Encounter Details Date Type Department Care Team Description 12/07/2022 Telemedicine Inspector Boiler Obstetrics Maternal Medicine, [place] 190 [facility] [address] [place] [address] Dee Dee Albarran, EQUIPMENT COORDINATOR 190 [facility] [address] [place] [address] Diet controlled gestational diabetes mellitus (GDM), antepartum*; Obesity in , antepartum; Depression complicating , antepartum; Multigravida of advanced maternal age in second trimester; Supervision of high risk , antepartum, second trimester; 14 weeks gestation of Allergies Active Allergy Reactions Severity Noted Date Comments Amoxicillin 07/08/2014 hives Naltrexone Nausea/vomiting 05/03/2019 Penicillins 07/08/2014 Sulfamethoxazole-Trimethoprim 2014 hives documented as of this encounter (statuses as of 12/07/2022) Medications Medication Sig Dispensed Refills Start Date [...] by mouth in the morning. 0 Active Maxim Athleticio Flex System w/Device KitIndications:Gestat ional diabetes mellitus (GDM), antepartum, gestational diabetes method of control unspecified Use to test blood sugars 4 times daily (fasting, 1 hour after breakfast, lunch, and dinner) 1 Kit 0 12/02/2022 Active Maxim Athleticio In Vitro Strip (Glucose Blood)Indications:Ges tational diabetes mellitus (GDM), antepartum, gestational diabetes method of control unspecified Use to test blood sugars 4 times daily (fasting, 1 hour after breakfast, lunch, and dinner) 125 Strip 6 12/02/2022 Active OneToedmundo Girard Lancets 30GIndications:Gestat ional diabetes mellitus (GDM), antepartum, gestational diabetes method of control unspecified Use to test blood sugars 4 times daily (fasting, 1 hour after breakfast, lunch, and dinner) 200 Each 6 12/02/2022 Active documented as of this encounter (statuses as of 12/07/2022) Active Problems Problem Noted Date Depression complicating [...] Recommend nutrition consult with RDN (Registered Dietitian Freight Engineer). Lifestyle changes are also indicated including optimizing [...] as of this encounter (statuses as of 12/07/2022) Resolved Problems Problem Noted Date Resolved Date Impaired glucose in , antepartum 202212/02/2022 Overview: Elevated early 1 hr GTT documented as of this encounter (statuses as of 12/07/2022) Immunizations Name Administration Dates Next Due COVID-19 [...] as of this encounter Progress Notes * JHONATAN Moran - 12/07/2022 2:15 PM EDT MATERNAL MEDICINE CONSULT Bety Mullen 12/07/22 REFERRING PROVIDER: JHONATAN Zamora Patient location: HOME. I was in a hospital or clinic location. After connecting through [employer],patient was verified with two unique identifiers. Patient (or authorized legal advertising account representative) was then informed that this was a Telemedicine visit and being conducted confidentially over secure lines. Methods to assure confidentiality were taken. Patient acknowledged consent and understanding of pr ivacy and security of the Telemedicine visit. The patient agreed to participate. Bety Mullen is a 37 year old with intrauterine at 14w1d (Estimated Date of Delivery: 06/06/23 by exact LMP) who presents today for an MFM consult due to obesity, advanced maternalage, anxiety/depression managed with Zoloft and early onset of gestational diabetes. HPI/CURRENT : pre- BMI=class 3 obesity (136.4 kg (300 lb 12.8 oz); 5' 4"); FOB #1; complicated by above. Genetic testing: Low Risk Cell Free DNA [facility] [place] Problems (from 10/26/22 to present) Problem Noted Resolved Depression complicating , antepartum Overview Addendum 12/07/2022 1:54 PM by JHONATAN Moran Anxiety/depression managed with Zoloft No currently in therapy Reports a stable mood in . Denies any suicidal or homicidal ideation. Reports she has a good support system at home. Gestational diabetes mellitus (GDM), antepartum Overview Addendum 12/07/2022 2:10 PM by JHONATAN Moran Diagnosed at 13 weeks Nutrition consult ordered [...] snack but fasting 10-12 hours at night Supervision of high-risk , unspecified trimester Obesity in , antepartum Overview Addendum 12/07/2022 1:49 PM by JHONATAN Moran Pregravid BMI 51.61 Lab Results Component Value [...] 10/27/22 140/80 Encouarged aspirin 81 mg therapy AMA (advanced maternal age) multigravida 35+ Overview Signed 12/07/2022 8:02 AM by JHONATAN Moran 11/24/22 low risk Qnatal I have reviewed this patient's previous OB ultrasound reports, pertinent labwork and testing provided by her referring OB provider. Current Outpatient Medications Medication Sig Dispense Refill Calcium Carbonate Antacid 500 MG Oral Tablet Chewable Take 1 Tablet by mouth in the morning. Folic Acid 400 MCG Oral Tablet Take 1 Tablet by mouth in the morning. One-A-Day Womens 28-0.8 & 440 MG Oral Take 1 Tablet by mouth in the morning. Monkey BiznessTouch Delica Lancets 30G Use to test blood sugars 4 times daily (fasting, 1 hour after breakfast, lunch, and dinner) 200 Each 6 Monkey BiznessTouch Verio Flex System w/Device Kit Use to test blood sugars 4 times daily (fasting, 1 hourafter breakfast, lunch, and dinner) 1 Kit 0 OneTouch Verio In Vitro Strip (Glucose Blood) Use to test blood sugars 4 times daily (fasting, 1 hour after breakfast, lunch, and dinner) 125 Strip 6 DHA 200 MG Oral Capsule (docosahexaenoic Acid) Take 1 Capsule by mouth in the morning. Sertraline HCl 50 MG Oral Tablet (Zoloft) Take 1 Tablet by mouth in the morning. 30 Tablet 5 Tylenol 325 MG Oral Capsule (Acetaminophen) Take by mouth as needed. No current facility-administered medications for this visit. Review of patient's allergies indicates: Allergen Reactions Amoxicillin hives Naltrexone Nausea/vomiting Penicillins Septra [Sulfamethoxazole-Trimethoprim] hives OB History Para Term AB Living 2 0 0 0 1 0 SAB IAB Ectopic Multiple Live Births 1 0 0 0 0 # Outcome Date GA Lbr Luis/2nd Weight Sex Delivery Anes PTL Lv 2 Current 1 SAB 07/2022 AB, SP, 1 Obstetric Comments 2022 #1 Micah Urbano, age 30, anxiety/depression, no other children Past Medical History: Diagnosis Date Anxiety and depression Back pain Gestational diabetes mellitus (GDM), antepartum 12/02/2022 Past Surgical History: Procedure Laterality Date DENTAL SURGERY PROCEDURE NEC SACROILIAC JOINT INJECT W/GUIDANCE 05/29/2019 INJECTION SACROILIAC JOINT performed by Cain Hendrickson, at [facility] SACROILIAC JOINT INJECT W/GUIDANCE 12/07/2019 INJECTION SACROILIAC JOINT performed by Cain Hendrickson, DO at [facility] Family History Problem Relation Age of Onset Diabetes Mother Other (diverticulitis) Mother Other (blader cancer) Mother 78 Kidney disease Mother Cancer Father poss lung ca Other (multiple myeloma) Grandfather (Maternal) Stroke Grandmother (Paternal) Social History Tobacco Use Smoking status: Never Smokeless tobacco: Never Vaping Use Vaping Use: Never used Substance Use Topics Alcohol use: Not Currently Comment: 2-4 drinks per month Drug use: No REVIEW OF SYSTEMS: headaches: no nausea/vomiting: denies reports movement: n/a abdominal pain/tenderness/cramping/contractions: no vaginal bleeding: no vaginal leaking of fluid: no all other systems negative PHYSICAL EXAM: LMP 08/30/2022 (Exact Date) General: Well appearing Psych: Alert to time, place, and person and Ple[place] DISCUSSION/RECOMMENDATIONS: Problem List Items Addressed This Visit [facility] [place] AMA (advanced maternal age) multigravida 35+ CONSIDERATIONS: We reviewed the most pertinent aspects of the following: Advanced maternal age (AMA) refers to a woman with a callejas who will be at the ageof 35 or older at the estimated time of delivery and may be associated with increased morbidity. Prior to the appointment the patient has had genetic screening and it was reported as low risk. In addition to the risk of chromosomal abnormalities, there is an increased risk of congenital/structural anomalies. RECOMMENDATIONS: Recommend MFM anatomy ultrasound at 19-20 weeks gestation.. Depression complicating , antepartum CONSIDERATIONS: Untreated maternal anxiety and depression may [...] as clinically indicated. Gestational diabetes mellitus (GDM), antepartum - Primary CONSIDERATIONS: Reviewed etiology and risks associated with [...] Recommend nutrition consult with RDN (Registered Dietitian Freight Engineer). Lifestyle changes arealso indicated including optimizing gestational weight gain and physical activity of 30 minutes perday, if not otherwise contraindicated in . Insulin [...] will diagnose with overt Type 2 DM andtreat as pre-existing diabetes. If compliance later in [...] with 75-gram glucose load 6-8 weeks . Relevant Orders REMOTE PATIENT MONITORING REFERRAL Obesity in , antepartum CONSIDERATIONS: Discussed obstetrical risks associated with class III obesity (pre- BMI of greater thanor equal to 40) Reviewed that the accuracy [...] anatomy at 20 weeks and for growth every4 weeks thereafter. For patients with Class 3 obesity, we recommend baseline preeclamptic labs with CBC, serum AST/ALT/creatinine and 24 hour urine protein BELIA if not already done. For patients with Class 3 obesity, we recommend weekly surveillance starting at 34 weeks and delivery by EDC. Recommend anesthesia consult during the antepartum period. Other Visit Diagnoses Supervision of high risk , antepartum, second trimester 14 weeks gestation of Follow up ultrasound with Maternal Medicine is scheduled on 02/01/[address] Avalos for anatomyscan secondary to obesity, advanced maternal age, anxiety/depression managed with Zoloft and early onset of gestational diabetes. Patient is aware of upcoming MFM appointment. JHONATAN Moran 12/07/2022 2:27 PM documented in this encounter Miscellaneous Notes * Assessment & Plan Note - JHONATAN Moran - 12/07/2022 2:10 PM EDT Associated Problem(s): Gestational diabetes mellitus (GDM), antepartum CONSIDERATIONS: Reviewed etiology and risks associated with [...] Recommend nutrition consult with RDN (Registered Dietitian Freight Engineer). Lifestyle changes arealso indicated including optimizing gestational weight gain and physical activity of 30 minutes perday, if not otherwise contraindicated in . Insulin [...] will diagnose with overt Type 2 DM andtreat as pre-existing diabetes. If compliance later in [...] with 75-gram glucose load 6-8 weeks . * Pt Handout (on AVS) - JHONATAN Moran - 12/07/2022 2:01 PM EDT Images from the original note were not included. [id number] What Is Gestational Diabetes? Diabetes is when your body doesn?t use blood sugar normally. Gestational diabetes happens only in . When food is digested, it turns into sugar (glucose) that goes into your bloodstream. Yourbody sends out insulin. This is a hormone that helps your cells use this blood sugar for energy. Changes in your body during may affect this process. This can cause your blood sugar to be too high. This can cause problems for both you and your baby. You can take steps to control your blood sugar. This will help reduce the risks for you and your baby. Managing gestational diabetes You need to control your blood sugar while you are . Your healthcare team will help you make a plan to do this. This plan will include: Eating the right foods. This is the main way to control your blood sugar. You need to eat a variety of healthy foods each day. To help you plan changes in your diet, you will likely work with a registered dietitian. This is an expert on food and nutrition. The dietitian may have you take part dionne nutrition program to helps you reach your goals. Getting exercise. Your body uses more blood sugar when you exercise. Your healthcare team can help you pick the best kinds of exercise for you. Checking your blood sugar. You will likely need to check your blood sugar at home. You will do this 2 or more times a day. Your healthcare team will teach you how. They will talk with you about your blood sugar goals. Your blood sugar may also be tested every week or so at a clinic. If your blood sugar stays too high, you may need to have insulin shots during your . Risks to your baby If your blood sugar stays high, your baby is at risk for these problems: Your baby may grow too large. If your blood sugar stays too high, your baby may grow too large. This is called macrosomia. This means a baby is too big for a safe vaginal . A large baby may get their shoulder stuck behind the pubic bone during . This is called shoulder dystocia. The baby's arms and shoulders could be injured. This may cause permanent arm damage. The baby may also have low oxygen levels (hypoxia) while they are stuck. Hypoxia can lead to cerebral palsy. In rare cases, it can lead to . Your baby?s organs may not be fully grown at . If you have diabetes, your baby may need to be delivered early. This may be because of problems with the . Or it may be because of risks to you or your baby. If your baby is delivered early, their lungs may not work well. This is called respiratory distress syndrome (RDS). Your baby's liver also may not work normally. And your baby may have yellow color in their skin and eyes (jaundice) after . Your baby?s blood sugar may be low after . If your blood sugar is too high, your baby makesextra insulin. The baby will keep making extra insulin right after . Your baby may need to be treated for low blood sugar. Your baby could be stillborn. This is very rare. But your baby could before if your blood sugar stays high for too long. Risks to you If you don?t control your blood sugar, you are more likely to have: High blood pressure. High blood sugar makes you more likely to have high blood pressure during your . This is a danger to your health. It could lead to early delivery for your baby. Infections. High blood sugar makes you more likely to have bladder, kidney, and vaginal infections. Trouble breathing. You may feel short of breath. High blood sugar can cause too much fluid around the baby. This is called polyhydramnios. Your abdomen gets big and pushes up on your lungs. Difficult labor. Your delivery may be harder. And your recovery may take longer. If your blood sugar stays too high, your baby may grow too large. A large baby might cause injury to you during . Or the baby may have to be delivered by section (). This means making a cut (incision) in your abdomen and uterus. A is a common risk of gestational diabetes. Reduce your future risk for type 2 diabetes Women who have gestational diabetes are at higher risk of type 2 diabetes later. You are also at higher risk for gestational diabetes in your next . You can help reduce your risk in these ways: Lose excess weight. Be as active as you can. Eat more fruits and vegetables. Eat fewer processed foods. Get regular blood tests to check for diabetes. Who is at risk for gestational diabetes? You're more at risk if you: Are overweight Have a family history of diabetes Have had a baby who before Had gestational diabetes in the past Are , , , [place] or [place] , or How daily issues affect your health Many things in your daily life impact your health. This can include transportation, money problems,housing, access to food, and childcare center administrator. If you can?t get to medical appointments, you may not receive the care you need. When money is tight, it may be difficult to pay for medicines. And living farfrom a grocery store can make it hard to buy healthy food. If you have concerns in any of these or other areas, talk with your healthcare team. They may know of local resources to assist you. Or they may have a staff person who can help. Last Reviewed Date: 02/14/202119996183-8215 [employer]. All rights reserved. This information is not intended as a substitute for professional medical care. Always follow your healthcare professional's instructions. * Pt Handout (on AVS) - JHONATAN Moran - 12/07/2022 2:01 PM EDT Images from the original note were not included. [id number] Healthy Meals for Diabetes Ask your healthcare team to help you make a meal plan that fits your needs. Your meal plan tells you when to eat your meals and snacks, what kinds of foods to eat, and how much of each food to eat. You don?t have to give up all the foods you like. But you do need to follow some guidelines. A healthcare provider will help you develop a meal plan that fits your needs. Choose healthy carbohydrates Starches, sugars, and fiber are all types of carbohydrates (carbs). Carbs can get a bad reputation,especially since they affect your blood sugar. But your body benefits from the right amount of healthy carbs. Fiber can help lower your cholesterol and triglycerides. Fiber is also healthy for your heart. You should have 20 to 35 grams of total fiber each day. Fiber comes from plants. Fiber-rich foods include: Whole-grain breads and cereals Nuts Brown rice and quinoa Whole-wheat pasta Fruits and vegetables Beans and peas Keep track of the amount of carbs you eat. This can help you keep the right balance of physical activity and medicine. The amount of carbs needed will vary for each person. It depends on many things such as your health, the medicines you take, and how active you are. Your healthcare team will help you figure out the right amount of carbs for you. You may start with around 45 to 60 grams of carbs per meal, depending on your situation. Here are some examples of foods containing about 15 grams of carbs (1 serving of carbs): 1/2 cup of canned or frozen fruit A small piece of fresh fruit (4 ounces) 1 slice of bread 1/2 cup of oatmeal 1/3 cup of rice 4 to 6 crackers 1/2 Dominican muffin 1/2 cup of black beans 1/4 of a large baked potato (3 ounces) 2/3 cup of plain fat-free yogurt 1 cup of soup 1/2 cup of casserole 6 chicken nuggets [id number] brownie or cake without frosting 2 small cookies 1/2 cup of ice cream or sherbet Choose healthy protein foods Proteins plays a calderón role in building healthy muscles, bones, skin, and many other parts of your body. Eating protein that's low in fat can help you control your weight. It also helps keep your hearthealthy. Low-fat protein foods include: Fish Plant proteins, such as lentils, beans, peas, nuts, and soy products like tofu and soymilk Lean meat with all visible fat removed Poultry with the skin removed Low-fat or nonfat milk, cheese, and yogurt Limit unhealthy fats and sugar Saturated and trans fats are unhealthy for your heart. They raise LDL ("bad") cholesterol. Fat is also high in calories, so it can make you gain weight. To cut down on unhealthy fats and sugar, limitthese foods: Butter or margarine Palm and palm kernel oils and coconut oil Cream Cheese Chand Lunch meats Ice cream Sweet bakery goods such as pies, muffins, and donuts Jams and jellies Candy bars Regular sodas How much to eat The amount of food you eat affects your blood sugar. It also affects your weight. Your healthcare team will tell you how much of each type of food you should eat. Use measuring cups and spoons and a food scale to measure serving sizes. Learn what a correct serving size looks like on your plate. This will help when you're away fromhome and can?t measure your servings. For instance, a serving of meat is about the size of the palmof your hand. Eat only the number of servings given on your meal plan for each food. Don?t take seconds. Learn to read food labels. Be sure to look at serving size, total carbohydrates, fiber, calories, sugar, salt, and saturated and trans fats. Look for healthier options to foods that have added sugar or salt. Plan ahead for parties. Then you can still have a good time without going overboard with unhealthy food choices. Set a good example yourself by bringing a healthy dish to pot [employer]. Choose healthy snacks When it comes to snacks, we often think about foods with added sugar and fats. But there are many other options for healthier snack choices. Here are a few snack ideas to choose from: Snacks with less than 5 grams of carbohydrates 1 piece of string cheese 3 celery sticks plus 1 tablespoon of peanut butter 5 shaw tomatoes plus 1 tablespoon of ranch dressing 1 hard-boiled egg 1/4 cup of fresh blueberries 5 baby carrots 1 cup of light popcorn 1/2 cup of sugar-free gelatin 15 almonds Snacks with about 10 to 20 grams of carbohydrates 1/3 cup of hummus plus 1 cup of fresh cut nonstarchy vegetables (carrots, green peppers, broccoli, celery, or a mix) 1/2 cup of fresh or canned fruit plus 1/4 cup of cottage cheese 1/2 cup of tuna salad with 4 crackers 2 rice cakes and a tablespoon of peanut butter 1 small apple or orange 3 cups light popcorn 1/2 of a turkey sandwich (1 slice of whole-wheat bread, 2 ounces of turkey, and mustard) Portion sizes are important to controlling your blood sugar and staying at a healthy weight. Stock up on healthy snack items so you always have them on hand. When to eat Your meal plan will likely include breakfast, lunch, dinner, and some snacks. Try to eat your meals and snacks at about the same times each day. Eat all your meals and snacks. Skipping a meal or snack can make your blood sugar drop too low. It can also cause you to eat too much at the next meal or snack. Then your blood sugar could get toohigh. Last Reviewed Date: 04/16/202119999095-4626 [employer]. All rights reserved. This information is not intended as a substitute for professional medical care. Always follow your healthcare professional's instructions. * Pt Handout (on AVS) - JHONATAN Moran - 12/07/2022 2:01 PM EDT Images from the original note were not included. [id number] If You Need Extra Insulin During During , your body may not be able to make enough insulin to control your blood sugar. If this happens, you may need extra insulin. This will help control your blood sugar. In some cases, anoral antidiabetic medicine may be used. An example of this is glyburide. But insulin is used most often. Insulin is a natural substance. It is not addictive. It does not harm your baby. It does not cross the placenta. That means it does not affect your baby the way taking a pill would. If you did not have diabetes before , you will likely stop taking insulin after your baby is born. Learning to use insulin Your healthcare provider will prescribe your insulin. They will teach you how to give yourself a shot. With practice, you?ll get comfortable doing it. You will need to inject it 1 or more times a day. Insulin is injected into fatty tissue. The best site for a shot of insulin is in your belly area. But you can also do the shot in your upper arm or thigh. Talk with your healthcare provider about where to give the shot. Here are some steps to follow: Choose an injection site. Clean it with alcohol if the skin is dirty. Pinch a fold of skin. Insert the needle at a steep angle. The best angle will depend on your body type, the length of the needle, and where you put the shot. Your healthcare provider will help youfind the best angle. Keeping the skin pinched, push the plunger down. This injects the insulin. Release the pinched skin. Remove the needle from your skin. If you see blood or insulin leaking from your skin, press firmly on the site for 5 to 8 seconds. Don?t rub your skin in the area. [place] and syringes should be used only 1 time. After using, throw them away in a puncture-proof container. This is known as a sharps container. Don?t throw needles in your household trash. Talk to your healthcare provider if you have any questions or concerns about taking insulin. The best site for injecting insulin is your abdomen. But you can also inject into an upper arm or thigh. Talk with your health care provider about where to give yourself a shot. Finding the right dose for you Your healthcare provider will work with you to find the right dose of insulin for you. It may take time. This is because you need to balance your insulin with your food and exercise. And your body needs more insulin as your baby grows. You must check your blood sugar several times a day. This is to be sure your insulin is working. Ifyour blood sugar is too high or too low, your healthcare provider will adjust your dose. Low blood sugar Taking insulin puts you at risk of low blood sugar. Symptoms of low blood sugar include: Shakiness Dizziness Weakness Confusion If you feel any of these symptoms, check your blood sugar right away. Always treat low blood sugar quickly. To do this, eat 15 grams of fast-acting sugar, such as: 3 glucose tablets 5 to 6 pieces of hard candy 1 to 2 tablespoons of honey or sugar cup fruit juice or regular, nondiet soda 1 cup fat-free milk Then check your blood sugar again in 15 minutes. If your blood sugar is still low, eat another 15 grams of sugar. If your blood sugar does not return to the target range in 30 minutes, call your healthcare provider. Last Reviewed Date: 04/16/202219995908-1077 [employer]. All rights reserved. This information is not intended as a substitute for professional medical care. Always follow your healthcare professional's instructions. * Pt Handout (on AVS) - JHONATAN Moran - 12/07/2022 2:01 PM EDT Images from the original note were not included. Managing Gestational Diabetes - Video Being diagnosed with gestational diabetes can be stressful. But with proper care and management, you can stay healthy and deliver a healthy baby. In many cases, gestational diabetes goes away on its own after the mother gives . To view the video go to this web address: [email or web address] Or, scan this QR code with your smart phone [email or web address]. * Pt Handout (on AVS) - JHONATAN Moran - 12/07/2022 2:01 PM EDT 40689 Understanding Blood Sugar During Gestational diabetes causes high blood sugar levels during . You are at risk of developing, or perhaps have already developed, gestational diabetes. Controlling your blood sugar can help prevent problems for you and your baby. Your body turns food into blood sugar As food is digested, it turns into sugar (glucose), a fuel that feeds your body. This sugar goes into your bloodstream. Your body then releases a substance called insulin to help your body use blood sugar correctly. Blood sugar goes to your baby The placenta is where nutrients in your blood are exchanged with your baby?s blood. Your blood sugar goes to your baby from the placenta through the umbilical cord. Your baby uses this sugar to grow. Too much blood sugar affects you and your baby During , the placenta makes hormones that can disrupt the way your body uses insulin. If your body can?t use insulin correctly, your blood sugar level gets too high. Then too much blood sugar goes to your baby. This can cause problems for both you and your baby. Controlling your blood sugar helps prevent problems You can lower your blood sugar by eating right, exercising, and taking medicines that your healthcare provider prescribes to control your blood sugar. If you keep your blood sugar in control, the risks to you and your baby are the same as those for a normal . Last Reviewed Date: 11/14/202019999852-7220 [employer]. All rights reserved. This information is not intended as a substitute for professional medical care. Always follow your healthcare professional's instructions. * Pt Handout (on AVS) - JHONATAN Moran - 12/07/2022 2:01 PM EDT Images from the original note were not included. 40945 Understanding Carbohydrates A car needs the right type of fuel to run. And you need the right kind of food to function. To keepyour energy level up, your body needs food that has carbohydrates (carbs). But carbs raise blood sugar levels higher and faster than other kinds of food. Your dietitian will work with you to figure out the amount of carbs you need. Carbs come in 3 types: starches, sugars, and fiber. Starches Starches are found in grains, some vegetables, and beans. Grain products include bread, pasta, cereal, and tortillas. Starchy vegetables include potatoes, peas, corn, trotter beans, yams, and squash. Kidney beans, pedersen beans, black beans, garbanzo beans, and lentils also have starches. Sugars Sugars are found naturally in many foods. Or they can be added. Foods that contain natural sugar include fruits and fruit juices, dairy products, honey, and molasses. Added sugars are found in most desserts, processed foods, candy, regular soda, and fruit drinks. These are very helpful to treat lowblood sugar (hypoglycemia). They give you sugar quickly. Try to keep at least 15 to 20 grams of these simple sugars with you at all times. Eat or drink these if you start to have symptoms of low blood sugar. Fiber Fiber comes from plant foods. Your body can't digest most fiber. Instead of raising blood sugar levels like other carbs, fiber stops blood sugar from rising too fast. Fiber is found in fruits, vegetables, whole grains, beans, peas, and many nuts. Carb counting Keep track of the amount of carbs you eat. This can help you keep the right balance of carbs, physical activity, and medicine. The amount of carbs you need will be different from what other people need. How much you need depends on many things. These include your health, the medicines you take, andhow active you are. Your healthcare team will help you figure out the right amount of carbs for you. You may start with 45 to 60 grams of carbs per meal, depending on your case. Carb counting is a system that helps you keep track of the carbohydrates you eat at each meal. Carbs come from many foods. These include grains, starchy vegetables, fruit, milk, beans, and snackfoods. You can either count carbohydrate grams or carbohydrate servings. When you count carbohydrate servings, 1 carbohydrate serving = 15 grams of carbohydrates. Here are some examples of foods that have about 15 grams of carbs (1 serving of carbohydrates): 1/2 cup of canned or frozen fruit A small piece of fresh fruit (4 ounces) 1 slice of bread 1/2 cup of oatmeal 1/3 cup of rice 4 to 6 crackers 1/2 Dominican muffin 1/2 cup of black beans 1/4 of a large baked potato (3 ounces) 2/3 cup of plain fat-free yogurt 1 cup of soup 1/2 cup of casserole 6 chicken nuggets [id number] brownie or cake without frosting 2 small cookies 1/2 cup of ice cream or sherbet Carb counting is easier when food labels are available. Look at the label to see how many grams of total carbs per serving the food contains. Then you can figure out how much you should eat. If your food doesn't have a nutrition label, you should be able to get an idea how many carbs there are per serving by using a book or website. Two very important lines to look at on the label are the serving size and the total carbohydrate amount per serving. Here are some tips for using food labels to count your carbs: Check the serving size. The information on the label is based on that serving size. If you eat more than the listed serving size, you may have to double or triple the other information on the label. Check the total grams of carbs. Total carbohydrate from the label includes sugar, starch, and fiber. Be sure to use the total carbohydrate number (minus the fiber) and not sugar alone. Know how many grams of carbs you can have. Be familiar with the matching portion sizes. Compare labels. Compare the labels of different products. Look at serving sizes and total carbs to find the products that work best for you. Don't forget protein and fat. With the focus on carb counting, it might be easy to forget protein and fat in your meals. Don't forget to include sources of protein and healthy fat to balance your meals. Also watch how much salt (sodium) you eat. This is especially true if you have high blood pressure. If you have diabetes, limit the amount of sodium to less than 2,300 mg a day. It?s also important to be consistent with the amount of carbs and time you eat when taking a fixed dose of diabetes medicine. Work with your healthcare provider or dietitian if you need more help. They can help you keep track of your carbs. They can also help you figure out how many grams of carbs you should have. Last Reviewed Date: 04/16/202119998666-9136 [employer]. All rights reserved. This information is not intended as a substitute for professional medical care. Always follow your healthcare professional's instructions. * Pt Handout (on AVS) - JHONATAN Moran - 12/07/2022 2:01 PM EDT Images from the original note were not included. Basics for the Diabetic Diet - Video Can patients with diabetes consume sugar without making their blood glucose skyrocket? Dr. Rommel Kim explains how. To view the video go to this web address: [email or web address] Or, scan this QR code with your smart phone [employer]. All rights reserved. This information is not intended as a substitute for professional medical care. Always follow your healthcare professional's instructions. * Pt Handout (on AVS) - JHONATAN Moran - 12/07/2022 2:01 PM EDT Images from the original note were not included. 99944 Gestational Diabetes: After Your blood sugar will most likely return to normal after delivery. But gestational diabetes is a warning sign that you are at risk of getting diabetes later in life. You?re also more likely to have gestational diabetes with your next . But you can take steps to reduce these risks. Taking care of yourself Even if your blood sugar goes back to normal, you still need to take care of yourself. This will help prevent diabetes later in life. You'll need to: Keep your weight down. Eating food that is low in fat and sugar can help you control your weight. If you?re overweight, your risk of getting diabetes in 10 to 15 years more than doubles. Keeping your weight down also reduces your risk of gestational diabetes in your next . Get regular exercise. Exercise helps lower your blood sugar. It can also help you control your weight. Try to work up to at least 150 to 300 minutes of moderate exercise every week. This is at least 30 minutes each day. Have your blood sugar checked. Make an appointment to have your blood sugar checked 6 to 8 weeksafter delivery. If your blood sugar is still high, you may have type 2 diabetes. Your healthcare provider will tell you more about how to manage diabetes long-term. Have regular diabetes screenings. Have blood tests every year, or as often as your healthcare provider advises. Breastmilk is the best food for your baby. Giving only breastmilk is advised for at least your baby's first 6 months. may also help lower your blood sugar. Your healthcare provider can show you how to breastfeed. Be sure to eat healthy foods and drink extra water while you?re . You may find exercise easier right after . This is when your breasts may feel data typist. Planning a future Your blood sugar needs to be back to normal before you get again. Have your blood sugar checked before you plan your next . And remember that it?s possible to get again soon after you give . Talk with your healthcare provider about the best method of control for you and your partner. Last Reviewed Date: 06/17/202119994394-1392 [employer]. All rights reserved. This information is not intended as a substitute for professional medical care. Always follow your healthcare professional's instructions. * Pt Handout (on AVS) - JHONATAN Moran - 12/07/2022 2:01 PM EDT Images from the original note were not included. 86130 Gestational Diabetes: Exercise Exercise can help you keep your blood sugar in a normal range. That?s because your body uses more blood sugar when you exercise. Diabetes in can often be managed with careful nutrition and exercise alone. Then you may not need medicine to control your blood sugar. Exercise regularly Your healthcare provider may want you to exercise each day. The best time depends on when your blood sugar is highest. Exercising may also help ease some common symptoms of . These include bloating, constipation, and backaches. Ask about exercise at your first care visit. Your provider will work with you to make an exercise plan that fits your needs. Here are some tips: Aim to exercise for 30 to 60 minutes a day. Do this at moderate intensity. This means you're moving enough to raise your heart rate and start sweating. But you can still talk normally. Try breaking up daily exercise into 2 or 3 sessions. For example, take a 15- minute walk after each meal. Exercise with a friend or your partner. This may help you stick to your exercise plan. Go at a comfortable pace. Don?t tire yourself out. Exercise safely Ask your provider about exercise safety for you and your baby. Walking, swimming, and low-impact orwater aerobics are often the safest things to do. Other safety tips include: Don't do activities where you jump, turn, twist, stop or start quickly. Don't lift heavy weights. Don't exercise on your back after the first trimester. This can put too much pressure on an important vein. It can limit blood flow to the baby. If you do yoga or Pilates, find a class designed for . Use a sports bra to support your breasts. You may also want to use a belly support belt later inpregnancy. Don't get overheated. Don't do hot yoga or hot Pilates. Don't raise your heart rate to a level that makes it hard to talk. Drink plenty of water. If you use insulin, carry a carbohydrate snack with you. If you walk or do low-impact aerobics, wear sturdy shoes. If you haven?t eaten in 2 or more hours, have a light snack before exercising. Don't do contact sports that put you at risk of being hit in the belly. These include boxing, ice hockey, soccer, and basketball. Don't go skydiving or scuba diving. Don't do things that may cause a serious fall. These include horseback riding, gymnastics, and off-road cycling. Use a stationary bike. It's a safer choice than a standard bike. It will stop you from getting off balance with your growing belly. When it's not safe to exercise It's not advised to exercise when if you have any of these health conditions: Some types of heart and lung diseases with twins or more, and at risk for labor labor of your water has broken (ruptured membranes) Placenta previa later than 26 weeks of Preeclampsia or high blood pressure due to Severe anemia Cervical insufficiency or cerclage When to call your healthcare provider Call your provider right away or go to the emergency room (ER) if you have any of these: Belly pain Shortness of breath before starting exercise Vaginal bleeding Dizziness or feeling faint Chest pain Headache Decreased movement contractions Muscle weakness Calf pain or swelling Fluid leaking from the vagina Last Reviewed Date: 06/17/202119995680-0704 [employer]. All rights reserved. This information is not intended as a substitute for professional medical care. Always follow your healthcare professional's instructions. * Assessment & Plan Note - JHONATAN Moran - 12/07/2022 1:56 PM EDT Associated Problem(s): AMA (advanced maternal age) multigravida 35+ CONSIDERATIONS: We reviewed the most pertinent aspects of the following: Advanced maternal age (AMA) refers to a woman with a callejas who will be at the ageof 35 or older at the estimated time of delivery and may be associated with increased morbidity. Prior to the appointment the patient has had genetic screening and it was reported as low risk. In addition to the risk of chromosomal abnormalities, there is an increased risk of congenital/structural anomalies. RECOMMENDATIONS: Recommend MFM anatomy ultrasound at 19-20 weeks gestation.. * Assessment & Plan Note - JHONATAN Moran - 12/07/2022 1:50 PM EDT Associated Problem(s): Depression complicating , antepartum CONSIDERATIONS: Untreated maternal anxiety and depression may [...] to behavioral health services as clinically indicated. * Assessment & Plan Note - JHONATAN Moran - 12/07/2022 1:47 PM EDT Associated Problem(s): Obesity in , antepartum CONSIDERATIONS: Discussed obstetrical risks associated with class III obesity (pre- BMI of greater thanor equal to 40) Reviewed that the accuracy [...] anatomy at 20 weeks and for growth every4 weeks thereafter. For patients with Class 3 obesity, we recommend baseline preeclamptic labs with CBC, serum AST/ALT/creatinine and 24 hour urine protein BELIA if not already done. For patients with Class 3 obesity, we recommend weekly surveillance starting at 34 weeks and delivery by EDC. Recommend anesthesia consult during the antepartum period. documented in this encounter Plan of Treatment Upcoming Encounters Date Type Specialty Care Team Description 12/23/2022 Office Visit Gynecology Obstetrics Laura Lua CRNP [address] [place] [id number] 01/04/2023 Office Visit Internal Medicine Kasia Jara MD [address] [facility] [place] [address] 02/01/2023 Office Visit Maternal Medicine Federico Avalos, DO [address] [place] [address] 02/01/2023 Imaging Radiology Scheduled Referrals Name Type Priority Associated Diagnoses Orde r Schedule REMOTE PATIENT MONITORING REFERRAL Referral Within 3 days (urgent) Diet controlled gestational diabetes mellitus (GDM), antepartum Ordered: 12/07/2022 Health Maintenance Due Date Last Done Comments [...] controlled gestational diabetes mellitus (GDM), antepartum- Primary Obesity in , antepartum Obesity complicating , childbirth, or the puerperium, antepartum condition or complication Depression complicating , antepartum Mental disorders of mother, antepartum Multigravida of advanced maternal age in second trimester Supervision of high risk , antepartum, second trimester 14 weeks gestation of state, incidental documented in this encounter Care Teams Senior Java Programmer Relationship Specialty Start Date End Date Kasia Jara MD [address] [place] [address] PCP - General Internal Medicine 03/01/20 documented as of this encounter
--- OUTSIDE RECORDS SUMMARY | 2023-05-20 11:05 | External Medical Summary | Summary of Care ---
Author Name Unknown Organization [facility] Address [address] [place] [address] Phone [phone] Care Team Providers Care Market Manager Name Role Phone Kasia Jara MD Primary Care Provider [phone] Encounter Details Date Type Department Care Team Description 01/05/2023 Orders Only Bench Technician Obstetrics Maternal Medicine, [place] [address] [address] Unique Mendoza CRNP [address] [place] [address] Supervision of high risk in second trimester; Insulin controlled gestational diabetes mellitus (GDM) in second trimester Allergies Active Allergy Reactions Severity Noted Date Comments Amoxicillin 07/08/2014 hives Naltrexone Nausea/vomiting 05/03/2019 Penicillins 07/08/2014 Sulfamethoxazole-Trimethoprim 2014 hives documented as of this encounter (statuses as of 01/05/2023) Medications Medication Sig Dispensed Refills Start Date [...] by mouth in the morning. 0 Active Vibrant CorporationTouch Verio Flex System w/Device KitIndications:Ges tational diabetes [...] and dinner) 125 Strip 6 12/02/2022 Active Vibrant CorporationTouch Delica Lancets 30GIndications:Ges tational diabetes mellitus (GDM), [...] skin at bedtime. 15 mL 3 01/05/2023 Active Insulin Glargine Solostar 100 UNIT/ML Subcutaneous Solution Pen-injector (Lantus SoloStar)Indicatio ns:Insulin controlled gestational diabetes mellitus (GDM) in second trimester,Supervis ion of high risk in second trimester Inject 10 units at bedtime. 15 mL 3 12/24/2022 01/05/2023 Discontinued (Refill) documented as of this encounter (statuses as of 01/05/2023) Active Problems Problem Noted Date Chronic hypertension [...] assessment of proteinuria (24-hour urine protein or xrnyukv-lv-svsfrelesp ratio) and CBC, serum AST/ALT/creatinine. If patient [...] tonight 01/05/23--FBS are elevated- sent msg to CLINICAL NURSING PROFESSOR 01/05/23: RPM elevated FBS; increase to Lantus 15 units at bedtime Last Assessment & Plan: [...] Recommend nutrition consult with RDN (Registered Dietitian Technical Maintenance Technician). Lifestyle changes are also indicated including optimizing [...] as of this encounter (statuses as of 01/05/2023) Resolved Problems Problem Noted Date Resolved Date Impaired glucose in , antepartum 202212/02/2022 Overview: Elevated early 1 hr GTT documented as of this encounter (statuses as of 01/05/2023) Immunizations Name Administration Dates Next Due COVID-19 [...] Fitzgerald PA-C [address] [place] [address] 02/01/2023 Office Visit Maternal Medicine [facility]val[facility] [place] [address] 02/01/2023 Imaging Radiology Health Maintenance Due Date [...] trimester documented in this encounter Care Teams Market Manager Relationship Specialty Start Date End Date Kasia Jara MD [address] [facility] [place] [address] PCP - General Internal Medicine 03/01/20 documented as of this encounter
--- OUTSIDE RECORDS SUMMARY | 2023-05-20 11:05 | External Medical Summary | Summary of Care ---
Author Name Unknown Organization [facility] Address [address] [place] [address] Phone [phone] Care Team Providers Care Workers Compensation Administrator Name Role Phone Kasia Jara MD Primary Care Provider [phone] Reason for Visit * Reason Comments Outpatient Testing Encounter Details Date Type Department Care Team Description 12/02/2022 Laboratory Laboratory, [facility] 132 [facility] [place] [address] [facility] [address] Impaired glucose tolerance during Allergies Active Allergy Reactions Severity Noted Date Comments Amoxicillin 07/08/2014 hives Naltrexone Nausea/vomiting 05/03/2019 Penicillins 07/08/2014 Sulfamethoxazole-Trimethoprim 2014 hives documented as of this encounter (statuses as of 12/02/2022) Medications Medication Sig Dispensed Refills Start Date [...] by mouth in the morning. 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 [id number] Pending Results Name Type Priority Associated Diagnoses Date /Time GESTATIONAL GLUCOSE TOLERANCE, 3 HOUR Lab Routine Impaired glucose tolerance during 12/02/2022 7:15 AM EDT 100-G GESTATIONAL GLUCOSE, 2 HOUR Lab Routine Impaired glucose tolerance during 12/02/2022 9:21 AM EDT 100-G GESTATIONAL GLUCOSE, 3 HOUR Lab Routine Impaired glucose tolerance during 12/02/2022 10:21 AM EDT Health Maintenance Due Date Last Done [...] Procedure Name Priority Date/Time Associated Diagnosis Comments 100-G GESTATIONAL GLUCOSE, 1 HOUR Routine 12/02/2022 8:22 AM EDT Impaired glucose tolerance during 100-G GESTATIONAL GLUCOSE, FASTING Routine 12/02/2022 7:15 AM EDT Impaired glucose tolerance during documented in this encounter Results * (ABNORMAL) 100-G GESTATIONAL GLUCOSE, 1 HOUR (12/02/2022 8:22 AM EDT) 100-g Gestational Glucose, 1 Hour 199(H) 70 - 179 mg/dL 12/02/2022 10:13 AM EDT LAB[facility] [place] 57-10 Blood Venous blood specimen / Unknown Venipuncture / Unknown 12/02/2022 8:22 AM EDT 12/02/2022 8:22 AM EDT [facility] [place] 57-10 [address] [place] [address] * (ABNORMAL) 100-G GESTATIONAL GLUCOSE, FASTING (12/02/2022 7:15 AM EDT) 100-g Gestational Glucose, Fasting 101(H) 70 - 94 mg/dL 12/02/2022 10:13 AM EDT LAB[facility]AT[facility] 57-10 Blood Venous blood specimen / Unknown Venipuncture / Unknown 12/02/2022 7:15 AM EDT 12/02/2022 7:15 AM EDT Narrative LABORATORY [place] 57-10 - 12/02/2022 10:13 AM EDT Based on ACOG guideline, gestational diabetes mellitus is diagnosed when any of the following is met: Fasting is greater than or equal to 95 mg/dL 1 hour is greater than or equal to 180 mg/dL 2 hour is greater than or equal to 155 mg/dL 3 hour is greater than or equal to 140 mg/dL [facility] [place] 57-10 [address] [place] [address] documented in this encounter Visit Diagnoses Diagnosis Impaired glucose tolerance during documented in this encounter Care Teams Workers Compensation Administrator Relationship Specialty Start Date End Date Kasia Jara MD 200 [facility] [place] [address] PCP - General Internal Medicine 03/01/20 documented as of this encounter
--- OUTSIDE RECORDS SUMMARY | 2023-05-20 11:05 | External Medical Summary ---
Author Name Unknown Address Unknown Organization : Laboratory Report Ordering Provider Test Date Status RAHEL JAVIER 12/23/2022 14:48:08 Final Observation Date Value Abnormality Reference (Units ) Status INTERPRETATION 12/23/2022 14:48:08 SEE BELOW Final Screen negative for open NTD RISK FOR ONTD 12/23/2022 14:48:08 <1:5000 Final CALC'D GESTATIONAL AGE 0812/23/2022 14:48:08 16.4 Final AFP, SERUM 12/23/2022 14:48:08 29.8 (ng/mL) Final AFP MOM 12/23/2022 14:48:08 1.22 Final Reference Range:
NTD <2 .50
IDD <1.90
TWINS <4.00
TWINS IDD <3.50
TRIPLETS <4.50
The AFP test result indicates that this patient is
screen negative for open NTD. It should be noted
that normal test results can never guarantee the
of a normal baby and that 2-3% of newborns
have some type of physical or mental defect, many
of which are undetectable through any known
diagnostic technique.
This is a screening test, not a diagnostic test.
This risk assessment report is based in part on
demographic data provided by the ordering
physician. Please notify the laboratory promptly
if any data are incorrect. For assistance with
recalculations, please call your local [facility] laboratory. For assistance with
interpretation of these results, please contact
your Local [facility] genetic counselor or
call [phone] ([phone]).
Interpretive Cutoffs
Screen Positive for Open NTD:
> or = 2.50 adjusted MOM
> or = 1.90 adjusted MOM for insulin- dependent diabetics
> or = 4.00 adjusted MOM for twins
> or = 3.50 adjusted MOM for twins insulin-dependent diabetics
> or = 4.50 adjusted MOM for triplets
For additional information, please refer to
[email or web address]
(This link is being provided for
informational/educational purposes only.) DATE OF 12/23/2022 14:48:08 1985 Final COLLECTION DATE 12/23/2022 14:48:08 12/23/2022 Final MATERNAL WEIGHT 12/23/2022 14:48:08 297 (lbs ) Final EST'D DATE OF DELIVERY 12/23/2022 14:48:08 06/06/2023 Final MYRA DETERMINED BY 12/23/2022 14:48:08 NG Final MOTHER'S ETHNIC ORIGIN 12/23/2022 14:48:08 WHITE Final NUMBER OF FETUSES 12/23/2022 14:48:08 1 Final INSULIN DEPEND DIABETIC 12/23/2022 14:48:08 NO Final REPEAT SPECIMEN 12/23/2022 14:48:08 NO Final HX OF NEURAL TUBE DEFECTS 12/23/2022 14:48:08 NO Final PREV DOWN SYND 12/23/2022 14:48:08 NO Final DONOR EGG 12/23/2022 14:48:08 NO Final DONOR AGE: EGG RETRIEVAL 12/23/2022 14:48:08 NOT GIVEN Final Test performed by [facility]
[address],
[place] [address]

Academic Affairs Dean: Ana Cristina Lancaster MD,PHD,EMILIE
Test Reported by John Ly,
[facility],
[address] [place], [place]
Dagoberto Angulo M.D., Ph.D., Director of Laboratories
, [facility] [id number] Performing Location
--- OUTSIDE RECORDS SUMMARY | 2023-05-20 11:05 | External Medical Summary | Summary of Care ---
Author Name Unknown Organization [facility] Address [address] [place] [address] Phone [phone] Care Team Providers Care Respite Provider Name Role Phone Kasia Jara MD Primary Care Provider [phone] Encounter Details Date Type Department Care Team Description 01/21/2023 Orders Only Med Surg Rn Obstetrics Maternal Medicine, [place] [address] [address] Unique Mendoza CRNP [address] [place] [address] Supervision of high risk in second trimester; Insulin controlled gestational diabetes mellitus (GDM) in second trimester Allergies Active Allergy Reactions Severity Noted Date Comments Amoxicillin 07/08/2014 hives Naltrexone Nausea/vomiting 05/03/2019 Penicillins 07/08/2014 Sulfamethoxazole-Trimethoprim 2014 hives documented as of this encounter (statuses as of 01/21/2023) Medications Medication Sig Dispensed Refills Start Date [...] by mouth in the morning. 0 Active StoreFlixTouch Verio Flex System w/Device KitIndications:Ges tational diabetes [...] and dinner) 125 Strip 6 12/02/2022 Active Store[employer]ixTouch Delica Lancets 30GIndications:Ges tational diabetes mellitus (GDM), [...] skin at bedtime. 15 mL 3 01/21/2023 Active Insulin Glargine Solostar 100 UNIT/ML Subcutaneous Solution Pen-injector (Lantus SoloStar)Indicatio ns:Supervision of high risk in second trimester,Insulin controlled gestational diabetes mellitus (GDM) in second trimester Inject 20 units under skin at bedtime. 15 mL 3 01/11/2023 01/21/2023 Discontinued (Refill) documented as of this encounter (statuses as of 01/21/2023) Active Problems Problem Noted Date Chronic hypertension [...] assessment of proteinuria (24-hour urine protein or ajffjis-ja-nenovcvphu ratio) and CBC, serum AST/ALT/creatinine. If patient [...] tonight 01/05/23--FBS are elevated- sent msg to TOPOGRAPHICAL SURVEYOR 01/05/23: RPM elevated FBS; increase to Lantus 15 units at bedtime 01/11/23-- FBS elevated- msg sent to TOPOGRAPHICAL SURVEYOR 01/11/23: RPM - elevated FBS - increase to Lantus 20 units at bedtime 01/21/23--FBS elevated- msg sent to TOPOGRAPHICAL SURVEYOR 01/21/23: RPM - FBS elevated (100-120s); increase to Lantus 30 units at bedtime Last Assessment & Plan: [...] Recommend nutrition consult with RDN (Registered Dietitian Bottom Saw Operator). Lifestyle changes are also indicated including [...] as of this encounter (statuses as of 01/21/2023) Resolved Problems Problem Noted Date Resolved Date Impaired glucose in , antepartum 202212/02/2022 Overview: Elevated early 1 hr GTT documented as of this encounter (statuses as of 01/21/2023) Immunizations Name Administration Dates Next Due COVID-19 [...] Fitzgerald PA-C [address] [place] [address] 02/01/2023 Office Visit Maternal Medicine Federico Avalos, DO [address] [facility] [address] 02/01/2023 Imaging Radiology Health Maintenance Due Date [...] trimester documented in this encounter Care Teams Respite Provider Relationship Specialty Start Date End Date Kasia Jara MD 200 [place] [address] PCP - General Internal Medicine 03/01/20 documented as of this encounter
--- OUTSIDE RECORDS SUMMARY | 2023-05-20 11:05 | External Medical Summary | Summary of Care ---
Author Name Unknown Organization [facility] Address [address] [place] [address] Phone [phone] Care Team Providers Care Vending Service Technician Name Role Phone Kasia Jara MD Primary Care Provider [phone] Reason for Visit * Reason Onset Date Comments Referral 12/23/2022 THO Encounter Details Date Type Department Care Team Description 12/23/2022 Telephone Lift Truck Mechanic Obstetrics Maternal Medicine, [place] [address], [place] [id number] [place] Nurse Lift Truck Mechanic [facility] [address] [place] [address] Referral (THO) Allergies Active Allergy Reactions Severity Noted Date Comments Amoxicillin 07/08/2014 hives Naltrexone Nausea/vomiting 05/03/2019 Penicillins 07/08/2014 Sulfamethoxazole-Trimethoprim 2014 hives documented as of this encounter (statuses as of 01/14/2023) Medications Medication Sig Dispensed Refills Start Date [...] by mouth in the morning. 0 Active BiologicsIncTouch Verio Flex System w/Device KitIndications:Gestat ional diabetes [...] and dinner) 125 Strip 6 12/02/2022 Active [employer]icsIncTouch Delica Lancets 30GIndications:Gestat ional diabetes mellitus (GDM), antepartum, gestational diabetes method of control unspecified Use to test blood sugars 4 times daily (fasting, 1 hour after breakfast, lunch, and dinner) 200 Each 6 12/02/2022 Active Aspirin 81 MG Oral Tablet Delayed Release Take 1 Tablet by mouth in the morning. 100 Tablet 3 12/23/2022 Active documented as of this encounter (statuses as of 01/14/2023) Active Problems Problem Noted Date Chronic hypertension [...] assessment of proteinuria (24-hour urine protein or wcpebrs-tf-vsnapgxmvp ratio) and CBC, serum AST/ALT/creatinine. If patient [...] MFM ADAPT consult complete. Enrolled in [employer]. Instructions provided to report blood sugars each [...] tonight 01/05/23--FBS are elevated- sent msg to INSPECTOR SALVAGE 01/05/23: RPM elevated FBS; increase to Lantus 15 units at bedtime 01/11/23-- FBS elevated- msg sent to INSPECTOR SALVAGE 01/11/23: RPM - elevated FBS - increase [...] Recommend nutrition consult with RDN (Registered Dietitian Civil Drafting Technician). Lifestyle changes are also indicated including [...] as of this encounter (statuses as of 01/14/2023) Resolved Problems Problem Noted Date Resolved Date Impaired glucose in , antepartum 202212/02/2022 Overview: Elevated early 1 hr GTT documented as of this encounter (statuses as of 01/14/2023) Immunizations Name Administration Dates Next Due COVID-19 [...] encounter Miscellaneous Notes * Telephone Encounter - MARIBEL Coronel - 12/23/2022 2:40 PM EDT Estimated Date of Delivery: 06/06/23 Please schedule for 45 MINUTE CONSULT SIMPLE MEDICAL WITH INSPECTOR SALVAGE, in time frame of next available or atpatient's earliest convenience at [facility] with the indication of CHTN, Class 3, Anxiety/Depression on meds. Please schedule anatomy between 19-21 weeks (01/10-01/24). Referring Provider: JHONATAN Lopez documented in this encounter Plan of Treatment Upcoming Encounters Date Type Specialty Care Team Description 01/22/2023 Office Visit Gynecology Obstetrics Brittanie Fitzgerald PA-C [address] [place] [address] 02/01/2023 Office Visit Maternal Medicine Feder[facility]valos, DO [address] [facility] [address] 02/01/2023 Imaging Radiology Health Maintenance Due Date [...] filedocumented as of this encounter Care Teams Vending Service Technician Relationship Specialty Start Date End Date Kasia Jara MD 200 [facility] [place], [place] [address] PCP - General Internal Medicine 03/01/20 documented as of this encounter
--- OUTSIDE RECORDS SUMMARY | 2023-05-20 11:05 | External Medical Summary | Summary of Care ---
Author Name Unknown Organization [facility] Address [address] [place] [address] Phone [phone] Care Team Providers Care Clerical Aide Name Role Phone Kasia Jara MD Primary Care Provider [phone] Reason for Referral * Evaluate & Treat - Unlimited Visits (Within 10 days (routine)) - Authorized Specialty Diagnoses / Procedures Referred By Contricco t Referred To Contact Obstetrics/Gynecology / Maternal Medicine Diagnoses Chronic hypertension affecting Laura Lua CRNP [address] [place] [address] Referral ID Status Reason Start Date Expiration Date Visits Requested Visits Authorized [id number] Authorized Specialty Services Required 12/23/2022 999 999 Question Answer Referral Priority Within 10 days (routine) Has the patient had a viability scan? Yes Date performed 10/27/2022 Location performed Radiology Reason for referral Hypertension Hypertension type Chronic Comments /Para: LMP: Patient's last menstrual period was 08/30/2022 (exact date). Patient is . MYRA: 06/06/2023, by Last Menstrual Period Pre-Gravid BMI: 51.61 Reason for Visit * Reason Comments Return Visit Encounter Details Date Type Department Care Team Description 12/23/2022 Office Visit Gynecology/Obstetrics [facility] [address] [place] [address] Laura Lua CRNP [address] [place] [address] Supervision of high-risk , unspecified trimester*; Depression complicating , antepartum; Diet controlled gestational diabetes mellitus (GDM), antepartum; Obesity in , antepartum; Multigravida of advanced maternal age in second trimester; Chronic hypertension affecting Allergies Active Allergy Reactions Severity Noted Date [...] and dinner) 1 Kit 0 12/02/2022 Active [employer]cast [employer] Verio In Vitro Strip (Glucose Blood)Indications:Ges tational diabetes mellitus (GDM), antepartum, gestational diabetes method of control unspecified Use to test blood sugars 4 times daily (fasting, 1 hour after breakfast, lunch, and dinner) 125 Strip 12/02/2022 Active [employer]cast PixTouch Delica Lancets 30GIndications:Gestat ional diabetes mellitus (GDM), antepartum, gestational diabetes method of control unspecified Use to test blood sugars 4 times daily (fasting, 1 hour after breakfast, lunch, and dinner) 200 Each 12/02/2022 Active Aspirin 81 MG Oral Tablet [...] Recommend nutrition consult with RDN (Registered Dietitian Director Of Primary). Lifestyle changes are also indicated including optimizing [...] Sign Reading Time Taken Comments Blood Pressure 140/76 12/23/2022 1:53 PM EDT Pulse - - Temperature - - Respiratory Rate - - Oxygen Saturation - - Inhaled Oxygen Concentration - - Weight 135.3 kg (298 lb 3.2 oz) 12/23/2022 1:53 PM EDT Height 162.6 cm (5' 4") 12/23/2022 1:53 PM EDT Body Mass Index 51.19 12/23/2022 1:53 PM EDT documented in this encounter Progress Notes * JHONATAN Ruggiero - 12/23/2022 2:35 PM EDT 16w3d Feeling well overall. Dx with GDM. Has met with M for management, has another appt tomorrow, as fasting numbers are elevated. Diagnosed with chronic HTN today. Another [facility] referral placed for management of this. She has already started a baby asprin daily. We discussed that if on medication for GDM or HTN, will need twice weekly NSTs at 32 weeks, delivery by EDC. She has not yet felt FM. No vaginal bleeding. Has anatomy u/s with M. Qnatal done, MSAFP today. FHT 154bpm. JHONATAN Ruggiero documented in this encounter Nursing Notes * SALVATORE Miramontes - 12/23/2022 2:00 PM EDT 16w3d Pt would like to do MSAFP, completed NIPT. documented in this encounter Plan of Treatment Upcoming Encounters Date Type Specialty Care Team Description 12/24/2022 Telemedicine Maternal Medicine Unique Mendoza CRNP [address] [place] [address] 01/04/2023 Office Visit Internal Medicine Kasia Jara MD [address] [place] [address] 01/22/2023 Office Visit Gynecology Obstetrics Brittanie Fitzgerald PA-C [address] [place] [address] 02/01/2023 Office Visit Maternal Medicine Federico Avalos, DO [address] [place] [address] 02/01/2023 Imaging Radiology Pending Results Name Type Priority Associated Diagnoses Date /Time MATERNAL SERUM AFP Lab Routine Supervision of high-risk , unspecified trimester 12/23/2022 2:48 PM EDT Scheduled Orders Name Type Priority Associated Diagnoses Orde r Schedule URINALYSIS, POINT OF CARE (ENTER/EDIT) Point of Care Testing Routine Chronic hypertension affecting Ordered: 12/23/2022 MFM US MATERNAL 1ST FETUS Medical Imaging Routine Chronic hypertension affecting Expected: 12/23/2022, Expires: 01/24/2024 Scheduled Referrals Name Type Priority Associated Diagnoses Orde r Schedule MATERNAL MEDICINE REFERRAL OP Referral Within 10 days (routine) Chronic hypertension affecting Ordered: 12/23/2022 Health Maintenance Due Date Last Done Comments [...] , antepartum Mental disorders of mother, antepartum Diet controlled gestational diabetes mellitus (GDM), antepartum Obesity in , antepartum Obesity complicating , childbirth, or the puerperium, antepartum condition or complication Multigravida of advanced maternal age in second trimester Chronic hypertension affecting documented in this encounter Care Teams Clerical Aide Relationship Specialty Start Date End Date Kasia Jara MD [address] [place] [address], [place] [address] PCP - General Internal Medicine 03/01/20 documented as of this encounter
--- OUTSIDE RECORDS SUMMARY | 2023-05-20 11:05 | External Medical Summary | Summary of Care ---
Author Name Unknown Organization [facility] Address [address] [place] [address] Phone [phone] Care Team Providers Care Online Health And Fitness Coach Name Role Phone Kasia Jara MD Primary Care Provider [phone] Reason for Referral * Evaluate & Treat - Unlimited Visits (Within 10 days (routine)) - Authorized Specialty Diagnoses / Procedures Referred By Contricco t Referred To Contact Obstetrics/Gynecology / Maternal Medicine Diagnoses Chronic hypertension affecting Laura Lua CRNP [address] [place] [address] Referral ID Status Reason Start Date Expiration Date Visits Requested Visits Authorized [id number] Authorized Specialty Services Required 12/23/2022 999 999 [...] Team Description 12/23/2022 Office Visit Gynecology/Obstetrics [place] [address] [place] [address] Laura Lua CRNP [address] [place] [address] Supervision of high-risk , unspecified trimester*; Depression [...] and dinner) 1 Kit 0 12/02/2022 Active [employer] Verio In Vitro Strip (Glucose Blood)Indications:Ges tational diabetes mellitus (GDM), antepartum, gestational diabetes method of control unspecified Use to test blood sugars 4 times daily (fasting, 1 hour after breakfast, lunch, and dinner) 125 Strip 12/02/2022 Active [employer] Delica Lancets 30GIndications:Gestat ional diabetes mellitus (GDM), [...] Recommend nutrition consult with RDN (Registered Dietitian Clinical Account Manager). Lifestyle changes are also indicated including optimizing [...] elevated. Diagnosed with chronic HTN today. Another [facility] referral placed for management of this. [...] documented in this encounter Nursing Notes * SALVTAORE Miramontes - 12/23/2022 2:00 PM EDT 16w3d Pt would like to do MSAFP, completed NIPT. documented in this encounter Plan of Treatment Upcoming Encounters Date Type Specialty Care Team Description 12/24/2022 Telemedicine Maternal Medicine Unique Mendoza CRNP [address] [place] [address] 01/04/2023 Office Visit Internal Medicine Kasia Jara MD [address] [place] [address] 01/22/2023 Office Visit Gynecology Obstetrics Brittanie Fitzgerald PA-C [address] [place] [address] 02/01/2023 Office Visit Maternal Medicine Federico Avalos, DO [address] [place] [address] 02/01/2023 Imaging Radiology Pending Results Name Type Priority Associated Diagnoses Date /Time MATERNAL SERUM AFP Lab Routine Supervision of high-risk , unspecified trimester 12/23/2022 2:48 PM EDT Scheduled Orders Name Type Priority Associated Diagnoses Orde r Schedule MFM US MATERNAL 1ST FETUS Medical Imaging [...] Comments URINALYSIS, POINT OF CARE (ENTER/EDIT) Routine 12/23/2022 Chronic hypertension affecting documented in this encounter Results * URINALYSIS, POINT OF CARE (ENTER/EDIT) (12/23/2022) Color, Urine Yellow Yellow or Light Yellow Clarity, Urine Clear Clear Glucose, Urine Negative Negative mg/dL Bilirubin, Urine Negative Negative Ketone, Urine Negative Negative mg/dL Specific [place], Urine 1.030 1.003 - 1.030 Blood, Urine Small Negative pH, Urine 5.5 5.0 - 7.5 units Protein, Urine Trace Negative mg/dL Urobilinogen, Urine 0.2 0.2 - 1.0 mg/dL Nitrite, Urine Negative Negative Esterase, Urine Negative Negative Urine 12/23/2022 [facility] POINT OF CARE TE [...] affecting documented in this encounter Care Teams Online Health And Fitness Coach Relationship Specialty Start Date End Date Kasia Jara MD 200 [place] [address] PCP - General Internal Medicine 03/01/20 documented as of this encounter
--- OUTSIDE RECORDS SUMMARY | 2023-05-20 11:05 | External Medical Summary | Summary of Care ---
Author Name Unknown Organization [facility] Address [address] [place] [address] Phone [phone] Care Team Providers Care Molded Frames Assembler Name Role Phone Kasia Jara MD Primary Care Provider [phone] Reason for Referral * Evaluate & Treat - Unlimited Visits (Within 10 days (routine)) - Authorized Specialty Diagnoses / Procedures Referred By Contricco t Referred To Contact Materials Research Engineer / Nutrition Services Diagnoses Gestational diabetes mellitus (GDM), antepartum, gestational diabetes method of control unspecified Lula Pandey CRNP [address] [place] [address] Referral ID Status Reason Start Date Expiration Date Visits Requested Visits Authorized [id number] Authorized Specialty Services Required 12/02/2022 999 999 Question Answer Is the patient ? Yes Referral Priority Within 10 days (routine) Comments This referral is for Diabetes Self-Management Training (DSMT) by a recognized [place] [employer] (ADA) tobacco educator: Nurse (RN), Registered Dietitian Field Agent (RDN), and/or Diabetes Medical Nutrition Therapy (MNT) Management (dietitian only). Diabetes educators are responsible for assessing the participant's diabetes education needs, and providing diabetes self-management training in accordance with the standards set by the ADA for DSMT. Any adjustment in diabetes therapy will be made within the guidelines of standards of practice and [employer] approved policies and procedures. I understand that the tobacco educator will keep me informed. Areas of Education: Pathophysiology Nutrition Physical Activity Medications Monitoring Acute Complications Chronic Complications Psychosocial Management Promote Health/Behavior Change Participant will be offered 1:1 education training if there is a lack of classes available within 2 months. Providers can also order 1:1 training if indicated for participant for the following reasons: 1:1 Training for Insulin Initiation Participant Inappropriate for Class Setting By my electronic signature, I understand that my patient will be offered the comprehensive ADA content area above unless deemed not appropriate of I specify otherwise here: * Evaluate & Treat - Unlimited Visits (Within 10 days (routine)) - Authorized Specialty Diagnoses / Procedures Referred By Contricco ojhn Referred To Contact Obstetrics/Gynecology / Maternal Medicine Diagnoses Gestational diabetes mellitus (GDM), antepartum, gestational diabetes method of control unspecified Lula Pandey CRNP [address] [place] [address] Referral ID Status Reason Start Date Expiration Date Visits Requested Visits Authorized [id number] Authorized Specialty Services Required 12/02/2022 999 999 Question Answer Referral Priority Within 10 days (routine) Has the patient had a viability scan? Yes Date performed 10/27/2022 Location performed Radiology Reason for referral Diabetes, Obesity Diabetes type Gestational Obesity type Class 3 Comments /Para: LMP: Patient's last menstrual period was 08/30/2022 (exact date). Patient is . MYRA: 06/06/2023, by Last Menstrual Period Pre-Gravid BMI: 51.61 Reason for Visit * Reason Onset Date Comments Test Results 12/02/2022 Encounter Details Date Type Department Care Team Description 12/02/2022 Telephone Gynecology/Obstetrics Merly Colunga [address] [place] [address] Lula Pandey CRNP [address] [place] [address] Test Results Allergies Active Allergy Reactions Severity Noted Date [...] by mouth in the morning. 0 Active AppSurferTouch Verio Flex System w/Device KitIndications:Gestat ional diabetes mellitus (GDM), antepartum, gestational diabetes method of control unspecified Use to test blood sugars 4 times daily (fasting, 1 hour after breakfast, lunch, and dinner) 1 Kit 0 12/02/2022 Active AppSurferTouch Verio In Vitro Strip (Glucose Blood)Indications:Ges tational diabetes mellitus (GDM), antepartum, gestational diabetes method of control unspecified Use to test blood sugars 4 times daily (fasting, 1 hour after breakfast, lunch, and dinner) 125 Strip 6 12/02/2022 Active AppSurferTouch Delica Lancets 30GIndications:Gestat ional diabetes mellitus (GDM), antepartum, gestational diabetes method of control unspecified Use to test blood sugars 4 times daily (fasting, 1 hour after breakfast, lunch, and dinner) 200 Each 6 12/02/2022 Active documented as of this encounter (statuses as of 12/02/2022) Active Problems Problem Noted Date Gestational diabetes mellitus (GDM), ant epartum 12/02/2022 Supervision of high-risk , unsp ecified trimester 11/24/2022 Obesity in , antepartum 023 Overview: Class [...] of this encounter (statuses as of 12/02/2022) Resolved Problems Problem Noted Date Resolved Date [...] encounter Miscellaneous Notes * Telephone Encounter - Echo Elizondo RN - 12/02/2022 12:30 PM EDT Patient called and made aware. Patient verbalized understanding to all. Questions answered. Patientpharmacy updated. Please send supplies. * Telephone Encounter - JHONATAN Zamora - 12/02/2022 10:19 AM EDT +GDM based on 2 elevated glucose readings. Sending referral to [facility] as they will manage her blood sugar readings. Will also order testing supplies; will need to check blood sugar 4x/day. Once in AM after fasting 8-10 hrs (goal <95) and 1 hr after first bite of each meal (B/L/D, goal <140). If she is comfortable using the glucometer, she can start testing now and provide MFM with the readings at that appointment. She can look at the [facility] website for instructions. If she'd prefer to get instructions from [facility], that is ok. Please confirm preferred pharmacy for testing supplies. Recommend checking hemoglobin a1c for underlying DM, will order lab. JHONATAN Brown documented in this encounter Plan of Treatment Upcoming Encounters Date Type Specialty Care Team Description 12/23/2022 Office Visit Gynecology Obstetrics Laura Lua CRNP [address] [place] [address] 01/04/2023 Office Visit Internal Medicine Kasia Jara MD [address] [place] [address] Scheduled Orders Name Type Priority Associated Diagnoses Orde r Schedule HEMOGLOBIN A1C Lab Routine Gestational diabetes mellitus (GDM), antepartum, gestational diabetes method of control unspecified Expected: 12/02/2022 (Approximate), Expires: 12/03/2023 MFM US MATERNAL 1ST [facility] Routine Gestational diabetes mellitus (GDM), antepartum, gestational diabetes method of control unspecified Expected: 01/02/2023 (Approximate), Expires: 01/03/2024 Scheduled Referrals Name Type Priority Associated Diagnoses Orde r Schedule MATERNAL MEDICINE REFERRAL OP Referral Within 10 days (routine) Gestational diabetes mellitus (GDM), antepartum, gestational diabetes method of control unspecified Ordered: 12/02/2022 DIABETES MANAGEMENT EDUCATION (ADA) REFERRAL Referral Within 10 days (routine) Gestational diabetes mellitus (GDM), antepartum, gestational diabetes method of control unspecified Ordered: 12/02/2022 Health Maintenance Due Date Last Done Comments [...] (GDM), antepartum, gestational diabetes method of control unspecified- Primary documented in this encounter Care Teams Molded Frames Assembler Relationship Specialty Start Date End Date Kasia Jara MD [address] [place] [address], [place] [address] PCP - General Internal Medicine 03/01/20 documented as of this encounter
--- OUTSIDE RECORDS SUMMARY | 2023-05-20 11:05 | External Medical Summary ---
Author Name Unknown Address Unknown Organization K01:[facility] [place] - [facility] [address] [facility] [address] Laboratory Report Ordering Provider Test Date Status ISAAC AGUAYO 12/23/2022 13:47:48 Final Observation Date Value Abnormality Reference (Units ) Status HbA1C 12/23/2022 13:47:48 6.1 Above high normal 4. 0-5.6 (%) Final The use of HbA1c to monitor glycemic status is based on normal hemoglobin and HbA composition. This test should not be used in patients with abnormal hemoglobin that affects the half life of the red blood cell or the in vivo glycation rates. Glucose, estimated average 12/23/2022 13:47:48 128 Above high normal <126 (mg/dL) Pratik guzman Performing Location [facility] [address] [facility] [address]
--- OUTSIDE RECORDS SUMMARY | 2023-05-20 11:05 | External Medical Summary | Summary of Care ---
Author Name Unknown Organization [facility] Address [address] [place] [address] Phone [phone] Care Team Providers Care Pilot Boat Operator Name Role Phone Kasia Jara MD Primary Care Provider [phone] Reason for Visit * Reason Comments Follow Up Gestational diabetes and new diagnosis of chronic hypertension * Evaluate & Treat - Unlimited Visits (Within 10 days (routine)) - Authorized Specialty Diagnoses / Procedures Referred By Contac t Referred To Contact Obstetrics/Gynecology / Maternal Medicine Diagnoses Chronic hypertension affecting Laura Lua CR[facility] [address] [facility] [address] Referral ID Status Reason Start Date Expiration Date Visits Requested Visits Authorized [id number] Authorized Specialty Services Required 12/23/2022 999 999 Encounter Details Date Type Department Care Team Description 12/24/2022 Telemedicine Glove Cuffer Obstetrics Maternal Medicine, [address] [address] Unique Mendoza CRNP [address] [place] [address] Supervision of high risk in second trimester*; 16 weeks gestation of ; Insulin controlled gestational diabetes mellitus (GDM) in second trimester; Chronic hypertension in Allergies Active Allergy Reactions Severity Noted Date Comments Amoxicillin 07/08/2014 hives Naltrexone Nausea/vomiting 05/03/2019 Penicillins 07/08/2014 Sulfamethoxazole-Trimethoprim 2014 hives documented as of this encounter (statuses as of 12/24/2022) Medications Medication Sig Dispensed Refills Start Date [...] by mouth in the morning. 0 Active Pantech Flex System w/Device KitIndications:Gestat ional diabetes mellitus (GDM), antepartum, gestational diabetes method of control unspecified Use to test blood sugars 4 times daily (fasting, 1 hour after breakfast, lunch, and dinner) 1 Kit 0 12/02/2022 Active Pantech In Vitro Strip (Glucose Blood)Indications:Ges tational diabetes mellitus (GDM), antepartum, gestational diabetes method of control unspecified Use to test blood sugars 4 times daily (fasting, 1 hour after breakfast, lunch, and dinner) 125 Strip 12/02/2022 Active Hookflash DelSemmle Lancets 30GIndications:Gestat ional diabetes mellitus (GDM), antepartum, gestational diabetes method of control unspecified Use to test blood sugars 4 times daily (fasting, 1 hour after breakfast, lunch, and dinner) 200 Each 12/02/2022 Active Aspirin 81 MG Oral Tablet Delayed Release Take 1 Tablet by mouth in the morning. 100 Tablet 3 12/23/2022 Active Insulin Glargine Solostar 100 UNIT/ML Subcutaneous Solution Pen-injector (Lantus SoloStar)Indications: Insulin controlled gestational diabetes mellitus (GDM) in second trimester,Supervision of high risk in second trimester Inject 10 units at bedtime. 15 mL 12/24/2022 Active BD Pen Needle Mini U/F 31G X 5 MM (Insulin Pen Needle)Indications:In sulin controlled gestational diabetes mellitus (GDM) in second trimester,Supervision of high risk in second trimester Use to inject insulin once daily. 100 Each 12/24/2022 Active documented as of this encounter (statuses as of 12/24/2022) Active Problems Problem Noted Date Chronic hypertension [...] assessment of proteinuria (24-hour urine protein or qddmzsd-kk-wsgdoauftf ratio) and CBC, serum AST/ALT/creatinine. If patient [...] 12/07/22: MFM ADAPT consult complete. Enrolled in [employer]. Instructions provided to report blood sugars each week for MFM review. Reports she is having a bedtime snack but fasting 10-12 hours at night 12/14/22- elevated FBS - sent msg for ADAPT appt 12/21/22-- patient follow up scheduled for 12/24 for elevated FBS 12/24/22: ADAPT visit complete; elevated FBS; ordered Lantus 10 units at bedtime; encouraged Nutrition referral; reviewed A1C result of 6.1% Last Assessment & Plan: CONSIDERATIONS: Reviewed etiology [...] Recommend nutrition consult with RDN (Registered Dietitian Network Professional). Lifestyle changes are also indicated including optimizing [...] as of this encounter (statuses as of 12/24/2022) Resolved Problems Problem Noted Date Resolved Date Impaired glucose in , antepartum 202212/02/2022 Overview: Elevated early 1 hr GTT documented as of this encounter (statuses as of 12/24/2022) Immunizations Name Administration Dates Next Due COVID-19 [...] of this encounter Progress Notes * JHONATAN Wheeler - 12/24/2022 10:31 AM EDT Images from the original note were not included. MATERNAL MEDICINE VISIT Patient location: HOME. I was in a hospital or clinic location. After connecting through televideo,patient was verified with two unique identifiers. Patient (or authorized legal provider service representative) was then informed that this was a Telemedicine visit and being conducted confidentially over secure lines. Methods to assure confidentiality were taken. Patient acknowledged consent and understanding of pr ivacy and security of the Telemedicine visit. The patient agreed to participate. Bety Mullen is a 37 year old year old with intrauterine at 16w4d who presents to [facility] for management of diabetes in and consult for new indication of chronic hypertension in . CC/HPI: Here for GDM f/u visit. Current issues include: elevated FBS and new diagnosis of chronic hypertension Current GDM management: diet controlled Diet: gestational diabetes diet Exercise: minimal per pt report; encouraged walking OB Range Problems (from 10/26/22 to present) Problem Noted Resolved Chronic hypertension in Overview Signed 12/24/2022 12:30 PM by JHONATAN Wheeler Diagnosed with chronic hypertension in at OB office yesterday, 12/23/2022; based on severalBP elevations prior to 20 weeks gestation. BP Readings from Last 5 Encounters: 12/23/22 [...] parameters, s/s preeclampsia, and when to call. Insulin controlled gestational diabetes mellitus (GDM) during , antepartum Overview Addendum 12/24/2022 12:28 PM by JHONATAN Wheeler Diagnosed at 13 weeks Nutrition consult ordered [...] MFM ADAPT consult complete. Enrolled in [facility]. Instructions provided to report blood sugars [...] Nutrition referral; reviewed A1C result of 6.1% Weight gain: Wt Readings from Last 10 Encounters: 12/23/22 135.3 kg (298 lb 3.2 oz) 11/24/22 134.3 kg (296 lb) 10/30/22 (!) 136.1 kg (300 lb 1.6 oz) 10/27/22 (!) 136.4 kg (300 lb 12.8 oz) 07/06/22 127 kg (280 lb) Glucose review: Hemoglobin A1C last result: Lab Results Component Value Date/Time HEMOGLOBIN A1C - [facility] 6.1 (H) 12/23/2022 01:47 PM Hypoglycemia episodes: N/A She reports her home blood glucose as following via [employer] RPM: Having bedtime snack (meat stick and cheese with fruit or crackers) Fasting ~9 hours overnight. REVIEW OF SYSTEMS: headaches: yes - dull mild headache reported this AM (believes d/t being tired) nausea/vomiting: denies reports movement: No; discussed quickening abdominal pain/tenderness/cramping/contractions: no vaginal bleeding: no vaginal leaking of fluid: no all other systems negative PHYSICAL EXAM: LMP 08/30/2022 (Exact Date) Constitutional: well-developed, well nourished General: pleasant, alert and oriented Neuro: mood and affect normal, alert and oriented, no acute distress DISCUSSION/RECOMMENDATIONS: Problem List Items Addressed This Visit OB Range Supervision of high risk in second trimester Insulin controlled gestational diabetes mellitus (GDM) during , antepartum -We discussed continuing to test blood sugars 4 times a day (fasting, one hour after breakfast, lunch, and dinner). -Briefly reviewed GDM diet recommendations including, avoiding processed suagars, sweetened drinks,white flour. Recommend Counting carbohydrates - Breakfast: 45 grams carbohydrate, Snack: 15-20 grams carbohydrate, Lunch: 45 grams carbohydrate, Afternoon Snack: 15-20 grams carbohydrate, Dinner: 45 grams carbohydrate, bedtime snack 20-30 grams carbohydrate. Advised to have protein with every meal and snack, 70 grams total daily. Encouraged compliance with Network Professional consult. -We discussed eating a snack to help with sugar control in the fasting timeframe. -Encouraged 20-30 minutes a day of exercise (walking, light upper body strength training, yoga, stationary cycling, or swimming). -We discussed the predisposing factors for gestational diabetes including ethnic background, familyhistory, maternal body mass index, and use of some medications. We discussed that placental hormones often cause a woman who is not diabetic but has predisposing factors before to exhibit insulin resistance and gestational diabetes during . -We discussed the goal of euglycemia in order to create a stable environment for the fetus. She is aware that with diabetes are at increased risk for multiple complications to both mother and fetus. -Reviewed medication options for gestational diabetes secondary to elevated FBS. Patient elected for insulin. Reviewed insulin administration instruction. I advised her on appropriate technique for administration and she verbalized understanding. Ordered Lantus 10 units at bedtime (take with bedtime snack). -Reviewed how to recognize and treat hypoglycemia. -I encouraged the patient to reach out to [facility] in the event that she has any questions regarding diabetes management. Relevant Medications Insulin Glargine Solostar 100 UNIT/ML Subcutaneous Solution Pen-injector (Lantus SoloStar) BD Pen Needle Mini U/F 31G X 5 MM (Insulin Pen Needle) Chronic hypertension in Considerations: Women with chronic hypertension during are at significantly increased risk for morbidity. Signs and symptoms of superimposed pre-eclampsia were reviewed; instructed patient to contact primary OB care provider if these symptoms occur. Recommendations: Obtain baseline lab work BELIA (if not already done) with assessment of proteinuria (24-hour urine protein or tfgrmfw-xz-oqwnwfzzkh ratio) and CBC, serum AST/ALT/creatinine. If patient has had hypertension for 10 years or more, obtain an EKG and eye exam (if not performed within the past year). Recommend initiation of aspirin (81mg) daily, from 13 weeks until delivery, to decrease the riskof superimposed preeclampsia. Daily home blood pressure monitoring, especially in the second half of the . o It may be useful to have the patient validate their home device with their primary OB care provider's office. Patients with BP less than 140/90 maintained with antihypertensives should continue medication during . Discontinuation of ELADIA inhibitors or angiotensin type II receptor antagonists under the guidanceof the primary care physician prior to conception [...] for use in and these agents are consideredas first-line therapy when indicated. Maternal Medicine ultrasound [...] blood pressure control and assessment of patient riskand is indicated as follows: For those with stable blood pressures not on anti-hypertensive medications: - Between 38 0/7 and 39 6/7 weeks For those on anti-hypertensive medications: - Between 37 0/7 and 39 6/7 weeks PLAN: Ordered Lantus 10 units at bedtime. Scheduled on 02/01/[address] Avalos for anatomy scan. Follow up for glucose management in 1 week via [employer] [facility]. Thank you for allowing us to participate in the care of this patient. Please call with any questions. I spent a total of 50 minutes on the date of service in preparation, delivery, and documentation ofthe care provided to Bety Mullen excluding any time spent in the performance of separately billed services. JHONATAN Park 12/24/2022 1:53 PM documented in this encounter Miscellaneous Notes * Pt Handout (on AVS) - JHONATAN Wheeler - 12/24/2022 12:33 PM EDT Images from the original note were not included. Lantus Solostar Pen: How to Inject a Dose - Video Let's take a minute to talk about how to use your Lantus SoloStar insulin pen. You will need clean hands, alcohol swabs, and a compatible needle, like BD Ultra-Fine pen needles. You will also need anapproved "sharps container". To dispose of the needles. To view the video go to this web address: [email or web address] Or, scan this QR code with your smart phone 2022 [employer] / [employer]. All Rights Reserved. * Assessment & Plan Note - JHONATAN Wheeler - 12/24/2022 12:30 PM EDTAssociated Problem(s): Chronic hypertension in Considerations: Women with chronic hypertension during are at significantly increased risk for morbidity. Signs and symptoms of superimposed pre-eclampsia were reviewed; instructed patient to contact primary OB care provider if these symptoms occur. Recommendations: Obtain baseline lab work BELIA (if not already done) with assessment of proteinuria (24-hour urine protein or unrjvwm-rc-irixknpwlu ratio) and CBC, serum AST/ALT/creatinine. If patient has had hypertension for 10 years or more, obtain an EKG and eye exam (if not performed within the past year). Recommend initiation of aspirin (81mg) daily, from 13 weeks until delivery, to decrease the riskof superimposed preeclampsia. Daily home blood pressure monitoring, especially in the second half of the . o It may be useful to have the patient validate their home device with their primary OB care provider's office. Patients with BP less than 140/90 maintained with antihypertensives should continue medication during . Discontinuation of ELADIA inhibitors or angiotensin type II receptor antagonists under the guidanceof the primary care physician prior to conception [...] for use in and these agents are consideredas first-line therapy when indicated. Maternal Medicine ultrasound [...] blood pressure control and assessment of patient riskand is indicated as follows: For those with stable blood pressures not on anti-hypertensive medications: - Between 38 0/7 and 39 6/7 weeks For those on anti-hypertensive medications: - Between 37 0/7 and 39 6/7 weeks documented in this encounter Plan of Treatment Upcoming Encounters Date Type Specialty Care Team Description 01/04/2023 Office Visit Internal Medicine Kasia Jara MD [address] [place] [address] 01/22/2023 Office Visit Gynecology Obstetrics Brittanie Fitzgerald PA-C [address] [place] [address] 02/01/2023 Office Visit Maternal Medicine Federico Avalos, DO [address] [place] [address] 02/01/2023 Imaging Radiology Health Maintenance Due Date [...] risk in second trimester- Primary Unspecified high-risk 16 weeks gestation of state, incidental Insulin controlled gestational diabetes mellitus (GDM) in second trimester Chronic hypertension in Benign essential hypertension complicating , childbirth, and the puerperium, unspecified as to episode of care documented in this encounter Care Teams Pilot Boat Operator Relationship Specialty Start Date End Date Kasia Jara MD [address] [facility] [place] [address] PCP - General Internal Medicine 03/01/20 documented as of this encounter
--- OUTSIDE RECORDS SUMMARY | 2023-05-20 11:05 | External Medical Summary | Summary of Care ---
Author Name Unknown Organization [facility] Address [address] [place] [address] Phone [phone] Care Team Providers Care Interactive Web Developer Name Role Phone Kasia Jara MD Primary Care Provider [phone] Encounter Details Date Type Department Care Team Description 01/25/2023 Orders Only Elevator Supervisor Obstetrics Maternal Medicine, [place] [address] [address] Unique Mendoza CRNP [address] [place] [address] Supervision of high risk in second trimester; [...] by mouth in the morning. 0 Active Micromuscle Verio Flex System w/Device KitIndications:Ges tational diabetes mellitus (GDM), antepartum, gestational diabetes method of control unspecified Use to test blood sugars 4 times daily (fasting, 1 hour after breakfast, lunch, and dinner) 1 Kit 0 12/02/2022 Active Mynt Facilities ServicesTouch Verio In Vitro Strip (Glucose Blood)Indications: Gestational diabetes mellitus (GDM), antepartum, gestational diabetes method of control unspecified Use to test blood sugars 4 times daily (fasting, 1 hour after breakfast, lunch, and dinner) 125 Strip 6 12/02/2022 Active Mynt Facilities ServicesTouch Delica Lancets 30GIndications:Ges tational diabetes mellitus (GDM), [...] at bedtime. 15 mL 3 01/25/2023 Active Insulin Glargine Solostar 100 UNIT/ML Subcutaneous [...] assessment of proteinuria (24-hour urine protein or dmczvvy-xg-sxriaiyazo ratio) and CBC, serum AST/ALT/creatinine. If patient [...] tonight 01/05/23--FBS are elevated- sent msg to SIMONIZER 01/05/23: RPM elevated FBS; increase to Lantus 15 units at bedtime 01/11/23-- FBS elevated- msg sent to SIMONIZER 01/11/23: RPM - elevated FBS - increase to Lantus 20 units at bedtime 01/21/23--FBS elevated- msg sent to SIMONIZER 01/21/23: RPM - FBS elevated (100-120s); increase to Lantus 30 units at bedtime 01/25/23- FBS elevated msg sent to SIMONIZER 01/25/23: RPM - elevated FBS; increase to [...] Recommend nutrition consult with RDN (Registered Dietitian Auto Design Detailer). Lifestyle changes are also indicated including optimizing [...] Obgyn Injection [address] [place] [address] 02/01/2023 Office Visit Maternal Medicine Federico Avalos, DO [address] [facility] [address] [address] 02/01/2023 Imaging Radiology 02/19/2023 Office Visit Gynecology Obstetrics Brittanie Fitzgerald PA-C [address] [place] [address] Health Maintenance Due Date Last Done Comments [...] trimester documented in this encounter Care Teams Interactive Web Developer Relationship Specialty Start Date End Date Kasia Jara MD 200 [facility] [place] [address] PCP - General Internal Medicine 03/01/20 documented as of this encounter
--- OUTSIDE RECORDS SUMMARY | 2023-05-20 11:06 | External Medical Summary | Summary of Care ---
Author Name Unknown Organization [facility] Address [address] [facility] [address] Phone [phone] Care Team Providers Care Talend Etl Developer Name Role Phone Kasia Jara MD Primary Care Provider [phone] Reason for Visit * Reason Comments Return Visit Encounter Details Date Type Department Care Team Description 11/24/2022 Office Visit Gynecology/Obstetrics [facility] [address] [place] [address] Lula Pandey CRNP [address] [place] [address] Supervision of high-risk , unspecified trimester*; Multigravida of advanced maternal age in first trimester; Adjustment disorder with mixed anxiety and depressed mood; Obesity affecting in first trimester Allergies Active Allergy Reactions Severity Noted Date Comments Amoxicillin 07/08/2014 hives Naltrexone Nausea/vomiting 05/03/2019 Penicillins 07/08/2014 Sulfamethoxazole-Trimethoprim 2014 hives documented as of this encounter (statuses as of 11/24/2022) Medications Medication Sig Dispensed Refills Start Date [...] Active Sertraline HCl 50 MG Oral Tablet (Zoloft)Indicatio ns:SHIELA (generalized anxiety disorder),Binge eating disorder Take 1 Tablet by mouth in the morning. 30 Tablet 5 10/27/2022 Active Calcium Carbonate Antacid 500 MG Oral Tablet Chewable Take 1 Tablet by mouth in the morning. 0 Active Folic Acid 400 MCG Oral Tablet Take 1 Tablet by mouth in the morning. 0 11/24/2022 Discontinued (Medication List Clean Up) documented as of this encounter (statuses as of 11/24/2022) Active Problems Problem Noted Date Supervision of [...] as of this encounter (statuses as of 11/24/2022) Immunizations Name Administration Dates Next Due COVID-19 [...] Reading Time Taken Comments Blood Pressure 138/78 11/24/2022 11:22 AM EDT Pulse - - Temperature - - Respiratory Rate - - Oxygen Saturation - - Inhaled Oxygen Concentration - - Weight 134.3 kg (296 lb) 11/24/2022 11:22 AM EDT Height - - Body Mass Index 50.81 10/27/2022 1:24 PM EDT documented in this encounter Progress Notes * JHONATAN Zamora - 11/24/2022 11:26 AM EDT 12w 2d Denies bleeding/cramping. Qnatal ordered, discussed turn around time for results. Had glucose checked with [facility] labs but did not receive 50g glucose drink prior. Will schedule repeat. Continue to monitor BP - 140/80 at [facility], ok today. Obtain P/C ratio today. Unable to hear HR with doppler, FHR confirmed with [facility]/S. 4 week return JHONATAN Brown documented in this encounter Nursing Notes * Grisle Valle LPN - 11/24/2022 11:26 AM EDT 12w2d Denies vaginal bleeding/rom Absent movement Requesting qnatal today documented in this encounter Plan of Treatment Upcoming Encounters Date Type Specialty Care Team Description 12/23/2022 Office Visit Gynecology Obstetrics Laura Lua CRNP [address] [place] [address] 01/04/2023 Office Visit Internal Medicine Kasia Jara MD [address] [facility] [address] Pending Results Name Type Priority Associated Diagnoses Date /Time PROTEIN/ CREATININE RATIO, URINE Lab Routine Obesity affecting in first trimester 11/24/2022 12:15 PM EDT US PREG LIMITED 1 OR MORE FETUSES Medical Imaging Routine Supervision of high-risk , unspecified trimester 11/24/2022 12:22 PM EDT Scheduled Orders Name Type Priority Associated Diagnoses Orde r Schedule QNATAL ADVANCED (QUEST) Lab Routine Multigravida of advanced maternal age in first trimester Supervision of high-risk , unspecified trimester Expected: 11/24/2022, Expires: 11/25/2023 50-G GESTATIONAL GLUCOSE, 1 HOUR Lab Routine Obesity affecting in first trimester Expected: 11/24/2022 (Approximate), Expires: 11/25/2023 US PREG LIMITED 1 OR MORE FETUSES Medical Imaging Routine Supervision of high-risk , unspecified trimester Expected: 11/24/2022, Expires: 12/26/2023 Health Maintenance Due Date Last Done Comments [...] Supervision of high-risk , unspecified trimester- Primary Multigravida of advanced maternal age in first trimester Adjustment disorder with mixed anxiety and depressed mood Obesity affecting in first trimester documented in this encounter Care Teams Talend Etl Developer Relationship Specialty Start Date End Date Kasia Jara MD [address] [place] [place] [address] PCP - General Internal Medicine 03/01/20 documented as of this encounter
--- OUTSIDE RECORDS SUMMARY | 2023-05-20 11:06 | External Medical Summary ---
Author Name Unknown Address Unknown Organization : Laboratory Report Ordering Provider Test Date Status ISAAC AGUAYO 11/24/2022 13:39:23 Final Observation Date Value Abnormality Reference (Units ) Status NUMBER OF FETUSES? 11/24/2022 13:39:23 1 Final ADVANCED MATERNAL AGE? 11/24/2022 13:39:23 YES Final ABNORMAL SD? 11/24/2022 13:39:23 NO Final ABNORMAL US? 11/24/2022 13:39:23 NOT GIVEN Final PERSONAL/FAM HISTORY? 11/24/2022 13:39:23 NOT GIVEN Final INTERPRETATION 11/24/2022 13:39:23 SEE BELOW Final This specimen showed an expe cted representation of
chromosome 21, 18, and 13 material. Results were
not analyzed or reported for microdeletions. See
'Limitations' below. TRISOMY 21 (T21) 11/24/2022 13:39:23 Negative Final TRISOMY 18 (T18) 11/24/2022 13:39:23 Negative Final TRISOMY 13 (T13) 11/24/2022 13:39:23 Negative Final Y CHROMOSOME 11/24/2022 13:39:23 Detected Final Y CHR. INTERPRETATION 11/24/2022 13:39:23 SEE BELOW Final Consistent with a male fetus . SEX CHROMOSOME 11/24/2022 13:39:23 No aneuploidy Final SEX CHROMOSOME INTERP 11/24/2022 13:39:23 SEE BELOW Final No apparent abnormality was detected. See
'Limitations' below. MICRODELETION 11/24/2022 13:39:23 Opted Out Final MICRODELETION INTERP 11/24/2022 13:39:23 SEE BELOW Final Results were not analyzed or reported for
microdeletions. GESTATIONAL AGE (IN WEEKS) 11/24/2022 13:39:23 12 Final GESTATIONAL AGE (IN DAYS) 11/24/2022 13:39:23 2 Final FRACTION 11/24/2022 13:39:23 5.50% Final LABORATORY COMMENTS 11/24/2022 13:39:23 SEE BELOW Final Laboratory testing supervise d and results
monitored by Doris Torres, Ph.D., [facility],
[facility]. LIMITATIONS 11/24/2022 13:39:23 SEE BELOW Final QNatal(R) Advanced is a cell -free DNA test that
screens for increased risk of certain
chromosomal abnormalities that may cause
defects, including Trisomy 21 (Down syndrome),
Trisomy 18, Trisomy 13, and certain sex chromosome
abnormalities (i.e., 45,X, 47,XXY, 47,XXX, and
47,XYY), as well as sex. In addition, if
selected as an option, QNatal(R) Advanced can
screen for certain microdeletions (i.e., 22q, 5p,
1p36, 15q, 11q, 8q, and 4p) that may cause
defects. This test does not assess the risk of
abnormalities such as neural tube defects or
ventral wall defects and should not be considered
in isolation from other clinical findings and
laboratory test results.
QNatal(R) Advanced has been validated in [place]
pregnancies for the trisomies and sex chromosome
abnormalities listed above, as well as for
microdeletions, and for the determination of
sex. Sex chromosome aneuploidy analysis is only
performed in [place] pregnancies. The test has
also been validated in twin pregnancies for the
trisomies listed above and for microdeletions, but
not for the sex chromosome abnormalities due to
limited data. The test has not been validated in
higher order pregnancies (more than two) because
limited data is available.
Microdeletion screening is limited to the
specified microdeletion regions (see
'Methodology'). The Y chromosome is analyzed for
the determination of sex. The sensitivity
and specificity of sex determination
analysis may be less than that of the Trisomy 21,
18, and 13 analysis and this determination can be
confounded by vanishing twin syndrome in
pregnancies that were originally multiple
gestation pregnancies. It should be noted that
QNatal(R) Advanced is a quantitative analysis of
maternal and placental cfDNA. As a result, the
accuracy of the screening test results may be
affected by the presence of chromosome
abnormalities or microdeletions that are maternal
or confined placental in origin. False positive
findings involving the examined chromosomes and
microdeletion regions may be due to maternal,
placental, or mosaicism, by vanishing twin
syndrome, or other unexplained causes. SPECIFICATIONS 11/24/2022 13:39:23 SEE BELOW Final Sensitivity Specificity
T21 >99.9% >99.9%
T18 >99.9% >99.9%
T13 >99.9% >99.9%
Accuracy
Y >99.9%
Performance of the QNatal Advanced
laboratory-developed test (LDT) has been
determined based on internal analytical
assessment. METHODOLOGY 11/24/2022 13:39:23 SEE BELOW Final Circulating cell-free (cf) D NA was isolated from
plasma followed by detection on a massively
parallel sequencing platform. Bioinformatic
analysis was performed to determine the
representation of chromosomes 21, 18, 13, X and Y
in circulating cell-free DNA. The representation
of sequences from the critical regions involved in
1p36 microdeletion syndrome (1p36),
Amaya-Hirschhorn syndrome (4p), Cri-du-chat
syndrome (5p), Shauna-Giedion syndrome (8p),
Janelle syndrome (11q), Prader Willi
syndrome/Angelman syndrome (15q), and DiGeorge
syndrome (22q) is evaluated for the detection of
microdeletions if requested. This test was
developed, and its performance characteristics
have been determined by [email or web address] [facility]. It has not been
cleared or approved by the U.S. Food and Drug
Administration. Performance characteristics refer
to the analytical performance of the test. This
test is performed pursuant to a license agreement
with [employer].
This test was developed and its analytical
performance characteristics have been determined
by [email or web address] [facility]. It has not been cleared or approved by
FDA. This assay has been validated pursuant to the
CLIA regulations and is used for clinical
purposes.
Test performed by [email or web address] [facility]
[address] [facility]
[place] [address]

Press Operator Heavy Duty: Ana Cristina Lancaster MD,PHD,EMILIE
Test Reported by [facility],
[email or web address] [facility],
[address] [place], [place]
Dagoberto Angulo M.D., Ph.D., Director of Laboratories
, CLIA [id number] Performing Location
--- OUTSIDE RECORDS SUMMARY | 2023-05-20 11:06 | External Medical Summary ---
Author Name Unknown Address Unknown Organization [id number]:LABORATORY [facility] - [address] [facility] [address] Laboratory Report Ordering Provider Test Date Status ISAAC AGUAYO 11/24/2022 12:15:05 Final Normal: <150 mg/ g creatinine
High: 150-500 mg/g creatinine
Very High: >500 mg/g creatinine
Nephrotic: >3000 mg/g creatinine Observation Date Value Abnormality Reference (Units ) Status Protein/Creatinine [Ratio] in Urine 11/24/2022 12:15:05 63 <150 (mg/g ) Final Protein, Urine 11/24/2022 12:15:05 6 (mg/dL) Final Creatinine, Urine 11/24/2022 12:15:05 96 (mg/dL) Final Performing Location LABORATORY [facility] - [address] [facility] [address]
--- OUTSIDE RECORDS SUMMARY | 2023-05-20 11:06 | External Medical Summary ---
Author Name Unknown Address Unknown Organization [id number]:LABORATORY [facility] [address] - [address] [place] [address] Laboratory Report Ordering Provider Test Date Status ISAAC AGUAYO 12/02/2022 10:21:13 Final Observation Date Value Abnormality Reference (Units ) Status Glucose [Mass/volume] in Serum or Plasma --3 hours post dose glucose 12/02/2022 10:21:13 76 70-139 (mg/dL) Final Performing Location LABORATORY [facility] [address] 0 - [address] [place] [address]
--- OUTSIDE RECORDS SUMMARY | 2023-05-20 11:06 | External Medical Summary ---
Author Name Unknown Address Unknown Organization [id number][facility] [address] [place] [address] Laboratory Report Ordering Provider Test Date Status ISAAC AGUAYO 12/02/2022 09:21:24 Final Observation Date Value Abnormality Reference (Units ) Status Glucose, 2-hr post glucose challenge 12/02/2022 09:21:24 177 Above high normal 70-154 (mg/dL) Final Performing Location LABORATORY [facility] 57[address] 0 - [address] [place] [address]
--- OUTSIDE RECORDS SUMMARY | 2023-05-20 11:06 | External Medical Summary | Summary of Care ---
Author Name Unknown Organization [facility] Address [address] [place] [address] Phone [phone] Care Team Providers Care Documentation Liaison Name Role Phone Kasia Jara MD Primary Care Provider [phone] Reason for Visit * Reason Comments Outpatient Testing Encounter Details Date Type Department Care Team Description 11/24/2022 Laboratory Laboratory, [facility] 132 [facility] [place] [address] [facility] 132 [facility] [place] [address] Threatened in early ; Multigravida of advanced maternal age in first trimester; Supervision of high-risk , unspecified trimester; Obesity affecting in first trimester Allergies Active [...] Description 12/23/2022 Office Visit Gynecology Obstetrics Laura Lau CRNP [address] [place] [address] 01/04/2023 Office Visit Internal Medicine Kasia Jara MD [address] [place] [address] Pending Results Name Type Priority Associated Diagnoses Date /Time BETA-HCG, QUANTITATIVE Lab Routine Threatened in early 11/24/2022 11:15 AM EDT QNATAL ADVANCED (QUEST) Lab Routine Multigravida of advanced maternal age in first trimester Supervision of high-risk , unspecified trimester 11/24/2022 1:39 PM EDT Health Maintenance Due Date Last [...] Procedure Name Priority Date/Time Associated Diagnosis Comments 50-G GESTATIONAL GLUCOSE, 1 HOUR Routine 11/24/2022 1:39 PM EDT Obesity affecting in first trimester documented in this encounter Results * (ABNORMAL) 50-G GESTATIONAL GLUCOSE, 1 HOUR (11/24/2022 1:39 PM EDT) 50-g Gestational Glucose, 1 Hour 182(H) 70 - 129 mg/dL 11/24/2022 2:43 PM EDT LABORATORY [place] [facility]10 Blood Venous blood specimen / Unknown Venipuncture / Unknown 11/24/2022 1:39 PM EDT 11/24/2022 1:39 PM EDT Lula Ko Backer JHONATAN LAB BLOOD O RDERABLES LABORATORY [place] [address] [place] [address] documented in this encounter Visit Diagnoses Diagnosis Threatened in early Threatened , unspecified as to episode of care Multigravida of advanced maternal age in first trimester Supervision of high-risk , unspecified trimester Obesity affecting in first trimester documented in this encounter Care Teams Documentation Liaison Relationship Specialty Start Date End Date Kasia Jara MD 200 [place] [address] PCP - General Internal Medicine 03/01/20 documented as of this encounter
--- OUTSIDE RECORDS SUMMARY | 2023-05-20 11:06 | External Medical Summary | Summary of Care ---
Author Name Unknown Organization [facility] Address [address] [place] [address] Phone [phone] Care Team Providers Care Career Development Associate Name Role Phone Kasia Jara MD Primary Care Provider [phone] Reason for Visit * Reason Comments Outpatient Testing Encounter Details Date Type Department Care Team Description 12/02/2022 Laboratory Laboratory, [facility] 132 [facility] [place] [address] [facility] 132 [facility] [place] [address] Impaired glucose tolerance during Allergies [...] Laura Lua CRNP [address] [place] [address] 01/04/2023 Office Visit Internal Medicine K[facility]ara MD 200 [facility] [address] Pending Results Name Type Priority Associated Diagnoses Date /Time GESTATIONAL GLUCOSE TOLERANCE, 3 HOUR Lab Routine Impaired glucose tolerance during 12/02/2022 7:15 AM EDT 100-G GESTATIONAL GLUCOSE, FASTING Lab Routine Impaired glucose tolerance during 12/02/2022 7:15 AM EDT 100-G GESTATIONAL GLUCOSE, 1 HOUR Lab Routine Impaired glucose tolerance during 12/02/2022 8:22 AM EDT 100-G GESTATIONAL GLUCOSE, 2 HOUR Lab Routine Impaired glucose tolerance during 12/02/2022 9:21 AM EDT Scheduled Orders Name Type Priority Associated Diagnoses Orde r Schedule 100-G GESTATIONAL GLUCOSE, 3 HOUR Lab Routine Impaired glucose tolerance during Ordered: 12/02/2022 Health Maintenance Due Date Last [...] as of this encounter Visit Diagnoses Diagnosis Impaired glucose tolerance during documented in this encounter Care Teams Career Development Associate Relationship Specialty Start Date End Date Kasia Jara MD [address] [place] [address], [place] [address] PCP - General Internal Medicine 03/01/20 documented as of this encounter
--- OUTSIDE RECORDS SUMMARY | 2023-05-20 11:06 | External Medical Summary | Summary of Care ---
Author Name Unknown Organization [facility] Address [address] [place] [address] Phone [phone] Care Team Providers Care Boat Loader Helper Name Role Phone Kasia Jara MD Primary Care Provider [phone] Reason for Visit * Reason Comments Outpatient Testing Encounter Details Date Type Department Care Team Description 11/24/2022 Laboratory Laboratory, [facility] 132 [facility] [place] [address] [facility] 132 [facility] [place] [address] Threatened in early ; Multigravida [...] Obstetrics Laura Lua CRNP [address] [place] [address] 01/04/2023 Office Visit Internal Medicine Kasia Jara MD [address] [place] [address] Pending Results Name Type Priority Associated Diagnoses [...] [place] [address] [place] [address] documented in this encounter Visit Diagnoses Diagnosis Threatened in early Threatened , unspecified as to episode of care Multigravida of advanced maternal age in first trimester Supervision of high-risk , unspecified trimester Obesity affecting in first trimester documented in this encounter Care Teams Boat Loader Helper Relationship Specialty Start Date End Date Kasia Jara MD 200 [facility] [place] [address] PCP - General Internal Medicine 03/01/20 documented as of this encounter
--- OUTSIDE RECORDS SUMMARY | 2023-05-20 11:06 | External Medical Summary ---
Author Name Unknown Address Unknown Organization K01:LABORATORY [address] [facility] [address] Laboratory Report Ordering Provider Test Date Status CODY,KARTHIKEYAN 11/24/2022 11:15:26 Final hCG can serve as a screening assay for . However, early may not give a positive hCG test result. In addition, some non- women may have a hCG result slightly higher than the reference limit. Careful interpretation of the hCG with clinical history is required to determine whether the patient may be . Observation Date Value Abnormality Reference (Units ) Status Choriogonadotropin.in tact+Beta subunit [Units/volume] in Serum or Plasma 11/24/2022 11:15:26 [address].0 Above high normal <=1.0 (mIU/mL) Final Performing Location LABORATORY [place] [address] [address] [facility] [address] [facility] [address]
--- OUTSIDE RECORDS SUMMARY | 2023-05-20 11:06 | External Medical Summary ---
Author Name Unknown Address Unknown Organization K0G:LABORATORY [facility] [address] - [address] [place] [address] Laboratory Report Ordering Provider Test Date Status ISAAC AGUAYO 12/02/2022 07:15:11 Final Based on ACOG guideline, ges tational diabetes mellitus is diagnosed when any of the following is met:
Fasting is greater than or equal to 95 mg/dL
1 hour is greater than or equal to 180 mg/dL
2 hour is greater than or equal to 155 mg/dL
3 hour is greater than or equal to 140 mg/dL Observation Date Value Abnormality Reference (Units ) Status Glucose, fasting 12/02/2022 07:15:11 101 Above high no rmal 70-94 (mg/dL) Final Performing Location LABORATORY [facility] [address] 0 - [address] [place] [address]
--- OUTSIDE RECORDS SUMMARY | 2023-05-20 11:06 | External Medical Summary ---
Author Name Unknown Address Unknown Organization K0G:LABORATORY [facility] [address] - [address] [place] [address] Laboratory Report Ordering Provider Test Date Status ISAAC AGUAYO 11/24/2022 13:39:23 Final Observation Date Value Abnormality Reference (Units ) Status Glucose [Moles/volume] in Serum or Plasma --1 hour post 50 g glucose PO 11/24/2022 13:39:23 182 Above high normal 70-129 (mg/dL) Final Performing Location LABORATORY [facility] 57[address] 0 - [address] [place] [address]
--- OUTSIDE RECORDS SUMMARY | 2023-05-20 11:06 | External Medical Summary | Summary of Care ---
Author Name Unknown Organization [facility] Address [address] [facility] [place] [address] Phone [phone] Care Team Providers Care Contour Path Tape Mill Operator Name Role Phone Kasia Jara MD Primary Care Provider [phone] Reason for Visit * Reason Onset Date Comments Test Results 11/24/2022 Encounter Details Date Type Department Care Team Description 11/24/2022 Telephone Gynecology/Obstetrics [facility] [address] [place] [address] Lula Pandey CRNP [address] [place] [address] Test Results Allergies Active Allergy Reactions Severity Noted Date Comments Amoxicillin 07/08/2014 hives Naltrexone Nausea/vomiting 05/03/2019 Penicillins 07/08/2014 Sulfamethoxazole-Trimethoprim 2014 hives documented as of this encounter (statuses as of 11/25/2022) Medications Medication Sig Dispensed Refills Start Date [...] as of this encounter (statuses as of 11/25/2022) Active Problems Problem Noted Date Supervision of [...] as of this encounter (statuses as of 11/25/2022) Immunizations Name Administration Dates Next Due COVID-19 [...] Telephone Encounter - Echo Elizondo RN - 11/25/2022 9:36 AM EDT Patient called and made aware. Patient verbalized understanding, patient transferred to frontend engineer. * Telephone Encounter - JHONATAN Zamora - 11/24/2022 2:47 PM EDT Elevated 1 hr glucose - will need to complete 3 hr GTT. Please review instructions w/pt and assist in scheduling, thanks! JHONATAN Brown documented in this encounter Plan of Treatment Upcoming Encounters Date Type Specialty Care Team Description 11/26/2022 Laboratory Laboratory [facility] [address] [place] [address] 12/23/2022 Office Visit Gynecology Obstetrics Laura Lua CRNP [address] [place] [address] 01/04/2023 Office Visit Internal Medicine Kasia Jara MD [address] [place] [address] Scheduled Orders Name Type Priority Associated Diagnoses Orde r Schedule GESTATIONAL GLUCOSE TOLERANCE, 3 HOUR Lab Routine Impaired glucose tolerance during Expected: 11/24/2022 (Approximate), Expires: 11/25/2023 Health Maintenance Due Date Last Done Comments [...] Visit Diagnoses Diagnosis Impaired glucose tolerance during - Primary documented in this encounter Care Teams Contour Path Tape Mill Operator Relationship Specialty Start Date End Date Kasia Jara MD [address] [place] [address] PCP - General Internal Medicine 03/01/20 documented as of this encounter
--- OUTSIDE RECORDS SUMMARY | 2023-05-20 11:06 | External Medical Summary ---
Author Name Unknown Address Unknown Organization [id number] [address] [place] [address] Laboratory Report Ordering Provider Test Date Status ISAAC AGUAYO 12/02/2022 08:22:16 Final Observation Date Value Abnormality Reference (Units ) Status Glucose [Mass/volume] in Serum or Plasma --1 hour post dose glucose 12/02/2022 08:22:16 199 Above high normal 70-179 (mg/dL) Final Performing Location [facility] [address] [place] [address]
[2023-05-20] MEDS ORDERED: LIDOCAINE 1% LOCAL 20 ML VIAL INFIL PRN (11:51)
[2023-05-20] MEDS ORDERED: OXYTOCIN 30 UNITS/NSS 30 UNITS/500 ML BAG IV PRN ×2 (11:51→12:53)
--- NOTE | 2023-05-20 12:32 | Ultrasound Report ---
ULTRASOUND OBSTETRICAL LIMITED CLINICAL HISTORY: Gestational diabetes. COMPARISON STUDY: No priors. FINDINGS: Real-time, grayscale and color Doppler sonography of the fetus and gravid uterus is perform ed. There is a single live intrauterine gestation with a heart rate of 157 bpm. The placenta is anter ior and normal as imaged. Positioning is cephalic. The amniotic fluid index measures 8 cm. The larges t pocket measures 2.9 cm. Femoral length measures 7.23 cm corresponding to an estimated age of 37 weeks 0 days. Abdominal circumference measures 36.73 cm corresponding to an estimated age of 40 weeks 5 days. Biparietal diameter measures 9.99 cm corresponding to an estimated age of 41 weeks 1 day. Head circumference measures 35.90 cm which is too large for estimation of dates. Cumulative estimation of dates is 39 weeks and 4 days +/-2 weeks 5 days. Estimated weight is 4013 g +/-602 g. IMPRESSION: 1. Single live uterine gestation with estimated age of 39 weeks 4 days. See above. 2. Note that this does not constitute a dedicated anatomic scan. 3. The amniotic fluid index measures 8 cm. Dictated: 05/20/2023 11:45 AM Transcribed: 05/20/2023 12:11 PM Brian [id number] [email or web address]_Woody [id number] Electronically signed by: Tarik Carpio M.D. 05/20/2023 12:30 PM
--- NOTE | 2023-05-20 13:11 | Obstetrical Progress Note ---
Date of Service May 20, 2023 Assessment & Plan (1) Obesity affecting in third trimester: Plan: Induction for the following 1. Obesity 2. Gestational hypertension on insulin 3. Mild preeclampsia on office visit 05/19/23. Patient had elevated blood pressure and proteinuria and therefore was scheduled for induction today, 05/20/23 Patient is seen this morning and care and labs are reviewed. EFW by sono (Radiology) on bedside shows EFW of 8 pounds 14 ounces.(4000 gms) I have discussed the EFW with patient and spouse. We discussed induction of labor versus section. The plan now is to proceed with induction of labor. heart rate is category 1. Vaginal exam is closed thick and posterior. 30 cc of Bean bulb is placed into the through the cervix without difficulty. Pitocin augmentation was started. (2) Preeclampsia: (3) Gestational diabetes mellitus: Admission and Anticipated Discharge Date Admission Date: May 20, 2023 Results & Data Vital Signs (Past 12 Hours) Vital Signs Temp Pulse Resp BP 05/20/23 11:38 95 H 05/20/23 11:38 141/74 H 05/20/23 08:46 89 05/20/23 08:46 145/85 H 05/20/23 08:07 36.7 C 20 05/20/23 07:45 36.7 C 100 H 20 143/79 H
[2023-05-20] MEDS: LABETALOL HCL 200 MG TAB PO SCH ×2 (14:08→21:06)
[2023-05-20] MEDS: ceFAZolin 2000MG 2,000 MG/15 ML SYR IV STA ×2 (14:46→20:11)
[2023-05-20] MEDS: LACTATED RINGER'S 1,000 ML IV PRN ×2 (15:34→20:56)
[2023-05-20] MEDS ORDERED: fentaNYL citrate PF 100 MCG/2 ML VIAL ONE (20:34)
[2023-05-20] MEDS ORDERED: ePHEDrine sulfate 50 MG/ML AMP ONE (20:34)
[2023-05-20] MEDS ORDERED: BUPIVACAINE 0.25% PF 30 ML VIAL ONE (20:35)
[2023-05-20] MEDS ORDERED: SODIUM CHLORIDE 0.9% PF INJ 10 ML VIAL ONE (20:35)
[2023-05-20] MEDS ORDERED: LIDOCAINE 2%/EPINEPHRINE 1:200,000 20 ML PF ONE (20:35)
[2023-05-20] MEDS ORDERED: fentANYL 2 MCG/ML BUPIVacaine 0.125%-NSS 100ML BAG ONE (20:35)
--- NOTE | 2023-05-20 20:56 | Anesthesiology Consultation ---
Date of Service May 20, 2023 Assessment & Plan Chart Review Chart Review: Patient NOT seen in Pre Admission Testing and Acceptable Risk for Labor Epidural Consults Requested none ASA ASA3 Proposed Anesthesia Anesthesia Type: Labor Epidural Risk / Benefits Reviewed With: PT / POA / Parent / Guardian, Accepts Plan and Informed Consent Obtained History Height/Weight Height: 5 ft 3.5 in Weight: 151.046 kg Allergies Allergy/AdvReac Type Severity Reaction Status Date / Time amoxicillin Allergy Intermediate Hives Verified 02/23/19 09:00 Bactrim Allergy Intermediate Hives Verified 07/12/16 21:42 Penicillins Allergy Intermediate Hives Verified 02/23/19 09:00 sulfamethoxazole Allergy Intermediate Hives Verified 02/23/19 09:00 trimethoprim Allergy Intermediate Hives Verified 02/23/19 09:00 naltrexone Allergy Vomiting Verified 05/20/23 08:08 Medications Home Medications Medication Instructions Recorded Confirmed Last Taken aspirin 81 mg capsule 81 mg PO DAILY 05/20/23 05/20/23 05/20/23 06:30 insulin glargine U-300 conc 300 85 unit subcut HS 05/20/23 05/20/23 05/19/23 23:00 unit/mL (1.5 mL) subcutaneous pen ([employer] SoloStar U-300 Insulin) iron,carbonyl 65 mg-vitamin C 125 1 tab PO DAILY 05/20/23 05/20/23 05/13/23 23:00 mg tablet,delayed release (Vitron-C) labetalol 300 mg tablet 200 mg PO 3XD 05/20/23 05/20/23 05/20/23 06:30 vit no.133-ferrous 1 tab PO DAILY 05/20/23 05/20/23 05/20/23 06:30 fumarate 28 mg-folic acid 800 mcg tablet () sertraline 50 mg tablet (Zoloft) 50 mg PO DAILY 05/20/23 05/20/23 05/20/23 06:30 Active Medications Generic Name Dose Route Start Last Admin Trade Name Freq PRN Reason Stop Dose Admin Lactated Ringer's 1,000 mls @ 125 mls/hr 05/20/23 11:51 05/20/23 20:56 Lr IV 05/22/23 11:50 999 mls/hr .Q8H PRN Administration L&D Protocol Protocol Oxytocin 30 units in 500 mls @ 20 mls/hr 05/20/23 12:53 05/20/23 20:30 Pitocin 30 Units/Nss IV 05/22/23 12:52 1.2 units/hr .Q24H PRN 20 mls/hr Labor Induction/Augmentation Titration Protocol 1.2 UNITS/HR Labetalol HCl 200 mg 05/20/23 14:00 05/20/23 21:06 Labetalol Hcl 200 Mg Tab PO 06/19/23 13:59 200 mg TID ASHER Administration NPO Date Last Intake of Fluids: 05/20/23 Time Last Intake of Fluids: 20:00 Date Last Intake of Solids: 05/20/23 Time Last Intake of Solids: 17:30 Past Medical History Medical History Depression Chronic hypertension during Adjustment disorder with mixed anxiety and depressed mood Recurrent iridocyclitis Premenstrual dysphoric disorder Binge eating disorder Generalized anxiety disorder Insulin controlled gestational diabetes mellitus (GDM) during Exercise / Class Metabolic Activity II 4-5 Yardwork/Stairs/Walk up hill Past Family History Family History Father Cancer Lung cancer Mother Diabetes Grandfather (Maternal) Multiple myeloma Denies family history of Ovarian cancer Prostate cancer Myocardial infarction Breast cancer Colorectal cancer Past Surgical History Surgical History S/P wisdom tooth extraction Past Anesthesia History No Hx of Anesthesia Complications and No Family Hx of Anesthesia Complications History of PONV No Hx of PONV and No Hx of Motion Sickness Social History Smoking Status: Never smoker Hx Alcohol Use: No Hx Substance Use: No Review of Systems ROS Unobtainable: All systems reviewed & are unremarkable except as noted in HPI & below Constitutional: see below Physical Exam Vital Signs Last Vital Signs Temp 36.7 C 05/20/23 08:07 Pulse 96 H 05/20/23 20:01 Resp 20 05/20/23 17:02 BP 140/70 05/20/23 20:01 ENMT Mouth: no TMJ abnormality Thyromental Distance: > or= 3.5 Finger Breadths Mallampati Class: II Neck normal visual inspection and trachea midline; neck extension not limited Respiratory normal respiratory effort Auscultation: lungs clear to auscultation bilaterally Cardiovascular Rate/Rhythm: regular rate and regular rhythm Heart Sounds: no murmur Musculoskeletal Spine: normal cervical ROM Extremities: full ROM of extremities Neurologic moves all extremities Psychiatric Orientation: alert and oriented x 3 Testing Laboratory Results 05/20/23 09:04 05/20/23 09:04 PT 9.8 Seconds (9.0-12.0) 05/20/23 09:04 INR 0.9 (0.9-1.1) 05/20/23 09:04 APTT 26 Seconds (21-31) 05/20/23 09:04 Blood Type A Positive 05/20/23 09:04 Antibody Screen NEGATIVE 05/20/23 09:04 05/20/23 05/20/23 05/20/23 20:03 16:02 11:58 POC Glucose 114 H 81 83
[2023-05-20] MEDS ORDERED: SODIUM CHLORIDE 0.9% PF INJ 10 ML VIAL EPI STA (21:21)
[2023-05-20] MEDS ORDERED: diphenhydrAMINE 50 MG/ML VIAL IV PRN (21:21)
[2023-05-20] MEDS ORDERED: ROPIVACAINE 0.5% PF 5 MG/ML 20 ML VIAL EPI PRN (21:21)
[2023-05-20] MEDS ORDERED: BUPIVACAINE 0.25% PF 30 ML VIAL EPI STA (21:21)
[2023-05-20] MEDS ORDERED: NALBUPHINE HCL 5 MG in SYRINGE 0 ML IV PRN (21:21)
[2023-05-20] MEDS ORDERED: ePHEDrine sulfate 50 MG/ML AMP IV PRN (21:21)
[2023-05-20] MEDS ORDERED: fentaNYL citrate PF 100 MCG/2 ML VIAL EPI STA (21:21)
[2023-05-20] MEDS ORDERED: BUPIVACAINE 0.25% PF 30 ML VIAL EPI PRN (21:21)
[2023-05-20] MEDS ORDERED: NALOXONE HCL 1 MG in SODIUM CHLORIDE 0.9% 1,000 ML IV PRN (21:21)
[2023-05-20] MEDS ORDERED: NALOXONE HCL 0.4 MG/1 ML VIAL/CARP IV PRN (21:21)
[2023-05-20] MEDS ORDERED: fentaNYL citrate PF 100 MCG/2 ML VIAL EPI PRN (21:21)
[2023-05-20] MEDS ORDERED: LIDOCAINE 2% MPF LOCAL 5 ML VIAL EPI PRN (21:21)
[2023-05-20] MEDS ORDERED: SODIUM CHLORIDE 0.9% PF INJ 10 ML VIAL EPI PRN (21:21)
[2023-05-20] MEDS ORDERED: LIDOCAINE 2%/EPINEPHRINE 1:200,000 20 ML PF EPI STA (21:21)
--- NOTE | 2023-05-20 22:52 | Obstetrical Progress Note ---
Date of Service May 20, 2023 Assessment & Plan (1) Gestational diabetes mellitus: Plan: Pt doing well FHR; CAT1 Ctx ; 1-3min VE 2-350/-2 Pitocin; 20mu Attempt to AROM was unsuccessful- due to body habitus continue Pitocin augmentation (2) Preeclampsia: Admission and Anticipated Discharge Date Admission Date: May 20, 2023 Results & Data Vital Signs (Past 12 Hours) Vital Signs Temp Pulse Resp BP Pulse Ox 05/20/23 22:46 92 H 05/20/23 22:46 138/78 05/20/23 22:44 98 05/20/23 22:44 95 H 05/20/23 22:39 97 05/20/23 22:39 103 H 05/20/23 22:34 95 05/20/23 22:34 98 H 05/20/23 22:32 97 H 05/20/23 22:32 135/73 05/20/23 22:29 97 05/20/23 22:29 101 H 05/20/23 22:24 97 05/20/23 22:24 99 H 05/20/23 22:19 97 05/20/23 22:19 101 H 05/20/23 22:16 104 H 05/20/23 22:16 153/88 H 05/20/23 22:14 99 05/20/23 22:14 104 H 05/20/23 22:10 93 05/20/23 22:10 103 H 05/20/23 22:09 97 05/20/23 22:09 96 H 05/20/23 22:04 98 05/20/23 22:04 96 H 05/20/23 22:01 82 05/20/23 22:01 137/75 05/20/23 21:59 97 05/20/23 21:59 95 H 05/20/23 21:54 20 98 05/20/23 21:54 105 H 05/20/23 21:49 99 05/20/23 21:49 97 H 05/20/23 21:44 98 05/20/23 21:44 94 H 05/20/23 21:40 90 05/20/23 21:40 145/68 H 05/20/23 21:39 97 05/20/23 21:39 93 H 05/20/23 21:36 90 05/20/23 21:36 141/67 H 05/20/23 21:34 98 05/20/23 21:34 97 H 05/20/23 21:30 98 H 05/20/23 21:30 142/76 H 05/20/23 21:29 97 05/20/23 21:29 101 H 05/20/23 21:25 100 H 05/20/23 21:25 141/73 H 05/20/23 21:24 98 05/20/23 21:24 106 H 05/20/23 21:23 103 H 05/20/23 21:23 152/82 H 05/20/23 21:21 100 H 05/20/23 21:21 141/87 H 05/20/23 21:19 98 05/20/23 21:19 100 H 05/20/23 21:19 142/91 H 05/20/23 21:17 100 H 05/20/23 21:17 141/95 H 05/20/23 21:14 99 05/20/23 21:14 101 H 05/20/23 21:13 100 H 05/20/23 21:13 190/95 H 05/20/23 21:11 103 H 05/20/23 21:11 178/95 H 05/20/23 21:09 98 05/20/23 21:09 99 H 05/20/23 21:04 97 05/20/23 21:04 121 H 20 05/20/23 20:01 96 H 05/20/23 20:01 20 140/70 05/20/23 19:16 113 H 05/20/23 19:16 36.9 C 20 167/82 H 05/20/23 18:02 98 H 05/20/23 18:02 154/73 H 05/20/23 18:01 99 H 05/20/23 18:01 20 138/71 05/20/23 17:02 85 05/20/23 17:02 20 140/71 05/20/23 16:03 88 05/20/23 16:03 20 141/79 H 05/20/23 15:41 87 05/20/23 15:41 136/80 05/20/23 15:05 88 05/20/23 15:05 20 149/78 H 05/20/23 14:07 82 05/20/23 14:07 20 171/78 H 05/20/23 13:35 101 H 05/20/23 13:35 20 176/81 H 05/20/23 11:38 95 H 05/20/23 11:38 20 141/74 H (1) Gestational diabetes mellitus Trimester: third trimester
[2023-05-21] MEDS: LACTATED RINGER'S 1,000 ML IV PRN ×3 (01:48→17:42)
[2023-05-21] MEDS: ceFAZolin 1000MG 1,000 MG/7.5 ML SYR IV PRN ×2 (04:06→16:07)
[2023-05-21] MEDS: fentANYL 2 MCG/ML BUPIVacaine 0.125%-NSS 100ML BAG EPI PRN ×2 (06:22→14:55)
[2023-05-21 06:52] LABS: Basophils # (auto) 0.03 K/uL (0.00-0.20); Basophils % (auto) 0.3 %; Eosinophils # (auto) 0.06 K/uL (0.00-0.50); Eosinophils % (auto) 0.5 %; Hematocrit (blood only) 37.3 % (37.0-47.0); Hemoglobin 12.4 g/dl (12.0-16.0); Immature Granulocytes # (auto) 0.06 K/uL (0.01-0.20); Immature Granulocytes % (auto) 0.5 %; Lymphocytes # (auto) 1.87 K/uL (1.20-3.40); Mean Corpuscular Hemoglobin 30.5 pg (25.0-34.0); Mean Corpuscular Hgb Conc 33.2 g/dL (32.0-36.0); Mean Corpuscular Volume 91.9 fL (80.0-100.0); Mean Platelet Volume 9.6 fL (9.4-12.4); Monocytes % (auto) 7.3 %; Neutrophils # (auto) 8.21 K/uL (1.40-6.50); Neutrophils % (auto) 74.4 %; Platelet Count 329 K/uL (130-400); RDW Coefficient of Variation 15.3 % (11.5-14.5); RDW Standard Deviation 50.4 fL (36.4-46.3); Red Blood Count 4.06 M/uL (4.20-5.40); White Blood Count 11.03 K/ul (4.8-10.8)
[2023-05-21 07:14] LABS: Albumin Globulin Ratio 0.9 (0.9-2); Albumin Level 3.1 gm/dl (3.4-5.0); Bilirubin,Total 0.4 mg/dl (0.2-1.0); Calcium 8.5 mg/dl (8.6-10.3); Creatinine Clr Calc Pharmacy 212.2 ml/min; Est GFR (African American) 139.5 ml/min; Est GFR (Non-African American) 120.4 ml/min; Globulin 3.5 gm/dl (2.5-4.0); Potassium 3.9 mmol/L (3.5-5.1); Total Protein 6.6 gm/dl (6.0-8.3)
--- NOTE | 2023-05-21 07:40 | Obstetrical Progress Note ---
Date of Service May 21, 2023 Assessment & Plan (1) Gestational diabetes mellitus: Plan: Induction for GDM, preeclampsia Pt doing well Pit: 20 VE: 2-3;80/-3 Ctx; 2-3 (2) Preeclampsia: (3) Obesity affecting in third trimester: Admission and Anticipated Discharge Date Admission Date: May 20, 2023 Results & Data Vital Signs (Past 12 Hours) Vital Signs Temp Pulse Resp BP Pulse Ox 05/21/23 07:34 79 97 05/21/23 07:31 80 143/71 H 05/21/23 07:29 80 96 05/21/23 07:24 90 98 05/21/23 07:19 94 H 98 05/21/23 07:16 90 148/80 H 05/21/23 07:14 81 98 05/21/23 07:13 93 H 150/72 H 05/21/23 07:09 94 H 97 05/21/23 07:04 97 H 95 05/21/23 07:01 85 147/67 H 05/21/23 07:00 20 05/21/23 07:00 36.7 C 20 05/21/23 06:59 94 H 98 05/21/23 06:54 79 97 05/21/23 06:49 81 96 05/21/23 06:46 79 171/79 H 05/21/23 06:44 77 96 05/21/23 06:39 76 96 05/21/23 06:34 79 98 05/21/23 06:31 78 157/77 H 05/21/23 06:29 83 98 05/21/23 06:24 83 98 05/21/23 06:19 82 97 05/21/23 06:16 80 146/70 H 05/21/23 06:14 83 98 05/21/23 06:09 89 97 05/21/23 06:04 90 99 05/21/23 06:01 83 143/67 H 05/21/23 05:59 89 98 05/21/23 05:54 84 97 05/21/23 05:49 83 97 05/21/23 05:46 83 139/63 05/21/23 05:44 86 97 05/21/23 05:39 82 97 05/21/23 05:34 81 96 05/21/23 05:31 77 132/60 05/21/23 05:29 92 H 98 01/05/24 05:24 84 97 05/21/23 05:19 88 97 05/21/23 05:17 93 H 150/81 H 05/21/23 05:14 80 97 05/21/23 05:09 82 97 05/21/23 05:04 82 97 05/21/23 05:01 82 141/73 H 05/21/23 04:59 96 05/21/23 04:59 78 05/21/23 04:59 77 94 05/21/23 04:54 81 95 05/21/23 04:49 78 97 05/21/23 04:46 80 147/79 H 05/21/23 04:44 84 98 05/21/23 04:39 82 98 05/21/23 04:34 78 96 05/21/23 04:32 76 150/81 H 05/21/23 04:29 83 97 05/21/23 04:24 80 97 05/21/23 04:19 81 98 05/21/23 04:16 78 143/78 H 05/21/23 04:14 86 97 05/21/23 04:09 87 97 05/21/23 04:04 98 H 97 05/21/23 04:02 90 132/78 05/21/23 04:01 84 94 05/21/23 04:00 18 05/21/23 04:00 36.7 C 18 05/21/23 03:59 91 H 96 05/21/23 03:54 88 95 05/21/23 03:52 81 94 05 03:49 82 96 05/21/23 03:47 84 140/78 05 03:44 85 96 05 03:41 93 H 94 05 03:39 85 97 05 03:34 84 95 05 03:31 78 140/77 05 03:30 86 94 05 03:29 83 96 05 03:24 82 95 05 03:19 92 H 98 05/21/23 03:17 88 151/76 H 05/21/23 03:14 85 96 05 03:11 85 94 05 03:09 86 96 10/07 03:04 85 96 01/05/24 03:01 80 142/75 H 05/21/23 03:00 89 93 05/21/23 02:59 91 H 95 05/21/23 02:54 83 95 05/21/23 02:49 90 97 05/21/23 02:48 85 147/76 H 05/21/23 02:44 82 95 05/21/23 02:39 85 96 05/21/23 02:35 87 94 05/21/23 02:34 85 94 05/21/23 02:31 89 142/71 H 05/21/23 02:29 86 96 05/21/23 02:24 85 95 05/21/23 02:22 88 94 05/21/23 02:19 90 94 05/21/23 02:17 86 152/80 H 05/21/23 02:14 87 97 05/21/23 02:09 88 96 05/21/23 02:04 86 96 05/21/23 02:01 90 140/70 05/21/23 01:59 87 94 05/21/23 01:54 86 96 05/21/23 01:49 92 H 98 05 01:46 89 135/73 /05 01:44 98 H 98 05/21/23 01:39 92 H 96 05/21/23 01:34 93 H 95 05/21/23 01:32 93 H 138/73 05/21/23 01:29 99 H 98 05 01:24 89 96 05/21/23 01:21 94 H 92 05/21/23 01:19 93 H 96 05/21/23 01:17 93 H 134/70 /05 01:14 90 95 05/21/23 01:10 97 H 94 05 01:09 91 H 95 05/21/23 01:04 92 H 95 05/21/23 01:03 90 94 05 01:01 93 H 141/75 H 05 00:59 103 H 95 /05 00:55 95 H 94 /0524 00:54 89 94 05/24 00:50 93 H 94 /05 00:49 98 H 94 05 00:46 92 H 135/71 05/21/23 00:44 106 H 96 05/21/23 00:43 92 H 94 05/21/23 00:39 95 H 96 05/21/23 00:34 88 95 05/21/23 00:31 88 136/71 05/21/23 00:29 98 H 96 05/21/23 00:24 92 H 97 05/21/23 00:19 96 H 96 05/21/23 00:18 90 138/71 05/21/23 00:14 100 H 97 05/21/23 00:09 101 H 97 05/21/23 00:04 99 H 97 05/21/23 00:01 90 145/65 H 05/20/23 23:59 95 05/20/23 23:59 104 H 05/20/23 23:54 96 05/20/23 23:54 94 H 05/20/23 23:49 96 05/20/23 23:49 102 H 05/20/23 23:47 88 05/20/23 23:47 138/76 05/20/23 23:44 96 05/20/23 23:44 91 H 05/20/23 23:39 96 05/20/23 23:39 90 05/20/23 23:34 96 05/20/23 23:34 92 H 05/20/23 23:32 94 05/20/23 23:32 97 H 05/20/23 23:31 18 05/20/23 23:31 36.8 C 18 05/20/23 23:31 90 05/20/23 23:31 137/73 05/20/23 23:29 97 05/20/23 23:29 90 05/20/23 23:24 96 05/20/23 23:24 103 H 05/20/23 23:19 97 05/20/23 23:19 91 H 05/20/23 23:16 88 05/20/23 23:16 137/76 05/20/23 23:14 97 05/20/23 23:14 96 H 05/20/23 23:09 97 05/20/23 23:09 89 05/20/23 23:04 97 05/20/23 23:04 88 05/20/23 23:01 88 05/20/23 23:01 131/76 05/20/23 22:59 97 05/20/23 22:59 90 05/20/23 22:54 97 05/20/23 22:54 88 05/20/23 22:49 96 05/20/23 22:49 89 05/20/23 22:46 92 H 05/20/23 22:46 138/78 05/20/23 22:44 98 05/20/23 22:44 95 H 05/20/23 22:39 97 05/20/23 22:39 103 H 05/20/23 22:34 95 05/20/23 22:34 98 H 05/20/23 22:32 97 H 05/20/23 22:32 135/73 05/20/23 22:29 97 05/20/23 22:29 101 H 05/20/23 22:24 97 05/20/23 22:24 99 H 05/20/23 22:19 97 05/20/23 22:19 101 H 05/20/23 22:16 104 H 05/20/23 22:16 153/88 H 05/20/23 22:14 99 05/20/23 22:14 104 H 05/20/23 22:10 93 05/20/23 22:10 103 H 05/20/23 22:09 97 05/20/23 22:09 96 H 05/20/23 22:04 98 05/20/23 22:04 96 H 05/20/23 22:01 82 05/20/23 22:01 137/75 05/20/23 21:59 97 05/20/23 21:59 95 H 05/20/23 21:54 20 98 05/20/23 21:54 105 H 05/20/23 21:49 99 05/20/23 21:49 97 H 05/20/23 21:44 98 05/20/23 21:44 94 H 05/20/23 21:40 90 05/20/23 21:40 145/68 H 05/20/23 21:39 97 05/20/23 21:39 93 H 05/20/23 21:36 90 05/20/23 21:36 141/67 H 05/20/23 21:34 98 05/20/23 21:34 97 H 05/20/23 21:30 98 H 05/20/23 21:30 142/76 H 05/20/23 21:29 97 01/04/24 21:29 101 H 05/20/23 21:25 100 H 05/20/23 21:25 141/73 H 05/20/23 21:24 98 05/20/23 21:24 106 H 05/20/23 21:23 103 H 05/20/23 21:23 152/82 H 05/20/23 21:21 100 H 05/20/23 21:21 141/87 H 05/20/23 21:19 98 05/20/23 21:19 100 H 05/20/23 21:19 142/91 H 05/20/23 21:17 100 H 05/20/23 21:17 141/95 H 05/20/23 21:14 99 05/20/23 21:14 101 H 05/20/23 21:13 100 H 05/20/23 21:13 190/95 H 05/20/23 21:11 103 H 05/20/23 21:11 178/95 H 05/20/23 21:09 98 05/20/23 21:09 99 H 05/20/23 21:04 97 05/20/23 21:04 121 H 20 05/20/23 20:01 96 H 05/20/23 20:01 20 140/70 (1) Gestational diabetes mellitus Trimester: third trimester
[2023-05-21] MEDS ORDERED: SODIUM CHLORIDE 0.9% 250 ML IV PRN (08:10)
[2023-05-21] MEDS: LABETALOL HCL 200 MG TAB PO SCH ×3 (08:48→20:59)
[2023-05-21] MEDS ORDERED: SERTRALINE HCL 50 MG TABLET PO ONE (08:51)
--- NOTE | 2023-05-21 15:22 | Labor Progress Brief Note ---
Date of Service May 21, 2023 Assessment & Plan Admission and Anticipated Discharge Date Admission Date: May 20, 2023 Physical Exam Genitourinary: Manual OB Exam: + cervical dilation 1 cm, + cervical effacement 50% and + station high OB Exam Monitor Tracing: + external FHT monitor used, + external uterine monitor used, + category I and + normal FHT variability unable to rupture membranes due to presenting part being high and floating out of pelvis Results & Data Vital Signs (Past 12 Hours) Vital Signs Temp Pulse Resp BP Pulse Ox 05/21/23 15:16 91 H 122/64 05/21/23 15:14 81 98 05/21/23 15:09 76 96 05/21/23 15:04 81 98 05/21/23 15:01 78 131/62 05/21/23 14:59 81 97 05/21/23 14:54 77 97 05/21/23 14:49 83 98 05/21/23 14:48 75 128/63 05/21/23 14:44 83 97 05/21/23 14:39 76 97 05/21/23 14:34 82 97 05/21/23 14:31 74 132/71 05/21/23 14:29 76 98 05/21/23 14:24 82 98 05/21/23 14:19 80 98 05/21/23 14:17 78 129/62 05/21/23 14:14 80 97 05/21/23 14:09 81 97 05/21/23 14:04 98 05/21/23 14:04 84 05/21/23 14:04 86 134/77 05/21/23 14:02 82 132/70 05/21/23 13:59 82 97 05/21/23 13:54 73 97 05/21/23 13:49 82 98 05/21/23 13:47 82 137/64 05/21/23 13:44 84 97 05/21/23 13:39 79 98 05/21/23 13:34 78 98 05/21/23 13:32 72 20 137/65 05/21/23 13:29 82 98 05/21/23 13:24 76 98 05/21/23 13:19 78 98 05/21/23 13:17 79 116/57 L 05/21/23 13:14 82 99 05/21/23 13:09 82 97 05/21/23 13:04 78 98 05/21/23 13:01 78 137/65 05/21/23 13:00 20 05/21/23 13:00 20 05/21/23 12:59 78 98 05/21/23 12:54 82 98 05/21/23 12:49 79 99 05/21/23 12:47 81 134/62 05/21/23 12:44 74 99 05/21/23 12:39 83 99 05/21/23 12:34 76 99 05/21/23 12:32 79 127/61 05/21/23 12:29 77 99 05/21/23 12:24 76 98 05/21/23 12:19 78 97 05/21/23 12:16 77 140/68 05/21/23 12:14 82 98 05/21/23 12:09 80 98 05/21/23 12:04 74 95 05/21/23 12:01 80 20 126/58 L 05/21/23 11:59 76 96 05/21/23 11:54 79 96 05/21/23 11:49 75 97 05/21/23 11:47 85 134/63 05/21/23 11:44 75 96 05/21/23 11:39 74 97 05/21/23 11:34 84 98 05/21/23 11:31 73 20 137/75 05/21/23 11:29 78 95 05/21/23 11:24 91 H 99 05/21/23 11:19 77 97 05/21/23 11:16 76 130/61 05/21/23 11:14 75 96 05/21/23 11:09 77 96 05/21/23 11:04 79 94 05/21/23 11:01 36.8 C 82 20 132/61 05/21/23 11:00 77 94 05/21/23 10:59 77 96 05/21/23 10:54 78 95 05/21/23 10:50 80 94 05/21/23 10:49 79 95 05/21/23 10:46 73 134/64 05/21/23 10:44 93 H 98 05/21/23 10:39 78 96 05/21/23 10:35 77 94 05/21/23 10:34 76 95 05/21/23 10:32 76 20 128/62 05/21/23 10:29 82 97 05/21/23 10:24 84 96 05/21/23 10:21 77 94 05/21/23 10:19 77 95 05/21/23 10:16 71 118/58 L 05/21/23 10:14 75 95 05/21/23 10:09 75 95 05/21/23 10:07 76 94 05/21/23 10:04 76 95 05/21/23 10:01 94 05/21/23 10:01 82 05/21/23 10:01 77 134/63 05/21/23 10:00 20 05/21/23 10:00 20 05/21/23 09:59 76 95 05/21/23 09:54 76 95 05/21/23 09:49 78 96 05/21/23 09:46 76 20 125/60 05/21/23 09:44 78 98 05/21/23 09:39 82 99 05/21/23 09:34 86 98 05/21/23 09:32 78 126/57 L 05/21/23 09:29 87 96 05/21/23 09:24 82 95 05/21/23 09:19 79 96 05/21/23 09:16 81 140/65 05/21/23 09:14 80 97 05/21/23 09:09 83 98 05/21/23 09:04 80 98 05/21/23 09:01 81 20 145/68 H 05/21/23 08:59 78 98 05/21/23 08:55 92 H 93 05/21/23 08:54 92 H 96 05/21/23 08:49 90 98 05/21/23 08:46 83 157/88 H 05/21/23 08:44 96 H 97 05/21/23 08:39 86 98 05/21/23 08:34 80 96 05/21/23 08:31 76 20 131/62 05/21/23 08:29 78 96 05/21/23 08:24 82 96 05/21/23 08:19 83 97 05/21/23 08:16 87 157/91 H 05/21/23 08:14 97 H 97 05/21/23 08:11 85 93 05/21/23 08:09 81 95 05/21/23 08:04 80 95 05/21/23 08:02 82 20 135/65 /05 07:59 86 92 05 07:54 82 95 05 07:49 80 96 05 07:46 79 137/66 05/21/23 07:44 78 97 05 07:39 83 97 05 07:34 79 97 05 07:31 80 20 143/71 H 05 07:29 80 96 05 07:24 90 98 05 07:19 94 H 98 05/21/23 07:16 90 148/80 H 05/21/23 07:14 81 98 05 07:13 93 H 150/72 H 05/21/23 07:09 94 H 97 05/21/23 07:04 97 H 95 05/21/23 07:01 85 147/67 H 05/21/23 07:00 20 05/21/23 07:00 36.7 C 20 05/21/23 06:59 94 H 98 05 06:54 79 97 05 06:49 81 96 05 06:46 79 171/79 H 05 06:44 77 96 05 06:39 76 96 05 06:34 79 98 05 06:31 78 157/77 H 05 06:29 83 98 05/ 06:24 83 98 05 06:19 82 97 05 06:16 80 146/70 H 05 06:14 83 98 05 06:09 89 97 05 06:04 90 99 05 06:01 83 143/67 H 05 05:59 89 98 05/24 05:54 84 97 05 05:49 83 97 05 05:46 83 139/63 05/24 05:44 86 97 0524 05:39 82 97 05/24 05:34 81 96 05/24 05:31 77 132/60 /05/24 05:29 92 H 98 05 05:24 84 97 05/24 05:19 88 97 05 05:17 93 H 150/81 H 05 05:14 80 97 05 05:09 82 97 05/21/23 05:04 82 97 05/21/23 05:01 82 141/73 H 05/21/23 04:59 96 /10/07 04:59 78 05 04:59 77 94 05 04:54 81 95 05 04:49 78 97 05/21/23 04:46 80 147/79 H 05/21/23 04:44 84 98 05/21/23 04:39 82 98 05 04:34 78 96 05 04:32 76 150/81 H 05/21/23 04:29 83 97 05 04:24 80 97 05/21/23 04:19 81 98 05/21/23 04:16 78 143/78 H 05/21/23 04:14 86 97 05/21/23 04:09 87 97 05 04:04 98 H 97 05/21/23 04:02 90 132/78 /10/07 04:01 84 94 05 04:00 18 05/21/23 04:00 36.7 C 18 05/21/23 03:59 91 H 96 05/21/23 03:54 88 95 05/21/23 03:52 81 94 05/24 03:49 82 96 05/24 03:47 84 140/78 0524 03:44 85 96 05 03:41 93 H 94 05 03:39 85 97 0524 03:34 84 95 /05/24 03:31 78 140/77 /05/24 03:30 86 94 05/24 03:29 83 96 05/24 03:24 82 95
[2023-05-21] MEDS ORDERED: CALCIUM CARBONATE 500 MG CHEWABLE TAB PO PRN (15:34)
[2023-05-21] MEDS ORDERED: OXYTOCIN 30 UNITS/NSS 30 UNITS/500 ML BAG IV PRN ×2 (17:46→18:23)
[2023-05-21] MEDS ORDERED: ACETAMINOPHEN 325 MG TAB PO PRN (18:55)
[2023-05-21] MEDS ORDERED: LACTATED RINGER'S 1,000 ML IV SCH (23:00)
--- NOTE | 2023-05-21 23:03 | Labor Progress Brief Note ---
Date of Service May 21, 2023 Assessment & Plan Admission and Anticipated Discharge Date Admission Date: May 20, 2023 Physical Exam Genitourinary: Manual OB Exam: + cervical dilation 1 cm, + cervical effacement 50% and + station high OB Exam Monitor Tracing: + external FHT monitor used, + external uterine monitor used, + category I and + normal FHT variability patient was re-checked after Pitocin rest. No change in cervix at this time. Patient is a failed induction with head floating. Probable large baby not descending into pelvis. planned. I gave patient and spouse the risks of surgery to include infection in wound , uterus or other locations, bleeding, blood transfusion, leg or lung clots, injury to uterus, tubes, ovaries, bladder, bowel, ureter or other intra-abdominal structures and other possible non-listed complications. She is aware and signed the consent for surgery. Results & Data Vital Signs (Past 12 Hours) Vital Signs Temp Pulse Resp BP Pulse Ox 05/21/23 22:55 90 99 05/21/23 22:50 84 100 05/21/23 22:47 81 153/84 H 05/21/23 22:45 83 100 05/21/23 22:40 73 98 05/21/23 22:35 76 98 05/21/23 22:31 74 131/69 05/21/23 22:30 76 98 05/21/23 22:25 73 98 05/21/23 22:20 81 99 05/21/23 22:16 78 121/71 05/21/23 22:15 74 99 05/21/23 22:10 75 98 05/21/23 22:05 79 99 05/21/23 22:02 78 129/63 05/21/23 22:00 82 18 99 05/21/23 21:55 77 99 05/21/23 21:50 76 99 05/21/23 21:46 82 117/58 L 05/21/23 21:45 79 99 05/21/23 21:40 84 100 05/21/23 21:35 80 99 05/21/23 21:32 74 127/77 05/21/23 21:30 80 20 100 05/21/23 21:25 76 99 05/21/23 21:20 85 99 05/21/23 21:16 76 141/65 H 05/21/23 21:15 81 99 05/21/23 21:10 82 99 05/21/23 21:05 94 H 98 05/21/23 21:00 84 18 98 05/21/23 20:55 85 99 05/21/23 20:50 74 99 05/21/23 20:46 72 140/77 05/21/23 20:45 74 98 05/21/23 20:40 81 99 05/21/23 20:35 86 98 05/21/23 20:32 80 137/89 05/21/23 20:30 79 18 98 05/21/23 20:25 80 99 05/21/23 20:19 77 97 05/21/23 20:14 77 98 05/21/23 20:09 79 98 05/21/23 20:04 76 97 05/21/23 20:01 81 148/71 H 05/21/23 20:00 20 05/21/23 20:00 20 05/21/23 19:59 77 98 05/21/23 19:54 81 99 05/21/23 19:49 79 98 05/21/23 19:46 78 134/63 05/21/23 19:44 80 98 05/21/23 19:39 77 99 05/21/23 19:34 79 98 05/21/23 19:32 75 135/64 05/21/23 19:30 18 05/21/23 19:30 18 05/21/23 19:29 80 99 05/21/23 19:24 77 97 05/21/23 19:19 82 97 05/21/23 19:17 36.8 C 20 05/21/23 19:17 81 162/74 H 05/21/23 19:14 83 98 05/21/23 19:09 83 98 05/21/23 19:04 76 98 05/21/23 19:01 68 150/79 H 05/21/23 18:59 76 98 05/21/23 18:54 80 98 05/21/23 18:49 82 100 05/21/23 18:46 77 148/81 H 05/21/23 18:44 71 98 05/21/23 18:39 80 98 05/21/23 18:34 75 97 05/21/23 18:32 76 147/75 H 05/21/23 18:29 75 97 05/21/23 18:24 78 97 05/21/23 18:19 74 166/74 H 99 05/21/23 18:17 74 171/87 H 05/21/23 18:14 76 98 05/21/23 18:09 75 98 05/21/23 18:04 79 99 05/21/23 17:59 85 99 05/21/23 17:54 69 97 05/21/23 17:49 72 97 05/21/23 17:46 69 136/70 05/21/23 17:44 71 98 05/21/23 17:39 75 98 05/21/23 17:34 83 97 05/21/23 17:31 78 135/63 05/21/23 17:29 94 05/21/23 17:29 72 05/21/23 17:29 74 94 05/21/23 17:24 73 94 05/21/23 17:23 74 94 05/21/23 17:19 73 97 05/21/23 17:16 75 20 129/65 05/21/23 17:14 78 97 05/21/23 17:09 74 96 05/21/23 17:04 76 97 05/21/23 17:01 20 05/21/23 17:01 20 05/21/23 17:01 71 18 130/65 05/21/23 16:59 79 97 05/21/23 16:54 73 97 05/21/23 16:49 76 98 05/21/23 16:46 90 111/58 L 05/21/23 16:44 87 98 05/21/23 16:39 76 97 05/21/23 16:34 78 98 05/21/23 16:31 78 20 119/59 L 05/21/23 16:29 78 98 05/21/23 16:24 79 98 05/21/23 16:19 89 97 05/21/23 16:16 85 115/55 L 05/21/23 16:14 89 97 05/21/23 16:09 79 98 05/21/23 16:04 78 97 05/21/23 16:01 83 113/56 L 05/21/23 15:59 78 97 05/21/23 15:54 81 97 05/21/23 15:49 78 96 05/21/23 15:46 73 110/55 L 05/21/23 15:44 78 96 01/05/24 15:39 77 96 05/21/23 15:34 82 96 05/21/23 15:32 74 107/53 L 05/21/23 15:29 77 95 05/21/23 15:24 83 98 05/21/23 15:19 85 97 05/21/23 15:16 91 H 122/64 05/21/23 15:14 81 98 05/21/23 15:09 76 96 05/21/23 15:04 81 98 05/21/23 15:01 36.7 C 78 20 131/62 05/21/23 14:59 81 97 05/21/23 14:54 77 97 05/21/23 14:49 83 98 05/21/23 14:48 75 128/63 05/21/23 14:44 83 97 05/21/23 14:39 76 97 05/21/23 14:34 82 97 05/21/23 14:31 74 132/71 05/21/23 14:29 76 98 05/21/23 14:24 82 98 05/21/23 14:19 80 98 05/21/23 14:17 78 129/62 05/21/23 14:14 80 97 05/21/23 14:09 81 97 05/21/23 14:04 98 05/21/23 14:04 84 05/21/23 14:04 86 134/77 05/21/23 14:02 82 132/70 05/21/23 13:59 82 97 05/21/23 13:54 73 97 05/21/23 13:49 82 98 05/21/23 13:47 82 137/64 05/21/23 13:44 84 97 05/21/23 13:39 79 98 05/21/23 13:34 78 98 05/21/23 13:32 72 20 137/65 05/21/23 13:29 82 98 05/21/23 13:24 76 98 05/21/23 13:19 78 98 05/21/23 13:17 79 116/57 L 05/21/23 13:14 82 99 05/21/23 13:09 82 97 05/21/23 13:04 78 98 05/21/23 13:01 78 137/65 05/21/23 13:00 20 05/21/23 13:00 20 0105/24 12:59 78 98 05/21/23 12:54 82 98 05/21/23 12:49 79 99 05/21/23 12:47 81 134/62 05/21/23 12:44 74 99 05/21/23 12:39 83 99 05/21/23 12:34 76 99 05/21/23 12:32 79 127/61 05/21/23 12:29 77 99 05/21/23 12:24 76 98 05/21/23 12:19 78 97 05/21/23 12:16 77 140/68 05/21/23 12:14 82 98 05/21/23 12:09 80 98 05/21/23 12:04 74 95 05/21/23 12:01 80 20 126/58 L 05/21/23 11:59 76 96 05/21/23 11:54 79 96 05/21/23 11:49 75 97 05/21/23 11:47 85 134/63 05/21/23 11:44 75 96 05/21/23 11:39 74 97 05/21/23 11:34 84 98 05/21/23 11:31 73 20 137/75 05/21/23 11:29 78 95 05/21/23 11:24 91 H 99 05/21/23 11:19 77 97 05/21/23 11:16 76 130/61 05/21/23 11:14 75 96 05/21/23 11:09 77 96 05/21/23 11:04 79 94 05/21/23 11:01 36.8 C 82 20 132/61 05/21/23 11:00 77 94 05/21/23 10:59 77 96
[2023-05-21] MEDS ORDERED: AZITHROMYCIN 500 MG in DEXTROSE 5% 250 ML IV ONE (23:15)
[2023-05-21] MEDS ORDERED: CITRIC ACID/SODIUM CITRATE 15 ML UDC PO ONE (23:15)
[2023-05-21] MEDS ORDERED: PHENYLEPHRINE 100MCG/ML 10ML SYR IV ONE (23:21)
[2023-05-21] MEDS ORDERED: MoRPHine SULFATE PF 1 MG/ML 10 ML AMP/VIAL ONE (23:21)
[2023-05-21] MEDS ORDERED: OXYTOCIN 10 UNITS/ML VIAL ONE (23:21)
[2023-05-21] MEDS ORDERED: LIDOCAINE 2%/EPINEPHRINE 1:200,000 20 ML PF ONE (23:21)
[2023-05-21] MEDS ORDERED: ONDANSETRON INJ 2 MG/ML 2 ML VIAL ONE (23:21)
[2023-05-22] MEDS ORDERED: NALOXONE HCL 0.08 MG in SYRINGE 1.8 ML IV PRN (00:04)
[2023-05-22] MEDS ORDERED: ONDANSETRON INJ 2 MG/ML 2 ML VIAL IV PRN ×2 (00:04→18:04)
[2023-05-22] MEDS ORDERED: LACTATED RINGER'S 500 ML IV PRN (00:04)
[2023-05-22] MEDS ORDERED: NALOXONE HCL 0.4 MG/1 ML VIAL/CARP IV PRN (00:04)
[2023-05-22] MEDS ORDERED: diphenhydrAMINE 50 MG/ML VIAL IV PRN ×2 (00:04→18:04)
[2023-05-22] MEDS ORDERED: ePHEDrine sulfate 50 MG/ML AMP IV PRN (00:04)
[2023-05-22] MEDS ORDERED: NALBUPHINE HCL 5 MG in SYRINGE 0 ML IV PRN (00:04)
[2023-05-22] MEDS ORDERED: HYDROmorphone INJ 0.5 MG/0.5 ML SYR IV PRN (00:04)
[2023-05-22] MEDS ORDERED: MoRPHine SULFATE PF 1 MG/ML 10 ML AMP/VIAL EPI ONE (00:04)
[2023-05-22] MEDS ORDERED: NALOXONE HCL 1 MG in SODIUM CHLORIDE 0.9% 1,000 ML IV PRN (00:04)
[2023-05-22] MEDS ORDERED: ePHEDrine sulfate 50 MG/5 ML SYR ONE (00:09)
[2023-05-22] MEDS ORDERED: diphenhydrAMINE 50 MG/ML VIAL ONE (00:09)
[2023-05-22] MEDS ORDERED: DC INTRASPINAL MORPHINE SCH (00:15)
[2023-05-22] MEDS ORDERED: NO NARCOTICS OR SEDATIVES SCH (00:15)
[2023-05-22] MEDS ORDERED: SODIUM CHLORIDE 0.9% 1,000 ML IV SCH (00:15)
--- NOTE | 2023-05-22 00:50 | Anesthesia Procedure Note ---
Date of Service May 22, 2023 Anesthesia Post Epidural Note Vital Signs Vital Signs: Temp Pulse Resp BP Pulse Ox 36.7 C 82 20 136/55 L 99 05/21/23 23:00 05/22/23 00:45 05/21/23 23:00 05/22/23 00:43 05/22/23 00:45 Pain Intensity Back: Pain Intensity: 0 Notes Mental Status: alert / awake / arousable and participated in evaluation Patient Amnestic to Procedure: No Nausea / Vomiting: adequately controlled Pain: adequately controlled Airway Patency, RR, SpO2: stable & adequate BP & HR: stable & adequate Hydration State: stable & adequate Neuraxial Anesthesia: was administered and sensory block is resolving Anesthetic Complications: no major complications apparent and Pt Satisfied with anesthetic care Epidural: Removed without complications and With tip intact
--- NOTE | 2023-05-22 00:51 | Anesthesiology Progress Note ---
Date of Service May 22, 2023 Anesthesia Post Procedure Vital Signs Vital Signs: Temp Pulse Resp BP Pulse Ox 05/22/23 00:45 82 99 05/22/23 00:43 88 136/55 L 05/22/23 00:40 84 100 05/21/23 23:22 86 166/82 H 99 05/21/23 23:17 85 99 05/21/23 23:16 85 176/91 H 05/21/23 23:12 79 100 05/21/23 23:07 86 100 05/21/23 23:02 93 H 100 05/21/23 23:00 20 05/21/23 23:00 36.7 C 20 05/21/23 22:55 90 99 05/21/23 22:50 84 100 05/21/23 22:47 81 153/84 H 05/21/23 22:45 83 100 05/21/23 22:40 73 98 05/21/23 22:35 76 98 05/21/23 22:31 74 131/69 05/21/23 22:30 76 98 05/21/23 22:25 73 98 05/21/23 22:20 81 99 05/21/23 22:16 78 121/71 05/21/23 22:15 74 99 05/21/23 22:10 75 98 05/21/23 22:05 79 99 05/21/23 22:02 78 129/63 05/21/23 22:00 82 18 99 05/21/23 21:55 77 99 05/21/23 21:50 76 99 05/21/23 21:46 82 117/58 L 05/21/23 21:45 79 99 05/21/23 21:40 84 100 05/21/23 21:35 80 99 05/21/23 21:32 74 127/77 05/21/23 21:30 80 20 100 05/21/23 21:25 76 99 05/21/23 21:20 85 99 05/21/23 21:16 76 141/65 H 05/21/23 21:15 81 99 05/21/23 21:10 82 99 05/21/23 21:05 94 H 98 05/21/23 21:00 84 18 98 05/21/23 20:55 85 99 05/21/23 20:50 74 99 05/21/23 20:46 72 140/77 01/05/24 20:45 74 98 05/21/23 20:40 81 99 05/21/23 20:35 86 98 05/21/23 20:32 80 137/89 05/21/23 20:30 79 18 98 05/21/23 20:25 80 99 05/21/23 20:19 77 97 05/21/23 20:14 77 98 05/21/23 20:09 79 98 05/21/23 20:04 76 97 05/21/23 20:01 81 148/71 H 05/21/23 20:00 20 05/21/23 20:00 20 05/21/23 19:59 77 98 05/21/23 19:54 81 99 05/21/23 19:49 79 98 05/21/23 19:46 78 134/63 05/21/23 19:44 80 98 05/21/23 19:39 77 99 05/21/23 19:34 79 98 05/21/23 19:32 75 135/64 05/21/23 19:30 18 05/21/23 19:30 18 05/21/23 19:29 80 99 05/21/23 19:24 77 97 05/21/23 19:19 82 97 05/21/23 19:17 36.8 C 20 05/21/23 19:17 81 162/74 H 05/21/23 19:14 83 98 05/21/23 19:09 83 98 05/21/23 19:04 76 98 05/21/23 19:01 68 150/79 H 05/21/23 18:59 76 98 05/21/23 18:54 80 98 05/21/23 18:49 82 100 05/21/23 18:46 77 148/81 H 05/21/23 18:44 71 98 05/21/23 18:39 80 98 05/21/23 18:34 75 97 05/21/23 18:32 76 147/75 H 05/21/23 18:29 75 97 05/21/23 18:24 78 97 05/21/23 18:19 74 166/74 H 99 05/21/23 18:17 74 171/87 H 05/21/23 18:14 76 98 05/21/23 18:09 75 98 05/21/23 18:04 79 99 05/21/23 17:59 85 99 05/21/23 17:54 69 97 05/21/23 17:49 72 97 05/21/23 17:46 69 136/70 05/21/23 17:44 71 98 05/21/23 17:39 75 98 05/21/23 17:34 83 97 05/21/23 17:31 78 135/63 05/21/23 17:29 94 05/21/23 17:29 72 05/21/23 17:29 74 94 05/21/23 17:24 73 94 05/21/23 17:23 74 94 05/21/23 17:19 73 97 05/21/23 17:16 75 20 129/65 05/21/23 17:14 78 97 05/21/23 17:09 74 96 05/21/23 17:04 76 97 05/21/23 17:01 20 05/21/23 17:01 20 05/21/23 17:01 71 18 130/65 05/21/23 16:59 79 97 05/21/23 16:54 73 97 05/21/23 16:49 76 98 05/21/23 16:46 90 111/58 L 05/21/23 16:44 87 98 05/21/23 16:39 76 97 05/21/23 16:34 78 98 05/21/23 16:31 78 20 119/59 L 05/21/23 16:29 78 98 05/21/23 16:24 79 98 05/21/23 16:19 89 97 05/21/23 16:16 85 115/55 L 05/21/23 16:14 89 97 05/21/23 16:09 79 98 05/21/23 16:04 78 97 05/21/23 16:01 83 113/56 L 05/21/23 15:59 78 97 05/21/23 15:54 81 97 05/21/23 15:49 78 96 05/21/23 15:46 73 110/55 L 05/21/23 15:44 78 96 05/21/23 15:39 77 96 05/21/23 15:34 82 96 05/21/23 15:32 74 107/53 L 05/21/23 15:29 77 95 05/21/23 15:24 83 98 05/21/23 15:19 85 97 05/21/23 15:16 91 H 122/64 05/21/23 15:14 81 98 05/21/23 15:09 76 96 05/21/23 15:04 81 98 05/21/23 15:01 36.7 C 78 20 131/62 05/21/23 14:59 81 97 05/21/23 14:54 77 97 05/21/23 14:49 83 98 05/21/23 14:48 75 128/63 05/21/23 14:44 83 97 05/21/23 14:39 76 97 05/21/23 14:34 82 97 05/21/23 14:31 74 132/71 05/21/23 14:29 76 98 05/21/23 14:24 82 98 05/21/23 14:19 80 98 05/21/23 14:17 78 129/62 05/21/23 14:14 80 97 05/21/23 14:09 81 97 05/21/23 14:04 98 05/21/23 14:04 84 05/21/23 14:04 86 134/77 05/21/23 14:02 82 132/70 05/21/23 13:59 82 97 05/21/23 13:54 73 97 05/21/23 13:49 82 98 05/21/23 13:47 82 137/64 05/21/23 13:44 84 97 05/21/23 13:39 79 98 05/21/23 13:34 78 98 05/21/23 13:32 72 20 137/65 05/21/23 13:29 82 98 05/21/23 13:24 76 98 05/21/23 13:19 78 98 05/21/23 13:17 79 116/57 L 05/21/23 13:14 82 99 05/21/23 13:09 82 97 05/21/23 13:04 78 98 05/21/23 13:01 78 137/65 05/21/23 13:00 20 05/21/23 13:00 20 05/21/23 12:59 78 98 05/21/23 12:54 82 98 05/21/23 12:49 79 99 05/21/23 12:47 81 134/62 05/21/23 12:44 74 99 05/21/23 12:39 83 99 05/21/23 12:34 76 99 05/21/23 12:32 79 127/61 05/21/23 12:29 77 99 05/21/23 12:24 76 98 05/21/23 12:19 78 97 05/21/23 12:16 77 140/68 05/21/23 12:14 82 98 05/21/23 12:09 80 98 05/21/23 12:04 74 95 05/21/23 12:01 80 20 126/58 L 05/21/23 11:59 76 96 05/21/23 11:54 79 96 05/21/23 11:49 75 97 05/21/23 11:47 85 134/63 05/21/23 11:44 75 96 05/21/23 11:39 74 97 05/21/23 11:34 84 98 05/21/23 11:31 73 20 137/75 05/21/23 11:29 78 95 05/21/23 11:24 91 H 99 05/21/23 11:19 77 97 05/21/23 11:16 76 130/61 05/21/23 11:14 75 96 05/21/23 11:09 77 96 05/21/23 11:04 79 94 05/21/23 11:01 36.8 C 82 20 132/61 05/21/23 11:00 77 94 05/21/23 10:59 77 96 05/21/23 10:54 78 95 05/21/23 10:50 80 94 05/21/23 10:49 79 95 05/21/23 10:46 73 134/64 05/21/23 10:44 93 H 98 05/21/23 10:39 78 96 05/21/23 10:35 77 94 05/21/23 10:34 76 95 05/21/23 10:32 76 20 128/62 05/21/23 10:29 82 97 05/21/23 10:24 84 96 05/21/23 10:21 77 94 05/21/23 10:19 77 95 05/21/23 10:16 71 118/58 L 05/21/23 10:14 75 95 05/21/23 10:09 75 95 05/21/23 10:07 76 94 05/21/23 10:04 76 95 05/21/23 10:01 94 05/21/23 10:01 82 05/21/23 10:01 77 134/63 05/21/23 10:00 20 05/21/23 10:00 20 05/21/23 09:59 76 95 05/21/23 09:54 76 95 05/21/23 09:49 78 96 05/21/23 09:46 76 20 125/60 05/21/23 09:44 78 98 05/21/23 09:39 82 99 05/21/23 09:34 86 98 05/21/23 09:32 78 126/57 L 05/21/23 09:29 87 96 05/21/23 09:24 82 95 05/21/23 09:19 79 96 05/21/23 09:16 81 140/65 05/21/23 09:14 80 97 05/21/23 09:09 83 98 05/21/23 09:04 80 98 05/21/23 09:01 81 20 145/68 H 05/21/23 08:59 78 98 05/21/23 08:55 92 H 93 05/21/23 08:54 92 H 96 05/21/23 08:49 90 98 05/21/23 08:46 83 157/88 H 05/21/23 08:44 96 H 97 05/21/23 08:39 86 98 05/21/23 08:34 80 96 05/21/23 08:31 76 20 131/62 05/21/23 08:29 78 96 05/21/23 08:24 82 96 05/21/23 08:19 83 97 05/21/23 08:16 87 157/91 H 05/21/23 08:14 97 H 97 05/21/23 08:11 85 93 05/21/23 08:09 81 95 05/21/23 08:04 80 95 05/21/23 08:02 82 20 135/65 05 07:59 86 92 05/21/23 07:54 82 95 05/21/23 07:49 80 96 05/21/23 07:46 79 137/66 05 07:44 78 97 05 07:39 83 97 05 07:34 79 97 05 07:31 80 20 143/71 H 05/21/23 07:29 80 96 05 07:24 90 98 05/21/23 07:19 94 H 98 05/21/23 07:16 90 148/80 H 05/21/23 07:14 81 98 05/21/23 07:13 93 H 150/72 H 05/21/23 07:09 94 H 97 05/21/23 07:04 97 H 95 05/21/23 07:01 85 147/67 H 05/21/23 07:00 20 05/21/23 07:00 36.7 C 20 05/21/23 06:59 94 H 98 05/21/23 06:54 79 97 05/21/23 06:49 81 96 05/21/23 06:46 79 171/79 H 05/21/23 06:44 77 96 05/21/23 06:39 76 96 05/21/23 06:34 79 98 05/21/23 06:31 78 157/77 H 05/21/23 06:29 83 98 05/21/23 06:24 83 98 05 06:19 82 97 05 06:16 80 146/70 H 05/21/23 06:14 83 98 05 06:09 89 97 05 06:04 90 99 05/21/23 06:01 83 143/67 H 05/21/23 05:59 89 98 05/21/23 05:54 84 97 05/21/23 05:49 83 97 05 05:46 83 139/63 05 05:44 86 97 05 05:39 82 97 05 05:34 81 96 05 05:31 77 132/60 05 05:29 92 H 98 05 05:24 84 97 05 05:19 88 97 05 05:17 93 H 150/81 H 05/21/23 05:14 80 97 05 05:09 82 97 05 05:04 82 97 05 05:01 82 141/73 H 05 04:59 96 05 04:59 78 05 04:59 77 94 05 04:54 81 95 05/21/23 04:49 78 97 05/21/23 04:46 80 147/79 H 05/21/23 04:44 84 98 05/21/23 04:39 82 98 05/21/23 04:34 78 96 05/21/23 04:32 76 150/81 H 05/21/23 04:29 83 97 05/21/23 04:24 80 97 05/21/23 04:19 81 98 05/21/23 04:16 78 143/78 H 05/21/23 04:14 86 97 05/21/23 04:09 87 97 05/21/23 04:04 98 H 97 05/21/23 04:02 90 132/78 05/21/23 04:01 84 94 05/21/23 04:00 18 05/21/23 04:00 36.7 C 18 05/21/23 03:59 91 H 96 05 03:54 88 95 05 03:52 81 94 05/21/23 03:49 82 96 05 03:47 84 140/78 05/21/23 03:44 85 96 05/21/23 03:41 93 H 94 05 03:39 85 97 05 03:34 84 95 05/21/23 03:31 78 140/77 05/21/23 03:30 86 94 05 03:29 83 96 05 03:24 82 95 05 03:19 92 H 98 05/21/23 03:17 88 151/76 H 05/21/23 03:14 85 96 05 03:11 85 94 05 03:09 86 96 05/21/23 03:04 85 96 05 03:01 80 142/75 H 05 03:00 89 93 05 02:59 91 H 95 05 02:54 83 95 05 02:49 90 97 05 02:48 85 147/76 H 0524 02:44 82 95 05 02:39 85 96 05 02:35 87 94 05 02:34 85 94 05/21/23 02:31 89 142/71 H 05/21/23 02:29 86 96 05/21/23 02:24 85 95 05/21/23 02:22 88 94 05/21/23 02:19 90 94 05/21/23 02:17 86 152/80 H 05/21/23 02:14 87 97 05/21/23 02:09 88 96 05/21/23 02:04 86 96 05/21/23 02:01 90 140/70 05/21/23 01:59 87 94 05/21/23 01:54 86 96 05/21/23 01:49 92 H 98 05/21/23 01:46 89 135/73 05/21/23 01:44 98 H 98 05/21/23 01:39 92 H 96 05/21/23 01:34 93 H 95 05/21/23 01:32 93 H 138/73 05/21/23 01:29 99 H 98 05/21/23 01:24 89 96 05/21/23 01:21 94 H 92 05/21/23 01:19 93 H 96 05/21/23 01:17 93 H 134/70 05/21/23 01:14 90 95 05/21/23 01:10 97 H 94 05/21/23 01:09 91 H 95 05/21/23 01:04 92 H 95 05/21/23 01:03 90 94 05/21/23 01:01 93 H 141/75 H 05/21/23 00:59 103 H 95 05/21/23 00:55 95 H 94 05/21/23 00:54 89 94 Pain Intensity Back: Pain Intensity: 0 Notes Mental Status: alert / awake / arousable Patient Amnestic to Procedure: No Nausea / Vomiting: adequately controlled Pain: adequately controlled Airway Patency, RR, SpO2: stable & adequate BP & HR: stable & adequate Hydration State: stable & adequate Neuraxial Anesthesia: was administered and sensory block is resolving Anesthetic Complications: no major complications apparent and Pt Satisfied with anesthetic care
--- NOTE | 2023-05-22 01:01 | Post Operative Brief Note ---
Immediate Post Op Note v1 Date of Surgery May 22, 2023 Pre & Post Diagnosis Operation Date: 05/21/23 23:30 Pre-Op Diagnosis: 1. Failed induction Post-Op Diagnosis: 1. Failed induction 2. Delivery of live male child at 2355 I identified the patient and participated in the time-out.: Yes Procedure Operation Date: 05/21/23 23:30 Actual Procedures p Section in LD(Bilateral) - Tuan Goncalves MD Surgeon Tuan Goncalves MD [facility] Dr. Dunbar Estimated Blood Loss 500 Findings Consistent with Post-Op Diagnosis live male Apgars 7/8 weight 9-9 Fluids LR Specimens placenta Drains Bean Catheter Anesthesia Type Labor Epidural Complications none Disposition Accompanied Patient To Recovery: Yes Disposition: L&D Overlapping Procedure I was present for: the critical portions of procedure. I was immediately available: during the entire case. Back up surgeon: used during listed procedure.
[2023-05-22] MEDS ORDERED: BENZOCAINE 20% SPRY 85 APPLN/85 GM CAN EXT PRN (01:05)
[2023-05-22] MEDS ORDERED: DIPHTHERIA/TETANUS/PERTUSSIS Vaccine (Tdap, Age 7+yrs) 0.5mL SYR/VL IM ONE (01:05)
[2023-05-22] MEDS ORDERED: SENNA 8.6 MG TAB PO PRN (01:05)
[2023-05-22] MEDS ORDERED: OXYTOCIN 20 UNITS in LACTATED RINGER'S 1,000 ML IV SCH (01:05)
[2023-05-22] MEDS ORDERED: HYDROCORTISONE ACETATE 25 MG SUPP PR PRN (01:05)
[2023-05-22] MEDS: KETOROLAC 30 MG/ML VIAL IV PRN ×3 (01:30→14:22)
--- NOTE | 2023-05-22 01:34 | Operative Report ---
Post Operative Report Pre & Post Diagnosis Operation Date: 05/21/23 23:30 Pre-Op Diagnosis: 1. Failed induction Post-Op Diagnosis: 1. Failed induction 2. Delivery of live male child at 2355 I identified the patient and participated in the time-out.: Yes Procedure Operation Date: 05/21/23 23:30 Actual Procedures p Section in LD(Bilateral) - Tuan Goncalves MD Surgeon Tuan Gonaclves MD [employer] Dr. Dunbar Estimated Blood Loss 500 Findings Consistent with Post-Op Diagnosis live male Apgars 7/8 weight 9-9 Fluids LR Specimens placenta Drains Bean Anesthesia Type Labor Epidural Complications none Disposition Accompanied Patient To Recovery: Yes Indications failed induction Description of Procedure Under satisfactory epidural anesthesia patient was prepped draped usual sterile fashion a timeout was called prior to the start of the procedure. A Pfannenstiel incision was used entering into the abdominal cavity in successive layers without difficulty. Upon entering into the abdominal cavity the Pato retractor was then placed 2 lap pads were then placed for retraction. Bladder flap was then made with sharp dissection using Metzenbaum scissors and a high entry onto the uterus was made the incision was widened in the AP diameter the amniotic sac was nicked was found to be clear with copious amounts of amniotic fluid the baby's head was floating in the uterus not in the pelvis. The baby is head was in the vertex presentation was delivered with the aid of fundal pressure. Apgars were 7 and 8 weight 9 pounds 9 ounces delivering a live male there was delayed cord clamping of 1 minute. Blood was obtained placenta delivered spontaneously and intact the uterus was then exteriorized. Uterus was cleaned of all clots and debris with lap pad. Uterus was then closed using a double layer closure starting with 0 Vicryl suture in continuous interlocking fashion followed by a second imbricating suture of 0 Vicryl suture. The initial sponge and needle instrument count were found to be correct tubes ovaries bilaterally were found to be within normal limits. The contents of the abdominal pelvic cavity were then irrigated. Uterus was then placed back into the normal anatomical position. The fascia was then closed from both ends using #1 Vicryl suture in a continuous fashion subcuticular space was then irrigated space of the subcuticular layer was then closed with 3-0 plain suture. And the skin was then reapproximated with 4-0 Monocryl suture. Martha dressing was applied to the incision. The final sponge and instrument count were found to be correct estimated blood loss was 500 mL. The patient was then placed supine on the stretcher taken to recovery room in stable condition. I attest to the content of the Intraoperative Record and any orders documented therein. Please note that Dr. Dunbar was needed to provide help with retraction, fundal pressure to deliver head, closure of uterus and abdomen. Any exceptions are noted below.
[2023-05-22] MEDS: OXYTOCIN 20 UNITS/LR 1,002 ML IV SCH (03:15)
[2023-05-22] MEDS: PRENATAL VITAMIN 1 TAB PO SCH (08:15)
[2023-05-22] MEDS: FERROUS SULFATE 325 MG TAB PO SCH (08:15)
[2023-05-22] MEDS: DOCUSATE SODIUM 100 MG CAP PO SCH ×2 (08:15→20:23)
[2023-05-22] MEDS: LABETALOL HCL 200 MG TAB PO SCH ×4 (08:16→14:19)
[2023-05-22] MEDS: SIMETHICONE 80 MG CHEW PO SCH ×4 (08:16→20:23)
[2023-05-22] MEDS: ASCORBIC ACID 500 MG TAB PO SCH (08:18)
[2023-05-22] MEDS: SERTRALINE HCL 50 MG TABLET PO SCH (08:19)
[2023-05-22] MEDS ORDERED: NON-FORMULARY MEDICATION (Pnv133-Ferrous Fumarate-Fa [Prenatal] 28-800 mg-mcg Tablet) PO SCH (09:00)
--- NOTE | 2023-05-22 09:47 | Obstetrical Progress Note ---
Date of Service May 22, 2023 Assessment & Plan Admission and Anticipated Discharge Date Admission Date: May 20, 2023 Subjective Postop check Patient is seen and examined Feels well, no complaints Pain is under control with meds No CP/ SOB/ Dizziness/ N&V/ VB/ Leg pain Not OOB yet Tolerating clears Working on breast feeding Vital Signs Temp Pulse Pulse Resp BP BP Pulse Ox 05/22/23 09:00 96 H 05/22/23 08:00 36.5 C 87 16 126/79 98 05/22/23 08:00 22 97 05/22/23 07:00 22 96 05/22/23 06:00 16 93 05/22/23 05:00 18 96 05/22/23 04:00 18 98 05/22/23 03:08 89 99 05/22/23 03:05 36.7 C 88 18 123/66 99 05/22/23 03:03 91 H 100 05/22/23 03:01 86 123/56 L 05/22/23 03:00 18 99 05/22/23 03:00 36.7 C 18 05/22/23 02:58 87 99 05/22/23 02:53 87 100 05/22/23 02:51 87 99/50 L 05/22/23 02:48 88 98 05/22/23 02:43 87 99 05/22/23 02:41 84 119/60 05/22/23 02:38 81 99 05/22/23 02:33 87 99 05/22/23 02:31 88 116/58 L 05/22/23 02:30 18 05/22/23 02:28 82 100 05/22/23 02:23 85 100 05/22/23 02:21 76 127/61 05/22/23 02:18 81 99 05/22/23 02:13 80 98 05/22/23 02:11 82 74/38 L 05/22/23 02:08 82 99 05/22/23 02:03 83 100 05/22/23 02:01 82 109/57 L 05/22/23 02:00 36.9 C 18 05/22/23 02:00 36.9 C 18 05/22/23 01:58 83 99 05/22/23 01:53 84 98 05/22/23 01:51 82 124/58 L 05/22/23 01:50 18 05/22/23 01:48 81 96 05/22/23 01:45 87 92 05/22/23 01:43 83 99 05/22/23 01:41 122 H 166/115 H 05/22/23 01:40 18 05/22/23 01:39 88 91 05/22/23 01:38 84 98 05/22/23 01:33 81 98 05/22/23 01:30 18 05/22/23 01:30 75 113/58 L 05/22/23 01:28 73 98 05/22/23 01:23 78 96 05/22/23 01:20 16 05/22/23 01:20 70 109/56 L 05/22/23 01:18 75 98 05/22/23 01:13 80 98 05/22/23 01:11 75 116/58 L 05/22/23 01:10 16 05/22/23 01:08 80 99 05/22/23 01:03 84 100 05/22/23 01:01 77 111/59 L 05/22/23 01:00 36.6 C 16 05/22/23 00:58 85 99 05/22/23 00:52 79 100 05/22/23 00:50 76 132/56 L 05/22/23 00:45 82 99 05/22/23 00:43 88 136/55 L 05/22/23 00:40 84 100 05/21/23 23:22 86 166/82 H 99 05/21/23 23:17 85 99 05/21/23 23:16 85 176/91 H 05/21/23 23:12 79 100 05/21/23 23:07 86 100 05/21/23 23:02 93 H 100 05/21/23 23:00 20 05/21/23 23:00 36.7 C 20 05/21/23 22:55 90 99 05/21/23 22:50 84 100 05/21/23 22:47 81 153/84 H 05/21/23 22:45 83 100 05/21/23 22:40 73 98 05/21/23 22:35 76 98 05/21/23 22:31 74 131/69 05/21/23 22:30 76 98 05/21/23 22:25 73 98 05/21/23 22:20 81 99 05/21/23 22:16 78 121/71 05/21/23 22:15 74 99 05/21/23 22:10 75 98 05/21/23 22:05 79 99 05/21/23 22:02 78 129/63 05/21/23 22:00 82 18 99 05/21/23 21:55 77 99 05/21/23 21:50 76 99 05/21/23 21:46 82 117/58 L 11/07 04:00 05/22/23 03:08 05/22/23 03:05 Room Air 05/22/23 03:03 05/22/23 03:01 05/22/23 03:00 05/22/23 03:00 05/22/23 02:58 05/22/23 02:53 05/22/23 02:51 05/22/23 02:48 05/22/23 02:43 05/22/23 02:41 05/22/23 02:38 05/22/23 02:33 05/22/23 02:31 05/22/23 02:30 05/22/23 02:28 05/22/23 02:23 05/22/23 02:21 05/22/23 02:18 05/22/23 02:13 05/22/23 02:11 05/22/23 02:08 05/22/23 02:03 05/22/23 02:01 05/22/23 02:00 05/22/23 02:00 05/22/23 01:58 05/22/23 01:53 05/22/23 01:51 05/22/23 01:50 05/22/23 01:48 05/22/23 01:45 05/22/23 01:43 05/22/23 01:41 05/22/23 01:40 05/22/23 01:39 05/22/23 01:38 05/22/23 01:33 05/22/23 01:30 05/22/23 01:30 05/22/23 01:28 05/22/23 01:23 05/22/23 01:20 05/22/23 01:20 05/22/23 01:18 05/22/23 01:13 05/22/23 01:11 05/22/23 01:10 05/22/23 01:08 05/22/23 01:03 05/22/23 01:01 05/22/23 01:00 05/22/23 00:58 05/22/23 00:52 05/22/23 00:50 05/22/23 00:45 05/22/23 00:43 05/22/23 00:40 05/21/23 23:22 05/21/23 23:17 05/21/23 23:16 05/21/23 23:12 05/21/23 23:07 05/21/23 23:02 05/21/23 23:00 05/21/23 23:00 05/21/23 22:55 05/21/23 22:50 05/21/23 22:47 05/21/23 22:45 05/21/23 22:40 05/21/23 22:35 05/21/23 22:31 05/21/23 22:30 05/21/23 22:25 05/21/23 22:20 05/21/23 22:16 05/21/23 22:15 05/21/23 22:10 05/21/23 22:05 05/21/23 22:02 05/21/23 22:00 05/21/23 21:55 05/21/23 21:50 05/21/23 21:46 PE: General: Alert, orientedx3, NAD CVS: S1S2 RRR Lungs: CTAB Abd: soft, NT, ND, BS+, Incision/PETER dressing C/D/I Lochia rubra minimal Ext: NT, no edema, SCD's on AP: 37 yo female s/p Primary Csection for failed IOL for Preeclampsia without severe features and GDMA2 , pod#0 VSS Afebrile doing well Continue to routine postop care Encourage PO intake, may ambulate after steinberg is d/c'd All questions were answered. Results & Data Vital Signs (Past 12 Hours) Vital Signs Temp Pulse Pulse Resp BP BP Pulse Ox 05/22/23 09:00 96 H 05/22/23 08:00 36.5 C 87 16 126/79 98 05/22/23 08:00 22 97 05/22/23 07:00 22 96 05/22/23 06:00 16 93 05/22/23 05:00 18 96 05/22/23 04:00 18 98 05/22/23 03:08 89 99 05/22/23 03:05 36.7 C 88 18 123/66 99 05/22/23 03:03 91 H 100 05/22/23 03:01 86 123/56 L 05/22/23 03:00 18 99 05/22/23 03:00 36.7 C 18 05/22/23 02:58 87 99 05/22/23 02:53 87 100 05/22/23 02:51 87 99/50 L 05/22/23 02:48 88 98 05/22/23 02:43 87 99 05/22/23 02:41 84 119/60 05/22/23 02:38 81 99 05/22/23 02:33 87 99 05/22/23 02:31 88 116/58 L 05/22/23 02:30 18 05/22/23 02:28 82 100 05/22/23 02:23 85 100 05/22/23 02:21 76 127/61 05/22/23 02:18 81 99 05/22/23 02:13 80 98 05/22/23 02:11 82 74/38 L 05/22/23 02:08 82 99 05/22/23 02:03 83 100 05/22/23 02:01 82 109/57 L 05/22/23 02:00 36.9 C 18 05/22/23 02:00 36.9 C 18 05/22/23 01:58 83 99 05/22/23 01:53 84 98 05/22/23 01:51 82 124/58 L 05/22/23 01:50 18 05/22/23 01:48 81 96 05/22/23 01:45 87 92 05/22/23 01:43 83 99 05/22/23 01:41 122 H 166/115 H 05/22/23 01:40 18 05/22/23 01:39 88 91 05/22/23 01:38 84 98 05/22/23 01:33 81 98 05/22/23 01:30 18 05/22/23 01:30 75 113/58 L 05/22/23 01:28 73 98 05/22/23 01:23 78 96 05/22/23 01:20 16 05/22/23 01:20 70 109/56 L 05/22/23 01:18 75 98 05/22/23 01:13 80 98 05/22/23 01:11 75 116/58 L 05/22/23 01:10 16 05/22/23 01:08 80 99 05/22/23 01:03 84 100 05/22/23 01:01 77 111/59 L 05/22/23 01:00 36.6 C 16 05/22/23 00:58 85 99 05/22/23 00:52 79 100 05/22/23 00:50 76 132/56 L 05/22/23 00:45 82 99 05/22/23 00:43 88 136/55 L 05/22/23 00:40 84 100 05/21/23 23:22 86 166/82 H 99 05/21/23 23:17 85 99 05/21/23 23:16 85 176/91 H 05/21/23 23:12 79 100 05/21/23 23:07 86 100 05/21/23 23:02 93 H 100 05/21/23 23:00 20 05/21/23 23:00 36.7 C 20 05/21/23 22:55 90 99 05/21/23 22:50 84 100 05/21/23 22:47 81 153/84 H 05/21/23 22:45 83 100 05/21/23 22:40 73 98 05/21/23 22:35 76 98 05/21/23 22:31 74 131/69 05/21/23 22:30 76 98 05/21/23 22:25 73 98 05/21/23 22:20 81 99 05/21/23 22:16 78 121/71 05/21/23 22:15 74 99 05/21/23 22:10 75 98 05/21/23 22:05 79 99 05/21/23 22:02 78 129/63 05/21/23 22:00 82 18 99 05/21/23 21:55 77 99 05/21/23 21:50 76 99 05/21/23 21:46 82 117/58 L 05/21/23 21:45 79 99 O2 Del Method 05/22/23 09:00 05/22/23 08:00 Room Air 05/22/23 08:00 05/22/23 07:00 05/22/23 06:00 05/22/23 05:00 05/22/23 04:00 05/22/23 03:08 05/22/23 03:05 Room Air 05/22/23 03:03 05/22/23 03:01 05/22/23 03:00 05/22/23 03:00 05/22/23 02:58 05/22/23 02:53 05/22/23 02:51 05/22/23 02:48 05/22/23 02:43 05/22/23 02:41 05/22/23 02:38 05/22/23 02:33 05/22/23 02:31 05/22/23 02:30 05/22/23 02:28 05/22/23 02:23 05/22/23 02:21 05/22/23 02:18 05/22/23 02:13 05/22/23 02:11 05/22/23 02:08 05/22/23 02:03 05/22/23 02:01 05/22/23 02:00 05/22/23 02:00 05/22/23 01:58 05/22/23 01:53 05/22/23 01:51 05/22/23 01:50 05/22/23 01:48 05/22/23 01:45 05/22/23 01:43 05/22/23 01:41 05/22/23 01:40 05/22/23 01:39 05/22/23 01:38 05/22/23 01:33 05/22/23 01:30 05/22/23 01:30 05/22/23 01:28 05/22/23 01:23 05/22/23 01:20 05/22/23 01:20 05/22/23 01:18 05/22/23 01:13 05/22/23 01:11 05/22/23 01:10 05/22/23 01:08 05/22/23 01:03 05/22/23 01:01 05/22/23 01:00 05/22/23 00:58 05/22/23 00:52 05/22/23 00:50 05/22/23 00:45 05/22/23 00:43 05/22/23 00:40 05/21/23 23:22 05/21/23 23:17 05/21/23 23:16 05/21/23 23:12 05/21/23 23:07 05/21/23 23:02 05/21/23 23:00 05/21/23 23:00 05/21/23 22:55 05/21/23 22:50 05/21/23 22:47 05/21/23 22:45 05/21/23 22:40 05/21/23 22:35 05/21/23 22:31 05/21/23 22:30 05/21/23 22:25 05/21/23 22:20 05/21/23 22:16 05/21/23 22:15 05/21/23 22:10 05/21/23 22:05 05/21/23 22:02 05/21/23 22:00 05/21/23 21:55 05/21/23 21:50 05/21/23 21:46 05/21/23 21:45
[2023-05-22] MEDS ORDERED: KETOROLAC 30 MG/ML VIAL IV PRN (18:04)
[2023-05-22] MEDS ORDERED: MEPERIDINE HCL 50 MG/ML CARP IV PRN (18:04)
[2023-05-22] MEDS ORDERED: diphenhydrAMINE Capsule 25 MG CAP PO PRN (18:04)
[2023-05-22] MEDS ORDERED: PROMETHAZINE HCL 25 MG in SODIUM CHLORIDE 0.9% 50 ML IV PRN (18:04)
[2023-05-22] MEDS: oxyCODONE/ACETAMINOPHEN 5mg/325mg TAB PO PRN ×2 (18:10→23:07)
[2023-05-22] MEDS: IBUPROFEN 600 MG TAB PO PRN ×2 (18:10→23:08)
[2023-05-22] MEDS: LABETALOL HCL 100 MG TAB PO SCH (20:34)
[2023-05-23] MEDS: IBUPROFEN 600 MG TAB PO PRN ×5 (03:10→21:12)
[2023-05-23] MEDS: oxyCODONE/ACETAMINOPHEN 5mg/325mg TAB PO PRN ×5 (03:10→21:12)
[2023-05-23 07:09] LABS: Basophils # (auto) 0.02 K/uL (0.00-0.20); Basophils % (auto) 0.2 %; Eosinophils # (auto) 0.11 K/uL (0.00-0.50); Hematocrit (blood only) 29.3 % (37.0-47.0); Hemoglobin 9.5 g/dl (12.0-16.0); Immature Granulocytes # (auto) 0.07 K/uL (0.01-0.20); Immature Granulocytes % (auto) 0.7 %; Lymphocytes # (auto) 1.44 K/uL (1.20-3.40); Lymphocytes % (auto) 13.5 %; Mean Corpuscular Hemoglobin 29.9 pg (25.0-34.0); Mean Corpuscular Hgb Conc 32.4 g/dL (32.0-36.0); Mean Corpuscular Volume 92.1 fL (80.0-100.0); Mean Platelet Volume 9.4 fL (9.4-12.4); Monocytes # (auto) 0.66 K/uL (0.11-0.59); Monocytes % (auto) 6.2 %; Neutrophils # (auto) 8.39 K/uL (1.40-6.50); Neutrophils % (auto) 78.4 %; Platelet Count 266 K/uL (130-400); RDW Standard Deviation 50.8 fL (36.4-46.3); Red Blood Count 3.18 M/uL (4.20-5.40); White Blood Count 10.69 K/ul (4.8-10.8)
[2023-05-23] MEDS: FERROUS SULFATE 325 MG TAB PO SCH (08:49)
[2023-05-23] MEDS: PRENATAL VITAMIN 1 TAB PO SCH (08:50)
[2023-05-23] MEDS: SIMETHICONE 80 MG CHEW PO SCH ×4 (08:50→20:56)
[2023-05-23] MEDS: DOCUSATE SODIUM 100 MG CAP PO SCH ×2 (08:50→20:56)
[2023-05-23] MEDS: LABETALOL HCL 100 MG TAB PO SCH ×2 (08:51→20:56)
[2023-05-23] MEDS: ASCORBIC ACID 500 MG TAB PO SCH (08:52)
[2023-05-23] MEDS: SERTRALINE HCL 50 MG TABLET PO SCH (08:52)
--- NOTE | 2023-05-23 11:24 | Obstetrical Progress Note ---
Date of Service May 23, 2023 Assessment & Plan Admission and Anticipated Discharge Date Admission Date: May 20, 2023 Subjective Patient is seen and examined. She feels well, no complaints. Pain is under control with oral meds. Ambulating without dizziness Voiding without difficulty Tolerating regular diet with out N&V Flatus + Bleeding is minimal No fever/ chills/ CP/ SOB/ N&V/ Leg pain Breast and bottle feeding without problems Vital Signs Temp Pulse Pulse Resp BP BP Pulse Ox 05/23/23 08:00 36.9 C 105 H 18 134/84 97 05/23/23 03:15 136/73 05/22/23 23:46 37.0 C 102 H 20 142/81 H 96 05/22/23 20:27 36.7 C 112 H 20 149/82 H 98 05/22/23 18:00 36.6 C 97 H 22 112/71 97 05/22/23 13:09 36.6 C 90 22 101/63 97 O2 Del Method 05/23/23 08:00 Room Air 05/23/23 03:15 05/22/23 23:46 Room Air 05/22/23 20:27 Room Air 05/22/23 18:00 Room Air 05/22/23 13:09 Room Air Intake and Output 05/22/23 05/23/23 05/23/23 22:59 06:59 14:59 Output Total 1400 / 1640 Balance -1400 / -1640 Output: Urine 900 / 900 Urine Amount (Catheter) 500 / 740 Bean/Indwelling 500 / 740 PE: General: Alert, orientedx3, NAD CVS: S1S2 RRR Lungs; CTAB Abd: soft, NT, ND, BS+, fundus firm, below Umbilicus Incision/ PETER Dressing: Clean, dry, intact Perineum intact, Lochia rubra minimal Ext; NT, 2+ edema BL, homans sign neg/ neg AP: 37 yo s/p C Section, pod# 2 VSS Afebrile doing well Baby is in nurserY for IVF Continue routine postop care Encourage ambulation, PO intake All questions were answered D/C home tomorrow Results & Data Vital Signs (Past 12 Hours) Vital Signs Temp Pulse Pulse Resp BP BP Pulse Ox 05/23/23 08:00 36.9 C 105 H 18 134/84 97 05/23/23 03:15 136/73 05/22/23 23:46 37.0 C 102 H 20 142/81 H 96 O2 Del Method 05/23/23 08:00 Room Air 05/23/23 03:15 05/22/23 23:46 Room Air
[2023-05-23] MEDS ORDERED: bisacodyL 5 MG TABEC PO SCH (20:00)
[2023-05-24] MEDS ORDERED: bisacodyL 10 MG SUPP PR PRN (00:41)
[2023-05-24] MEDS: IBUPROFEN 600 MG TAB PO PRN ×5 (01:18→18:10)
[2023-05-24] MEDS: oxyCODONE/ACETAMINOPHEN 5mg/325mg TAB PO PRN ×5 (01:18→18:12)
[2023-05-24 06:25] LABS: Hematocrit (blood only) 26.8 % (37.0-47.0); Hemoglobin 8.8 g/dl (12.0-16.0)
[2023-05-24] MEDS: SIMETHICONE 80 MG CHEW PO SCH ×4 (08:14→20:14)
[2023-05-24] MEDS: LABETALOL HCL 100 MG TAB PO SCH ×2 (08:15→20:14)
[2023-05-24] MEDS: PRENATAL VITAMIN 1 TAB PO SCH (08:15)
[2023-05-24] MEDS: DOCUSATE SODIUM 100 MG CAP PO SCH ×2 (08:15→20:14)
[2023-05-24] MEDS: SERTRALINE HCL 50 MG TABLET PO SCH (08:15)
[2023-05-24] MEDS: ASCORBIC ACID 500 MG TAB PO SCH (08:15)
[2023-05-24] MEDS: FERROUS SULFATE 325 MG TAB PO SCH (08:17)
[2023-05-24] MEDS: MAGNESIUM HYDROXIDE SUSP 30 ML UDC PO PRN (08:25)
--- NOTE | 2023-05-24 09:53 | Obstetrical Progress Note ---
Date of Service May 24, 2023 Subjective Ambulation: ambulating normally Voiding: no voiding problems Passing Gas:: Yes Diet Tolerance:: regular diet Lochia:: Small Feeding Type:: breast feeding Current Pain Level(1-10): 0 doing well. wants to stay since baby not being discharged today. Physical Exam Constitutional WD/WN, vitals as above Gastrointestinal (Abdomen) Inspection/Auscultation: abdomen normal to inspection and + abdominal surgical incision Musculoskeletal Extremities: extremities normal to inspection Skin no rashes, warm and dry Neurologic patellar DTR's 2+ bilat, sensation intact Results & Data Vital Signs (Past 12 Hours) Vital Signs Temp Pulse Pulse Resp BP BP Pulse Ox 05/24/23 08:10 36.8 C 98 H 18 126/90 97 05/23/23 23:30 36.7 C 88 18 114/71 97 O2 Del Method 05/24/23 08:10 Room Air 05/23/23 23:30 Room Air Laboratory Results 05/20/23 05/20/23 05/20/23 07:57 09:04 11:58 WBC 10.56 RBC 3.92 L Hgb 11.8 L Hct 35.0 L MCV 89.3 MCH 30.1 MCHC 33.7 RDW Std Deviation 48.7 H RDW Coeff of Aaliyah 15.2 H Plt Count 342 MPV 9.5 Immature Gran % (Auto) Neut % (Auto) Lymph % (Auto) [place] % (Auto) Eos % (Auto) Baso % (Auto) Neut # (Auto) Lymph # (Auto) [place] # (Auto) Eos # (Auto) Baso # (Auto) Immature Gran # (Auto) PT 9.8 INR 0.9 APTT 26 PTT Ratio 0.9 Sodium 135 L Potassium 4.0 Chloride 105 Carbon Dioxide 20 L Anion Gap 10 BUN 13 Creatinine 0.48 L Est Cr Clr Drug Dosing 229.9 Est GFR ( Amer) 143.2 Est GFR (Non-Af Amer) 123.6 BUN/Creatinine Ratio 27.1 H Glucose 103 H POC Glucose 117 H 83 Calcium 8.5 L Total Bilirubin 0.3 AST 14 ALT 9 Alkaline Phosphatase 94 Total Protein 6.8 Albumin 3.2 L Globulin 3.6 Albumin/Globulin Ratio 0.9 Ur Random Creatinine U Random Total Protein Protein/Creatinin Ratio Blood Type A Positive Blood Type Recheck Antibody Screen NEGATIVE Crossmatch See Detail 05/20/23 05/20/23 05/20/23 16:02 17:25 20:03 WBC RBC Hgb Hct MCV MCH MCHC RDW Std Deviation RDW Coeff of Aaliyah Plt Count MPV Immature Gran % (Auto) Neut % (Auto) Lymph % (Auto) [place] % (Auto) Eos % (Auto) Baso % (Auto) Neut # (Auto) Lymph # (Auto) [place] # (Auto) Eos # (Auto) Baso # (Auto) Immature Gran # (Auto) PT INR APTT PTT Ratio Sodium Potassium Chloride Carbon Dioxide Anion Gap BUN Creatinine Est Cr Clr Drug Dosing Est GFR ( Amer) Est GFR (Non-Af Amer) BUN/Creatinine Ratio Glucose POC Glucose 81 114 H Calcium Total Bilirubin AST ALT Alkaline Phosphatase Total Protein Albumin Globulin Albumin/Globulin Ratio Ur Random Creatinine U Random Total Protein Protein/Creatinin Ratio Blood Type Blood Type Recheck A Positive Antibody Screen Crossmatch 05/20/23 05/21/23 05/21/23 Unknown 00:01 04:05 WBC RBC Hgb Hct MCV MCH MCHC RDW Std Deviation RDW Coeff of Aaliyah Plt Count MPV Immature Gran % (Auto) Neut % (Auto) Lymph % (Auto) [place] % (Auto) Eos % (Auto) Baso % (Auto) Neut # (Auto) Lymph # (Auto) [facility] # (Auto) Eos # (Auto) Baso # (Auto) Immature Gran # (Auto) PT INR APTT PTT Ratio Sodium Potassium Chloride Carbon Dioxide Anion Gap BUN Creatinine Est Cr Clr Drug Dosing Est GFR ( Amer) Est GFR (Non-Af Amer) BUN/Creatinine Ratio Glucose POC Glucose 75 91 Calcium Total Bilirubin AST ALT Alkaline Phosphatase Total Protein Albumin Globulin Albumin/Globulin Ratio Ur Random Creatinine 91.3 U Random Total Protein 20.1 H Protein/Creatinin Ratio 0.2 Blood Type Blood Type Recheck Antibody Screen Crossmatch 05/21/23 05/21/23 05/21/23 06:21 08:38 12:06 WBC 11.03 H RBC 4.06 L Hgb 12.4 Hct 37.3 MCV 91.9 MCH 30.5 MCHC 33.2 RDW Std Deviation 50.4 H RDW Coeff of Aaliyah 15.3 H Plt Count 329 MPV 9.6 Immature Gran % (Auto) 0.5 Neut % (Auto) 74.4 Lymph % (Auto) 17.0 [place] % (Auto) 7.3 Eos % (Auto) 0.5 Baso % (Auto) 0.3 Neut # (Auto) 8.21 H Lymph # (Auto) 1.87 [place] # (Auto) 0.80 H Eos # (Auto) 0.06 Baso # (Auto) 0.03 Immature Gran # (Auto) 0.06 PT INR APTT PTT Ratio Sodium 136 Potassium 3.9 Chloride 105 Carbon Dioxide 21 Anion Gap 10 BUN 13 Creatinine 0.52 L Est Cr Clr Drug Dosing 212.2 Est GFR ( Amer) 139.5 Est GFR (Non-Af Amer) 120.4 BUN/Creatinine Ratio 25.0 H Glucose 81 POC Glucose 92 74 Calcium 8.5 L Total Bilirubin 0.4 AST 17 ALT 9 Alkaline Phosphatase 93 Total Protein 6.6 Albumin 3.1 L Globulin 3.5 Albumin/Globulin Ratio 0.9 Ur Random Creatinine U Random Total Protein Protein/Creatinin Ratio Blood Type Blood Type Recheck Antibody Screen Crossmatch 05/21/23 05/21/23 05/21/23 15:57 16:21 20:30 WBC RBC Hgb Hct MCV MCH MCHC RDW Std Deviation RDW Coeff of Aaliyah Plt Count MPV Immature Gran % (Auto) Neut % (Auto) Lymph % (Auto) [facility] % (Auto) Eos % (Auto) Baso % (Auto) Neut # (Auto) Lymph # (Auto) [facility] # (Auto) Eos # (Auto) Baso # (Auto) Immature Gran # (Auto) PT INR APTT PTT Ratio Sodium Potassium Chloride Carbon Dioxide Anion Gap BUN Creatinine Est Cr Clr Drug Dosing Est GFR ( Amer) Est GFR (Non-Af Amer) BUN/Creatinine Ratio Glucose POC Glucose 65 L* 76 79 Calcium Total Bilirubin AST ALT Alkaline Phosphatase Total Protein Albumin Globulin Albumin/Globulin Ratio Ur Random Creatinine U Random Total Protein Protein/Creatinin Ratio Blood Type Blood Type Recheck Antibody Screen Crossmatch 05/23/23 05/24/23 06:35 05:45 WBC 10.69 RBC 3.18 L Hgb 9.5 L 8.8 L Hct 29.3 L 26.8 L MCV 92.1 MCH 29.9 MCHC 32.4 RDW Std Deviation 50.8 H RDW Coeff of Aaliyah 15.0 H Plt Count 266 MPV 9.4 Immature Gran % (Auto) 0.7 Neut % (Auto) 78.4 Lymph % (Auto) 13.5 [facility] % (Auto) 6.2 Eos % (Auto) 1.0 Baso % (Auto) 0.2 Neut # (Auto) 8.39 H Lymph # (Auto) 1.44 [place] # (Auto) 0.66 H Eos # (Auto) 0.11 Baso # (Auto) 0.02 Immature Gran # (Auto) 0.07 PT INR APTT PTT Ratio Sodium Potassium Chloride Carbon Dioxide Anion Gap BUN Creatinine Est Cr Clr Drug Dosing Est GFR ( Amer) Est GFR (Non-Af Amer) BUN/Creatinine Ratio Glucose POC Glucose Calcium Total Bilirubin AST ALT Alkaline Phosphatase Total Protein Albumin Globulin Albumin/Globulin Ratio Ur Random Creatinine U Random Total Protein Protein/Creatinin Ratio Blood Type Blood Type Recheck Antibody Screen Crossmatch
[2023-05-24] MEDS: OXYTOCIN 20 UNITS/LR 1,002 ML IV SCH ×2 (21:54→21:55)
[2023-05-25] MEDS: oxyCODONE/ACETAMINOPHEN 5mg/325mg TAB PO PRN ×4 (00:11→13:50)
[2023-05-25] MEDS: IBUPROFEN 600 MG TAB PO PRN ×4 (00:11→13:51)
--- NOTE | 2023-05-25 08:22 | Obstetrical Progress Note ---
Date of Service May 25, 2023 Subjective Ambulation: ambulating normally Voiding: no voiding problems Passing Gas:: Yes Diet Tolerance:: regular diet Lochia:: Small Feeding Type:: breast feeding Current Pain Level(1-10): 0 doing well. baby OK for d/c today. will go home today. Physical Exam Constitutional WD/WN, vitals as above Gastrointestinal (Abdomen) Inspection/Auscultation: abdomen normal to inspection and + abdominal surgical incision Musculoskeletal Extremities: extremities normal to inspection Skin no rashes, warm and dry Neurologic patellar DTR's 2+ bilat, sensation intact Psychiatric A+Ox3, euthymic affect Results & Data Vital Signs (Past 12 Hours) Vital Signs Temp Pulse Resp BP Pulse Ox O2 Del Method 05/25/23 04:50 83 133/83 05/24/23 23:50 36.8 C 103 H 20 146/84 H 97 Room Air Laboratory Results 05/20/23 05/20/23 05/20/23 07:57 09:04 11:58 WBC 10.56 RBC 3.92 L Hgb 11.8 L Hct 35.0 L MCV 89.3 MCH 30.1 MCHC 33.7 RDW Std Deviation 48.7 H RDW Coeff of Aaliyah 15.2 H Plt Count 342 MPV 9.5 Immature Gran % (Auto) Neut % (Auto) Lymph % (Auto) [place] % (Auto) Eos % (Auto) Baso % (Auto) Neut # (Auto) Lymph # (Auto) [place] # (Auto) Eos # (Auto) Baso # (Auto) Immature Gran # (Auto) PT 9.8 INR 0.9 APTT 26 PTT Ratio 0.9 Sodium 135 L Potassium 4.0 Chloride 105 Carbon Dioxide 20 L Anion Gap 10 BUN 13 Creatinine 0.48 L Est Cr Clr Drug Dosing 229.9 Est GFR ( Amer) 143.2 Est GFR (Non-Af Amer) 123.6 BUN/Creatinine Ratio 27.1 H Glucose 103 H POC Glucose 117 H 83 Calcium 8.5 L Total Bilirubin 0.3 AST 14 ALT 9 Alkaline Phosphatase 94 Total Protein 6.8 Albumin 3.2 L Globulin 3.6 Albumin/Globulin Ratio 0.9 Ur Random Creatinine U Random Total Protein Protein/Creatinin Ratio Blood Type A Positive Blood Type Recheck Antibody Screen NEGATIVE Crossmatch See Detail 05/20/23 05/20/23 05/20/23 16:02 17:25 20:03 WBC RBC Hgb Hct MCV MCH MCHC RDW Std Deviation RDW Coeff of Aaliyah Plt Count MPV Immature Gran % (Auto) Neut % (Auto) Lymph % (Auto) [place] % (Auto) Eos % (Auto) Baso % (Auto) Neut # (Auto) Lymph # (Auto) [place] # (Auto) Eos # (Auto) Baso # (Auto) Immature Gran # (Auto) PT INR APTT PTT Ratio Sodium Potassium Chloride Carbon Dioxide Anion Gap BUN Creatinine Est Cr Clr Drug Dosing Est GFR ( Amer) Est GFR (Non-Af Amer) BUN/Creatinine Ratio Glucose POC Glucose 81 114 H Calcium Total Bilirubin AST ALT Alkaline Phosphatase Total Protein Albumin Globulin Albumin/Globulin Ratio Ur Random Creatinine U Random Total Protein Protein/Creatinin Ratio Blood Type Blood Type Recheck A Positive Antibody Screen Crossmatch 05/20/23 05/21/23 05/21/23 Unknown 00:01 04:05 WBC RBC Hgb Hct MCV MCH MCHC RDW Std Deviation RDW Coeff of Aaliyah Plt Count MPV Immature Gran % (Auto) Neut % (Auto) Lymph % (Auto) [place] % (Auto) Eos % (Auto) Baso % (Auto) Neut # (Auto) Lymph # (Auto) [place] # (Auto) Eos # (Auto) Baso # (Auto) Immature Gran # (Auto) PT INR APTT PTT Ratio Sodium Potassium Chloride Carbon Dioxide Anion Gap BUN Creatinine Est Cr Clr Drug Dosing Est GFR ( Amer) Est GFR (Non-Af Amer) BUN/Creatinine Ratio Glucose POC Glucose 75 91 Calcium Total Bilirubin AST ALT Alkaline Phosphatase Total Protein Albumin Globulin Albumin/Globulin Ratio Ur Random Creatinine 91.3 U Random Total Protein 20.1 H Protein/Creatinin Ratio 0.2 Blood Type Blood Type Recheck Antibody Screen Crossmatch 05/21/23 05/21/23 05/21/23 06:21 08:38 12:06 WBC 11.03 H RBC 4.06 L Hgb 12.4 Hct 37.3 MCV 91.9 MCH 30.5 MCHC 33.2 RDW Std Deviation 50.4 H RDW Coeff of Aaliyah 15.3 H Plt Count 329 MPV 9.6 Immature Gran % (Auto) 0.5 Neut % (Auto) 74.4 Lymph % (Auto) 17.0 [place] % (Auto) 7.3 Eos % (Auto) 0.5 Baso % (Auto) 0.3 Neut # (Auto) 8.21 H Lymph # (Auto) 1.87 [place] # (Auto) 0.80 H Eos # (Auto) 0.06 Baso # (Auto) 0.03 Immature Gran # (Auto) 0.06 PT INR APTT PTT Ratio Sodium 136 Potassium 3.9 Chloride 105 Carbon Dioxide 21 Anion Gap 10 BUN 13 Creatinine 0.52 L Est Cr Clr Drug Dosing 212.2 Est GFR ( Amer) 139.5 Est GFR (Non-Af Amer) 120.4 BUN/Creatinine Ratio 25.0 H Glucose 81 POC Glucose 92 74 Calcium 8.5 L Total Bilirubin 0.4 AST 17 ALT 9 Alkaline Phosphatase 93 Total Protein 6.6 Albumin 3.1 L Globulin 3.5 Albumin/Globulin Ratio 0.9 Ur Random Creatinine U Random Total Protein Protein/Creatinin Ratio Blood Type Blood Type Recheck Antibody Screen Crossmatch 05/21/23 05/21/23 05/21/23 15:57 16:21 20:30 WBC RBC Hgb Hct MCV MCH MCHC RDW Std Deviation RDW Coeff of Aaliyah Plt Count MPV Immature Gran % (Auto) Neut % (Auto) Lymph % (Auto) [place] % (Auto) Eos % (Auto) Baso % (Auto) Neut # (Auto) Lymph # (Auto) [place] # (Auto) Eos # (Auto) Baso # (Auto) Immature Gran # (Auto) PT INR APTT PTT Ratio Sodium Potassium Chloride Carbon Dioxide Anion Gap BUN Creatinine Est Cr Clr Drug Dosing Est GFR ( Amer) Est GFR (Non-Af Amer) BUN/Creatinine Ratio Glucose POC Glucose 65 L* 76 79 Calcium Total Bilirubin AST ALT Alkaline Phosphatase Total Protein Albumin Globulin Albumin/Globulin Ratio Ur Random Creatinine U Random Total Protein Protein/Creatinin Ratio Blood Type Blood Type Recheck Antibody Screen Crossmatch 05/23/23 05/24/23 06:35 05:45 WBC 10.69 RBC 3.18 L Hgb 9.5 L 8.8 L Hct 29.3 L 26.8 L MCV 92.1 MCH 29.9 MCHC 32.4 RDW Std Deviation 50.8 H RDW Coeff of Aaliyah 15.0 H Plt Count 266 MPV 9.4 Immature Gran % (Auto) 0.7 Neut % (Auto) 78.4 Lymph % (Auto) 13.5 [place] % (Auto) 6.2 Eos % (Auto) 1.0 Baso % (Auto) 0.2 Neut # (Auto) 8.39 H Lymph # (Auto) 1.44 Garland # (Auto) 0.66 H Eos # (Auto) 0.11 Baso # (Auto) 0.02 Immature Gran # (Auto) 0.07 PT INR APTT PTT Ratio Sodium Potassium Chloride Carbon Dioxide Anion Gap BUN Creatinine Est Cr Clr Drug Dosing Est GFR ( Amer) Est GFR (Non-Af Amer) BUN/Creatinine Ratio Glucose POC Glucose Calcium Total Bilirubin AST ALT Alkaline Phosphatase Total Protein Albumin Globulin Albumin/Globulin Ratio Ur Random Creatinine U Random Total Protein Protein/Creatinin Ratio Blood Type Blood Type Recheck Antibody Screen Crossmatch
[2023-05-25] MEDS: SIMETHICONE 80 MG CHEW PO SCH ×2 (09:31→15:28)
[2023-05-25] MEDS: MAGNESIUM HYDROXIDE SUSP 30 ML UDC PO PRN (09:32)
[2023-05-25] MEDS: DOCUSATE SODIUM 100 MG CAP PO SCH (09:34)
[2023-05-25] MEDS: PRENATAL VITAMIN 1 TAB PO SCH (09:35)
[2023-05-25] MEDS: FERROUS SULFATE 325 MG TAB PO SCH (09:35)
[2023-05-25] MEDS: LABETALOL HCL 100 MG TAB PO SCH (09:37)
[2023-05-25] MEDS: ASCORBIC ACID 500 MG TAB PO SCH (09:38)
[2023-05-25] MEDS: SERTRALINE HCL 50 MG TABLET PO SCH (09:39)
--- NOTE | 2023-05-26 19:16 | Discharge Summary ---
Date of Service May 26, 2023 Admission HPI Per Admitting Provider patient admitted for induction of labor for obesity, GDM on insulin. Discharge Data Procedures Performed Operation Date: 05/21/23 23:30 Actual Procedures p Section in LD(Bilateral) - Tuan Goncalves MD Hospital Course (1) History of : (2) Gestational diabetes mellitus: (3) Preeclampsia: (4) Obesity affecting in third trimester: Plan follow up in the office to look at incision and remove PETER dresssing.
== END 2023-05-25 16:10 | disposition home health service (06) | DRG 788 ==
LOC: 4S1 07:34 → 4E2 05-22 03:51
DX: O24.424 Gestational diabetes mellitus in childbirth, insulin controlled; Z3A.37 37 weeks gestation of pregnancy; O99.214 Obesity complicating childbirth; O61.9 Failed induction of labor, unspecified; Z37.0 Single live birth; E66.9 Obesity, unspecified; O14.94 Unspecified pre-eclampsia, complicating childbirth